=== PATIENT | male | born 1965 | race Caucasian/White ===

== ENCOUNTER 2024-02-01 12:48 | Inpatient (IN) | payer MEDICAID, SELFPAY ==
[2024-02-01] VITALS (16 sets, daily range): BP systolic 116–139; BP diastolic 67–83; PULSE 67–83; RESP 8–22; TEMP 36.8–37.1; O2SAT 90–97; BMI 37.1
--- NOTE | 2024-02-01 13:14 | W.ED.GENADLT ---
HPI - General Adult General: Chief complaint: Weakness Stated complaint: ETOH;ABD/BACK PAIN Time Seen by Provider: 02/01/24 13:08 History of Present Illness: 58-year-old male patient comes in today for complaints of inability to walk. Patient is a chronic alcoholic with history heart disease, seizure episodes, and prior bowel obstruction. Patient's female significant other called EMS after finding patient lying in bed covered in his excrement. Patient is alert states that EMS was called to help him because he could not get up out of bed. Patient endorses his last known drink was this morning. Review of Systems General: Reports: 10 or more systems reviewed and unremarkable except in HPI and below Physical Exam Const: COMMON NORMALS: alert HENMT: COMMON NORMALS: normocephalic HEAD & SCALP: normocephalic Neck/C-Spine: COMMON NORMALS: full ROM Chest: COMMONS NORMALS: normal inspection of the chest Resp: AUSCULTATION: diminished lung sounds (Bases) Cardio: COMMON NORMALS: regular rate and regular rhythm RATE: regular rate RHYTHM: regular rhythm GI: AUSCULTATION: Yes normoactive bowel sounds PALPATION: Yes Firmness to palpation present (GI) and No Tenderness to palpation present (GI) Back/Pelvis: COMMON NORMALS: thoracic and lumbar spine normal to inspection OTHER: 2 areas of ecchymosis to the right flank Extremity: COMMON NORMALS: no pedal edema Neuro: SENSORIUM/ORIENTATION: Yes alert Psych: COMMON NORMALS: cooperative Skin: COMMON NORMALS: turgor normal GENERAL SKIN EXAM: turgor normal Course Vital Signs: Vital signs: Vital Signs Temperature 98.3 F 02/01/24 12:55 Pulse Rate 71 02/01/24 12:55 Blood Pressure 128/78 02/01/24 12:55 Pulse Oximetry 95 02/01/24 12:55 Oxygen Delivery Me thod Nasal Cannula 02/01/24 12:55 Oxygen Flow Rate 4 02/01/24 12:55 [facility] - General Adult Medical Decision Making 58-year-old male patient brought in by EMS today for concerns of inability to walk. Patient appears to have been in his own excrement for the last 2 days. Girlfriend had called EMS after finding him in the situation today. Patient is known history of alcoholism with his last drink this morning. Patient reports he is unable to walk which is why he is here. Patient is able to sit up in bed with minimal effort. Pulses are noted in bilateral feet. No significant edema. Patient's abdomen is rotund with normal active bowel sounds. Patient has some decreased air movement in the bases of his lung asher. Patient desaturates to 81% on room air. Vital signs note a blood pressure 120/78, pulse 71, respirations 18, temperature afebrile 98.3, oxygen saturation 95 on 4 L of nasal cannula oxygen. Differential diagnosis includes substance use disorder, malnutrition, pneumonia, CHF, PE. 1423, D-dimer is 10.59, CBC was unremarkable, lactic was 2.8. Chest x-ray was normal. EKG was unremarkable. Initial troponin was 15, BNP was 78, CPK was 178. Due to the elevated D-dimer CTA of the chest was performed for further evaluation of hypoxia and abnormal lab. 1619, notified by Dr. Yvette Ruiz, radiologist, patient has a large burden of pulmonary emboli in his lung asher without heart strain. Talked with patient about his medication history patient states that he is supposed to be on Eliquis for blood clots but has not been taking the medication for the past 2 to 3 days. Patient also has a history of using baclofen and acetaminophen. Patient talks of no other routine medicines. Patient appears resting well at this time. Patient reports no pain. Reviewed this with Dr. Be who recommended consultation with hospitalist for admission. 1629, discussed patient with Dr. Boyer for who agreed to admission to CSU for monitoring of PE and hypoxia. Lab Data 02/01/24 13:25 02/01/24 13:25 Radiology Impressions Chest X-Ray 02/01/24 13:15 IMPRESSION: No acute findings. Laboratory Results WBC 7.56 10^3/uL (3.29-11.43) 02/01/24 13:25 RBC 4.86 10^6/uL (3.85-5.65) 02/01/24 13:25 Hgb 14.80 g/dL (11.27-16.99) 02/01/24 13:25 Hct 43.5 % (37-53) 02/01/24 13:25 MCV 89.5 fl (82-101) 02/01/24 13:25 MCH 30.5 pg (27-33) 02/01/24 13:25 MCHC 34.0 g/dL (30-55) 02/01/24 13:25 RDW 18.1 % (12.1-15.1) H 02/01/24 13:25 Plt Count 141 10^3/cmm (157-399) L 02/01/24 13:25 MPV 10.4 fL (7.4-10.4) 02/01/24 13:25 Neut % (Auto) 51.2 % 02/01/24 13:25 Lymph % (Auto) 30.8 % 02/01/24 13:25 Dawson % (Auto) 12.6 % 02/01/24 13:25 Eos % (Auto) 0.4 % 02/01/24 13:25 Baso % (Auto) 1.3 % 02/01/24 13:25 Neut # (Auto) 3.87 10^3/uL (1.8-7.7) 02/01/24 13:25 Lymph # (Auto) 2.3 10^3/uL (0.8-4.8) 02/01/24 13:25 Dawson # (Auto) 1.0 10^3/uL (0.2-0.9) H 02/01/24 13:25 Eos # (Auto) 0.0 10^3/uL (0.0-0.8) 02/01/24 13:25 Baso # (Auto) 0.1 10^3/uL (0.0-0.1) 02/01/24 13:25 Nucleated RBC % (auto) 0.5 % 02/01/24 13:25 Nucleated RBCs # 0.0 /100WBC 02/01/24 13:25 D-Dimer 10.59 ug/mLFEU (0-0.59) H 02/01/24 13:25 Sodium 142 mmol/L (136-145) 02/01/24 13:25 Potassium 3.7 mmol/L (3.5-5.1) 02/01/24 13:25 Chloride 99 mmol/L (98-107) 02/01/24 13:25 Carbon Dioxide 23 mmol/L (22-29) 02/01/24 13:25 Anion Gap 23.7 (5-19) H 02/01/24 13:25 BUN 7 mg/dL (6-20) 02/01/24 13:25 Creatinine 0.4 mg/dL (0.7-1.2) L 02/01/24 13:25 GFR Calculation 221.7 mL/min (90-130) H 02/01/24 13:25 Glucose 82 mg/dL (65-115) 02/01/24 13:25 Calculated Osmolality 291 mOsm/kg (285-295) 02/01/24 13:25 Lactic Acid 2.8 mmol/L (0.5-2.2) H 02/01/24 13:25 Calcium 8.1 mg/dL (8.5-10.5) L 02/01/24 13:25 Magnesium 1.9 mg/dL (1.7-2.3) 02/01/24 13:25 Total Bilirubin 1.2 mg/dL (0.15-1.2) 02/01/24 13:25 AST 338 U/L (0-40) H 02/01/24 13:25 ALT 145 U/L (0-41) H 02/01/24 13:25 Alkaline Phosphatase 217 U/L (40-130) H 02/01/24 13:25 Creatine Kinase 178 U/L (39-308) 02/01/24 13:25 Troponin T Baseline 15 ng/L (0-15) 02/01/24 13:25 Troponin T 120 Minute 13.78 ng/L (0-15) 02/01/24 15:25 Delta Troponin T -1.22 ABS# (0-10) L 02/01/24 15:25 C-Reactive Protein 9.2 mg/L (0.0-4.9) H 02/01/24 13:25 NT-Pro-B Natriuret Pep 78 pg/mL (0-125) 02/01/24 13:25 Total Protein 7.0 g/dL (6.6-8.7) 02/01/24 13:25 Albumin 3.9 g/dL (3.5-5.2) 02/01/24 13:25 Globulin 3.1 g/dL (1.3-4.6) 02/01/24 13:25 Vitamin B12 1479 pg/mL (232-1245) H 02/01/24 13:25 Ethyl Alcohol 372 mg/dL (0-10) H* 02/01/24 13:25 All radiology interpretation(s) finalized by discharge EKG Data EKG 1: EKG interpretation date: 02/01/24 EKG interpretation time: 13:47 Prior EKG tracings: not available for review Interpretation: EKG shows a sinus rhythm with a regular rate at [address] elevation or ectopy is noted. No prior exam was available for comparison. Computer generated interpretation: Chest X-Ray 02/01/24 13:15 IMPRESSION: No acute findings. Sinus rhythm, 60 bpm, right bundle branch block, abnormal EKG, unconfirmed report Discharge Plan Discharge Patient Disposition: Admitted As Inpatient Clinical Impression: Hypoxia Pulmonary embolism Qualifiers: Pulmonary embolism type: multiple subsegmental (without acute cor pulmonale) Qualified Code(s): I26.94 - Multiple subsegmental pulmonary emboli without acute cor pulmonale Condition: Stable Coding Level of Care Code ED [employer]
--- NOTE | 2024-02-01 13:15 | XRR_ITS ---
PROCEDURE INFORMATION: Exam: XR Chest Exam date and time: 02/01/2024 1:46 PM Age: 58 years old Clinical indication: Cough TECHNIQUE: Imaging protocol: Radiologic exam of the chest. Views: 1 view. COMPARISON: No relevant prior studies available. FINDINGS: Lungs: Unremarkable. No consolidation. Pleural spaces: Unremarkable. No pleural effusion. No pneumothorax. Heart/Mediastinum: Unremarkable. No cardiomegaly. Bones/joints: Deformity from multiple right rib fractures, presumably old based on history. XR/XR chest 1V portable 90017 IMPRESSION: No acute findings.
--- NOTE | 2024-02-01 13:16 | CT_ITS ---
WS: [id number] CT HEAD NONCONTRAST HISTORY: weakness, etoh TECHNIQUE: Contiguous axial imaging performed through the brain in 2.5 mm imaging. Bone and soft tiss ue windows. Sagittal and coronal reformats reviewed. All CT scans at [facility] use at least one of these dose optimization techniques: automated exposure control; mA and/or kV adjustment per pa tient size (includes targeted exams where dose is matched to clinical indication); or iterative recon struction. DLP: 1184.59 mGy.cm COMPARISON: None available. No acute intracranial hemorrhage, midline shift or mass effect. No atrophy or prior infarcts or herniation. Ventricles: Normal size with no hydrocephalus. No inferior displacement of the cerebellar tonsils. Paranasal sinuses: As visualized are clear. Mastoid air cells: Well pneumatized. Calvarium and scalp: Skull is intact with no soft tissue edema or swelling. IMPRESSION: Negative head CT.
--- NOTE | 2024-02-01 13:32 | ECG_ITS ---
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 Measurements Intervals [place] Rate: 60 P: 128 NV: 194 QRS: 55 QRSD: 125 T: 107 QT: 443 QTc: 445 Interpretive Statements SINUS RHYTHM RIGHT BUNDLE BRANCH BLOCK [120+ ms QRS DURATION, UPRIGHT V1, 40+ ms S IN I/aVL/V4/V5/V6] No previous ECG available for comparison Electronically Signed On 02-02-2024 17:03:25 CDT by Parth Allan M.D. [email or web address]/store/[id number]
[2024-02-01 13:49] LABS: Basophils # 0.1 10^3/uL (0.0-0.1); Basophils % 1.3 %; Eosinophils % 0.4 %; Hematocrit 43.5 % (37-53); Lymphocytes # 2.3 10^3/uL (0.8-4.8); Lymphocytes % 30.8 %; Mean Corpuscular Hemoglobin 30.5 pg (27-33); Mean Corpuscular Volume 89.5 fl (82-101); Mean Platelet Volume 10.4 fL (7.4-10.4); Monocytes % 12.6 %; Neutrophils # 3.87 10^3/uL (1.8-7.7); Neutrophils % 51.2 %; Nucleated Red Blood Cells % 0.5 %; Platelet Count 141 10^3/cmm (157-399); Red Blood Count 4.86 10^6/uL (3.85-5.65); Red Cell Distribution Width 18.1 % (12.1-15.1); White Blood Count 7.56 10^3/uL (3.29-11.43)
[2024-02-01] MEDS: sodium chloride 0.9% 1,000 ML 999 ML IV (14:08)
[2024-02-01 14:10] LABS: Lactic Sepsis W/Reflex 2.8 mmol/L (0.5-2.2); Troponin(5th) Baseline 15 ng/L (0-15)
[2024-02-01 14:12] LABS: D Dimer 10.59 ug/mLFEU (0-0.59)
[2024-02-01 14:20] LABS: Alanine Aminotransferase 145 U/L (0-41); Albumin Level 3.9 g/dL (3.5-5.2); Alkaline Phosphatase 217 U/L (40-130); Blood Urea Nitrogen 7 mg/dL (6-20); C Reactive Protein 9.2 mg/L (0.0-4.9); Calcium 8.1 mg/dL (8.5-10.5); Carbon Dioxide 23 mmol/L (22-29); Chloride 99 mmol/L (98-107); Creatine Phosphokinase 178 U/L (39-308); Creatinine Clr Calc Pharmacy 246.3832; Globulin 3.1 g/dL (1.3-4.6); Glomerular Filtration Rate 221.7 mL/min (90-130); Glucose 82 mg/dL (65-115); Magnesium 1.9 mg/dL (1.7-2.3); NT Pro B Type Natriuretic Pept 78 pg/mL (0-125); Osmolality Calculated 291 mOsm/kg (285-295); Sodium 142 mmol/L (136-145); Total Bilirubin 1.2 mg/dL (0.15-1.2)
--- NOTE | 2024-02-01 14:22 | CT_ITS ---
WS: [id number] CT CHEST ANGIOGRAPHY WITH REFORMATS HISTORY: elevated d dimer, hypoxia TECHNIQUE: Contiguous axial images are obtained through the chest during arterial injection of intrav enous contrast. Images are reconstructed to evaluate the pulmonary arteries. MIP imaging also reviewe d. All CT scans at [facility] use at least one of these dose optimization techniques: automat ed exposure control; mA and/or kV adjustment per patient size (includes targeted exams where dose is matched to clinical indication); or iterative reconstruction. CONTRAST: Omnipaque 350; 100 mL IV. DLP: 50.77 mGy.cm COMPARISON: None available. Good opacification of the pulmonary arteries. There is no central pulmonary emboli. Beginning in the distal RIGHT main pulmonary artery there is partial filling defect. Pulmonary emboli extend into the upper and lower lobe lobar and segmental pulmonary arteries. Most significant embolic burden is in th e RIGHT lower lobe. There is no RIGHT heart strain. No pericardial effusion. Wedge-shaped opacificati on LEFT upper lobe may be developing pulmonary infarct. No mass or pulmonary nodule. Mild atherosclerosis aorta. No adenopathy. Severe hepatic steatosis. There is marked low-attenuation throughout the liver. No duct dilatation. N o bone destruction. Multiple right-sided healed rib fractures. IMPRESSION: 1. Moderate pulmonary embolic burden. Pulmonary emboli involving all lobes. Greatest amount of embol ic burden is in the RIGHT lower lobe pulmonary artery. 2. No RIGHT heart strain. 3. Severe hepatic steatosis. Notified EMIR Qureshi at 02/01/2024 4:04 PM.
[2024-02-01 14:32] LABS: Anion Gap 23.7 (5-19); Aspartate Amino Transferase 338 U/L (0-40); Potassium 3.7 mmol/L (3.5-5.1)
[2024-02-01 14:42] LABS: Alcohol Level 372 mg/dL (0-10)
[2024-02-01 14:53] LABS: Vitamin B12 1479 pg/mL (232-1245)
[2024-02-01] MEDS: cyanocobalamin 1,000 mcg/mL SDV 1000 MCG IM (15:28)
[2024-02-01 15:31] LABS: Reflex Lactate Order REFLEX LACTIC ORDERD
[2024-02-01] MEDS: iohexol 350 mg/mL 500 mL Btl (per mL) IV (15:41)
--- NOTE | 2024-02-01 15:58 | ECG_ITS ---
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 Measurements Intervals [place] Rate: 64 P: 71 DE: 165 QRS: 147 QRSD: 124 T: 80 QT: 432 QTc: 447 Interpretive Statements SINUS RHYTHM POSSIBLE RIGHT VENTRICULAR HYPERTROPHY [SOME/ALL OF: PROMINENT R IN V1, LATE TRANSITION, RAD, [place], SSS] Compared to ECG 02/01/2024 13:44:14 Right bundle-branch block no longer present Electronically Signed On 02-02-2024 17:08:28 CDT by Parth Allan M.D. [email or web address]/store/[id number]
[2024-02-01 16:01] LABS: Troponin 5 2HR 13.78 ng/L (0-15)
[2024-02-01 16:02] LABS: Troponin 5 2HR Delta -1.22 ABS# (0-10)
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
--- NOTE | 2024-02-01 16:48 | USCV_ITS ---
Mor Ohara Age: 58 Gender: M : 1965 Exam Date: 02/01/2024 19:19 Ordering Phys: Nancy Seth MD Technologist: KATHERINE Exam Location: [facility] Indication: multiple pulmonary emboli. chronic ETOH abuser, history of seizures, history of neuropsych. BP: 120 / 78 HR: 70 Rhythm: Sinus Technical Quality: Adequate MEASUREMENTS (Male / Female) Normal Values 2D ECHO LV Diastolic Diameter PLAX 4.7 cm 4.2 - 5.9 / 3.9 - 5.3 cm LV Systolic Diameter PLAX 2.8 cm IVS Diastolic Thickness 1.2 cm 0.6 - 1.0 / 0.6 - 0.9 cm IVS Systolic Thickness 1.4 cm LVPW Diastolic Thickness 1.5 cm 0.6 - 1.0 / 0.6 - 0.9 cm LVPW Systolic Thickness 1.7 cm LVOT Diameter 2.0 cm LV Ejection Fraction 2D Teich 70.5 % LV Ejection Fraction MOD 2C 56.4 % LV Ejection Fraction 2C AL 55.6 % LA Diameter 4.6 cm LA Sys Volume AL 70.6 cm cubed Aorta at Sinotubular Diameter 3.3 cm IVC Diameter 1.3 cm M-MODE LA Ao Ratio MM 1.2 AV Cusp Separation MM 2.1 cm DOPPLER AV Peak Velocity 168.0 cm/s LVOT Peak Velocity 123.0 cm/s AV Area Cont Eq vti 2.3 cm squared AV Area Cont Eq pk 2.3 cm squared MV Peak Velocity 94.0 cm/s MV Area PHT 4.2 cm squared Mitral E to A Ratio 0.8 TV Peak Velocity 217.0 cm/s TR Peak Velocity 217.0 cm/s TR Peak Gradient 18.8 mmHg TV Peak E Velocity 45.0 cm/s Right Atrial Pressure 3.0 mmHg Pulmonary Artery Systolic Pressu 21.8 mmHg PV Peak Velocity 108.0 cm/s FINDINGS Left Ventricle Left ventricle is normal in size. LV systolic function is normal with EF of 55-60%. No regional wall motion abnormalities. Grade 1 diastolic dysfunction Right Ventricle Normal in size and function Right Atrium Normal in size Left Atrium Normal in size Mitral Valve Structurally normal mitral valve. Mild mitral regurgitation. Aortic Valve Structurally normal aortic valve. No significant stenosis or regurgitation. Tricuspid Valve Mild tricuspid regurgitation. Insufficient TR jet to calculate RVSP. Pulmonic Valve Not well visualized Pericardium Normal Aorta Normal in size IVC Appears to be normal CONCLUSIONS LV systolic function is normal with EF of 55-60% Grade 1 diastolic dysfunction Mild mitral regurgitation Mild tricuspid regurgitation No comparison studies are available. Parth Allan MD (Electronically Signed) Final Date: 02 February 2024 14:56 S
--- NOTE | 2024-02-01 16:53 | USR_ITS ---
PROCEDURE INFORMATION: Exam: US Duplex Lower Extremity Veins, Bilateral Exam date and time: 02/01/2024 5:12 PM Age: 58 years old Clinical indication: Other: Pe; Additional info: Multiple pulmonary embolism TECHNIQUE: Imaging protocol: Real-time duplex ultrasound of the bilateral extremities with 2-D perdomo scale, color Doppler flow and spectral waveform analysis including responses to compression and other maneuvers (when performed) with image documentation. Complete exam focused on the lower extremity veins. COMPARISON: No relevant prior studies available. FINDINGS: Right deep veins: Unremarkable. The common femoral, femoral, proximal profunda femoral and popliteal veins as well as the visualized deep veins of the lower leg are patent without thrombus. Normal Doppler waveforms. Normal compressibility and/or augmentation response. Left deep veins: Unremarkable. The common femoral, femoral, proximal profunda femoral and popliteal veins are patent as well as the visualized deep veins of the lower leg without thrombus. Normal Doppler waveforms. Normal compressibility and/or augmentation response. Superficial veins: Greater saphenous veins at the saphenofemoral junctions are patent bilaterally without thrombus. Soft tissues: Unremarkable. US/CV venous duplex [facility] [id number] IMPRESSION: No evidence of deep vein thrombosis.
[2024-02-01 17:10] LABS: Bilirubin Urine Neg (Negative); Blood Urine Neg (Negative); Glucose Urine UA Norm (Normal); Ketones Urine 1+ (Negative); Nitrate Urine Negative (Negative); Protein Urine 1+ (Negative); Urine Appearance Clear (CLEAR); Urine Color Yellow (Yellow); pH Urine 7 (5-7)
[2024-02-01 17:11] LABS: Add Urine Microscopic? YES; Leukocyte Esterase Urine Negative (Negative); Urobilinogen Urine 4 mg/dL (Negative)
[2024-02-01 17:18] LABS: Amphetamines Screen Urine Negative (Negative); Barbiturates Screen Urine Negative (Negative); Benzodiazepines Screen Urine Negative (Negative); Cocaine Screen Urine Negative (Negative); Opiate Screen Urine Negative (Negative); PCP Screen Urine Negative (Negative); THC Screen Urine Negative (Negative)
[2024-02-01 17:24] LABS: Add Urine Culture? No; RBC Urine RARE /hpf (0-2); Squamous Epithelial Cell Urine 0-4 /hpf (0-5); WBC Urine RARE /hpf (0-5)
[2024-02-01 17:35] LABS: INR 0.97 (0.8-1.2)
[2024-02-01 17:36] LABS: Partial Thromboplastin Time 28.2 SECONDS (23.9-36.7)
[2024-02-01 17:49] LABS: Lactic Acid level (Lactate) 2.7 mmol/L (0.5-2.2)
[2024-02-01] MEDS: enoxaparin 120 mg/0.8 mL Syringe 110 MG SUBCUT (18:35)
[2024-02-01] MEDS: dextrose 5%-sod chloride 0.45% 1,000 ML 80 ML IV (18:36)
[2024-02-01] MEDS: famotidine 20 mg/2 mL INJ IVP (18:36)
[2024-02-01 19:38] LABS: Troponin 5 6HR 16.33 ng/L (0-15); Troponin 5 6HR Delta 1.33 ng/L (0-12)
[2024-02-01] MEDS: baclofen 10 mg Tablet 20 MG PO (20:27)
[2024-02-01] MEDS: LORazepam 2 mg/mL INJ 1 mL IVP (20:27)
[2024-02-01] MEDS: gabapentin 100 mg Capsule PO (20:27)
[2024-02-01 20:50] LABS: Glucose Point of Care 135 mg/dL (70-110)
[2024-02-01] MEDS: mirtazapine 15 mg Tablet PO (22:32)
[2024-02-02] VITALS (10 sets, daily range): BP systolic 126–151; BP diastolic 80–96; PULSE 78–96; RESP 17–20; TEMP 36.5–37.9; O2SAT 91–98
[2024-02-02] MEDS: LORazepam 2 mg/mL INJ 1 mL IVP ×2 (02:17→03:57)
[2024-02-02 04:57] LABS: Basophils # 0.1 10^3/uL (0.0-0.1); Basophils % 1.1 %; Eosinophils # 0.1 10^3/uL (0.0-0.8); Eosinophils % 0.7 %; Hematocrit 37.5 % (37-53); Lymphocytes # 2.4 10^3/uL (0.8-4.8); Lymphocytes % 23.7 %; Mean Corpuscular HGB Conc 33.9 g/dL (30-55); Mean Corpuscular Hemoglobin 30.8 pg (27-33); Mean Platelet Volume 10.7 fL (7.4-10.4); Monocytes # 1.3 10^3/uL (0.2-0.9); Monocytes % 12.7 %; Neutrophils # 6.04 10^3/uL (1.8-7.7); Neutrophils % 59.1 %; Nucleated Red Blood Cells # 0.1 /100WBC; Nucleated Red Blood Cells % 1.1 %; Platelet Count 137 10^3/cmm (157-399); Red Blood Count 4.12 10^6/uL (3.85-5.65); Red Cell Distribution Width 18.4 % (12.1-15.1); White Blood Count 10.22 10^3/uL (3.29-11.43)
[2024-02-02 05:08] LABS: INR 0.99 (0.8-1.2)
[2024-02-02 05:15] LABS: Alanine Aminotransferase 105 U/L (0-41); Albumin Level 3.4 g/dL (3.5-5.2); Alkaline Phosphatase 178 U/L (40-130); Anion Gap 16.4 (5-19); Aspartate Amino Transferase 205 U/L (0-40); Blood Urea Nitrogen 8 mg/dL (6-20); Calcium 8.6 mg/dL (8.5-10.5); Carbon Dioxide 24 mmol/L (22-29); Chloride 99 mmol/L (98-107); Creatinine Clr Calc Pharmacy 199.6998; Globulin 2.5 g/dL (1.3-4.6); Glomerular Filtration Rate 171.4 mL/min (90-130); Glucose 138 mg/dL (65-115); Magnesium 1.4 mg/dL (1.7-2.3); Osmolality Calculated 283 mOsm/kg (285-295); Potassium 3.4 mmol/L (3.5-5.1); Sodium 136 mmol/L (136-145); Total Bilirubin 1.1 mg/dL (0.15-1.2); Total Protein 5.9 g/dL (6.6-8.7)
[2024-02-02 05:16] LABS: Lactic Sepsis W/Reflex 1.3 mmol/L (0.5-2.2)
[2024-02-02 05:21] LABS: NT Pro B Type Natriuretic Pept 93 pg/mL (0-125)
[2024-02-02] MEDS: famotidine 20 mg/2 mL INJ IVP ×2 (05:35→18:53)
[2024-02-02] MEDS: enoxaparin 120 mg/0.8 mL Syringe 110 MG SUBCUT ×2 (05:35→18:51)
[2024-02-02] MEDS: dextrose 5%-sod chloride 0.45% 1,000 ML 80 ML IV ×2 (06:40→20:38)
--- NOTE | 2024-02-02 09:05 | PC.CHAP ---
Pastoral Care Encounter/Spiritual Assessment Type of Contact [] Declined cloud physicist visit [] Patient/Family/Request visit [] Outpatient visit [] Follow-up visit [] Physician referral [] Code/Alert [] Routine visit [] Staff referral [] Actively dying [] Patient sleeping [] Family support [] [] Out of room [] Palliative care [] [x] Receiving care in room [] Pre-surgical visit [] Trauma [] Long length of stay [] ICU visit [] Other: Relational/Emotional Strength [] Patient feels connected with others/family/visitors/staff [] Distress [] Loneliness/isolation [] Abandonment Spirituality of Patient [] Person of Renetta [] Attends Voodoo of their Renetta [] Believes in Prayer [] Reads Bible or Christian materials [] There are Spiritual issues to be addressed [employer] Interventions [] Prayer [] Active listening [] Non-anxious presence [] Spiritual/emotional support [] Crisis/trauma care [] Spiritual counseling [] Bereavement support [] Provided bereavement packet [] Provided Bible/devotional materials [] Provided toy/stuffed animal, coloring book to patient or family member [] Provided Communion [] Anointing/[place] [] Salvation [] Completed spiritual assessment [] Other: Impact on Illness or Injury [] Angry [] Fearful [] Anxious [] Often cries [] Exhaustion [] Unable to work [] Unable to attend jainism [] Unable to walk/stand [] Unable to read [] Unable to drive [] Unable to eat/drink [] Unable to sleep [] Unable to be with family [] Patient intubated [] Other: Summary Time spent with patient
[2024-02-02] MEDS: ARIPiprazole 10 mg Tablet 5 MG PO (09:48)
[2024-02-02] MEDS: gabapentin 100 mg Capsule PO ×3 (09:48→20:39)
[2024-02-02] MEDS: ferrous sulfate EC 325 mg Tablet PO ×2 (09:48→18:52)
[2024-02-02] MEDS: magnesium oxide 400 mg tablet PO (09:48)
[2024-02-02] MEDS: baclofen 10 mg Tablet 20 MG PO ×3 (09:48→20:40)
[2024-02-02] MEDS: thiamine 100 mg Tablet PO (09:48)
[2024-02-02] MEDS: folic acid 1 mg Tablet PO (09:48)
[2024-02-02] MEDS: POLYMYXIN B EYE-BOTH ×2 (09:49→18:53)
[2024-02-02] MEDS: potassium chloride ER 20 mEq Tablet 40 MEQ PO ×2 (09:49→15:09)
[2024-02-02] MEDS: BACITRACIN EYE-BOTH ×2 (09:49→18:53)
[2024-02-02] MEDS: multivitamin therapeutic Tablet 1 TAB PO (09:49)
--- NOTE | 2024-02-02 11:57 | P.PN_ITS ---
Subjective 2 Subjective: No acute overnight events noted, he was seen bedside this morning, unable to open his left eye and found to have bilateral eye redness. He also complained of right-sided sciatica pain, which is his baseline Medications: Reviewed: Yes Vitals/I&O/Wt Last Vital Signs Temp 98.3 F 02/02/24 08:00 Pulse 80 02/02/24 09:23 Resp 20 H 02/02/24 08:00 BP 129/80 02/02/24 08:00 Pulse Ox 98 02/02/24 09:23 O2 Del Method Nasal Cannula 02/02/24 09:23 O2 Flow Rate 7 02/02/24 09:23 02/01/24 02/02/24 02/02/24 22:59 06:59 14:59 Intake Total 1440 / 1440 1685.333 / 3125.333 120 / 120 Output Total 300 / 300 Balance 1440 / 1440 1385.333 / 2825.333 120 / 120 Weight last 48 hrs Weight 113.942 kg Weight 110.767 kg Weight 111.13 kg Physical Exam 2 Narrative: He is alert awake oriented x 3, not in acute distress, poor hygiene, looks disheveled HEENT-bilateral eye redness present, yellow discharge in both eyes seen Chest air entry equal on both sides, occasional rhonchi present Cardiovascular normal heart sounds no murmurs, Abdomen soft nontender nondistended normal bowel sounds Extremities no edema present Data 02/02/24 04:47 02/02/24 04:47 Micro: Microbiology 02/01/24 13:25 Blood Culture - Preliminary Blood SPECIMEN COLLECTED 02/01/24 13:40 Blood Culture - Preliminary Blood SPECIMEN COLLECTED A&P Assessment and plan (1) Pulmonary embolism: Admitted for multiple pulmonary embolism on existing anticoagulant, Elquis therapy But in view of chronic alcohol abuse and questionable compliance with anticoagulant therapy , patient not a candidate for warfarin therapy and regular INR checkups . Hence will start on therapeutic subcutaneous Lovenox 110 mg twice a day Check PT/INR daily, target INR is 2 Discontinue Eliquis for now, once the INR is 2 will switch to Eliquis 10 mg p.o. twice daily for 5 days And then 5 mg p.o. twice daily. Recheck PT/INR in a.m. Duplex bilateral lower extremity negative for DVT Qualifiers: Pulmonary embolism type: multiple subsegmental (without acute cor pulmonale) Qualified Code(s): I26.94 - Multiple subsegmental pulmonary emboli without acute cor pulmonale (2) Hypoxia: Hypoxia likely secondary to multiple pulmonary embolism. Admit to CSU Will give supplemental oxygen to keep saturation more than 90%. Continuous cardiac monitoring Follow-up 2D echo (3) Alcohol abuse: Educated and counseled about alcohol cessation and smoking cessation (4) Elevated liver function tests: Secondary to chronic alcohol abuse, improving Will monitor for now Patient educated and counseled about alcohol cessation (5) Alcoholic ketoacidosis: Will give IV fluids normal saline at 80 mL/h p.o. multivitamin daily P.o. thiamine 100 mg daily P.o. folic acid 1 mg daily Monitor for alcohol withdrawal symptoms [facility] protocol in place. (6) D-dimer, elevated: Secondary to pulmonary embolism (7) Cigarette smoker: Counseled and educated about smoking cessation (8) Conjunctivitis due to adenovirus, both eyes: Polymyxin/neomycin ointment to be applied to both eyes 3 times a day Attestations 2 Medical Necessity Statement*: He needs continued hospitalization more than 2 midnights for anticoagulation for multiple PE with subcutaneous Lovenox until INR is 2. Time Spent in Patient Care: 15 minutes Coding Level of Care Code Acute Code for [facility] Fwd Diagnoses Pulmonary embolism I26.94 Pulmonary embolism type: multiple subsegmental (without acute cor pulmonale) Hypoxia R09.02 Alcohol abuse F10.10 Elevated liver function tests R79.89 Alcoholic ketoacidosis E87.29 D-dimer, elevated R79.89 Cigarette smoker F17.210 Conjunctivitis due to adenovirus, both eyes B30.1 Time Spent (min) 15
[2024-02-02] MEDS: mirtazapine 15 mg Tablet PO (20:40)
[2024-02-03] VITALS (9 sets, daily range): BP systolic 118–154; BP diastolic 69–93; PULSE 72–107; RESP 17–18; TEMP 36.4–37.1; O2SAT 92–96
[2024-02-03] MEDS: enoxaparin 120 mg/0.8 mL Syringe 110 MG SUBCUT ×2 (05:08→17:58)
[2024-02-03] MEDS: acetaminophen 500 mg Tablet 1000 MG PO ×4 (05:10→23:51)
[2024-02-03] MEDS: famotidine 20 mg/2 mL INJ IVP ×2 (05:10→17:57)
[2024-02-03 05:23] LABS: Basophils # 0.1 10^3/uL (0.0-0.1); Basophils % 1.2 %; Eosinophils # 0.1 10^3/uL (0.0-0.8); Eosinophils % 0.7 %; Hematocrit 38.9 % (37-53); Lymphocytes # 2.5 10^3/uL (0.8-4.8); Mean Corpuscular HGB Conc 31.4 g/dL (30-55); Mean Corpuscular Hemoglobin 30.5 pg (27-33); Mean Corpuscular Volume 97.3 fl (82-101); Mean Platelet Volume 11.1 fL (7.4-10.4); Monocytes # 1.4 10^3/uL (0.2-0.9); Monocytes % 14.6 %; Neutrophils # 5.07 10^3/uL (1.8-7.7); Neutrophils % 53.9 %; Nucleated Red Blood Cells # 0.2 /100WBC; Nucleated Red Blood Cells % 1.8 %; Platelet Count 136 10^3/cmm (157-399); Red Cell Distribution Width 18.6 % (12.1-15.1)
[2024-02-03 05:48] LABS: Alanine Aminotransferase 80 U/L (0-41); Albumin Level 3.3 g/dL (3.5-5.2); Alkaline Phosphatase 156 U/L (40-130); Anion Gap 12.8 (5-19); Aspartate Amino Transferase 118 U/L (0-40); Blood Urea Nitrogen 5 mg/dL (6-20); Calcium 8.8 mg/dL (8.5-10.5); Carbon Dioxide 26 mmol/L (22-29); Chloride 100 mmol/L (98-107); Creatinine Clr Calc Pharmacy 250.0433; Globulin 2.7 g/dL (1.3-4.6); Glomerular Filtration Rate 221.7 mL/min (90-130); Glucose 148 mg/dL (65-115); Magnesium 1.3 mg/dL (1.7-2.3); Osmolality Calculated 280 mOsm/kg (285-295); Potassium 3.8 mmol/L (3.5-5.1); Sodium 135 mmol/L (136-145); Total Bilirubin 0.9 mg/dL (0.15-1.2)
[2024-02-03 06:36] LABS: INR 1.02 (0.8-1.2)
[2024-02-03] MEDS: ferrous sulfate EC 325 mg Tablet PO ×2 (08:15→17:57)
[2024-02-03] MEDS: thiamine 100 mg Tablet PO (08:16)
[2024-02-03] MEDS: magnesium oxide 400 mg tablet PO ×2 (08:16→17:57)
[2024-02-03] MEDS: POLYMYXIN B EYE-BOTH ×2 (08:16→17:58)
[2024-02-03] MEDS: ARIPiprazole 10 mg Tablet 5 MG PO (08:16)
[2024-02-03] MEDS: multivitamin therapeutic Tablet 1 TAB PO (08:16)
[2024-02-03] MEDS: baclofen 10 mg Tablet 20 MG PO ×3 (08:16→21:01)
[2024-02-03] MEDS: BACITRACIN EYE-BOTH ×2 (08:16→17:58)
[2024-02-03] MEDS: folic acid 1 mg Tablet PO (08:16)
[2024-02-03] MEDS: gabapentin 100 mg Capsule PO ×3 (08:16→21:01)
[2024-02-03] MEDS: guaiFENesin-dextromethorphan UDC 10 mL PO (08:18)
--- NOTE | 2024-02-03 13:38 | P.PN_ITS ---
Subjective 2 Subjective: No acute overnight events noted. He is feeling better but weak and unable to stand and walk around. Denies any chest pain shortness of breath Medications: Reviewed: Yes Vitals/I&O/Wt Last Vital Signs Temp 98.4 F 02/03/24 11:28 Pulse 72 02/03/24 11:28 Resp 18 02/03/24 11:28 BP 136/86 02/03/24 11:28 Pulse Ox 94 02/03/24 11:28 O2 Del Method Nasal Cannula 02/03/24 11:28 O2 Flow Rate 2 02/03/24 09:13 02/02/24 02/03/24 02/03/24 22:59 06:59 14:59 Intake Total 1120 / 1240 790.667 / 2030.667 720 / 720 Output Total 300 / 300 675 / 975 1150 / 1150 Balance 820 / 940 115.667 / 1055.667 -430 / -430 Weight last 48 hrs Weight 114.305 kg Weight 113.942 kg Weight 110.767 kg Physical Exam 2 Narrative: He is alert awake oriented x 3, not in acute distress HEENT-bilateral eye redness present, yellow discharge in both eyes seen Chest air entry equal on both sides, occasional rhonchi present Cardiovascular normal heart sounds no murmurs, Abdomen soft nontender nondistended normal bowel sounds Extremities no edema present Data 02/03/24 05:09 02/03/24 05:09 Micro: Microbiology 02/01/24 13:40 Blood Culture - Preliminary Blood NEGATIVE TO DATE 02/01/24 13:25 Blood Culture - Preliminary Blood NEGATIVE TO DATE A&P Assessment and plan (1) Pulmonary embolism: Admitted for multiple pulmonary embolism on existing anticoagulant continue therapeutic subcutaneous Lovenox 110 mg twice a day Check PT/INR daily, target INR is 2 Discontinue Eliquis for now, once the INR is 2 will switch to Eliquis 10 mg p.o. twice daily for 5 days And then 5 mg p.o. twice daily. Recheck PT/INR in a.m. ECHO showed LV systolic function is normal with EF of 55-60% Grade 1 diastolic dysfunction Mild mitral regurgitation Mild tricuspid regurgitation Qualifiers: Pulmonary embolism type: multiple subsegmental (without acute cor pulmonale) Qualified Code(s): I26.94 - Multiple subsegmental pulmonary emboli without acute cor pulmonale (2) Hypoxia: Hypoxia likely secondary to multiple pulmonary embolism. Will give supplemental oxygen to keep saturation more than 90%. weaning trial prn Continuous cardiac monitoring (3) Alcohol abuse: Educated and counseled about alcohol cessation and smoking cessation (4) Elevated liver function tests: Secondary to chronic alcohol abuse, improving Will monitor for now Patient educated and counseled about alcohol cessation (5) Alcoholic ketoacidosis: Will give IV fluids normal saline at 80 mL/h p.o. multivitamin daily P.o. thiamine 100 mg daily P.o. folic acid 1 mg daily Monitor for alcohol withdrawal symptoms [facility] protocol in place. (6) D-dimer, elevated: Secondary to pulmonary embolism (7) Cigarette smoker: Counseled and educated about smoking cessation (8) Conjunctivitis due to adenovirus, both eyes: Polymyxin/neomycin ointment to be applied to both eyes 3 times a day Attestations 2 Medical Necessity Statement*: He needs continued hospitalization for subcutaneous therapeutic Lovenox till INR is 2 given history of multiple PE. Time Spent in Patient Care: 15 minutes Coding Level [facility] Diagn[facility] Pulmonary embolism I26.94 Pulmonary embolism type: multiple subsegmental (without acute cor pulmonale) Hypoxia R09.02 Alcohol abuse F10.10 Elevated liver function tests R79.89 Alcoholic ketoacidosis E87.29 D-dimer, elevated R79.89 Cigarette smoker F17.210 Conjunctivitis due to adenovirus, both eyes B30.1 Time Spent (min) 15
[2024-02-03] MEDS: dextrose 5%-sod chloride 0.45% 1,000 ML 80 ML IV (14:02)
[2024-02-03] MEDS: mirtazapine 15 mg Tablet PO (21:02)
--- NOTE | 2024-02-03 23:36 | PC.NURSE ---
pt had a bowel accident while standing for the urinal. pt stated he cleaned himself up and wouldn't allow nurse to make sure.
[2024-02-04] VITALS (12 sets, daily range): BP systolic 124–172; BP diastolic 80–97; PULSE 73–87; RESP 17–19; TEMP 36.6–37; O2SAT 90–98
[2024-02-04 04:57] LABS: INR 0.92 (0.8-1.2)
[2024-02-04 05:08] LABS: Magnesium 1.3 mg/dL (1.7-2.3)
[2024-02-04] MEDS: dextrose 5%-sod chloride 0.45% 1,000 ML 80 ML IV ×3 (05:08→22:41)
[2024-02-04 05:09] LABS: Alanine Aminotransferase 103 U/L (0-41); Albumin Level 3.4 g/dL (3.5-5.2); Alkaline Phosphatase 151 U/L (40-130); Anion Gap 12.5 (5-19); Aspartate Amino Transferase 231 U/L (0-40); Blood Urea Nitrogen 4 mg/dL (6-20); Calcium 9.1 mg/dL (8.5-10.5); Carbon Dioxide 29 mmol/L (22-29); Chloride 102 mmol/L (98-107); Creatinine Clr Calc Pharmacy 200.0346; Globulin 2.8 g/dL (1.3-4.6); Glomerular Filtration Rate 171.4 mL/min (90-130); Glucose 148 mg/dL (65-115); Osmolality Calculated 288 mOsm/kg (285-295); Potassium 4.5 mmol/L (3.5-5.1); Sodium 139 mmol/L (136-145); Total Bilirubin 0.9 mg/dL (0.15-1.2); Total Protein 6.2 g/dL (6.6-8.7)
[2024-02-04] MEDS: famotidine 20 mg/2 mL INJ IVP ×2 (05:45→18:24)
[2024-02-04] MEDS: enoxaparin 120 mg/0.8 mL Syringe 110 MG SUBCUT ×2 (05:45→18:23)
[2024-02-04] MEDS: baclofen 10 mg Tablet 20 MG PO ×3 (08:57→20:38)
[2024-02-04] MEDS: magnesium oxide 400 mg tablet PO ×2 (08:57→18:23)
[2024-02-04] MEDS: multivitamin therapeutic Tablet 1 TAB PO (08:58)
[2024-02-04] MEDS: ARIPiprazole 10 mg Tablet 5 MG PO (08:58)
[2024-02-04] MEDS: folic acid 1 mg Tablet PO (08:58)
[2024-02-04] MEDS: ferrous sulfate EC 325 mg Tablet PO ×2 (08:58→18:23)
[2024-02-04] MEDS: gabapentin 100 mg Capsule PO ×3 (08:59→20:38)
[2024-02-04] MEDS: acetaminophen 500 mg Tablet 1000 MG PO ×3 (08:59→20:38)
[2024-02-04] MEDS: thiamine 100 mg Tablet PO (08:59)
[2024-02-04] MEDS: POLYMYXIN B EYE-BOTH ×2 (08:59→18:24)
[2024-02-04] MEDS: BACITRACIN EYE-BOTH ×2 (08:59→18:24)
--- NOTE | 2024-02-04 10:36 | P.PN_ITS ---
Subjective 2 Subjective: No acute overnight events noted. He is feeling better as compared to on admission. Denies any chest pain shortness of breath. Saturating at 90 to 91% on room air. Was able to walk with a walker during rehab. Medications: Reviewed: Yes Vitals/I&O/Wt Last Vital Signs Temp 98.0 F 02/04/24 07:25 Pulse 76 02/04/24 07:25 Resp 19 H 02/04/24 07:25 BP 134/90 02/04/24 07:25 Pulse Ox 92 02/04/24 07:25 O2 Del Method Nasal Cannula 02/04/24 07:25 O2 Flow Rate 2 02/03/24 09:13 02/03/24 02/04/24 02/04/24 22:59 06:59 14:59 Intake Total 340 / 8199.665 4160 / 3059.333 240 / 240 Output Total 1500 / 2850 Balance 340 / 159.333 50 / 209.333 240 / 240 Weight last 48 hrs Weight 114.305 kg Physical Exam 2 Narrative: He is alert awake oriented x 3, not in acute distress HEENT-bilateral eye redness present, yellow discharge in both eyes seen Chest air entry equal on both sides, occasional rhonchi present Cardiovascular normal heart sounds no murmurs, Abdomen soft nontender nondistended normal bowel sounds Extremities no edema present Data 02/03/24 05:09 02/04/24 04:36 A&P Assessment and plan (1) Pulmonary embolism: Admitted for multiple pulmonary embolism on existing anticoagulant continue therapeutic subcutaneous Lovenox 110 mg twice a day will switch to Eliquis 10 mg p.o. twice daily for 5 days And then 5 mg p.o. twice daily. ECHO showed LV systolic function is normal with EF of 55-60% Grade 1 diastolic dysfunction Mild mitral regurgitation Mild tricuspid regurgitation Patient is a chronic alcoholic and active smoker. Discussed with him extensively about anticoagulant therapy with warfarin .he does not seem to be compliant with regular INR check and reports he sometimes forgets to take the blood thinner. He addresses he does not want to get regular blood test done and he better be on Eliquis than warfarin .Educated and counseled about need for anticoagulant therapy for further prevention of pulmonary embolism, understands and agrees with the plan of care. He wants to continue with oral anticoagulant therapy with Eliquis twice a day. Qualifiers: Pulmonary embolism type: multiple subsegmental (without acute cor pulmonale) Qualified Code(s): I26.94 - Multiple subsegmental pulmonary emboli without acute cor pulmonale (2) Hypoxia: Hypoxia likely secondary to multiple pulmonary embolism. Saturating 90 to 91% on room air will continue to monitor Continuous cardiac monitoring (3) Alcohol abuse: Educated and counseled about alcohol cessation and smoking cessation (4) Elevated liver function tests: Secondary to chronic alcohol abuse, improving Will monitor for now Patient educated and counseled about alcohol cessation (5) Alcoholic ketoacidosis: Will give IV fluids normal saline at 80 mL/h p.o. multivitamin daily P.o. thiamine 100 mg daily P.o. folic acid 1 mg daily Monitor for alcohol withdrawal symptoms [facility] protocol in place. (6) D-dimer, elevated: Secondary to pulmonary embolism (7) Cigarette smoker: Counseled and educated about smoking cessation (8) Conjunctivitis due to adenovirus, both eyes: Polymyxin/neomycin ointment to be applied to both eyes 3 times a day Attestations 2 Medical Necessity Statement*: He is hemodynamically stable, off oxygen but still has generalized weakness. Will continue with rehab today and follow-up for discharge in a.m. Time Spent in Patient Care: 15 minutes Coding Level of Care Code Acute Code for [facility] Fwd Diagnoses Pulmonary embolism I26.94 Pulmonary embolism type: multiple subsegmental (without acute cor pulmonale) Hypoxia R09.02 Alcohol abuse F10.10 Elevated liver function tests R79.89 Alcoholic ketoacidosis E87.29 D-dimer, elevated R79.89 Cigarette smoker F17.210 Conjunctivitis due to adenovirus, both eyes B30.1 Time Spent (min) 15
[2024-02-04] MEDS: mirtazapine 15 mg Tablet PO (20:38)
[2024-02-04] MEDS: guaiFENesin-dextromethorphan UDC 10 mL PO (20:45)
--- NOTE | 2024-02-04 23:16 | PC.NURSE ---
Made aware of patient mag level of 1.3 for past 2 days, has not received replacement. ordered mag sulfate IV once.
[2024-02-04] MEDS: magnesium sulfate premix 2 GM/50 ML PIGGYBACK IV (23:35)
[2024-02-05] VITALS (9 sets, daily range): BP systolic 111–150; BP diastolic 73–100; PULSE 68–98; RESP 14–29; TEMP 36.8–36.9; O2SAT 90–96
[2024-02-05] MEDS: LORazepam 1 mg Tablet PO (01:11)
[2024-02-05] MEDS: acetaminophen 500 mg Tablet 1000 MG PO ×3 (01:11→17:53)
[2024-02-05 03:49] LABS: Alanine Aminotransferase 171 U/L (0-41); Albumin Level 3.1 g/dL (3.5-5.2); Alkaline Phosphatase 141 U/L (40-130); Aspartate Amino Transferase 399 U/L (0-40); Blood Urea Nitrogen 7 mg/dL (6-20); Calcium 8.8 mg/dL (8.5-10.5); Carbon Dioxide 25 mmol/L (22-29); Chloride 103 mmol/L (98-107); Creatinine Clr Calc Pharmacy 250.0433; Globulin 2.9 g/dL (1.3-4.6); Glomerular Filtration Rate 221.7 mL/min (90-130); Glucose 131 mg/dL (65-115); Osmolality Calculated 282 mOsm/kg (285-295); Sodium 136 mmol/L (136-145); Total Bilirubin 0.8 mg/dL (0.15-1.2)
[2024-02-05 03:58] LABS: Anion Gap 11.9 (5-19); Potassium 3.9 mmol/L (3.5-5.1)
[2024-02-05] MEDS: enoxaparin 120 mg/0.8 mL Syringe 110 MG SUBCUT ×2 (05:35→17:49)
[2024-02-05] MEDS: famotidine 20 mg/2 mL INJ IVP ×2 (05:35→17:50)
[2024-02-05 07:09] LABS: INR 0.93 (0.8-1.2)
--- NOTE | 2024-02-05 07:28 | US_ITS ---
WS: [id number] Complete ABDOMINAL ULTRASOUND HISTORY: elevated liver function test COMPARISON: None available. Liver: 20.6 cm in length. Moderately enlarged liver with coarse echotexture and hepatic steatosis. No mass identified. The entire liver is not well imaged due to attenuation. No bile duct dilatation. Portal Vein: Normal hepatopetal flow with monophasic waveform. Gallbladder: Mildly hydropic gallbladder. Layering sludge within the gallbladder. There is no wall th ickening and no stones are identified. No para cholecystic fluid. CBD: 0.3 cm Pancreas: Completely obscured. Right kidney: 13.5 cm x 6.0 x 5.9 cm. Cortex:2.1 cm. Normal size and echogenicity. No hydronephrosis or mass. Left kidney: 11.6 cm x 5.7 cm x 5.7 cm. Cortex: 1.8 cm. Normal size and echogenicity. No hydronephrosis or mass. Spleen: Prior splenectomy. Aorta and IVC: Unremarkable abdominal aorta and IVC. Impression: 1. Mildly hydropic gallbladder with layering sludge. No wall thickening or pericholecystic fluid. No stones identified. And there is no bile duct dilatation. Suspect these findings are related to long- term fasting state. 2. Moderate hepatomegaly and marked hepatic steatosis. 3. Prior splenectomy. 4. No renal obstruction.
[2024-02-05] MEDS: ferrous sulfate EC 325 mg Tablet PO ×2 (09:04→17:49)
[2024-02-05] MEDS: ARIPiprazole 10 mg Tablet 5 MG PO (09:04)
[2024-02-05] MEDS: baclofen 10 mg Tablet 20 MG PO ×2 (09:04→16:02)
[2024-02-05] MEDS: thiamine 100 mg Tablet PO (09:05)
[2024-02-05] MEDS: gabapentin 100 mg Capsule PO ×2 (09:05→16:02)
[2024-02-05] MEDS: magnesium oxide 400 mg tablet PO ×2 (09:05→17:49)
[2024-02-05] MEDS: folic acid 1 mg Tablet PO (09:05)
[2024-02-05] MEDS: POLYMYXIN B EYE-BOTH (09:05)
[2024-02-05] MEDS: multivitamin therapeutic Tablet 1 TAB PO (09:05)
[2024-02-05] MEDS: BACITRACIN EYE-BOTH (09:05)
--- NOTE | 2024-02-05 10:54 | PC.CHAP ---
Pastoral Care Encounter/Spiritual Assessment Type of Contact [] Declined supervisor firearms visit [] Patient/Family/Request visit [] Outpatient visit [] Follow-up visit [] Physician referral [] Code/Alert [x] Routine visit [] Staff referral [] Actively dying [] Patient sleeping [] Family support [] [] Out of room [] Palliative care [] [] Receiving care in room [] Pre-surgical visit [] Trauma [] Long length of stay [] ICU visit [] Other: Relational/Emotional Strength [] Patient feels connected with others/family/visitors/staff [] Distress [] Loneliness/isolation [] Abandonment Spirituality of Patient [x] Person of Renetta [] Attends Pentecostal of their [place] [x] Believes in Prayer [] Reads Bible or Synagogue materials [] There are Spiritual issues to be addressed [employer] Interventions [x] Prayer [x] Active listening [] Non-anxious presence [] Spiritual/emotional support [] Crisis/trauma care [] Spiritual counseling [] Bereavement support [] Provided bereavement packet [x] Provided Bible/devotional materials [] Provided toy/stuffed animal, coloring book to patient or family member [] Provided Communion [] Anointing/[place] [] Salvation [x] Completed spiritual assessment [] Other: Impact on Illness or Injury [] Angry [] Fearful [] Anxious [] Often cries [] Exhaustion [] Unable to work [] Unable to attend protestant [] Unable to walk/stand [] Unable to read [] Unable to drive [] Unable to eat/drink [] Unable to sleep [] Unable to be with family [] Patient intubated [] Other: Summary Time spent with patient 10 min
[2024-02-05] MEDS: dextrose 5%-sod chloride 0.45% 1,000 ML 80 ML IV (16:03)
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
--- NOTE | 2024-02-05 17:13 | PC.NURSE ---
[facility] called to arrange transport for patient......Trip ID# [id number]
--- NOTE | 2024-02-05 18:57 | PC.NURSE ---
patient verbalized understanding of discharge instructions, home medications, and follow up appointments. patient pulled out his own IV.
--- NOTE | 2024-02-05 22:15 | PC.NURSE ---
Pt discharged via wheelchair at 2209 with cartender. All personal items were with pt at discharge. All questions answered from pt at time of discharge.
== END 2024-02-05 22:09 | disposition home or self-care (01) | DRG 176 ==
LOC: ER 16:22 → CSU 17:06
PROVIDERS: Admitting Provider Internal Medicine; Emergency Provider Nurse Practitioner Family; Visit Provider Internal Medicine
DX: I26.99 Other pulmonary embolism without acute cor pulmonale (principal); E87.29 Other acidosis; F10.10 Alcohol abuse, uncomplicated; R79.89 Other specified abnormal findings of blood chemistry; F17.210 Nicotine dependence, cigarettes, uncomplicated; Z79.01 Long term (current) use of anticoagulants; K76.0 Fatty (change of) liver, not elsewhere classified; Z86.711 Personal history of pulmonary embolism
CPT/HCPCS: 36415; 36416; 70450; 71045; 71275; 76700; 80053; 80306; 80307; 81001; 81015; 82550; 82607; 82962; 83605; 83735; 83880; 84484; 85025; 85378; 85610; 85730; 86140; 87040; 93005; 93306; 93970; 94664; 94760; 96361; 96372; 96374; 96376; 97110; 97116; 97161; 99285; J1650; J2060; J3411; J3420; J3475; J3490; J7030; J7799; Q9967

== ENCOUNTER 2024-04-10 14:10 | Emergency (ER) | payer MEDICAID, SELFPAY ==
[2024-04-10] VITALS (10 sets, daily range): BP systolic 114–120; BP diastolic 63–67; PULSE 58–76; RESP 16–18; TEMP 36.8; O2SAT 88–98
--- NOTE | 2024-04-10 14:17 | CTR_ITS ---
PROCEDURE INFORMATION: Exam: CTA Chest With Contrast Exam date and time: 04/10/2024 2:51 PM Age: 59 years old Clinical indication: Abdominal pain; Generalized; Other: SOB; Additional info: SOB, abd pain TECHNIQUE: Imaging protocol: Computed tomographic angiography of the chest with contrast. Exam focused on the arteries. 3D rendering (Not supervised by radiologist): MIP and/or 3D reconstructed images were created by the technologist. Radiation optimization: All CT scans at this facility use at least one of these dose optimization techniques: automated exposure control; mA and/or kV adjustment per patient size (includes targeted exams where dose is matched to clinical indication); or iterative reconstruction. Contrast material: OMNI 350; Contrast volume: 95 ml; Contrast route: INTRAVENOUS (IV); COMPARISON: CT angio chest PE protcl [id number] 02/01/2024 3:37 PM RADIATION DOSE METRICS: Total DLP (mGy-cm): 491 FINDINGS: Pulmonary arteries: Normal. No pulmonary emboli. Aorta: Unremarkable. No aortic aneurysm. No aortic dissection. Lungs: Hypoventilatory changes in the right lower lobe. Pleural spaces: Unremarkable. No pneumothorax. No pleural effusion. Heart: Unremarkable. No cardiomegaly. No pericardial effusion. Lymph nodes: Visible central lymph nodes are not pathologically enlarged. Bones/joints: Unremarkable. No acute fracture. Soft tissues: Unremarkable. PROCEDURE INFORMATION: Exam: CT Abdomen And Pelvis With Contrast Exam date and time: 04/10/2024 2:51 PM Age: 59 years old Clinical indication: Abdominal pain; Generalized; Other: SOB; Additional info: SOB, abd pain TECHNIQUE: Imaging protocol: Computed tomography of the abdomen and pelvis with contrast. Radiation optimization: All CT scans at this facility use at least one of these dose optimization techniques: automated exposure control; mA and/or kV adjustment per patient size (includes targeted exams where dose is matched to clinical indication); or iterative reconstruction. Contrast material: OMNI 350; Contrast volume: 95 ml; Contrast route: INTRAVENOUS (IV); COMPARISON: US abdomen complete* [id number] 02/05/2024 3:30 PM RADIATION DOSE METRICS: Total DLP (mGy-cm): 988 FINDINGS: Liver: Hepatic steatosis. Gallbladder and bile ducts: Normal. No calcified stones. No ductal dilation. Pancreas: Normal. No ductal dilation. Spleen: Presumed splenectomy. Tiny splenules are present in the left upper quadrant. Adrenal glands: 2.3 cm lipid rich nonfunctioning right adrenal adenoma. Kidneys and ureters: Small right renal cyst. Nonobstructing right renal calculus. Stomach and bowel: Unremarkable. No obstruction. No mucosal thickening. Appendix: No evidence of appendicitis. Intraperitoneal space: Unremarkable. No free air. No significant fluid collection. Vasculature: Unremarkable. No abdominal aortic aneurysm. Lymph nodes: Unremarkable. No enlarged lymph nodes. Urinary bladder: Unremarkable as visualized. Reproductive: Unremarkable as visualized. Bones/joints: Unremarkable. No acute fracture. Soft tissues: Unremarkable. CT/CT angio chest w abd pel w con IMPRESSION: No acute findings. IMPRESSION: No acute findings. COMMENTS: Consistent with the [employer]'s Incidental Findings Committee white paper (J Am Nancy Radiol 2018): Any incidental renal lesion less than 1 cm or classified as too small to characterize, or any incidental cystic renal lesion characterized as simple-appearing, is likely benign. No follow-up imaging is recommended for these lesions per consensus recommendations based on imaging criteria.
--- NOTE | 2024-04-10 14:17 | XR_ITS ---
WS: [id number] Exam: XR chest 1V portable [id number] Date/Time of Exam: 04/10/2024 2:35 PM Reason For Exam: sob Comparison 02/01/2024. The lungs are clear and fully expanded. Unremarkable cardiomediastinal silhouette and regional bony e lements. No pleural effusions. Numerous soft tissue ossifications seen along the superior margin of t he RIGHT humeral head that may indicate calcific bursitis and/or tendinitis. XR/XR chest 1V portable [id number] IMPRESSION: 1. No acute cardiopulmonary finding.
--- NOTE | 2024-04-10 14:17 | ECG_ITS ---
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 Measurements Intervals [place] Rate: 70 P: 64 AR: 199 QRS: 136 QRSD: 114 T: 75 QT: 434 QTc: 469 Interpretive Statements SINUS RHYTHM PATTERN CONSISTENT WITH PULMONARY DISEASE INCOMPLETE RIGHT BUNDLE BRANCH BLOCK [90+ ms QRS DURATION, TERMINAL R IN V1/V2, 40+ ms S IN I/aVL/V4/V5/V6] POSSIBLE RIGHT VENTRICULAR HYPERTROPHY [SOME/ALL OF: PROMINENT R IN V1, LATE TRANSITION, RAD, [place], SSS] Compared to ECG 02/01/2024 15:58:36 Incomplete right bundle-branch block now present Electronically Signed On 04-12-2024 13:33:52 CDT by Sam Veronica M.D. [id number]
--- NOTE | 2024-04-10 14:38 | ED_ITS ---
HPI - Abdominal Pain 2 General: Chief Complaint: Abdominal Pain Stated Complaint: abd pain Time Seen by Provider: 04/10/24 14:13 Source: patient and EMS Mode of arrival: EMS Limitations: no limitations History of Present Illness: 59-year-old male with a history of alcoh olism he is also had a history of a PE in the past. He states that over the last 4 days he has been having diffuse abdominal pain. He states he has been having some chest pain and shortness of breath. He states that he has not been able to take care of himself has been urinating on himself he has been in severe pain unable to do anything due to his pain. Denies any vomiting or diarrhea Associated Symptoms: Denies chills, diarrhea, dysuria, fever(s), nausea and vomiting Review of Systems 2 Const: Denies: fever(s), chills, body aches or change in appetite ENMT: Denies: throat pain or dental pain Card: Reports: chest pain Resp: Reports: dyspnea GI: Reports: abdominal pain; Denies: nausea, vomiting or diarrhea : Denies: dysuria Musc: Denies: neck pain or back pain Skin/Breast: Denies: rash Neuro: Denies: headache(s) PFSH ED 2 PFSH: Medical History Cigarette smoker D-dimer, elevated Physical Exam 2 Const: COMMON NORMALS: no acute distress and patient oriented x3 GENERAL APPEARANCE: disheveled HENMT: COMMON NORMALS: normocephalic and atraumatic HEAD & SCALP: n ormocephalic and atraumatic Eye: COMMON NORMALS: Equal, round and reactive pupils present and EOMs intact bilaterally PUPIL: Yes Equal, round and reactive pupils present Neck/C-Spine: COMMON NORMALS: full ROM and supple Chest: COMMONS NORMALS: normal inspection of the chest and normal palpation of entire chest wall Resp: COMMON NORMALS: normal respiratory effort, No retractions, No use of accessory muscles and clear to auscultation bilaterally AUSCULTATION: clear to auscultation bilaterally Cardio: COMMON NORMALS: regular rate, regular rhythm and No murmurs present (Cardio) RATE: regular rate RHYTHM: regular rhythm GI: COMMON NORMALS: Normal to inspection, nondistended, normoactive bowel sounds present, Soft to palpation and no masses PALPATION: Yes Soft to palpation OTHER: diffuse tenderness Extremity: COMMON NORMALS: normal to inspection and full ROM Neuro: COMMON NORMALS: patient oriented x3, moves all extremities and no focal motor deficits Psych: COMMON NORMALS: mental status grossly normal, Normal thought process present and cooperative THOUGHT PROCESS: Normal thought process present Skin: COMMON NORMALS: no rashes or lesions noted and no wounds GENERAL SKIN EXAM: no rashes or lesions noted Course 2 Vital Signs: Vital signs: Vital Signs Temperature 98.2 F 04/10/24 14:19 Pulse Rate 58 L 04/10/24 19:51 Respiratory Rate 18 04/10/24 19:51 Blood Pressure 114/63 04/10/24 19:51 Pulse Oximetry 98 04/10/24 19:51 Oxygen Delivery Me thod Nasal Cannula 04/10/24 14:19 Oxygen Flow Rate 2 04/10/24 14:19 MDM - Abdominal Pain Medical Decision Making Patient presents here with chest abdominal pain his troponins lab work imaging here showed no acute abnormalities alkaloid was 296 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 Lab Data I reviewed the patient's lab results. 04/10/24 15:09 04/10/24 15:09 Labs/Radiology: Radiology Impressions Chest X-Ray 04/10/24 14:17 IMPRESSION: 1. No acute cardiopulmonary finding. Chest/Abdomen/Pelvis CT 04/10/24 14:17 IMPRESSION: No acute findings. IMPRESSION: No acute findings. COMMENTS: Consistent with the [employer]'s Incidental Findings Committee white paper (J Am Nancy Radiol 2018): Any incidental renal lesion less than 1 cm or classified as too small to characterize, or any incidental cystic renal lesion characterized as simple-appearing, is likely benign. No follow-up imaging is recommended for these lesions per consensus recommendations based on imaging criteria. Laboratory Results WBC 13.01 10^3/uL (3.29-11.43) H 04/10/24 15:09 RBC 4.69 10^6/uL (3.85-5.65) 04/10/24 15:09 Hgb 14.30 g/dL (11.27-16.99) 04/10/24 15:09 Hct 43.0 % (37-53) 04/10/24 15:09 MCV 91.7 fl (82-101) 04/10/24 15:09 MCH 30.5 pg (27-33) 04/10/24 15:09 MCHC 33.3 g/dL (30-55) 04/10/24 15:09 RDW 15.7 % (12.1-15.1) H 04/10/24 15:09 Plt Count 416 10^3/cmm (157-399) H 04/10/24 15:09 MPV 8.7 fL (7.4-10.4) 04/10/24 15:09 Neut % (Auto) 59.1 % 04/10/24 15:09 Lymph % (Auto) 31.9 % 04/10/24 15:09 [place] % (Auto) 6.8 % 04/10/24 15:09 Eos % (Auto) 0.7 % 04/10/24 15:09 Baso % (Auto) 1.1 % 04/10/24 15:09 Neut # (Auto) 7.69 10^3/uL (1.8-7.7) 04/10/24 15:09 Lymph # (Auto) 4.2 10^3/uL (0.8-4.8) 04/10/24 15:09 [place] # (Auto) 0.9 10^3/uL (0.2-0.9) 04/10/24 15:09 Eos # (Auto) 0.1 10^3/uL (0.0-0.8) 04/10/24 15:09 Baso # (Auto) 0.1 10^3/uL (0.0-0.1) 04/10/24 15:09 Nucleated RBC % (auto) 0 % 04/10/24 15:09 Nucleated RBCs # 0.0 /100WBC 04/10/24 15:09 PT 13.10 SECONDS (12.1-14.9) 04/10/24 15:09 INR 0.96 (0.8-1.2) 04/10/24 15:09 Sodium 142 mmol/L (136-145) 04/10/24 15:09 Potassium 4.0 mmol/L (3.5-5.1) 04/10/24 15:09 Chloride 101 mmol/L (98-107) 04/10/24 15:09 Carbon Dioxide 22 mmol/L (22-29) 04/10/24 15:09 Anion Gap 23.0 (5-19) H 04/10/24 15:09 BUN 7 mg/dL (6-20) 04/10/24 15:09 Creatinine 0.5 mg/dL (0.7-1.2) L 04/10/24 15:09 GFR Calculation 170.8 mL/min (90-130) H 04/10/24 15:09 Glucose 71 mg/dL (65-115) 04/10/24 15:09 Calculated Osmolality 290 mOsm/kg (285-295) 04/10/24 15:09 Calcium 7.9 mg/dL (8.5-10.5) L 04/10/24 15:09 Total Bilirubin 0.4 mg/dL (0.15-1.2) 04/10/24 15:09 AST 33 U/L (0-40) 04/10/24 15:09 ALT 19 U/L (0-41) 04/10/24 15:09 Alkaline Phosphatase 93 U/L (40-130) 04/10/24 15:09 Troponin T Baseline 9 ng/L (0-15) 04/10/24 15:09 Troponin T 120 Minute 10.46 ng/L (0-15) 04/10/24 17:17 Delta Troponin T 1.46 ABS# (0-10) 04/10/24 17:17 NT-Pro-B Natriuret Pep 48 pg/mL (0-125) 04/10/24 15:09 Total Protein 6.3 g/dL (6.6-8.7) L 04/10/24 15:09 Albumin 3.9 g/dL (3.5-5.2) 04/10/24 15:09 Globulin 2.4 g/dL (1.3-4.6) 04/10/24 15:09 Lipase 11 U/L (13-60) L 04/10/24 15:09 Ethyl Alcohol 296 mg/dL (0-10) H 04/10/24 15:09 All radiology interpretation(s) finalized by discharge EKG Data EKG 1: I personally reviewed and interpreted this EKG as follows: EKG interpretation date: 04/10/24 EKG interpretation time: 14:32 Interpretation: nsr hr [address] elevation qrs 114 qtc 455 Discharge Plan Discharge Patient Disposition: Home Clinical Impression: Alcohol abuse, Abdominal pain Condition: Stable Prescriptions: New Protonix 40 mg tablet,delayed release (DR/EC) 40 mg PO DAILY Qty: 60 0RF ondansetron 4 mg tablet,disintegrating 4 mg PO Q6H PRN (Reason: nausea and vomiting) Qty: 14 0RF No Action acetaminophen 500 mg tablet 1,000 mg PO Q6H PRN (Reason: Pain) ferrous sulfate [FeroSul] 325 mg (65 mg iron) tablet 325 mg PO BID mirtazapine 15 mg tablet 15 mg PO BEDTIME gabapentin 100 mg capsule 100 mg PO TID aripiprazole 5 mg tablet 5 mg PO DAILY Vitamin Plus Low Iron 27 mg iron- 1 mg tablet 1 tab PO DAILY Eliquis 5 mg tablet 5 mg PO BID baclofen 20 mg tablet 20 mg PO BID 7 Days Qty: 0 0RF Discharge Orders: Discharge ED (Routine); Ordered 04/10/24 Ordered By: Alessio Be Referrals: Yonas Devi DO [Physician] - 4-7 days Discharge Diet: Advance as tolerated Discharge Activity: Resume usual activity Patient Instructions: Abdominal Pain (ED) Coding Level of Care Code ED [employer] for [employer]
[2024-04-10] MEDS: ondansetron 2 mg/ML SDV 2 mL 4 MG IVP (14:40)
[2024-04-10] MEDS: morphine 4 mg/mL SDV 1 mL IVP (14:40)
[2024-04-10] MEDS: iohexol 350 mg/mL 500 mL Btl (per mL) IV (14:55)
[2024-04-10 15:18] LABS: Basophils # 0.1 10^3/uL (0.0-0.1); Basophils % 1.1 %; Eosinophils # 0.1 10^3/uL (0.0-0.8); Eosinophils % 0.7 %; Lymphocytes # 4.2 10^3/uL (0.8-4.8); Lymphocytes % 31.9 %; Mean Corpuscular HGB Conc 33.3 g/dL (30-55); Mean Corpuscular Hemoglobin 30.5 pg (27-33); Mean Corpuscular Volume 91.7 fl (82-101); Mean Platelet Volume 8.7 fL (7.4-10.4); Monocytes # 0.9 10^3/uL (0.2-0.9); Monocytes % 6.8 %; Neutrophils # 7.69 10^3/uL (1.8-7.7); Neutrophils % 59.1 %; Nucleated Red Blood Cells % 0 %; Platelet Count 416 10^3/cmm (157-399); Red Blood Count 4.69 10^6/uL (3.85-5.65); Red Cell Distribution Width 15.7 % (12.1-15.1); White Blood Count 13.01 10^3/uL (3.29-11.43)
[2024-04-10 15:26] LABS: INR 0.96 (0.8-1.2)
[2024-04-10 15:33] LABS: Troponin(5th) Baseline 9 ng/L (0-15)
[2024-04-10 15:42] LABS: Alanine Aminotransferase 19 U/L (0-41); Albumin Level 3.9 g/dL (3.5-5.2); Alcohol Level 296 mg/dL (0-10); Alkaline Phosphatase 93 U/L (40-130); Aspartate Amino Transferase 33 U/L (0-40); Blood Urea Nitrogen 7 mg/dL (6-20); Calcium 7.9 mg/dL (8.5-10.5); Carbon Dioxide 22 mmol/L (22-29); Chloride 101 mmol/L (98-107); Creatinine Clr Calc Pharmacy 196.7982; Globulin 2.4 g/dL (1.3-4.6); Glomerular Filtration Rate 170.8 mL/min (90-130); Glucose 71 mg/dL (65-115); Lipase 11 U/L (13-60); NT Pro B Type Natriuretic Pept 48 pg/mL (0-125); Osmolality Calculated 290 mOsm/kg (285-295); Sodium 142 mmol/L (136-145); Total Bilirubin 0.4 mg/dL (0.15-1.2); Total Protein 6.3 g/dL (6.6-8.7)
--- NOTE | 2024-04-10 15:52 | ECG_ITS ---
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 Measurements Intervals [place] Rate: 66 P: 55 [place]: 203 QRS: 138 QRSD: 117 T: 67 QT: 441 QTc: 463 Interpretive Statements SINUS RHYTHM RIGHT AXIS DEVIATION [QRS AXIS > 100] LOW QRS VOLTAGE IN PRECORDIAL LEADS [QRS DEFLECTION < 1.0 mV IN CHEST LEADS] PATTERN CONSISTENT WITH PULMONARY DISEASE RIGHT BUNDLE BRANCH BLOCK [120+ ms QRS DURATION, UPRIGHT V1, 40+ ms S IN I/aVL/V4/V5/V6] Compared to ECG 04/10/2024 14:32:47 Right-axis deviation now present Low QRS voltage now present Right bundle-branch block now present Incomplete right bundle-branch block no longer present Electronically Signed On 04-12-2024 13:56:50 CDT by Sam Veronica M.D. [id number]
[2024-04-10 17:53] LABS: Troponin 5 2HR 10.46 ng/L (0-15); Troponin 5 2HR Delta 1.46 ABS# (0-10)
--- NOTE | 2024-04-11 08:07 | DCPLANNER ---
messaged gen surg for er f/u
== END 2024-04-10 19:59 | disposition home or self-care (01) ==
PROVIDERS: Emergency Provider Emergency Medicine
DX: R10.9 Unspecified abdominal pain (principal); F10.10 Alcohol abuse, uncomplicated; Z79.01 Long term (current) use of anticoagulants; Y90.8 Blood alcohol level of 240 mg/100 ml or more
CPT/HCPCS: 36415; 71045; 71275; 74177; 80053; 80307; 83690; 83880; 84484; 85025; 85610; 93005; 96374; 96375; 99285; J2270; J2405; Q9967

== ENCOUNTER 2024-04-23 05:39 | Inpatient (IN) | payer MEDICAID, SELFPAY ==
[2024-04-23 05:39] VITALS: BP 143/85; PULSE 91; RESP 16; TEMP 36.7; O2SAT 94; BMI 38.0
--- NOTE | 2024-04-23 05:58 | ED.C_ITS ---
HPI - Psych 2 General: Chief Complaint: Psychiatric Symptoms Stated Complaint: MHE Time Seen by Provider: 04/23/24 05:43 Source: patient Mode of arrival: EMS History of Present Illness: 59-year-old male who presents emergency room via EMS. Patient states having auditory hallucinations of voices telling him to jump into traffic. He states he is schizophrenic. he has still been taking his meds per his report, he does admit to drinking last evening in an attempt to stop auditory hallucinations. Associated symptoms: Reports auditory hallucinations Review of Systems 2 Const: Denies: fever(s) or chills Card: Denies: chest pain Resp: Denies: dyspnea GI: Denies: abdominal pain : Denies: dysuria, urinary frequency or urinary urgency Musc: Denies: neck pain or back pain Skin/Breast: Denies: rash Psych: Reports: auditory hallucinations PFSH ED 2 PFSH: Medical History Cigarette smoker D-dimer, elevated Social History (Updated 04/23/24 @ 06:11 by Dnoy Mcintosh DO) Alcohol intake: current Physical Exam 2 Const: COMMON NORMALS: no acute distress GENERAL APPEARANCE: cooperative and comfortable ORIENTATION/CONSCIOUSNESS: Yes awake, Yes oriented to person, Yes oriented to place and Yes oriented to time HENMT: COMMON NORMALS: normocephalic, atraumatic and hearing grossly normal bilaterally HEAD & SCALP: normocephalic and atraumatic Resp: COMMON NORMALS: normal respiratory effort, No retractions, No use of accessory muscles and clear to auscultation bilaterally AUSCULTATION: clear to auscultation bilaterally Cardio: COMMON NORMALS: regular rate, regular rhythm and No murmurs present (Cardio) RATE: regular rate RHYTHM: regular rhythm GI: COMMON NORMALS: Soft to palpation and No hepatosplenomegaly present A USCULTATION: Yes normoactive bowel sounds PALPATION: Yes Soft to palpation, No Tenderness to palpation present (GI), No Guarding due to palpation present (GI) and Yes No hepatosplenomegaly present Extremity: COMMON NORMALS: normal to inspection, capillary refill normal, no clubbing, cyanosis or edema, no calf tenderness and no pedal edema Neuro: SENSORIUM/ORIENTATION: Yes oriented to person, Yes oriented to place and Yes oriented to time Skin: COMMON NORMALS: no rashes or lesions noted GENERAL SKIN EXAM: no rashes or lesions noted Course 2 Vital Signs: Vital signs: Vital Signs Temperature 98.1 F 04/23/24 05:39 Pulse Rate 91 04/23/24 05:39 Respiratory Rate 16 04/23/24 05:39 Blood Pressure 143/85 04/23/24 05:39 Pulse Oximetry 94 04/23/24 05:39 Oxygen Delivery Me thod Room Air 04/23/24 05:39 MDM - Psych Medical Decision Making Acute psychosis with auditory hallucinations and suicidal ideation. Patient is also currently heavily intoxicated. He does not appear to be has been taking his Eliquis. He was given 10 mg of aripiprazole this morning. Symptoms are likely aggravated by his alcohol use. Discussed Dr. Mak will admit for acute psychosis and suicidal ideation. Differential Diagnosis Likely acute psychosis, suicidal ideation and drug-induced psychotic disorder Medical Records I reviewed the patient's medical records. Lab Data I reviewed the patient's lab results. 04/23/24 05:54 04/23/24 05:54 Laboratory Results WBC 10.19 10^3/uL (3.29-11.43) 04/23/24 05:54 RBC 5.15 10^6/uL (3.85-5.65) 04/23/24 05:54 Hgb 15.70 g/dL (11.27-16.99) 04/23/24 05:54 Hct 47.4 % (37-53) 04/23/24 05:54 MCV 92.0 fl (82-101) 04/23/24 05:54 MCH 30.5 pg (27-33) 04/23/24 05:54 MCHC 33.1 g/dL (30-55) 04/23/24 05:54 RDW 17.1 % (12.1-15.1) H 04/23/24 05:54 Plt Count 164 10^3/cmm (157-399) 04/23/24 05:54 MPV 9.7 fL (7.4-10.4) 04/23/24 05:54 Neut % (Auto) 60.6 % 04/23/24 05:54 Lymph % (Auto) 26.9 % 04/23/24 05:54 [place] % (Auto) 10.7 % 04/23/24 05:54 Eos % (Auto) 0.7 % 04/23/24 05:54 Baso % (Auto) 0.5 % 04/23/24 05:54 Neut # (Auto) 6.18 10^3/uL (1.8-7.7) 04/23/24 05:54 Lymph # (Auto) 2.7 10^3/uL (0.8-4.8) 04/23/24 05:54 [place] # (Auto) 1.1 10^3/uL (0.2-0.9) H 04/23/24 05:54 Eos # (Auto) 0.1 10^3/uL (0.0-0.8) 04/23/24 05:54 Baso # (Auto) 0.1 10^3/uL (0.0-0.1) 04/23/24 05:54 Nucleated RBC % (auto) 0.3 % 04/23/24 05:54 Nucleated RBCs # 0.0 /100WBC 04/23/24 05:54 PT 12.50 SECONDS (12.1-14.9) 04/23/24 05:54 INR 0.91 (0.8-1.2) 04/23/24 05:54 Sodium 142 mmol/L (136-145) 04/23/24 05:54 Potassium 3.7 mmol/L (3.5-5.1) 04/23/24 05:54 Chloride 102 mmol/L (98-107) 04/23/24 05:54 Carbon Dioxide 20 mmol/L (22-29) L 04/23/24 05:54 Anion Gap 23.7 (5-19) H 04/23/24 05:54 BUN 5 mg/dL (6-20) L 04/23/24 05:54 Creatinine 0.5 mg/dL (0.7-1.2) L 04/23/24 05:54 GFR Calculation 170.8 mL/min (90-130) H 04/23/24 05:54 Glucose 104 mg/dL (65-115) 04/23/24 05:54 Calculated Osmolality 292 mOsm/kg (285-295) 04/23/24 05:54 Calcium 8.7 mg/dL (8.5-10.5) 04/23/24 05:54 Total Bilirubin 0.5 mg/dL (0.15-1.2) 04/23/24 05:54 AST 65 U/L (0-40) H 04/23/24 05:54 ALT 41 U/L (0-41) 04/23/24 05:54 Alkaline Phosphatase 141 U/L (40-130) H 04/23/24 05:54 Total Protein 7.0 g/dL (6.6-8.7) 04/23/24 05:54 Albumin 3.9 g/dL (3.5-5.2) 04/23/24 05:54 Globulin 3.1 g/dL (1.3-4.6) 04/23/24 05:54 Salicylates < 0.3 mg/dL (3-10) L 04/23/24 05:54 Urine Opiates Screen Negative ng/mL (Negative) 04/23/24 05:55 Acetaminophen < 5.0 ug/mL (10-30) L 04/23/24 05:54 Ur Barbiturates Screen Negative ng/mL (Negative) 04/23/24 05:55 Ur Phencyclidine Scrn Negative ng/mL (Negative) 04/23/24 05:55 Ur Amphetamines Screen Negative ng/mL (Negative) 04/23/24 05:55 U Benzodiazepines Scrn Negative ng/mL (Negative) 04/23/24 05:55 Urine Cocaine Screen Negative ng/mL (Negative) 04/23/24 05:55 U Marijuana (THC) Screen Positive ng/mL (Negative) H 04/23/24 05:55 Ethyl Alcohol 177 mg/dL (0-10) H 04/23/24 05:54 All radiology interpretation(s) finalized by discharge Discharge Plan Discharge Patient Disposition: Admitted As Inpatient Clinical Impression: Acute psychosis, Alcohol abuse, Suicidal ideation, Hx of pulmonary embolus Condition: Stable Coding Level of Care Code ED 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
[2024-04-23 06:03] LABS: Basophils # 0.1 10^3/uL (0.0-0.1); Basophils % 0.5 %; Eosinophils # 0.1 10^3/uL (0.0-0.8); Eosinophils % 0.7 %; Hematocrit 47.4 % (37-53); Lymphocytes # 2.7 10^3/uL (0.8-4.8); Lymphocytes % 26.9 %; Mean Corpuscular HGB Conc 33.1 g/dL (30-55); Mean Corpuscular Hemoglobin 30.5 pg (27-33); Mean Platelet Volume 9.7 fL (7.4-10.4); Monocytes # 1.1 10^3/uL (0.2-0.9); Monocytes % 10.7 %; Neutrophils # 6.18 10^3/uL (1.8-7.7); Neutrophils % 60.6 %; Nucleated Red Blood Cells % 0.3 %; Platelet Count 164 10^3/cmm (157-399); Red Blood Count 5.15 10^6/uL (3.85-5.65); Red Cell Distribution Width 17.1 % (12.1-15.1); White Blood Count 10.19 10^3/uL (3.29-11.43)
[2024-04-23 06:12] LABS: Amphetamines Screen Urine Negative (Negative); Barbiturates Screen Urine Negative (Negative); Benzodiazepines Screen Urine Negative (Negative); Cocaine Screen Urine Negative (Negative); Opiate Screen Urine Negative (Negative); PCP Screen Urine Negative (Negative); THC Screen Urine Positive (Negative)
[2024-04-23 06:18] LABS: INR 0.91 (0.8-1.2)
[2024-04-23 06:22] LABS: Alanine Aminotransferase 41 U/L (0-41); Albumin Level 3.9 g/dL (3.5-5.2); Alcohol Level 177 mg/dL (0-10); Alkaline Phosphatase 141 U/L (40-130); Anion Gap 23.7 (5-19); Aspartate Amino Transferase 65 U/L (0-40); Blood Urea Nitrogen 5 mg/dL (6-20); Calcium 8.7 mg/dL (8.5-10.5); Carbon Dioxide 20 mmol/L (22-29); Chloride 102 mmol/L (98-107); Creatinine Clr Calc Pharmacy 196.7982; Globulin 3.1 g/dL (1.3-4.6); Glomerular Filtration Rate 170.8 mL/min (90-130); Glucose 104 mg/dL (65-115); Osmolality Calculated 292 mOsm/kg (285-295); Potassium 3.7 mmol/L (3.5-5.1); Sodium 142 mmol/L (136-145); Total Bilirubin 0.5 mg/dL (0.15-1.2)
[2024-04-23] MEDS: ARIPiprazole 10 mg Tablet PO ×2 (06:27→16:46)
[2024-04-23 06:30] LABS: Acetaminophen < 5.0 ug/mL (10-30); Salicylate < 0.3 mg/dL (3-10)
[2024-04-23 08:03] VITALS: PULSE 95; O2SAT 96
[2024-04-23 08:09] VITALS: BP 139/77; PULSE 108; RESP 18; TEMP 36.4; O2SAT 94
[2024-04-23] MEDS: ondansetron 4 MG Tablet PO (08:22)
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
--- NOTE | 2024-04-23 08:35 | ECG_ITS ---
[facility] Test Date: 2024-04-23 Pat Name: Mor Ohara Department: Room: 127 Gender: Male Operations Assistant: : 1965 Requested By: Cesar Heath Order Number: [id number] Tera MD: Radha Bowens M.D. Measurements Intervals [place] Rate: 100 P: 64 MT: 167 QRS: 156 QRSD: 112 T: 69 QT: 341 QTc: 440 Interpretive Statements SINUS TACHYCARDIA RIGHT AXIS DEVIATION [QRS AXIS > 100] PATTERN CONSISTENT WITH PULMONARY DISEASE RIGHT BUNDLE BRANCH BLOCK [120+ ms QRS DURATION, UPRIGHT V1, 40+ ms S IN I/aVL/V4/V5/V6] Compared to ECG 04/10/2024 15:52:32 Sinus rhythm no longer present Electronically Signed On 04-23-2024 21:56:19 CDT by Radha Bowens M.D. [id number]
[2024-04-23] MEDS: LORazepam 2 mg Tablet PO ×3 (08:48→20:20)
[2024-04-23] MEDS: acetaminophen 325 mg Tablet 650 MG PO (08:48)
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
[2024-04-23] MEDS: multivitamin therapeutic Tablet 1 TAB PO (11:40)
[2024-04-23] MEDS: thiamine 100 mg Tablet PO (11:41)
[2024-04-23] MEDS: folic acid 1 mg Tablet PO (11:41)
[2024-04-23] MEDS: apixaban 5 mg Tablet PO ×2 (12:05→20:20)
[2024-04-23 14:00] VITALS: BP 125/72; PULSE 99; RESP 16; TEMP 36.6; O2SAT 92
[2024-04-23 21:29] VITALS: BP 135/74; PULSE 100; RESP 15; TEMP 36.8; O2SAT 92
[2024-04-24] VITALS (8 sets, daily range): BP systolic 132–142; BP diastolic 65–93; PULSE 80–93; RESP 14–17; TEMP 36.4–36.9; O2SAT 92–96
[2024-04-24] MEDS: LORazepam 2 mg Tablet PO ×2 (05:07→18:30)
[2024-04-24] MEDS: multivitamin therapeutic Tablet 1 TAB PO (09:11)
[2024-04-24] MEDS: thiamine 100 mg Tablet PO (09:11)
[2024-04-24] MEDS: ARIPiprazole 10 mg Tablet PO (09:11)
[2024-04-24] MEDS: folic acid 1 mg Tablet PO (09:11)
[2024-04-24] MEDS: apixaban 5 mg Tablet PO ×2 (09:11→20:19)
--- NOTE | 2024-04-24 10:01 | PC.NURSE ---
pt left eye red with drainage appears to be conjunctivitis. notified Dr. Heath. of pt condition . He states will put in medical consult.
[2024-04-24 13:20] LABS: Basophils % 0.3 %; Eosinophils # 0.1 10^3/uL (0.0-0.8); Eosinophils % 0.9 %; Lymphocytes % 26.1 %; Mean Corpuscular HGB Conc 33.3 g/dL (30-55); Mean Corpuscular Hemoglobin 31.4 pg (27-33); Mean Corpuscular Volume 94.2 fl (82-101); Mean Platelet Volume 10.3 fL (7.4-10.4); Monocytes # 1.4 10^3/uL (0.2-0.9); Monocytes % 12.3 %; Neutrophils # 6.95 10^3/uL (1.8-7.7); Neutrophils % 60.1 %; Nucleated Red Blood Cells % 0.3 %; Platelet Count 142 10^3/cmm (157-399); Red Blood Count 4.46 10^6/uL (3.85-5.65); Red Cell Distribution Width 16.8 % (12.1-15.1)
--- NOTE | 2024-04-24 15:30 | P.NPUPN_ITS ---
Subjective NPU 2 Subjective: 59-year-old male with a history of schiz ophrenia and depression admitted with suicidal ideation and command auditory hallucinations. Patient had isolated himself on the milieu. He had reported feeling tired. He had complained of discharge from his eye and required some prompting for completion of activities of daily living. He had continued to report feeling tired. He had reported that the voices were a little better. He had reported that he had been off of his psychotropic medications for approximately 1 month. Mental Status Exam 2 MSE Comments: He is a casually dressed man who was lying in bed required multiple prompts for awakening. He had poor eye contact, with significant crusty, discharge in eye. His gait was not tested. His hygiene was extremely poor. There was no clear evidence of any abnormal involuntary motor movements tics or tremors appreciated. He appeared at times short of breath. His speech was slow and slurred with increased latency noted. His mood was described as depressed. His affect was mood congruent and blunted. His thought process was linear. His thought content showed evidence of suicidal ideation with continued reports of command auditory hallucinations. He denied any homicidal ideation. He denied any visual hallucinations. He did appear to be responding to internal stimuli. There was no clear evidence of delusional thinking. He was alert and oriented to person and place but not date at this time. Vitals/I&O/Wt Last Vital Signs Temp 98.5 F 04/24/24 06:00 Pulse 90 04/24/24 12:00 Resp 17 04/24/24 12:00 BP 137/88 04/24/24 12:00 Pulse Ox 93 04/24/24 12:00 O2 Del Method Room Air 04/24/24 12:00 Weight last 48 hrs Weight 113.398 kg Data NPU 04/24/24 13:13 04/23/24 05:54 A&P Assessment and plan (1) Schizophrenia: (2) Suicidal ideation: (3) Alcohol abuse: (4) History of command hallucinations: Plan 59-year-old male history of reported schizophrenia admitted while using alcohol with complaints of command auditory hallucinations having recently stopped all his medications for unspecified reasons. #1.? Engage patient in individual milieu and group therapy.? #2? Encourage sober living treatment after discharge at the highest level of care to which he is willing to commit. #3??? CIWA for alcohol withdrawal #4?? TO-15 minute checks? #5?? Will attempt to gather collateral information #6 Increase abilify to 15mg daily, continue celexa 20mg daily. #7 Medical consult for conjunctivitis. Involuntary Hold Information 2 96 Hour Hold: 96 Hour Involuntary Admission: No Attestations NPU 2 Medical Necessity Statement*: Inpatient hospitalization is medically necessary and deemed to ?be ?the clinically appropriate intervention ?at this time.? We will monitor/initiate medications and make changes as indicated.? .? The patient?s likely length of stay 7-10 days. Coding Level of Care Code Acute Code for [facility] Fwd Diagnoses Schizophrenia F20.9 Suicidal ideation R45.851 Alcohol abuse F10.10 History of command hallucinations Z86.59
[2024-04-24] MEDS: citalopram 20 mg Tablet PO (20:19)
[2024-04-24] MEDS: ciprofloxacin 0.3% Op Soln 2.5 mL Btl 1 DROP EYE-LEFT ×2 (20:19→20:34)
[2024-04-24] MEDS: nicotine 2 mg Gum BUCCAL (21:25)
[2024-04-24] MEDS: trazodone 50 mg Tablet PO ×2 (22:47→23:32)
[2024-04-24] MEDS: hyDROXYzine 25 mg Capsule 50 MG PO (23:32)
[2024-04-24] MEDS: loperamide 2 mg Capsule PO (23:32)
[2024-04-24] MEDS: nicotine 4 mg lozenge MUCOUS MEM (23:32)
[2024-04-25] VITALS (7 sets, daily range): BP systolic 120–161; BP diastolic 72–97; PULSE 62–105; RESP 14–18; TEMP 36.3–37.3; O2SAT 91–96
[2024-04-25] MEDS: ARIPiprazole 10 mg Tablet 15 MG PO (08:48)
[2024-04-25] MEDS: nicotine 4 mg lozenge MUCOUS MEM ×4 (08:48→22:47)
[2024-04-25] MEDS: folic acid 1 mg Tablet PO (08:48)
[2024-04-25] MEDS: multivitamin therapeutic Tablet 1 TAB PO (08:48)
[2024-04-25] MEDS: predniSONE 20 mg Tablet 40 MG PO (08:48)
[2024-04-25] MEDS: thiamine 100 mg Tablet PO (08:49)
[2024-04-25] MEDS: ciprofloxacin 0.3% Op Soln 2.5 mL Btl 1 DROP EYE-LEFT ×4 (08:49→20:05)
[2024-04-25] MEDS: apixaban 5 mg Tablet PO ×2 (08:50→20:04)
--- NOTE | 2024-04-25 09:24 | P.CONIM_ITS ---
Providers/Reason For Consult 2 Consulting Physician/Specialty*: Hospitalist Reason for Consult*: Multiple comorbid conditions Attending Physician: Cesar Heath MD History of Present Illness History of Present Illness Mor Ohara is a 59 year old male who smokes on daily basis 1 pack/day, does not use inhalers, likely has undiagnosed COPD has been admitted to neuropsychiatric unit, hospital service was consulted to evaluate him for discharge from left eye with crusting. At the time of evaluation patient is not endorsing nausea, vomiting, chest pain, rash at any other place, patient has secretions around his left eye with some crusting I do not see any signs of herpes shingles. Patient was laying in his right lateral position, he has unkept nails with dirt embedded in them and he keeps scratching his eyes with his nails during the interview. Review of Systems 2 Eyes: Denies: change in vision ENMT: Denies: throat pain Card: Denies: chest pain Resp: Denies: dyspnea Medications/Allergies Home Medications Medication Instructions Recorded Confirmed Last Taken Type acetaminophen 500 mg tablet 1,000 mg PO Q6H PRN Pain 02/01/24 02/01/24 Unknown History apixaban 5 mg tablet (Eliquis) 5 mg PO BID 02/01/24 02/01/24 Unknown History aripiprazole 5 mg tablet 5 mg PO DAILY 02/01/24 02/01/24 Unknown History ferrous sulfate 325 mg (65 mg 325 mg PO BID 02/01/24 02/01/24 Unknown History iron) tablet (FeroSul) gabapentin 100 mg capsule 100 mg PO TID 02/01/24 02/01/24 Unknown History mirtazapine 15 mg tablet 15 mg PO BEDTIME 02/01/24 02/01/24 Unknown History vitamin with calcium 1 tab PO DAILY 02/01/24 02/01/24 Unknown History no.72-iron 27 mg-folic acid 1 mg tablet ( Vitamins Plus Low Iron) baclofen 20 mg tablet 20 mg PO BID 7 days #0 tabs 02/05/24 02/01/24 Unknown Rx ondansetron 4 mg disintegrating 4 mg PO Q6H PRN nausea and 04/10/24 Unknown Rx tablet vomiting #14 tabs pantoprazole 40 mg tablet,delayed 40 mg PO DAILY #60 tabs 04/10/24 Unknown Rx release (Protonix) Allergies Allergy/AdvReac Type Severity Reaction Status Date / Time No Known Allergies Allergy Verified 04/10/24 14:18 Current Medications Generic Name Dose Route Start Last Admin Trade Name Bernarda PRN Reason Stop Dose Admin Acetaminophen 650 mg 04/23/24 08:09 04/23/24 08:48 Acetaminophen 325 Mg Tablet PO 650 mg Q4H PRN Administration MILD PAIN Apixaban 5 mg 04/23/24 11:56 04/24/24 09:11 Apixaban 5 Mg Tablet PO 5 mg BID@0900,2100 NOEMI Administration Aripiprazole 10 mg 04/23/24 16:05 04/24/24 09:11 Aripiprazole 10 Mg Tablet PO 10 mg DAILY NOEMI Administration Folic Acid 1 mg 04/23/24 09:00 04/24/24 09:11 Folic Acid 1 Mg Tablet PO 1 mg DAILY NOEMI Administration Lorazepam 2 mg 04/23/24 08:11 04/24/24 05:07 Lorazepam 2 Mg Tablet PO 2 mg PROTOCOL PRN Administration WITHDRAWAL Protocol Multivitamins Therapeutic 1 tab 04/23/24 09:00 04/24/24 09:11 Multivitamin Therapeutic Tablet PO 1 tab DAILY NOEMI Administration Ondansetron HCl 4 mg 04/23/24 08:09 04/23/24 08:22 Ondansetron 4 Mg Tablet PO 4 mg Q6H PRN Administration NAUSEA AND VOMITING Thiamine Mononitrate 100 mg 04/23/24 09:00 04/24/24 09:11 Thiamine 100 Mg Tablet PO 100 mg DAILY NOEMI Administration PFSH Acute 2 PFSH: Medical History Cigarette smoker D-dimer, elevated Social History Alcohol intake: current Vitals/I&O/Wt Last Vital Signs Temp 98.5 F 04/24/24 06:00 Pulse 90 04/24/24 12:00 Resp 17 04/24/24 12:00 BP 137/88 04/24/24 12:00 Pulse Ox 93 04/24/24 12:00 O2 Del Method Room Air 04/24/24 12:00 Weight last 48 hrs Weight 113.398 kg Physical Exam 2 Narrative: Morbidly obese Mild wheezing positive on lung auscultation Left eye bacterial conjunctivitis I do not see any sign of shingles or zoster Awake and alert Pleasant cooperative Currently on room air 1, S2 Data 04/24/24 13:13 04/23/24 05:54 A&P Assessment and plan (1) Suicidal ideation: (2) Alcohol abuse: (3) Pulmonary embolism: Qualifiers: Pulmonary embolism type: multiple subsegmental (without acute cor pulmonale) Qualified Code(s): I26.94 - Multiple subsegmental pulmonary emboli without acute cor pulmonale (4) Bacterial conjunctivitis: (5) Hypertension: (6) COPD (chronic obstructive pulmonary disease): Plan Conjunctivitis Start ciprofloxacin eyedrops Likely bacterial I do not see any active rash to consider shingles or ophthalmic zoster Patient, smokes 1 pack/day likely has untreated COPD Start prednisone and DuoNeb treatment Likely will need inhaler at the time of discharge I will recommend Spiriva and Advair Hypertension: Add low-dose lisinopril Patient will need PCP outpatient follow-up for close monitoring Full code Consult Attestations 2 Medical Necessity Statement: Medicine team will follow along Diagnoses Suicidal ideation R45.851 Alcohol abuse F10.10 Pulmonary embolism I26.94 Pulmonary embolism type: multiple subsegmental (without acute cor pulmonale) Bacterial conjunctivitis H10.9 Hypertension I10 COPD (chronic obstructive pulmonary disease) J44.9
[2024-04-25] MEDS: lisinopril 10 mg Tablet PO (10:14)
[2024-04-25] MEDS: acetaminophen 325 mg Tablet 650 MG PO ×2 (10:54→22:47)
--- NOTE | 2024-04-25 11:40 | P.NPUPN_ITS ---
Subjective NPU 2 Subjective: 59-year-old male with a history of schiz ophrenia and depression admitted with suicidal ideation and command auditory hallucinations. The patient had reported feeling better. He had reported no side effects from his medication. He had reported that the depression was getting better. He had reported feeling less tired. He reported that the voices remained but were quieter and less distracting. He had been less isolative on the milieu. The patient had reported that he was hearing conversations through a air duct in his room. Mental Status Exam 2 MSE Comments: He Is a pleasant, cooperative male who appeared in less distress today. He was lying in bed with his eye clothes with fleeting eye contact. His gait was not tested. His hygiene was improving but still poor. There was no clear evidence of any abnormal involuntary motor movements tics or tremors appreciated. He appeared at times short of breath. His speech was slow but improving productivity and no slurring. His mood was described as better. His affect was mood incongruent and blunted. His thought process was linear. His thought content showed no evidence of suicidal ideation with reduction in intensity of auditory hallucinations. He denied any homicidal ideation. He denied any visual hallucinations. He did appear to be responding to internal stimuli. There was evidence of paranoia with reports of He was alert and oriented to person and place but not date at this time. Vitals/I&O/Wt Last Vital Signs Temp 98.8 F 04/25/24 08:00 Pulse 72 04/25/24 11:38 Resp 18 04/25/24 11:38 BP 145/74 04/25/24 08:00 Pulse Ox 93 04/25/24 11:38 O2 Del Method Room Air 04/25/24 11:38 Data NPU 04/24/24 13:13 04/23/24 05:54 Micro: Microbiology 04/24/24 12:40 Gram Stain - Final Sputum - Expectorated Sputum Microbiology 04/24/24 12:40 Sputum - Expectorated Sputum Gram Stain - Final A&P Assessment and plan (1) Schizophrenia: (2) Suicidal ideation: (3) Alcohol abuse: (4) History of command hallucinations: Plan 59-year-old male history of reported schizophrenia admitted while using alcohol with complaints of command auditory hallucinations having recently stopped all his medications for unspecified reasons. #1.? Engage patient in individual milieu and group therapy.? #2? Encourage sober living treatment after discharge at the highest level of care to which he is willing to commit. #3?? TO-15 minute checks? #4?? Will attempt to gather collateral information #5 Continue abilify at 15mg daily, continue celexa 20mg daily. Showing improvement. #6 Appreciate medicine consult, started on inhaler, and antihypertensive. #7 Possible d/c tommorow. Involuntary Hold Information 2 96 Hour Hold: 96 Hour Involuntary Admission: No Attestations NPU 2 Medical Necessity Statement*: Inpatient hospitalization is medically necessary and deemed to ?be ?the clinically appropriate intervention ?at this time.? We will monitor/initiate medications and make changes as indicated.? .? The patient?s likely length of stay 2-3 days. Coding Level of Care Code Acute Code for Chg Fwd Diagnoses Schizophrenia F20.9 Suicidal ideation R45.851 Alcohol abuse F10.10 History of command hallucinations Z86.59
[2024-04-25] MEDS: hyDROXYzine 25 mg Capsule 50 MG PO (20:04)
[2024-04-25] MEDS: trazodone 50 mg Tablet PO ×2 (20:04→23:09)
[2024-04-25] MEDS: citalopram 20 mg Tablet PO (20:04)
[2024-04-26 04:00] VITALS: BP 123/88; PULSE 107; RESP 18; TEMP 36.5; O2SAT 95
[2024-04-26] MEDS: acetaminophen 325 mg Tablet 650 MG PO ×2 (05:44→14:01)
[2024-04-26 07:39] VITALS: BP 123/88; PULSE 107; RESP 18; TEMP 36.5; O2SAT 95
[2024-04-26] MEDS: ciprofloxacin 0.3% Op Soln 2.5 mL Btl 1 DROP EYE-LEFT ×2 (08:18→12:38)
[2024-04-26] MEDS: folic acid 1 mg Tablet PO (08:18)
[2024-04-26] MEDS: lisinopril 10 mg Tablet PO (08:19)
[2024-04-26] MEDS: thiamine 100 mg Tablet PO (08:19)
[2024-04-26] MEDS: apixaban 5 mg Tablet PO (08:19)
[2024-04-26] MEDS: ARIPiprazole 10 mg Tablet 15 MG PO (08:19)
[2024-04-26] MEDS: predniSONE 20 mg Tablet 40 MG PO (08:19)
[2024-04-26] MEDS: multivitamin therapeutic Tablet 1 TAB PO (08:19)
[2024-04-26] MEDS: nicotine 4 mg lozenge MUCOUS MEM (12:42)
[2024-04-26 13:47] VITALS: BP 123/88; PULSE 107; RESP 18; TEMP 36.5; O2SAT 95
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
== END 2024-04-26 14:46 | disposition home or self-care (01) | DRG 885 ==
LOC: ER 07:00 → NP 07:35
PROVIDERS: Emergency Medicine; Admitting Provider Psychiatry & Neurology Psychiatry; Emergency Provider Family Medicine; Visit Provider Psychiatry & Neurology Psychiatry
DX: F25.1 Schizoaffective disorder, depressive type (principal); R45.851 Suicidal ideations; F10.10 Alcohol abuse, uncomplicated; Y90.6 Blood alcohol level of 120-199 mg/100 ml; F17.210 Nicotine dependence, cigarettes, uncomplicated; J44.9 Chronic obstructive pulmonary disease, unspecified; H10.9 Unspecified conjunctivitis; I10 Essential (primary) hypertension; E66.01 Morbid (severe) obesity due to excess calories; Z68.38 Body mass index [BMI] 38.0-38.9, adult; Z79.01 Long term (current) use of anticoagulants; Z91.199 Patient's noncompliance with other medical treatment and regimen due to unspecified reason; Z86.711 Personal history of pulmonary embolism
CPT/HCPCS: 36415; 80053; 80306; 80307; 85025; 85610; 87070; 87205; 93005; 97165; 99285; J7512; Q0162

== ENCOUNTER 2024-05-14 12:46 | Inpatient (IN) | payer MEDICAID, SELFPAY ==
[2024-05-14] VITALS (77 sets, daily range): BP systolic 105–149; BP diastolic 77–111; PULSE 57–226; RESP 0–26; TEMP 36.7–36.9; O2SAT 90–100; BMI 38.6
--- NOTE | 2024-05-14 12:52 | XRR_ITS ---
PROCEDURE INFORMATION: Exam: XR Chest Exam date and time: 05/14/2024 1:01 PM Age: 59 years old Clinical indication: Pain; Angina pectoris; Additional info: Chest pain TECHNIQUE: Imaging protocol: Radiologic exam of the chest. Views: 1 view. COMPARISON: CT angio chest w abd pel w con 04/10/2024 2:51 PM FINDINGS: Lungs: Mild interstitial prominence. Pleural spaces: Unremarkable. No pleural effusion. No pneumothorax. Heart/Mediastinum: Borderline cardiomegaly. Bones/joints: Unremarkable. XR/XR chest 1V portable [id number] IMPRESSION: No acute findings.
--- NOTE | 2024-05-14 12:53 | ECG_ITS ---
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 Measurements Intervals [place] Rate: 136 P: 0 IA: 0 QRS: 166 QRSD: 101 T: 40 QT: 298 QTc: 450 Interpretive Statements ATRIAL FLUTTER WITH RAPID VENTRICULAR RESPONSE PATTERN CONSISTENT WITH PULMONARY DISEASE RIGHT VENTRICULAR HYPERTROPHY [SOME/ALL OF: PROMINENT R IN V1, LATE TRANSITION, RAD, [place], SSS] MODERATE ST DEPRESSION [0.05+ mV ST DEPRESSION] Compared to ECG 04/23/2024 08:35:49 Right ventricular hypertrophy now present Atrial abnormality now present ST (T wave) deviation now present Sinus tachycardia no longer present Right-axis deviation no longer present Right bundle-branch block no longer present Electronically Signed On 05-14-2024 15:28:30 CDT by Parth Allan M.D. [email or web address]
--- NOTE | 2024-05-14 12:54 | W.ED.CHESTPA ---
HPI - Chest Pain General: Chief Complaint: Chest Pain Stated Complaint: CP Time Seen by Provider: 05/14/24 12:48 History of Present Illness: 59-year-old man with a history of pulmonary embolus on Eliquis, alcohol abuse, COPD, tobacco abuse who presents to the emergency room with chest pain for the last 4 days. Apparently he drinks fairly heavily and has not had much to drink in the last couple of days. He also ran out of his Eliquis a day or 2 ago he says. EMS reports he was tachycardic and what appears to be ventricular tachycardia. Rate greater than 200. They have a strip. I said he converted back to A-fib when they started an IV. He reports no new fever or cough. No new lower extremity swelling. Review of Systems Narrative: Constitutional symptoms: Negative except as documented in HPI. Skin symptoms: Negative except as documented in HPI. Eye symptoms: Negative except as documented in HPI. ENMT symptoms: Negative except as documented in HPI. Respiratory symptoms: Negative except as documented in HPI. Cardiovascular symptoms: Negative except as documented in HPI. Gastrointestinal symptoms: Negative except as documented in HPI. Genitourinary symptoms: Negative except as documented in HPI. Musculoskeletal symptoms: Negative except as documented in HPI. Neurologic symptoms: Negative except as documented in HPI. Psychiatric symptoms: Negative except as documented in HPI. Endocrine symptoms: Negative except as documented in HPI. COUNTS INCLUDE 234 BEDS AT THE [facility] ED PFSH: Medical History Cigarette smoker D-dimer, elevated Social History Alcohol intake: current Physical Exam Narrative: EXAM NARRATIVE: General: Alert, no acute distress. Skin: Warm, dry. Head: Normocephalic, atraumatic. Neck: Supple, trachea midline. Eye: Extraocular movements are intact. Ears, nose, mouth and throat: Very poor dentition Cardiovascular: Irregular, tachycardic, Normal peripheral perfusion. Respiratory: Lungs are clear to auscultation, respirations are non-labored, breath sounds are equal, Symmetrical chest wall expansion. Gastrointestinal: Soft, Nontender, Non distended Musculoskeletal: Normal ROM, no deformity. Neurological: Alert and oriented, No focal neurological deficit observed. Patient is tremulous Psychiatric: Cooperative, appropriate mood & affect. Course Vital Signs: Vital signs: Vital Signs Temperature 98.4 F 05/14/24 12:54 Pulse Rate 123 H 05/14/24 16:00 Respiratory Rate 22 H 05/14/24 16:00 Blood Pressure 142/111 05/14/24 16:00 Pulse Oximetry 98 05/14/24 16:00 Oxygen Delivery Me thod Room Air 05/14/24 16:00 MDM - Chest Pain Medical Decision Making Differential diagnosis for patient with chest pain includes but is not limited to and based on the above HPI, review of systems and physical exam: Pneumonia. unstable angina. angina. Acute coronary syndrome / DC. Pulmonary embolism. Costochondritis / musculoskeletal. Pleurisy. Pericarditis. Esophageal spasm. Pancreatis. Cholecystitis. Orders placed to evaluate differential diagnosis based on the above differential, HPI and physical exam EKG from EMS/rhythm strip: This does not have time reported but was prior to arrival in the emergency room. Rate reported at around 250. This appears to either be ventricular tachycardia or very fast A-fib with RVR. EKG: Time 12:49 PM. Rate 136. Atrial fibrillation/flutter with rapid ventricular response, No ST-T changes, no ectopy, This was reviewed and interpreted by myself the ER physician at 1251 Repeat EKG: atrial fibrillation with rapid ventricular response, No ST-T changes, no ectopy, This was reviewed and interpreted by myself the ER physician at 1509. Slight decrease in heart rate from 1 36-1 25. Lab Review: Laboratory results were reviewed and interpreted by myself the emergency room physician. Patient has a white count 10. Hemoglobin is 16. BUN and creatinine are low at 4 and 0.6. Sugars are a bit high at 184. Ammonia is elevated at 67. His initial troponin was 17 repeat was 16. No significant delta. Liver enzymes are normal. Bilirubin is normal. I reviewed the patient's medical record. Reexamination: I talked further with the patient. He says he does have a history of delirium tremens and has had seizures when he is withdrawn before. He says he has no known history of atrial fibrillation. He does have a known pulmonary embolism and has been out of his meds for couple of days. He is now complaining of a headache. Heart rate is still tachycardic and irregular. He has no increased work of breathing. No altered mental status at this time. 1 mg of Ativan seem to improve his tremors. Consultation: I spoke with Dr. Smith who is on-call for the hospitalist who has come to see the patient and is admitting him. Assessment and plan: Atrial fibrillation with rapid ventricular response Alcohol abuse and dependence Alcohol withdrawal Pulmonary embolism Medical noncompliance ?I gave him 10 mg Eliquis dose as he has been out for at least a couple of days. ? Initially tried an amiodarone bolus which did not help with his rate. His blood pressure has come up and so I am giving a diltiazem bolus and starting a drip. ? IV Ativan 1 mg. With some improvement in his symptoms. ? Patient is reporting a headache so have given him 15 mg of IV Toradol -I discussed the patient with the hospitalist on-call who is admitting the patient. - Discussed findings and plan with patient. Answered any questions. - All laboratory values were reviewed and interpreted personally by myself, the ER physician - All imaging was reviewed and interpreted personally by myself, the ER physician. - Evaluation and treatment of this problem were appropriate in the emergency setting -I spent a total of >35 minutes of critical care time managing the patient, independent of any other practitioner. -The time involved in the performance of separately reportable procedures was not counted towards critical care time. Lab Data 05/14/24 13:20 05/14/24 13:29 Radiology Impressions Chest X-Ray 05/14/24 12:52 IMPRESSION: No acute findings. Chest CTA 05/14/24 14:53 IMPRESSION: 1. No central pulmonary embolism. 2. Single, nonocclusive, RIGHT lower lobe subsegmental embolus. 3. No pneumonia. 4. Stable RIGHT adrenal adenoma. 5. No RIGHT heart strain. Laboratory Results WBC 10.67 10^3/uL (3.29-11.43) 05/14/24 13:20 RBC 5.14 10^6/uL (3.85-5.65) 05/14/24 13:20 Hgb 16.20 g/dL (11.27-16.99) 05/14/24 13:20 Hct 49.1 % (37-53) 05/14/24 13:20 MCV 95.5 fl (82-101) 05/14/24 13:20 MCH 31.5 pg (27-33) 05/14/24 13:20 MCHC 33.0 g/dL (30-55) 05/14/24 13:20 RDW 17.8 % (12.1-15.1) H 05/14/24 13:20 Plt Count 196 10^3/cmm (157-399) 05/14/24 13:20 MPV 9.9 fL (7.4-10.4) 05/14/24 13:20 Neut % (Auto) 78.4 % 05/14/24 13:20 Lymph % (Auto) 8.5 % 05/14/24 13:20 Levy % (Auto) 11.6 % 05/14/24 13:20 Eos % (Auto) 0.0 % 05/14/24 13:20 Baso % (Auto) 0.7 % 05/14/24 13:20 Neut # (Auto) 8.35 10^3/uL (1.8-7.7) H 05/14/24 13:20 Lymph # (Auto) 0.9 10^3/uL (0.8-4.8) 05/14/24 13:20 Levy # (Auto) 1.2 10^3/uL (0.2-0.9) H 05/14/24 13:20 Eos # (Auto) 0.0 10^3/uL (0.0-0.8) 05/14/24 13:20 Baso # (Auto) 0.1 10^3/uL (0.0-0.1) 05/14/24 13:20 Nucleated RBC % (auto) 0 % 05/14/24 13:20 Nucleated RBCs # 0.0 /100WBC 05/14/24 13:20 Sodium 139 mmol/L (136-145) 05/14/24 13:29 Potassium 4.2 mmol/L (3.5-5.1) 05/14/24 13:29 Chloride 100 mmol/L (98-107) 05/14/24 13:29 Carbon Dioxide 19 mmol/L (22-29) L 05/14/24 13:29 Anion Gap 24.2 (5-19) H 05/14/24 13:29 BUN 4 mg/dL (6-20) L 05/14/24 13:29 Creatinine 0.6 mg/dL (0.7-1.2) L 05/14/24 13:29 GFR Calculation 138.4 mL/min (90-130) H 05/14/24 13:29 Glucose 184 mg/dL (65-115) H 05/14/24 13:29 Calculated Osmolality 290 mOsm/kg (285-295) 05/14/24 13:29 Lactic Acid 3.5 mmol/L (0.5-2.2) H 05/14/24 13:20 Calcium 9.2 mg/dL (8.5-10.5) 05/14/24 13:29 Magnesium 1.4 mg/dL (1.7-2.3) L 05/14/24 13:29 Total Bilirubin 0.4 mg/dL (0.15-1.2) 05/14/24 13:29 AST 36 U/L (0-40) 05/14/24 13:29 ALT 24 U/L (0-41) 05/14/24 13:29 Alkaline Phosphatase 119 U/L (40-130) 05/14/24 13:29 Ammonia 67 umol/L (16-60) H 05/14/24 13:20 Troponin T Baseline 17 ng/L (0-15) H 05/14/24 13:29 Troponin T 120 Minute 16.19 ng/L (0-15) H 05/14/24 15:07 Delta Troponin T -0.81 ABS# (0-10) L 05/14/24 15:07 C-Reactive Protein 8.9 mg/L (0.0-4.9) H 05/14/24 13:29 Total Protein 7.2 g/dL (6.6-8.7) 05/14/24 13:29 Albumin 4.2 g/dL (3.5-5.2) 05/14/24 13:29 Globulin 3.0 g/dL (1.3-4.6) 05/14/24 13:29 Lipase 12 U/L (13-60) L 05/14/24 13:29 TSH 2.87 uIU/mL (0.27-4.20) 05/14/24 13:29 Urine Color Dark yellow (Yellow) 05/14/24 14:00 Urine Appearance Slightly cloudy (CLEAR) 05/14/24 14:00 Urine pH 7 (5-7) 05/14/24 14:00 Ur Specific [place] 1.010 (1.005-1.030) 05/14/24 14:00 Urine Protein 3+ (Negative) H 05/14/24 14:00 Urine Glucose (UA) 1+ (Normal) H 05/14/24 14:00 Urine Ketones 1+ (Negative) H 05/14/24 14:00 Urine Blood Trace (Negative) H 05/14/24 14:00 Urine Nitrate Negative (Negative) 05/14/24 14:00 Urine Bilirubin Neg (Negative) 05/14/24 14:00 Urine Urobilinogen Norm mg/dL (Negative) 05/14/24 14:00 Ur Leukocyte Esterase Negative (Negative) 05/14/24 14:00 Urine RBC 0-4 /hpf (0-2) H 05/14/24 14:00 Urine WBC 0-4 /hpf (0-5) H 05/14/24 14:00 Ur Squamous Epith Cells 0-4 /hpf (0-5) H 05/14/24 14:00 Amorphous Sediment Trace /hpf 05/14/24 14:00 Urine Bacteria 1+ /hpf (NONE) H 05/14/24 14:00 Hyaline Casts Rare /lpf 05/14/24 14:00 Fine Granular Casts 0-4 /lpf H 05/14/24 14:00 Urine Mucus 2+ /hpf 05/14/24 14:00 Ethyl Alcohol < 10 mg/dL (0-10) 05/14/24 13:29 All radiology interpretation(s) finalized by discharge Discharge Plan Discharge Patient Disposition: Admitted As Inpatient Clinical Impression: Atrial fibrillation with rapid ventricular response, COPD (chronic obstructive pulmonary disease), Alcohol abuse, Pulmonary embolism, Medical non-compliance, Alcohol withdrawal Condition: Stable Coding Level 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
[2024-05-14] MEDS: LORazepam 2 mg/mL INJ 1 mL 1 MG IVP (13:11)
[2024-05-14] MEDS: amiodarone 50 mg/mL SDV 3 mL 150 MG IVP (13:37)
[2024-05-14 13:40] LABS: Basophils # 0.1 10^3/uL (0.0-0.1); Basophils % 0.7 %; Hematocrit 49.1 % (37-53); Lymphocytes # 0.9 10^3/uL (0.8-4.8); Lymphocytes % 8.5 %; Mean Corpuscular Hemoglobin 31.5 pg (27-33); Mean Corpuscular Volume 95.5 fl (82-101); Mean Platelet Volume 9.9 fL (7.4-10.4); Monocytes # 1.2 10^3/uL (0.2-0.9); Monocytes % 11.6 %; Neutrophils # 8.35 10^3/uL (1.8-7.7); Neutrophils % 78.4 %; Nucleated Red Blood Cells % 0 %; Platelet Count 196 10^3/cmm (157-399); Red Blood Count 5.14 10^6/uL (3.85-5.65); Red Cell Distribution Width 17.8 % (12.1-15.1); White Blood Count 10.67 10^3/uL (3.29-11.43)
[2024-05-14 13:55] LABS: Lactic Sepsis W/Reflex 3.5 mmol/L (0.5-2.2)
[2024-05-14 13:57] LABS: Troponin(5th) Baseline 17 ng/L (0-15)
[2024-05-14 14:35] LABS: Ammonia 67 umol/L (16-60)
[2024-05-14 14:46] LABS: Alanine Aminotransferase 24 U/L (0-41); Albumin Level 4.2 g/dL (3.5-5.2); Alkaline Phosphatase 119 U/L (40-130); Blood Urea Nitrogen 4 mg/dL (6-20); C Reactive Protein 8.9 mg/L (0.0-4.9); Calcium 9.2 mg/dL (8.5-10.5); Carbon Dioxide 19 mmol/L (22-29); Chloride 100 mmol/L (98-107); Creatinine Clr Calc Pharmacy 165.3758; Glomerular Filtration Rate 138.4 mL/min (90-130); Glucose 184 mg/dL (65-115); Lipase 12 U/L (13-60); Magnesium 1.4 mg/dL (1.7-2.3); Osmolality Calculated 290 mOsm/kg (285-295); Sodium 139 mmol/L (136-145); Thyroid Stimulating Hormone 2.87 uIU/mL (0.27-4.20); Total Bilirubin 0.4 mg/dL (0.15-1.2); Total Protein 7.2 g/dL (6.6-8.7)
[2024-05-14 14:49] LABS: Alcohol Level < 10 mg/dL (0-10); Anion Gap 24.2 (5-19); Aspartate Amino Transferase 36 U/L (0-40); Potassium 4.2 mmol/L (3.5-5.1)
--- NOTE | 2024-05-14 14:53 | ECG_ITS ---
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 Measurements Intervals [place] Rate: 125 P: 0 OH: 0 QRS: 181 QRSD: 105 T: 60 QT: 312 QTc: 450 Interpretive Statements ATRIAL FLUTTER/TACHYCARDIA WITH RAPID VENTRICULAR RESPONSE PATTERN CONSISTENT WITH PULMONARY DISEASE INCOMPLETE RIGHT BUNDLE BRANCH BLOCK [90+ ms QRS DURATION, TERMINAL R IN V1/V2, 40+ ms S IN I/aVL/V4/V5/V6] RIGHT VENTRICULAR HYPERTROPHY [SOME/ALL OF: PROMINENT R IN V1, LATE TRANSITION, RAD, [place], SSS] MODERATE ST DEPRESSION [0.05+ mV ST DEPRESSION] Compared to ECG 05/14/2024 12:49:17 Incomplete right bundle-branch block now present ST (T wave) deviation still present Electronically Signed On 05-14-2024 15:29:35 CDT by Parth Allan M.D. [id number]
--- NOTE | 2024-05-14 14:53 | CT_ITS ---
WS: [id number] CT CHEST ANGIOGRAPHY WITH REFORMATS HISTORY: hypoxemia, tachycardia TECHNIQUE: Contiguous axial images are obtained through the chest during arterial injection of intrav enous contrast. Images are reconstructed to evaluate the pulmonary arteries. MIP imaging also reviewe d. All CT scans at [facility] use at least one of these dose optimization techniques: automat ed exposure control; mA and/or kV adjustment per patient size (includes targeted exams where dose is matched to clinical indication); or iterative reconstruction. CONTRAST: Omnipaque 350; 100 mL IV. DLP: 482.08 mGy.cm COMPARISON: 04/10/2024 Adequate opacification of the pulmonary arteries. Centrally there is no pulmonary embolism. Pulmonary artery is not dilated. Beyond the segmental branches the opacification is limited. There is a single , nonocclusive filling defect in a subsegmental branch of the RIGHT lower lobe. No RIGHT heart strain . Mild dilatation of the LEFT heart. Normal sized thoracic aorta. No pericardial or pleural effusions. Lungs are clear. No adenopathy. Hepatic steatosis. No adrenal mass. Mild perinephric stranding around each kidney. Small splenules in the LEFT upper abdomen. RIGHT adrenal adenoma 1.[address]/CT angio chest PE protcl [id number] IMPRESSION: 1. No central pulmonary embolism. 2. Single, nonocclusive, RIGHT lower lobe subsegmental embolus. 3. No pneumonia. 4. Stable RIGHT adrenal adenoma. 5. No RIGHT heart strain.
[2024-05-14] MEDS: ondansetron 2 mg/ML SDV 2 mL 4 MG IVP (15:11)
[2024-05-14] MEDS: sodium chloride 0.9% 1,000 ML 999 ML IV (15:12)
[2024-05-14 15:21] LABS: Reflex Lactate Order REFLEX LACTIC ORDERD
[2024-05-14 15:28] LABS: Troponin 5 2HR 16.19 ng/L (0-15); Troponin 5 2HR Delta -0.81 ABS# (0-10)
[2024-05-14] MEDS: iohexol 350 mg/mL 500 mL Btl (per mL) IV (15:34)
--- NOTE | 2024-05-14 15:39 | PC.NURSE ---
assumed care from dianne SÁNCHEZ @[phone]
[2024-05-14 15:48] LABS: Bacteria Urine 1+ /hpf; Bilirubin Urine Neg (Negative); Blood Urine Trace (Negative); Glucose Urine UA 1+ (Normal); Ketones Urine 1+ (Negative); Leukocyte Esterase Urine Negative (Negative); Mucus Urine 2+ /hpf; Nitrate Urine Negative (Negative); Protein Urine 3+ (Negative); RBC Urine 0-4 /hpf (0-2); Squamous Epithelial Cell Urine 0-4 /hpf (0-5); Urine Appearance Slightly Cloudy (CLEAR); Urine Color Dark Yellow (Yellow); Urobilinogen Urine Norm (Negative); WBC Urine 0-4 /hpf (0-5); pH Urine 7 (5-7)
[2024-05-14 15:49] LABS: Amorphous Sediment Urine TRACE /hpf; Fine Granular Casts Urine 0-4 /lpf; Hyaline Casts Urine RARE /lpf
[2024-05-14 15:51] LABS: Add Urine Culture? No
[2024-05-14] MEDS: dilTIAZem 5 mg/mL SDV 5 mL 10 MG IVP (16:17)
[2024-05-14] MEDS: dilTIAZem 100 MG in sodium chloride 0.9% (add-van) 100 ML IV (16:20)
--- NOTE | 2024-05-14 16:22 | P.HP_ITS ---
Providers/Chief Complaint 2 Admitting Physician: Levi Smith MD, hospitalist Chief Complaint: CP History of Present Illness Mor Ohara is a 59 year old male with history of alcoholism, PE, schizophrenia, alcohol abuse, COPD who presents to the hospital with chest discomfort, left substernal, feeling sharp but not necessarily pleuritic for the last 4 days. He reports he has been drinking less and going through some withdrawal. He has been vomiting occasionally, been nauseous, and having diarrhea. He has not been taking his anticoagulant for at least 4 to 5 days. He has had some chills, and sweats but no documented fever. He reports no blood in his stool or black or tarry stools. He does not necessarily feel short of breath at this time. He does not believe he has had a diagnosis of atrial fibrillation or flutter in the past. He has had a recent psychiatric admission for hallucinations. He reports he has a history of significant withdrawal from alcohol. He believes he has had seizures in the past secondary to withdrawal. Review of Systems 2 General: Reports: 10 or more systems reviewed and unremarkable except in HPI and below Card: Reports: chest pain; Denies: swelling of feet/ankles Resp: Reports: wheezing; Denies: dyspnea or productive cough GI: Reports: nausea, vomiting and diarrhea; Denies: abdominal pain, hematochezia or melena Medications/Allergies Home Medications Medication Instructions Recorded Confirmed Last Taken Type vitamin with calcium 1 tab PO DAILY 02/01/24 05/14/24 05/14/24 History no.72-iron 27 mg-folic acid 1 mg tablet ( Vitamins Plus Low Iron) lisinopril 10 mg tablet (Zestril) 10 mg PO DAILY 04/25/24 05/14/24 05/14/24 History albuterol sulfate 90 mcg/actuation 1 inh inhalation Q6H PRN shortness 04/26/24 05/14/24 Unknown Rx aerosol inhaler of breath or wheezing #6.7 grams apixaban 5 mg tablet (Eliquis) 5 mg PO BID@0900,2100 30 days #60 04/26/24 05/14/24 05/14/24 Rx tabs aripiprazole 15 mg tablet 15 mg PO DAILY 30 days #30 tabs 04/26/24 05/14/24 05/14/24 Rx citalopram 20 mg tablet 20 mg PO BEDTIME 30 days #30 tabs 04/26/24 05/14/24 05/13/24 Rx fluticasone propionate 115 2 puff inhalation BID #12 grams 04/26/24 05/14/24 05/14/24 Rx mcg-salmeterol 21 mcg/actuation HFA inhaler (Advair HFA) folic acid 1 mg tablet 1 mg PO DAILY 30 days #30 tabs 04/26/24 05/14/24 05/14/24 Rx thiamine mononitrate (vit B1) 100 100 mg PO DAILY 30 days #30 tabs 04/26/24 05/14/24 05/14/24 Rx mg tablet (Vitamin B-1 (mononitrate)) tiotropium bromide 1.25 2 inh inhalation DAILY #4 grams 04/26/24 05/14/24 05/14/24 Rx mcg/actuation mist for inhalation (Spiriva Respimat) baclofen 20 mg tablet 20 mg PO TID PRN Pain 05/14/24 05/14/24 Unknown History ciprofloxacin HCl 0.3 % eye drops 1 drp ophthalmic (eye) QID 05/14/24 05/14/24 05/13/24 History ferrous sulfate 325 mg (65 mg 325 mg PO BID 05/14/24 05/14/24 05/14/24 History iron) tablet (FeroSul) furosemide 40 mg tablet 40 mg PO BID 05/14/24 05/14/24 05/14/24 History gabapentin 100 mg capsule 100 mg PO TID PRN NERVE PAIN 05/14/24 05/14/24 Unknown History mirtazapine 15 mg tablet 15 mg PO BEDTIME 05/14/24 05/14/24 05/13/24 History ondansetron 4 mg disintegrating 4 mg PO Q6H PRN Nausea 05/14/24 05/14/24 Unknown History tablet pantoprazole 40 mg tablet,delayed 40 mg PO DAILY 05/14/24 05/14/24 05/13/24 History release potassium chloride 20 mEq 20 meq PO DAILY 05/14/24 05/14/24 05/14/24 History tablet,extended release(part/cryst) umeclidinium 62.5 mcg-vilanterol 1 inh inhalation DAILY 05/14/24 05/14/24 Unknown History 25 mcg/actuation powdr for inhalation (Anoro Ellipta) Allergies Allergy/AdvReac Type Severity Reaction Status Date / Time No Known Allergies Allergy Verified 05/14/24 12:59 PFSH Acute 2 PFSH: Medical History (Updated 05/14/24 @ 16:32 by Levi Smith MD) COPD (chronic obstructive pulmonary disease) Schizophrenia Alcohol abuse Hx of pulmonary embolus Pulmonary embolism Cigarette smoker D-dimer, elevated Surgical History (Updated 05/14/24 @ 16:27 by Levi Smith MD) History of splenectomy Social History (Updated 05/14/24 @ 16:26 by Levi Smith MD) Smoking and tobacco/nicotine status: current every day tobacco/nicotine user Alcohol intake: current Substance/Drug Use: never Vitals/I&O/Wt Last Vital Signs Temp 98.4 F 05/14/24 12:54 Pulse 123 H 05/14/24 16:00 Resp 22 H 05/14/24 16:00 BP 142/111 05/14/24 16:00 Pulse Ox 98 05/14/24 16:00 O2 Del Method Room Air 05/14/24 16:00 Weight last 48 hrs Weight 115.212 kg Physical Exam 2 Narrative: General exam is a tremulous white male, reporting some chest discomfort HEENT: Atraumatic normocephalic. Oropharynx is clear Neck is supple no lymphadenopathy thyromegaly Cardiovascular irregularly irregular without murmur Lungs a few expiratory wheezes Abdomen is soft. Midline scar noted. exams deferred Extremities no cyanosis clubbing edema, cap refill brisk Skin no rash Neuro no obvious focal deficits. Data 05/14/24 13:20 05/14/24 13:29 Other Labs: Lactic acid 3.5 Magnesium 1.4 Calcium 9.2, albumin 4.2 Lipase 12 TSH normal CRP 8.9 Troponin 17 and repeat 16 Ammonia 67 Urinalysis 3+ protein, 0-4 reds and 0-4 whites. CTA chest which I reviewed, no heart strain, no pneumonia, stable right adrenal adenoma and a right lower lobe subsegmental PE. This occlusive disease is certainly improved from January of this year on CTA Chest x-ray which I reviewed no infiltrate, or acute findings Previous echocardiogram in January demonstrated an EF of 55 to 60%, grade 1 diastolic dysfunction EKG initially demonstrated atrial fibrillation with rapid ventricular rate, right axis deviation, rate initially around 140, and appeared more like atrial flutter. Micro: Microbiology 05/14/24 13:29 Blood Culture - Preliminary Blood SPECIMEN COLLECTED 05/14/24 13:20 Blood Culture - Preliminary Blood SPECIMEN COLLECTED A&P Assessment and plan (1) Atrial fibrillation with rapid ventricular response: Patient with atrial fibrillation/flutter with rapid ventricular rate Cardizem bolus being given in the emergency department Initiate Cardizem drip Anticoagulation with Lovenox No need for repeat echo. He has a recent echocardiogram from January. TSH was checked and normal Supplement magnesium Potassium was checked and normal (2) Alcohol withdrawal: Patient with significant alcohol withdrawal Hydration Seizure and fall precautions Admission to ICU Ativan as needed with CIWA orders Encourage abstinence from alcohol Close follow-up of electrolytes tomorrow Protonix 40 mg IV every 12 hours Hold Lasix initially (3) Pulmonary embolism: Patient with evidence of pulmonary embolism. Overall burden is less than that in January He has been out of his Eliquis for the last 4 to 5 days or more Initiate Lovenox initially prior to changing back to Eliquis, initially at treatment dose (4) Hypomagnesemia: Supplement 2 g IV Recheck tomorrow (5) COPD (chronic obstructive pulmonary disease): No active exacerbation currently DuoNeb as needed Budesonide twice daily Encouraged not to smoke Plan Tobacco dependency. Encouraged abstinence History of schizophrenia. Continue home medication Other medical problems as outlined in past medical history Full code Lovenox and SCDs for DVT prophylaxis High risk for decompensation with his comorbidities including alcoholism with active withdrawal. Potential worsening for needing continuous IV sedative medication and/or intubation for severe withdrawal as patient has had withdrawal seizures in the past. Attestations 2 Medical Necessity Statement*: Will require greater than 2 midnight stay for evaluation and treatment of multisystem illness in this patient with alcoholism, withdrawal, PE, hypomagnesemia, atrial flutter with rapid ventricular rate Critical Care Time: The high probability of a clinically significant, sudden or life threatening deterioration of the patient's [cardiac, electrolyte, metabolic] system(s) required my full and direct attention, intervention and personal management. The critical care time is as shown. This time is in addition to time spent performing any reported procedures but includes the following: [x] Data and vital sign review and interpretation [x] Patient assessment, examination and intervention [x] Documentation [x] Medication orders and management Critical Care Time (min): 54 Coding Level of Care Code Critical Care >/= 30 minutes Critical care time (in minutes): 54 The high probability of a clinically significant, sudden or life threatening deterioration, as referenced in this documentation, required my full and direct attention, intervention and personal management. The critical care time shown is in addition to time spent performing any reported separately billable procedures and includes the following: [x] Data and vital sign review and interpretation [x ] Patient assessment, examination and intervention [x] Medication orders and management [x] Patient/Family updates as able [x] Care Coordination and Documentation. Diagnoses Atrial fibrillation with rapid ventricular response I48.91 Alcohol withdrawal F10.939 Pulmonary embolism I26.99 Hypomagnesemia E83.42 COPD (chronic obstructive pulmonary disease) J44.9
--- NOTE | 2024-05-14 16:24 | USCV_ITS ---
Mor Ohara Age: 59 Gender: M : 1965 Exam Date: 05/14/2024 18:13 Ordering Phys: Levi Smith MD Technologist: KATHERINE [place] [facility] [place]: Pulmonary Embolus. long-term smoker, chest pain x 4 days, History of COPD. HISTORY: Pulmonary Embolus. long-term smoker, chest pain x 4 days, History of COPD. PROCEDURES: Venous duplex imaging was performed in bilateral lower extremities. The following venous structures were evaluated: common femoral vein, profunda vein, proximal portion of the greater saphenous vein, superficial femoral vein, and the popliteal vein. In addition, the posterior tibial veins were evaluated. FINDINGS: Normal 2-D Doppler and augmentation and compressibility throughout the lower extremity venous structures. Additional imaging through the proximal calf veins also reveals no thrombus. Limited evaluation of the greater saphenous vein is patent with no thrombus. CONCLUSIONS No DVT bilateral lower extremities. Dr. Yvette uRiz DO (Electronically Signed) Final Date: 15 May 2024 07:37 S
[2024-05-14] MEDS: magnesium sulfate premix 2 GM/50 ML PIGGYBACK IV (16:38)
[2024-05-14] MEDS: pantoprazole 40 mg SDV IVP (16:39)
[2024-05-14] MEDS: enoxaparin 120 mg/0.8 mL Syringe SUBCUT (16:39)
[2024-05-14] MEDS: LORazepam 2 mg/mL INJ 1 mL IVP (17:00)
[2024-05-14 17:20] LABS: Lactic Acid level (Lactate) 1.9 mmol/L (0.5-2.2)
[2024-05-14] MEDS: sodium chloride 0.9% 1,000 ML 125 ML IV (17:54)
[2024-05-14] MEDS: acetaminophen 325 mg Tablet 650 MG PO (18:01)
--- NOTE | 2024-05-14 18:53 | ECG_ITS ---
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 Measurements Intervals [place] Rate: 125 P: 0 MI: 0 QRS: 186 QRSD: 110 T: 52 QT: 324 QTc: 468 Interpretive Statements ATRIAL FLUTTER WITH RAPID VENTRICULAR RESPONSE RIGHT VENTRICULAR HYPERTROPHY [SOME/ALL OF: PROMINENT R IN V1, LATE TRANSITION, RAD, [place], SSS] MODERATE ST DEPRESSION [0.05+ mV ST DEPRESSION] Compared to ECG 05/14/2024 15:07:31 Incomplete right bundle-branch block no longer present ST (T wave) deviation still present Electronically Signed On 05-15-2024 10:34:53 CDT by Parth Allan M.D. [email or web address]/store/[id number]
[2024-05-14] MEDS: budesonide 0.5 mg/2 mL Neb INHALATION (19:56)
[2024-05-14 20:03] LABS: Troponin 5 6HR 15.14 ng/L (0-15)
[2024-05-14 20:07] LABS: Troponin 5 6HR Delta -1.86 ng/L (0-12)
[2024-05-14] MEDS: mirtazapine 15 mg Tablet PO (20:22)
[2024-05-14] MEDS: citalopram 20 mg Tablet PO (20:22)
[2024-05-14] MEDS: metoprolol tartrate 25 mg Tablet PO (20:22)
[2024-05-14] MEDS: dilTIAZem 100 MG in sodium chloride 0.9% (add-van) 100 ML 15 MG IV (20:39)
--- NOTE | 2024-05-14 21:33 | PC.NURSE ---
Diltiazem drip D/C: Patient's HR was 136 then had a 4.5 second pause, after pause patient converted to normal sinus rhythm. Dr. Mattson was notified of patient change and gave telephone orders to discontinue diltiazem drip.
[2024-05-15] VITALS (56 sets, daily range): BP systolic 97–157; BP diastolic 63–105; PULSE 50–78; RESP 13–23; TEMP 36.1–37.1; O2SAT 89–98; BMI 39.5
[2024-05-15] MEDS: sodium chloride 0.9% 1,000 ML 125 ML IV ×2 (02:15→10:00)
[2024-05-15] MEDS: enoxaparin 120 mg/0.8 mL Syringe SUBCUT (03:39)
[2024-05-15] MEDS: acetaminophen 325 mg Tablet 650 MG PO (03:39)
[2024-05-15] MEDS: pantoprazole 40 mg SDV IVP ×2 (03:39→20:59)
[2024-05-15 05:39] LABS: Basophils # 0.1 10^3/uL (0.0-0.1); Basophils % 0.8 %; Eosinophils # 0.1 10^3/uL (0.0-0.8); Eosinophils % 0.8 %; Hematocrit 41.8 % (37-53); Lymphocytes # 2.7 10^3/uL (0.8-4.8); Lymphocytes % 27.7 %; Mean Corpuscular Hemoglobin 31.7 pg (27-33); Mean Corpuscular Volume 96.1 fl (82-101); Mean Platelet Volume 10.2 fL (7.4-10.4); Monocytes # 1.2 10^3/uL (0.2-0.9); Monocytes % 11.8 %; Neutrophils # 5.71 10^3/uL (1.8-7.7); Neutrophils % 58.4 %; Nucleated Red Blood Cells % 0.2 %; Platelet Count 222 10^3/cmm (157-399); Red Blood Count 4.35 10^6/uL (3.85-5.65); Red Cell Distribution Width 18.1 % (12.1-15.1); White Blood Count 9.78 10^3/uL (3.29-11.43)
[2024-05-15] MEDS: LORazepam 2 mg/mL INJ 1 mL IVP (05:45)
[2024-05-15 05:58] LABS: Alanine Aminotransferase 21 U/L (0-41); Albumin Level 3.4 g/dL (3.5-5.2); Alkaline Phosphatase 86 U/L (40-130); Anion Gap 14.6 (5-19); Aspartate Amino Transferase 31 U/L (0-40); Blood Urea Nitrogen 6 mg/dL (6-20); Calcium 8.1 mg/dL (8.5-10.5); Carbon Dioxide 24 mmol/L (22-29); Chloride 106 mmol/L (98-107); Creatinine Clr Calc Pharmacy 200.9911; Globulin 2.5 g/dL (1.3-4.6); Glomerular Filtration Rate 170.8 mL/min (90-130); Glucose 95 mg/dL (65-115); Magnesium 1.8 mg/dL (1.7-2.3); Osmolality Calculated 289 mOsm/kg (285-295); Potassium 3.6 mmol/L (3.5-5.1); Sodium 141 mmol/L (136-145); Total Bilirubin 0.4 mg/dL (0.15-1.2); Total Protein 5.9 g/dL (6.6-8.7)
--- NOTE | 2024-05-15 07:16 | ECG_ITS ---
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 Measurements Intervals [place] Rate: 52 P: 65 SC: 205 QRS: 131 QRSD: 114 T: 75 QT: 473 QTc: 442 Interpretive Statements SINUS BRADYCARDIA INCOMPLETE RIGHT BUNDLE BRANCH BLOCK [90+ ms QRS DURATION, TERMINAL R IN V1/V2, 40+ ms S IN I/aVL/V4/V5/V6] POSSIBLE RIGHT VENTRICULAR HYPERTROPHY [SOME/ALL OF: PROMINENT R IN V1, LATE TRANSITION, RAD, [place], SSS] Compared to ECG 05/14/2024 17:52:36 Incomplete right bundle-branch block now present Atrial flutter no longer present ST (T wave) deviation no longer present Electronically Signed On 05-15-2024 10:33:24 CDT by Parth Allan M.D. [id number]
[2024-05-15] MEDS: budesonide 0.5 mg/2 mL Neb INHALATION ×2 (08:02→19:32)
--- NOTE | 2024-05-15 08:19 | P.PN_ITS ---
Subjective 2 Subjective: Medical sleeping when I first went in. Nurses have no concerns. Has received some Ativan intermittently, with last dose at 545 this morning. Did convert from his atrial flutter with rapid ventricular rate to sinus rhythm. Diltiazem has been stopped. Medications: Reviewed: Yes Vitals/I&O/Wt Last Vital Signs Temp 96.9 F L 05/15/24 07:46 Pulse 70 05/15/24 08:08 Resp 16 05/15/24 08:00 BP 134/74 05/15/24 06:00 Pulse Ox 93 05/15/24 08:00 O2 Del Method Room Air 05/15/24 08:00 05/14/24 05/15/24 05/15/24 22:59 06:59 14:59 Intake Total 1636.917 / 1636.917 645.833 / 2282.750 Output Total 200 / 200 300 / 500 Balance 1436.917 / 1436.917 345.833 / 1782.750 Weight last 48 hrs Weight 118 kg Weight 118 kg Weight 113.852 kg Weight 115.212 kg Physical Exam 2 Narrative: General exam Sleepy, no complaints Neck is supple no lymphadenopathy thyromegaly Cardiovascular irregularly irregular without murmur Lungs a few expiratory wheezes Abdomen is soft. Midline scar noted. Extremities no cyanosis clubbing edema, cap refill brisk Data 05/15/24 04:40 05/15/24 04:40 Micro: Microbiology 05/14/24 13:29 Blood Culture - Preliminary Blood SPECIMEN COLLECTED 05/14/24 13:20 Blood Culture - Preliminary Blood SPECIMEN COLLECTED A&P Assessment and plan (1) Atrial fibrillation with rapid ventricular response: Patient with atrial fibrillation/flutter with rapid ventricular rate He is converted to sinus rhythm Change anticoagulation to Eliquis Continue metoprolol No need for repeat echo. He has a recent echocardiogram from January. TSH was checked and normal Magnesium has been supplemented and is normal this morning. Potassium is normal. (2) Alcohol withdrawal: Patient with significant alcohol withdrawal Continue hydration Seizure and fall precautions Admission to ICU initially. Reevaluate later today, possible transfer out of ICU if stabilizes Ativan as needed with CIWA orders Encourage abstinence from alcohol Close follow-up of electrolytes tomorrow Continue Protonix 40 mg IV every 12 hours (3) Pulmonary embolism: Patient with evidence of pulmonary embolism. Overall burden is less than that in January He has been out of his Eliquis for the last 4 to 5 days or more He appears to be more stable. Changed to Eliquis (4) Hypomagnesemia: Supplemented yesterday, normal today (5) COPD (chronic obstructive pulmonary disease): No active exacerbation currently Continue DuoNeb as needed Continue budesonide twice daily Encouraged not to smoke Plan Tobacco dependency. Encouraged abstinence History of schizophrenia. Continue home medication with the exception of Celexa. Changed to Zoloft. Concern with interactions with other medications, cardiac arrhythmias Other medical problems as outlined in past medical history Full code Eliquis and SCDs for DVT prophylaxis High risk for decompensation with his comorbidities including alcoholism with active withdrawal. Potential worsening for needing continuous IV sedative medication and/or intubation for severe withdrawal as patient has had withdrawal seizures in the past. Attestations 2 Medical Necessity Statement*: Needs continued hospitalization secondary to alcohol withdrawal, need for Ativan IV and withdrawal protocols. Diagnoses Atrial fibrillation with rapid ventricular response I48.91 Alcohol withdrawal F10.939 Pulmonary embolism I26.99 Hypomagnesemia E83.42 COPD (chronic obstructive pulmonary disease) J44.9 Time Spent (min) 28
[2024-05-15] MEDS: ARIPiprazole 30 mg Tablet 15 MG PO (08:55)
[2024-05-15] MEDS: multivitamin therapeutic Tablet 1 TAB PO (08:56)
[2024-05-15] MEDS: metoprolol tartrate 25 mg Tablet PO ×2 (08:56→21:00)
[2024-05-15] MEDS: folic acid 1 mg Tablet PO (08:56)
[2024-05-15] MEDS: lisinopril 10 mg Tablet PO (08:56)
[2024-05-15] MEDS: thiamine 100 mg Tablet PO (08:56)
[2024-05-15] MEDS: sertraline 50 mg Tablet 25 MG PO (08:56)
[2024-05-15] MEDS: apixaban 5 mg Tablet 10 MG PO ×2 (10:01→21:00)
--- NOTE | 2024-05-15 13:39 | PC.NURSE ---
This nurse received report from PRINCESS Inman in ICU at 1340.
[2024-05-15] MEDS: LORazepam 2 mg Tablet PO (19:12)
[2024-05-15] MEDS: ipratropium-albuterol 3 mL Neb INHALATION (19:32)
[2024-05-15] MEDS: sodium chloride 0.9% 1,000 ML 100 ML IV (21:00)
[2024-05-15] MEDS: mirtazapine 15 mg Tablet PO (21:00)
[2024-05-16] MEDS: LORazepam 2 mg/mL INJ 1 mL IVP (00:16)
[2024-05-16 04:00] VITALS: BP 158/96; PULSE 63; RESP 17; TEMP 36.9; O2SAT 90
[2024-05-16 05:31] VITALS: PULSE 52
[2024-05-16] MEDS: sodium chloride 0.9% 1,000 ML 100 ML IV (06:32)
[2024-05-16 07:11] VITALS: BP 143/83; PULSE 58; RESP 16; TEMP 36.9; O2SAT 92
[2024-05-16 08:00] VITALS: PULSE 76; RESP 16; O2SAT 96
[2024-05-16] MEDS: apixaban 5 mg Tablet 10 MG PO (08:03)
[2024-05-16] MEDS: pantoprazole 40 mg SDV IVP (08:03)
[2024-05-16] MEDS: ARIPiprazole 30 mg Tablet 15 MG PO (08:03)
[2024-05-16] MEDS: multivitamin therapeutic Tablet 1 TAB PO (08:03)
[2024-05-16] MEDS: sertraline 50 mg Tablet 25 MG PO (08:03)
[2024-05-16] MEDS: thiamine 100 mg Tablet PO (08:03)
[2024-05-16] MEDS: lisinopril 10 mg Tablet PO (08:03)
[2024-05-16] MEDS: folic acid 1 mg Tablet PO (08:03)
[2024-05-16 08:04] LABS: Alanine Aminotransferase 24 U/L (0-41); Albumin Level 3.3 g/dL (3.5-5.2); Alkaline Phosphatase 78 U/L (40-130); Anion Gap 13.7 (5-19); Aspartate Amino Transferase 35 U/L (0-40); Blood Urea Nitrogen 10 mg/dL (6-20); Calcium 8.2 mg/dL (8.5-10.5); Carbon Dioxide 22 mmol/L (22-29); Chloride 108 mmol/L (98-107); Creatinine Clr Calc Pharmacy 203.3691; Globulin 2.5 g/dL (1.3-4.6); Glomerular Filtration Rate 170.8 mL/min (90-130); Glucose 108 mg/dL (65-115); Osmolality Calculated 290 mOsm/kg (285-295); Potassium 3.7 mmol/L (3.5-5.1); Sodium 140 mmol/L (136-145); Total Bilirubin 0.4 mg/dL (0.15-1.2); Total Protein 5.8 g/dL (6.6-8.7)
[2024-05-16] MEDS: LORazepam 2 mg Tablet PO (08:10)
[2024-05-16 08:55] LABS: Magnesium 1.6 mg/dL (1.7-2.3)
[2024-05-16] MEDS: budesonide 0.5 mg/2 mL Neb INHALATION (09:07)
[2024-05-16 09:10] VITALS: PULSE 77
[2024-05-16] MEDS: magnesium sulfate premix 2 GM/50 ML PIGGYBACK IV (09:54)
--- NOTE | 2024-05-16 10:23 | P.DS_ITS ---
Discharge Providers Date of Admission: 05/14/24 16:20 Date of Discharge: May 16, 2024 Attending Provider at Admission: Levi Smith MD Attending Provider at Discharge: Levi Smith MD Diagnoses at Discharge Discharge Diagnosis (1) Atrial fibrillation with rapid ventricular response: Status: Acute (2) Alcohol withdrawal: Status: Acute (3) Pulmonary embolism: Status: Acute (4) Hypomagnesemia: Status: Acute (5) COPD (chronic obstructive pulmonary disease): Status: Acute Reason for Visit Reason for Visit: CP Hospital Course Hospital Course Mor is a 59-year-old white male alcoholic who presented to the hospital with fast heart rate, and chest discomfort. He was in a wide-complex rhythm, thought to be atrial flutter with aberrancy on review. He had significant electrolyte abnormalities. He was initially given amiodarone in the emergency department but then converted to Cardizem bolus and drip. Troponin did not show significant trend. With the diltiazem heart rate went down, and he eventually spontaneously converted in the ICU. Beta-melvina was added to his regimen. Magnesium and electrolytes were corrected. He did demonstrate some alcohol withdrawal and was put on a CIWA protocol. CTA on admission demonstrated a subsegmental pulmonary embolism. It was not known if this was acute, or residual from previous PEs that he had with hospital stay in January. Either way he had stopped his anticoagulation 5 days or so prior to presentation so this was restarted. No RV strain was noted on CT. Recent echocardiogram demonstrated normal EF. He had significant improvement, and by 05/16 with no significant withdrawal, no further arrhythmias, and it was thought he could discharge home with close follow-up. He was able to ask questions, and agreed with the plan. A venous duplex was also done while he was in the hospital, which showed no DVT. He was given a prescription for Librium to use sparingly for any withdrawal symptoms should they occur. He was encouraged not to drink or smoke. He will be on the higher dose of Eliquis for 1 week prior to tapering down to 5 mg twice daily as the acuteness of his PE is not known and he did stop Eliquis prior to presentation for at least 4 to 5 days. Physical Exam Narrative: General exam no distress Neck is supple Cardiovascular regular rate and rhythm Lungs clear Abdomen soft Extremities no cyanosis clubbing edema Discharge Data Studies Completed and Pending Completed Studies During Hospitalization Category Date Time Status CT angio chest PE protcl [id number] Stat Cat Scan 05/14/24 14:53 Completed XR chest 1V portable [id number] Stat Exams 05/14/24 12:52 [place] [id number] Routine Ultrasound 05/14/24 16:24 Completed Pending at discharge Category Date Time Status Blood Culture Stat Lab 05/14/24 13:29 Results Radiology Impressions Chest X-Ray 05/14/24 12:52 IMPRESSION: No acute findings. Chest CTA 05/14/24 14:53 IMPRESSION: 1. No central pulmonary embolism. 2. Single, nonocclusive, RIGHT lower lobe subsegmental embolus. 3. No pneumonia. 4. Stable RIGHT adrenal adenoma. 5. No RIGHT heart strain. Laboratory Results WBC 9.78 10^3/uL (3.29-11.43) 05/15/24 04:40 RBC 4.35 10^6/uL (3.85-5.65) 05/15/24 04:40 Hgb 13.80 g/dL (11.27-16.99) 05/15/24 04:40 Hct 41.8 % (37-53) 05/15/24 04:40 MCV 96.1 fl (82-101) 05/15/24 04:40 MCH 31.7 pg (27-33) 05/15/24 04:40 MCHC 33.0 g/dL (30-55) 05/15/24 04:40 RDW 18.1 % (12.1-15.1) H 05/15/24 04:40 Plt Count 222 10^3/cmm (157-399) 05/15/24 04:40 MPV 10.2 fL (7.4-10.4) 05/15/24 04:40 Neut % (Auto) 58.4 % 05/15/24 04:40 Lymph % (Auto) 27.7 % 05/15/24 04:40 [place] % (Auto) 11.8 % 05/15/24 04:40 Eos % (Auto) 0.8 % 05/15/24 04:40 Baso % (Auto) 0.8 % 05/15/24 04:40 Neut # (Auto) 5.71 10^3/uL (1.8-7.7) 05/15/24 04:40 Lymph # (Auto) 2.7 10^3/uL (0.8-4.8) 05/15/24 04:40 [place] # (Auto) 1.2 10^3/uL (0.2-0.9) H 05/15/24 04:40 Eos # (Auto) 0.1 10^3/uL (0.0-0.8) 05/15/24 04:40 Baso # (Auto) 0.1 10^3/uL (0.0-0.1) 05/15/24 04:40 Nucleated RBC % (auto) 0.2 % 05/15/24 04:40 Nucleated RBCs # 0.0 /100WBC 05/15/24 04:40 Sodium 140 mmol/L (136-145) 05/16/24 07:26 Potassium 3.7 mmol/L (3.5-5.1) 05/16/24 07:26 Chloride 108 mmol/L (98-107) H 05/16/24 07:26 Carbon Dioxide 22 mmol/L (22-29) 05/16/24 07:26 Anion Gap 13.7 (5-19) 05/16/24 07:26 BUN 10 mg/dL (6-20) 05/16/24 07:26 Creatinine 0.5 mg/dL (0.7-1.2) L 05/16/24 07:26 GFR Calculation 170.8 mL/min (90-130) H 05/16/24 07:26 Glucose 108 mg/dL (65-115) 05/16/24 07:26 Calculated Osmolality 290 mOsm/kg (285-295) 05/16/24 07:26 Lactic Acid 3.5 mmol/L (0.5-2.2) H 05/14/24 13:20 Lactic Acid (Sepsis) 1.9 mmol/L (0.5-2.2) 05/14/24 16:37 Calcium 8.2 mg/dL (8.5-10.5) L 05/16/24 07:26 Magnesium 1.6 mg/dL (1.7-2.3) L 05/16/24 07:26 Total Bilirubin 0.4 mg/dL (0.15-1.2) 05/16/24 07:26 AST 35 U/L (0-40) 05/16/24 07:26 ALT 24 U/L (0-41) 05/16/24 07:26 Alkaline Phosphatase 78 U/L (40-130) 05/16/24 07:26 Ammonia 67 umol/L (16-60) H 05/14/24 13:20 Troponin T Baseline 17 ng/L (0-15) H 05/14/24 13:29 Troponin T 120 Minute 16.19 ng/L (0-15) H 05/14/24 15:07 Delta Troponin T -0.81 ABS# (0-10) L 05/14/24 15:07 Troponin T Hi Sens 6Hr 15.14 ng/L (0-15) H 05/14/24 19:35 Troponin T Hi Sens 6Hr Delta -1.86 ng/L (0-12) L 05/14/24 19:35 C-Reactive Protein 8.9 mg/L (0.0-4.9) H 05/14/24 13:29 Total Protein 5.8 g/dL (6.6-8.7) L 05/16/24 07:26 Albumin 3.3 g/dL (3.5-5.2) L 05/16/24 07:26 Globulin 2.5 g/dL (1.3-4.6) 05/16/24 07:26 Lipase 12 U/L (13-60) L 05/14/24 13:29 TSH 2.87 uIU/mL (0.27-4.20) 05/14/24 13:29 Urine Color Dark yellow (Yellow) 05/14/24 14:00 Urine Appearance Slightly cloudy (CLEAR) 05/14/24 14:00 Urine pH 7 (5-7) 05/14/24 14:00 Ur Specific [place] 1.010 (1.005-1.030) 05/14/24 14:00 Urine Protein 3+ (Negative) H 05/14/24 14:00 Urine Glucose (UA) 1+ (Normal) H 05/14/24 14:00 Urine Ketones 1+ (Negative) H 05/14/24 14:00 Urine Blood Trace (Negative) H 05/14/24 14:00 Urine Nitrate Negative (Negative) 05/14/24 14:00 Urine Bilirubin Neg (Negative) 05/14/24 14:00 Urine Urobilinogen Norm mg/dL (Negative) 05/14/24 14:00 Ur Leukocyte Esterase Negative (Negative) 05/14/24 14:00 Urine RBC 0-4 /hpf (0-2) H 05/14/24 14:00 Urine WBC 0-4 /hpf (0-5) H 05/14/24 14:00 Ur Squamous Epith Cells 0-4 /hpf (0-5) H 05/14/24 14:00 Amorphous Sediment Trace /hpf 05/14/24 14:00 Urine Bacteria 1+ /hpf (NONE) H 05/14/24 14:00 Hyaline Casts Rare /lpf 05/14/24 14:00 Fine Granular Casts 0-4 /lpf H 05/14/24 14:00 Urine Mucus 2+ /hpf 05/14/24 14:00 Ethyl Alcohol < 10 mg/dL (0-10) 05/14/24 13:29 Vitals Last Vital Signs Temp 98.5 F 05/16/24 07:11 Pulse 77 05/16/24 09:10 Resp 16 05/16/24 08:00 BP 143/83 05/16/24 07:11 Pulse Ox 96 05/16/24 08:00 O2 Del Method Room Air 05/16/24 08:00 Discharge Plan Discharge Patient Disposition: Home Condition: Stable Prescriptions: New chlordiazepoxide HCl 10 mg capsule 10 mg PO Q8H PRN (Reason: anxiety) Qty: 10 0RF sertraline 50 mg Tablet 25 mg PO DAILY Qty: 15 0RF magnesium oxide [MagOx] 400 mg (241.3 mg magnesium) tablet 400 mg PO DAILY Qty: 30 0RF metoprolol tartrate 25 mg Tablet 25 mg PO BID@0900,2100 Qty: 60 0RF Eliquis DVT-PE Treat 30D Start 5 mg (74 tabs) tablets,dose pack See Rx Instructions .ROUTE .COMPLEX Qty: 74 0RF Rx Instructions: orally per package directions 10 mg twice daily for the first 5 days, then 5 mg twice daily Continued Vitamin Plus Low Iron 27 mg iron- 1 mg tablet 1 tab PO DAILY furosemide 40 mg tablet 40 mg PO BID baclofen 20 mg tablet 20 mg PO TID PRN (Reason: Pain) potassium chloride 20 mEq tablet,ER particles/crystals 20 meq PO DAILY ciprofloxacin HCl 0.3 % drops 1 drp ophthalmic (eye) QID pantoprazole 40 mg tablet,delayed release (DR/EC) 40 mg PO DAILY ondansetron 4 mg tablet,disintegrating 4 mg PO Q6H PRN (Reason: Nausea) Anoro Ellipta 62.5-25 mcg/actuation blister with device 1 inh INHALATION DAILY folic acid 1 mg Tablet 1 mg PO DAILY 30 Days Qty: 30 1RF thiamine mononitrate (vit B1) [Vitamin B-1 (mononitrate)] 100 mg Tablet 100 mg PO DAILY 30 Days Qty: 30 1RF aripiprazole 15 mg tablet 15 mg PO DAILY 30 Days Qty: 30 1RF fluticasone propion-salmeterol [Advair HFA] 115-21 mcg/actuation HFA aerosol inhaler 2 puff inhalation BID Qty: 12 1RF Rx Instructions: administer with spacer Spiriva Respimat 1.25 mcg/actuation mist 2 inh inhalation DAILY Qty: 4 1RF albuterol sulfate 90 mcg/actuation HFA aerosol inhaler 1 inh inhalation Q6H PRN (Reason: shortness of breath or wheezing) Qty: 6.7 2RF Discontinued FeroSul 325 mg (65 mg iron) tablet 325 mg PO BID mirtazapine 15 mg tablet 15 mg PO BEDTIME gabapentin 100 mg capsule 100 mg PO TID PRN (Reason: NERVE PAIN) lisinopril [Zestril] 10 mg Tablet 10 mg PO DAILY citalopram 20 mg Tablet 20 mg PO BEDTIME 30 Days Qty: 30 1RF Eliquis 5 mg Tablet 5 mg PO BID@0900,2100 30 Days Qty: 60 1RF Discharge Orders: Discharge Order (Routine); Ordered 05/16/24 Ordered By: Levi Smith Referrals: Anisa Nugent FNP [Nurse Practitioner] - 2 weeks (afib new diagnosis We have notified your physician's clinic of the need for a follow-up appointment to be scheduled. If you have not heard from them within the next 2 business days, please call them directly. ) Josse Harvey MD [Referring] - 4-7 days (We have notified your physician's clinic of the need for a follow-up appointment to be scheduled. If you have not heard from them within the next 2 business days, please call them directly. ) Discharge Diet: Cardiac Discharge Activity: Increase activity as tolerated Patient Instructions: Opioid Safety Activity Restrictions/Additional Instructions: Do not drink any alcohol Follow-up with primary care provider 3 to 5 days Cardiology 2 weeks Return for any concerns Use Librium sparingly 10 mg, 3 times daily, as needed anxiety from withdrawal Discharge Attestations Time Spent in Discharge Care*: greater than 30 min Quality Metrics Clinical Quality Measures [ Venous Thromboembolism { Contraindication to Overlap Therapy: Overlap treatment not indicated; VTE Discharge Education: Education about anticoagulant therapy/Care Notes given; Contraindication to Pharm VTE Prophylaxis: None; Pharmacological prophylaxis given;}] Coding Level of Care Code 72566 Total time (in minutes) for Discharge: 37 Diagnoses Atrial fibrillation with rapid ventricular response I48.91 Alcohol withdrawal F10.939 Pulmonary embolism I26.99 Hypomagnesemia E83.42 COPD (chronic obstructive pulmonary disease) J44.9
[2024-05-16 11:18] VITALS: BP 149/91; PULSE 61; RESP 15; TEMP 36.9; O2SAT 96
--- NOTE | 2024-05-16 12:10 | PC.NURSE ---
D/C pending the remaining 3/5 meds to beds and medicaid ride home.
== END 2024-05-16 13:10 | disposition home or self-care (01) | DRG 308 ==
LOC: ER 16:16 → ICU 16:42 → MEDSURG 05-15 14:05
PROVIDERS: Admitting Provider Internal Medicine; Emergency Provider Emergency Medicine; Visit Provider Internal Medicine
DX: I48.91 Unspecified atrial fibrillation (principal); I26.93 Single subsegmental thrombotic pulmonary embolism without acute cor pulmonale; F10.239 Alcohol dependence with withdrawal, unspecified; Z86.711 Personal history of pulmonary embolism; F20.9 Schizophrenia, unspecified; J44.9 Chronic obstructive pulmonary disease, unspecified; T45.516A Underdosing of anticoagulants, initial encounter; Z91.128 Patient's intentional underdosing of medication regimen for other reason; F17.210 Nicotine dependence, cigarettes, uncomplicated; D35.01 Benign neoplasm of right adrenal gland; E83.42 Hypomagnesemia
CPT/HCPCS: 36415; 71045; 71275; 80053; 80307; 81001; 82140; 83605; 83690; 83735; 84443; 84484; 85025; 86140; 87040; 93005; 93970; 94640; 96365; 96366; 96367; 96372; 96374; 96375; 96376; 99285; C9113; J0282; J1650; J2060; J2405; J3411; J3475; J3490; J7030; J7626; Q9967

== ENCOUNTER 2024-07-08 18:35 | Inpatient (IN) | payer MEDICAID, SELFPAY ==
[2024-07-08] VITALS (12 sets, daily range): BP systolic 113–130; BP diastolic 64–81; PULSE 92; RESP 16–18; TEMP 36.6; O2SAT 86–95; BMI 39.5
--- NOTE | 2024-07-08 18:47 | ECG_ITS ---
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 Measurements Intervals [place] Rate: 88 P: 55 [place]: 178 QRS: 155 QRSD: 116 T: 58 QT: 376 QTc: 457 Interpretive Statements SINUS RHYTHM PATTERN CONSISTENT WITH PULMONARY DISEASE POSSIBLE RIGHT VENTRICULAR HYPERTROPHY [SOME/ALL OF: PROMINENT R IN V1, LATE TRANSITION, RAD, [place], SSS] Compared to ECG 05/15/2024 08:06:34 Sinus bradycardia no longer present Incomplete right bundle-branch block no longer present Electronically Signed On 07-09-2024 7:57:27 CDT by Parth Allan M.D. [email or web address]
--- NOTE | 2024-07-08 18:51 | XRR_ITS ---
PROCEDURE INFORMATION: Exam: XR Chest Exam date and time: 07/08/2024 6:56 PM Age: 59 years old Clinical indication: Pain; Chest pressure; Additional info: Chest pain TECHNIQUE: Imaging protocol: Radiologic exam of the chest. Views: 1 view. COMPARISON: CT angio chest PE protcl [id number] 05/14/2024 3:29 PM FINDINGS: Lungs: Unremarkable. No consolidation or mass. Pleural spaces: Unremarkable. No pleural effusion. No pneumothorax. Heart/Mediastinum: Unremarkable. No cardiomegaly. Bones/joints: Unremarkable. XR/XR chest 1V portable [id number] IMPRESSION: No acute findings.
--- NOTE | 2024-07-08 19:06 | ED_ITS ---
Documented by User: Servando DO Joanne 07/09/24 04:45 HPI - Chest Pain 2 General: Chief Complaint: Psychiatric Symptoms Stated Complaint: ETOH, cp Time Seen by Provider: 07/08/24 18:51 History of Present Illness: Who presents to the ER today complaining of chest pain. Patient says over the last couple days he has been drinking a lot of gin being approximately 40 little shooter bottles. Chest pain started earlier today is midsternal radiating straight to his back did not go into his arms or his neck. Patient has had this before. Patient does state he is on Eliquis for history of a blood clot. Patient [place] any nausea vomiting shortness of breath diaphoresis. Patient has been diagnosed with schizophrenia, alcohol abuse, medical noncompliance, and should be on Eliquis, Abilify 15 mg daily, Zoloft 25 mg daily, his last day in [facility] was approximately April 2023. He was for acute psychoses. He was hearing voices telling him to jump in front of traffic to kill himself. He is not saying the same thing this time. Related Data Home Medications Medication Instructions Recorded Confirmed vitamin with calcium 1 tab PO DAILY 02/01/24 05/14/24 no.72-iron 27 mg-folic acid 1 mg tablet ( Vitamins Plus Low Iron) baclofen 20 mg tablet 20 mg PO TID PRN Pain 05/14/24 05/14/24 ciprofloxacin HCl 0.3 % eye drops 1 drp ophthalmic (eye) QID 05/14/24 05/14/24 furosemide 40 mg tablet 40 mg PO BID 05/14/24 05/14/24 ondansetron 4 mg disintegrating 4 mg PO Q6H PRN Nausea 05/14/24 05/14/24 tablet pantoprazole 40 mg tablet,delayed 40 mg PO DAILY 05/14/24 05/14/24 release potassium chloride 20 mEq 20 meq PO DAILY 05/14/24 05/14/24 tablet,extended release(part/cryst) umeclidinium 62.5 mcg-vilanterol 1 inh inhalation DAILY 05/14/24 05/14/24 25 mcg/actuation powdr for inhalation (Anoro Ellipta) Previous Rx's Medication Instructions Recorded albuterol sulfate 90 mcg/actuation 1 inh inhalation Q6H PRN shortness 04/26/24 aerosol inhaler of breath or wheezing #6.7 grams aripiprazole 15 mg tablet 15 mg PO DAILY 30 days #30 tabs 04/26/24 fluticasone propionate 115 2 puff inhalation BID #12 grams 04/26/24 mcg-salmeterol 21 mcg/actuation HFA inhaler (Advair HFA) folic acid 1 mg tablet 1 mg PO DAILY 30 days #30 tabs 04/26/24 thiamine mononitrate (vit B1) 100 100 mg PO DAILY 30 days #30 tabs 04/26/24 mg tablet (Vitamin B-1 (mononitrate)) tiotropium bromide 1.25 2 inh inhalation DAILY #4 grams 04/26/24 mcg/actuation mist for inhalation (Spiriva Respimat) apixaban 5 mg (74 tabs) tablets in See Rx Instructions PO .COMPLEX 05/15/24 a dose pack (noodls DVT-PE Treat #74 ea 30D Start) chlordiazepoxide HCl 10 mg capsule 10 mg PO Q8H PRN anxiety #10 caps 05/16/24 magnesium oxide 400 mg (241.3 mg 400 mg PO DAILY #30 tabs 05/16/24 magnesium) tablet (MagOx) metoprolol tartrate 25 mg tablet 25 mg PO BID@0900,2100 #60 tabs 05/16/24 sertraline 50 mg tablet 25 mg (1/2 x 50 mg) PO DAILY #15 05/16/24 tabs Allergies Allergy/AdvReac Type Severity Reaction Status Date / Time No Known Allergies Allergy Verified 07/08/24 18:56 Review of Systems 2 General: Reports: 10 or more systems reviewed and unremarkable except in HPI and below PFSH ED 2 PFSH: Medical History Atrial fibrillation with rapid ventricular response COPD (chronic obstructive pulmonary disease) Schizophrenia Alcohol abuse Hx of pulmonary embolus Pulmonary embolism Cigarette smoker D-dimer, elevated Surgical History History of splenectomy Social History Smoking and tobacco/nicotine status: current every day tobacco/nicotine user Alcohol intake: current Substance/Drug Use: never Physical Exam 2 Const: COMMON NORMALS: no acute distress, average body habitus, patient oriented x3, no limitations, healthy appearing, alert and well nourished HENMT: COMMON NORMALS: normocephalic, atraumatic, hearing grossly normal bilaterally, external ears normal, Normal external nose present and moist oral mucous membranes HEAD & SCALP: normocephalic and atraumatic NOSE: Normal external nose present EXTERNAL EAR: Yes external ears normal Neck/C-Spine: COMMON NORMALS: full ROM, no lymphadenopathy, supple, no meningeal signs, no JVD and Thyroid normal THYROID: Thyroid normal Chest: COMMONS NORMALS: normal inspection of the chest and normal palpation of entire chest wall Resp: COMMON NORMALS: normal respiratory effort, No retractions, No use of accessory muscles and clear to auscultation bilaterally AUSCULTATION: clear to auscultation bilaterally Cardio: COMMON NORMALS: no JVD, regular rate, regular rhythm, S1 normal heart sound present, S2 normal heart sound present, No gallops present (Cardio), No clicks present (Cardio), No murmurs present (Cardio) and No rub (Cardio) R ATE: regular rate RHYTHM: regular rhythm HEART SOUNDS: S1 normal heart sound present and S2 normal heart sound present GI: COMMON NORMALS: Normal to inspection, nondistended, normoactive bowel sounds present, Soft to palpation, non-tender, No hepatosplenomegaly present and no masses PALPATION: Yes Soft to palpation and Yes No hepatosplenomegaly present Neuro: COMMON NORMALS: patient oriented x3 SENSORIUM/ORIENTATION: Yes alert MENINGEAL SIGNS: Yes no meningeal signs Course 2 Vital Signs: Vital signs: Vital Signs Temperature 97.9 F 07/08/24 18:50 Pulse Rate 91 07/09/24 04:10 Respiratory Rate 18 07/09/24 04:10 Blood Pressure 131/64 07/09/24 04:10 Pulse Oximetry 92 07/09/24 04:10 Oxygen Delivery Me thod Room Air 07/09/24 04:10 Oxygen Flow Rate 3 07/08/24 23:25 MDM - Chest Pain Medical Decision Making Patient presented with chest pain and alcohol intoxication. Patient's alcohol level was elevated 364. These results was discussed with the patient who will reevaluate only sleeping soundly. Patient be discharged if he has a sober ride. Before patient sober ride could come to pick patient up patient decided he cannot tell us about his hearing voices and seeing hallucinations and having suicidal ideation. So patient will be worked up for the psychiatric suicidal standpoint. Differential Diagnosis Unlikely acute massive pulmonary embolism, acute respiratory failure, acute myocardial infarction, cardiac arrest or sudden cardiac Medical Records I reviewed the patient's medical records. Lab Data I reviewed the patient's lab results. 07/08/24 19:19 07/08/24 19:19 Radiology Impressions Chest X-Ray 07/08/24 18:51 IMPRESSION: No acute findings. Laboratory Results WBC 12.92 10^3/uL (3.29-11.43) H 07/08/24 19:19 RBC 4.98 10^6/uL (3.85-5.65) 07/08/24 19:19 Hgb 15.60 g/dL (11.27-16.99) 07/08/24 19:19 Hct 45.1 % (37-53) 07/08/24 19:19 MCV 90.6 fl (82-101) 07/08/24 19:19 MCH 31.3 pg (27-33) 07/08/24 19:19 MCHC 34.6 g/dL (30-55) 07/08/24 19:19 RDW 16.1 % (12.1-15.1) H 07/08/24 19:19 Plt Count 396 10^3/cmm (157-399) 07/08/24 19:19 MPV 8.5 fL (7.4-10.4) 07/08/24 19:19 Neut % (Auto) 52.3 % 07/08/24 19:19 Lymph % (Auto) 36.5 % 07/08/24 19:19 [place] % (Auto) 8.5 % 07/08/24 19:19 Eos % (Auto) 1.4 % 07/08/24 19:19 Baso % (Auto) 0.9 % 07/08/24 19:19 Neut # (Auto) 6.75 10^3/uL (1.8-7.7) 07/08/24 19:19 Lymph # (Auto) 4.7 10^3/uL (0.8-4.8) 07/08/24 19:19 [place] # (Auto) 1.1 10^3/uL (0.2-0.9) H 07/08/24 19:19 Eos # (Auto) 0.2 10^3/uL (0.0-0.8) 07/08/24 19:19 Baso # (Auto) 0.1 10^3/uL (0.0-0.1) 07/08/24 19:19 Nucleated RBC % (auto) 0 % 07/08/24 19:19 Nucleated RBCs # 0.0 /100WBC 07/08/24 19:19 Sodium 141 mmol/L (136-145) 07/08/24 19:19 Potassium 4.4 mmol/L (3.5-5.1) 07/08/24 19:19 Chloride 103 mmol/L (98-107) 07/08/24 19:19 Carbon Dioxide 22 mmol/L (22-29) 07/08/24 19:19 Anion Gap 20.4 (5-19) H 07/08/24 19:19 BUN 7 mg/dL (6-20) 07/08/24 19:19 Creatinine 0.6 mg/dL (0.7-1.2) L 07/08/24 19:19 GFR Calculation 138.4 mL/min (90-130) H 07/08/24 19:19 Glucose 105 mg/dL (65-115) 07/08/24 19:19 Calculated Osmolality 290 mOsm/kg (285-295) 07/08/24 19:19 Calcium 8.2 mg/dL (8.5-10.5) L 07/08/24 19:19 Total Bilirubin 0.4 mg/dL (0.15-1.2) 07/08/24 19:19 AST 39 U/L (0-40) 07/08/24 19:19 ALT 24 U/L (0-41) 07/08/24 19:19 Alkaline Phosphatase 93 U/L (40-130) 07/08/24 19:19 Troponin T Baseline 8 ng/L (0-15) 07/08/24 19:19 Troponin T 120 Minute 9.08 ng/L (0-15) 07/08/24 21:17 Delta Troponin T 1.08 ABS# (0-10) 07/08/24 21:17 Total Protein 7.1 g/dL (6.6-8.7) 07/08/24 19:19 Albumin 4.3 g/dL (3.5-5.2) 07/08/24 19:19 Globulin 2.8 g/dL (1.3-4.6) 07/08/24 19:19 Urine Color Yellow (Yellow) 07/09/24 04:07 Urine Appearance Clear (CLEAR) 07/09/24 04:07 Urine pH 6 (5-7) 07/09/24 04:07 Ur Specific [place] 1.015 (1.005-1.030) 07/09/24 04:07 Urine Protein 1+ (Negative) H 07/09/24 04:07 Urine Glucose (UA) Norm (Normal) 07/09/24 04:07 Urine Ketones Negative (Negative) 07/09/24 04:07 Urine Blood Neg (Negative) 07/09/24 04:07 Urine Nitrate Negative (Negative) 07/09/24 04:07 Urine Bilirubin Neg (Negative) 07/09/24 04:07 Urine Urobilinogen 1 mg/dL (Negative) H 07/09/24 04:07 Ur Leukocyte Esterase Negative (Negative) 07/09/24 04:07 Urine RBC 0-4 /hpf (0-2) H 07/09/24 04:07 Urine WBC None /hpf (0-5) 07/09/24 04:07 Ur Squamous Epith Cells 0-4 /hpf (0-5) H 07/09/24 04:07 Amorphous Sediment Not Reportable 07/09/24 04:07 Urine Bacteria None /hpf (NONE) 07/09/24 04:07 Urine Mucus 2+ /hpf 07/09/24 04:07 Salicylates < 0.3 mg/dL (3-10) L 07/09/24 03:53 Urine Opiates Screen Negative ng/mL (Negative) 07/09/24 04:07 Acetaminophen < 5.0 ug/mL (10-30) L 07/09/24 03:53 Ur Barbiturates Screen Negative ng/mL (Negative) 07/09/24 04:07 Ur Phencyclidine Scrn Negative ng/mL (Negative) 07/09/24 04:07 Ur Amphetamines Screen Negative ng/mL (Negative) 07/09/24 04:07 U Benzodiazepines Scrn Negative ng/mL (Negative) 07/09/24 04:07 Urine Cocaine Screen Negative ng/mL (Negative) 07/09/24 04:07 U Marijuana (THC) Screen Negative ng/mL (Negative) 07/09/24 04:07 Ethyl Alcohol 145 mg/dL (0-10) H 07/09/24 03:53 All radiology interpretation(s) finalized by discharge Discharge Plan Discharge Patient Disposition: Admitted As Inpatient Clinical Impression: Suicidal ideations Chest pain Qualifiers: Chest pain type: unspecified Qualified Code(s): R07.9 - Chest pain, unspecified Alcohol intoxication Qualifiers: Complication of substance-induced condition: uncomplicated Qualified Code(s): F 10.920 - Alcohol use, unspecified with intoxication, uncomplicated Condition: Stable Coding Level of Care Code ED Degreasing Solution Reclaimer for Chg Fwd Documented by User: Gricel Verdugo MD 07/09/24 06:30 HPI - Chest Pain 2 General: Chief Complaint: Psychiatric Symptoms Stated Complaint: ETOH, cp Time Seen by Provider: 07/08/24 18:51 Related Data Home Medications Medication Instructions Recorded Confirmed vitamin with calcium 1 tab PO DAILY 02/01/24 05/14/24 no.72-iron 27 mg-folic acid 1 mg tablet ( Vitamins Plus Low Iron) baclofen 20 mg tablet 20 mg PO TID PRN Pain 05/14/24 05/14/24 ciprofloxacin HCl 0.3 % eye drops 1 drp ophthalmic (eye) QID 05/14/24 05/14/24 furosemide 40 mg tablet 40 mg PO BID 05/14/24 05/14/24 ondansetron 4 mg disintegrating 4 mg PO Q6H PRN Nausea 05/14/24 05/14/24 tablet pantoprazole 40 mg tablet,delayed 40 mg PO DAILY 05/14/24 05/14/24 release potassium chloride 20 mEq 20 meq PO DAILY 05/14/24 05/14/24 tablet,extended release(part/cryst) umeclidinium 62.5 mcg-vilanterol 1 inh inhalation DAILY 05/14/24 05/14/24 25 mcg/actuation powdr for inhalation (Anoro Ellipta) Previous Rx's Medication Instructions Recorded albuterol sulfate 90 mcg/actuation 1 inh inhalation Q6H PRN shortness 04/26/24 aerosol inhaler of breath or wheezing #6.7 grams aripiprazole 15 mg tablet 15 mg PO DAILY 30 days #30 tabs 04/26/24 fluticasone propionate 115 2 puff inhalation BID #12 grams 04/26/24 mcg-salmeterol 21 mcg/actuation HFA inhaler (Advair HFA) folic acid 1 mg tablet 1 mg PO DAILY 30 days #30 tabs 04/26/24 thiamine mononitrate (vit B1) 100 100 mg PO DAILY 30 days #30 tabs 04/26/24 mg tablet (Vitamin B-1 (mononitrate)) tiotropium bromide 1.25 2 inh inhalation DAILY #4 grams 04/26/24 mcg/actuation mist for inhalation (Spiriva Respimat) apixaban 5 mg (74 tabs) tablets in See Rx Instructions PO .COMPLEX 05/15/24 a dose pack (noodls DVT-PE Treat #74 ea 30D Start) chlordiazepoxide HCl 10 mg capsule 10 mg PO Q8H PRN anxiety #10 caps 05/16/24 magnesium oxide 400 mg (241.3 mg 400 mg PO DAILY #30 tabs 05/16/24 magnesium) tablet (MagOx) metoprolol tartrate 25 mg tablet 25 mg PO BID@0900,2100 #60 tabs 05/16/24 sertraline 50 mg tablet 25 mg (1/2 x 50 mg) PO DAILY #15 05/16/24 tabs Allergies Allergy/AdvReac Type Severity Reaction Status Date / Time No Known Allergies Allergy Verified 07/08/24 18:56 [facility] ED 2 PFSH: Medical History Atrial fibrillation with rapid ventricular response COPD (chronic obstructive pulmonary disease) Schizophrenia Alcohol abuse Hx of pulmonary embolus Pulmonary embolism Cigarette smoker D-dimer, elevated Surgical History History of splenectomy Social History Smoking and tobacco/nicotine status: current every day tobacco/nicotine user Alcohol intake: current Substance/Drug Use: never Course 2 Vital Signs: Vital signs: Vital Signs Temperature 97.9 F 07/08/24 18:50 Pulse Rate 91 07/09/24 04:10 Respiratory Rate 18 07/09/24 04:10 Blood Pressure 131/64 07/09/24 04:10 Pulse Oximetry 92 07/09/24 04:10 Oxygen Delivery Me thod Room Air 07/09/24 04:10 Oxygen Flow Rate 3 07/08/24 23:25 MDM - Chest Pain Medical Decision Making Patient presented with chest pain and alcohol intoxication. Patient's alcohol level was elevated 364. These results was discussed with the patient who will reevaluate only sleeping soundly. Patient be discharged if he has a sober ride. Before patient sober ride could come to pick patient up patient decided he cannot tell us about his hearing voices and seeing hallucinations and having suicidal ideation. So patient will be worked up for the psychiatric suicidal standpoint. Patient care transitioned me at shift change. Awaiting consultation with psychiatry. I have spoken with Dr. Alicea. He accepts patient to the floor. Assessment and plan: Alcohol intoxication Suicidal ideation ?Patient being admitted to the Neuropsych Unit for further evaluation and treatment. Lab Data 07/08/24 19:19 07/08/24 19:19 Radiology Impressions Chest X-Ray 07/08/24 18:51 IMPRESSION: No acute findings. Laboratory Results WBC 12.92 10^3/uL (3.29-11.43) H 07/08/24 19:19 RBC 4.98 10^6/uL (3.85-5.65) 07/08/24 19:19 Hgb 15.60 g/dL (11.27-16.99) 07/08/24 19:19 Hct 45.1 % (37-53) 07/08/24 19:19 MCV 90.6 fl (82-101) 07/08/24 19:19 MCH 31.3 pg (27-33) 07/08/24 19:19 MCHC 34.6 g/dL (30-55) 07/08/24 19:19 RDW 16.1 % (12.1-15.1) H 07/08/24 19:19 Plt Count 396 10^3/cmm (157-399) 07/08/24 19:19 MPV 8.5 fL (7.4-10.4) 07/08/24 19:19 Neut % (Auto) 52.3 % 07/08/24 19:19 Lymph % (Auto) 36.5 % 07/08/24 19:19 [place] % (Auto) 8.5 % 07/08/24 19:19 Eos % (Auto) 1.4 % 07/08/24 19:19 Baso % (Auto) 0.9 % 07/08/24 19:19 Neut # (Auto) 6.75 10^3/uL (1.8-7.7) 07/08/24 19:19 Lymph # (Auto) 4.7 10^3/uL (0.8-4.8) 07/08/24 19:19 [place] # (Auto) 1.1 10^3/uL (0.2-0.9) H 07/08/24 19:19 Eos # (Auto) 0.2 10^3/uL (0.0-0.8) 07/08/24 19:19 Baso # (Auto) 0.1 10^3/uL (0.0-0.1) 07/08/24 19:19 Nucleated RBC % (auto) 0 % 07/08/24 19:19 Nucleated RBCs # 0.0 /100WBC 07/08/24 19:19 Sodium 141 mmol/L (136-145) 07/08/24 19:19 Potassium 4.4 mmol/L (3.5-5.1) 07/08/24 19:19 Chloride 103 mmol/L (98-107) 07/08/24 19:19 Carbon Dioxide 22 mmol/L (22-29) 07/08/24 19:19 Anion Gap 20.4 (5-19) H 07/08/24 19:19 BUN 7 mg/dL (6-20) 07/08/24 19:19 Creatinine 0.6 mg/dL (0.7-1.2) L 07/08/24 19:19 GFR Calculation 138.4 mL/min (90-130) H 07/08/24 19:19 Glucose 105 mg/dL (65-115) 07/08/24 19:19 Calculated Osmolality 290 mOsm/kg (285-295) 07/08/24 19:19 Calcium 8.2 mg/dL (8.5-10.5) L 07/08/24 19:19 Total Bilirubin 0.4 mg/dL (0.15-1.2) 07/08/24 19:19 AST 39 U/L (0-40) 07/08/24 19:19 ALT 24 U/L (0-41) 07/08/24 19:19 Alkaline Phosphatase 93 U/L (40-130) 07/08/24 19:19 Troponin T Baseline 8 ng/L (0-15) 07/08/24 19:19 Troponin T 120 Minute 9.08 ng/L (0-15) 07/08/24 21:17 Delta Troponin T 1.08 ABS# (0-10) 07/08/24 21:17 Total Protein 7.1 g/dL (6.6-8.7) 07/08/24 19:19 Albumin 4.3 g/dL (3.5-5.2) 07/08/24 19:19 Globulin 2.8 g/dL (1.3-4.6) 07/08/24 19:19 Urine Color Yellow (Yellow) 07/09/24 04:07 Urine Appearance Clear (CLEAR) 07/09/24 04:07 Urine pH 6 (5-7) 07/09/24 04:07 Ur Specific [place] 1.015 (1.005-1.030) 07/09/24 04:07 Urine Protein 1+ (Negative) H 07/09/24 04:07 Urine Glucose (UA) Norm (Normal) 07/09/24 04:07 Urine Ketones Negative (Negative) 07/09/24 04:07 Urine Blood Neg (Negative) 07/09/24 04:07 Urine Nitrate Negative (Negative) 07/09/24 04:07 Urine Bilirubin Neg (Negative) 07/09/24 04:07 Urine Urobilinogen 1 mg/dL (Negative) H 07/09/24 04:07 Ur Leukocyte Esterase Negative (Negative) 07/09/24 04:07 Urine RBC 0-4 /hpf (0-2) H 07/09/24 04:07 Urine WBC None /hpf (0-5) 07/09/24 04:07 Ur Squamous Epith Cells 0-4 /hpf (0-5) H 07/09/24 04:07 Amorphous Sediment Not Reportable 07/09/24 04:07 Urine Bacteria None /hpf (NONE) 07/09/24 04:07 Urine Mucus 2+ /hpf 07/09/24 04:07 Salicylates < 0.3 mg/dL (3-10) L 07/09/24 03:53 Urine Opiates Screen Negative ng/mL (Negative) 07/09/24 04:07 Acetaminophen < 5.0 ug/mL (10-30) L 07/09/24 03:53 Ur Barbiturates Screen Negative ng/mL (Negative) 07/09/24 04:07 Ur Phencyclidine Scrn Negative ng/mL (Negative) 07/09/24 04:07 Ur Amphetamines Screen Negative ng/mL (Negative) 07/09/24 04:07 U Benzodiazepines Scrn Negative ng/mL (Negative) 07/09/24 04:07 Urine Cocaine Screen Negative ng/mL (Negative) 07/09/24 04:07 U Marijuana (THC) Screen Negative ng/mL (Negative) 07/09/24 04:07 Ethyl Alcohol 145 mg/dL (0-10) H 07/09/24 03:53 Discharge Plan Discharge Patient Disposition: Admitted As Inpatient Clinical Impression: Suicidal ideations Chest pain Qualifiers: Chest pain type: unspecified Qualified Code(s): R07.9 - Chest pain, unspecified Alcohol intoxication Qualifiers: Complication of substance-induced condition: uncomplicated Qualified Code(s): F 10.920 - Alcohol use, unspecified with intoxication, uncomplicated Condition: Stable Coding Level of Care Code ED Degreasing Solution Reclaimer for [place]
[2024-07-08 19:24] LABS: Basophils # 0.1 10^3/uL (0.0-0.1); Basophils % 0.9 %; Eosinophils # 0.2 10^3/uL (0.0-0.8); Eosinophils % 1.4 %; Hematocrit 45.1 % (37-53); Lymphocytes # 4.7 10^3/uL (0.8-4.8); Lymphocytes % 36.5 %; Mean Corpuscular HGB Conc 34.6 g/dL (30-55); Mean Corpuscular Hemoglobin 31.3 pg (27-33); Mean Corpuscular Volume 90.6 fl (82-101); Mean Platelet Volume 8.5 fL (7.4-10.4); Monocytes # 1.1 10^3/uL (0.2-0.9); Monocytes % 8.5 %; Neutrophils # 6.75 10^3/uL (1.8-7.7); Neutrophils % 52.3 %; Nucleated Red Blood Cells % 0 %; Platelet Count 396 10^3/cmm (157-399); Red Blood Count 4.98 10^6/uL (3.85-5.65); Red Cell Distribution Width 16.1 % (12.1-15.1); White Blood Count 12.92 10^3/uL (3.29-11.43)
[2024-07-08 19:51] LABS: Troponin(5th) Baseline 8 ng/L (0-15)
[2024-07-08 19:52] LABS: Albumin Level 4.3 g/dL (3.5-5.2); Alkaline Phosphatase 93 U/L (40-130); Blood Urea Nitrogen 7 mg/dL (6-20); Calcium 8.2 mg/dL (8.5-10.5); Carbon Dioxide 22 mmol/L (22-29); Chloride 103 mmol/L (98-107); Creatinine Clr Calc Pharmacy 167.4425; Globulin 2.8 g/dL (1.3-4.6); Glomerular Filtration Rate 138.4 mL/min (90-130); Glucose 105 mg/dL (65-115); Osmolality Calculated 290 mOsm/kg (285-295); Sodium 141 mmol/L (136-145); Total Bilirubin 0.4 mg/dL (0.15-1.2); Total Protein 7.1 g/dL (6.6-8.7)
[2024-07-08 19:54] LABS: Alanine Aminotransferase 24 U/L (0-41); Anion Gap 20.4 (5-19); Aspartate Amino Transferase 39 U/L (0-40); Potassium 4.4 mmol/L (3.5-5.1)
[2024-07-08 21:45] LABS: Troponin 5 2HR 9.08 ng/L (0-15); Troponin 5 2HR Delta 1.08 ABS# (0-10)
[2024-07-08 23:46] LABS: Alcohol Level 364 mg/dL (0-10)
[2024-07-09] VITALS (37 sets, daily range): BP systolic 90–162; BP diastolic 59–91; PULSE 85–107; RESP 16–20; TEMP 36.4–37.5; O2SAT 86–96
--- NOTE | 2024-07-09 04:00 | PC.NURSE ---
When checking on pt he was sitting on the edge of the bed and stated I'm hearing voices they are telling me to jump out in front of cars . Pt continued to state that he needed help
[2024-07-09 04:21] LABS: Alcohol Level 145 mg/dL (0-10)
[2024-07-09 04:26] LABS: Amphetamines Screen Urine Negative (Negative); Barbiturates Screen Urine Negative (Negative); Benzodiazepines Screen Urine Negative (Negative); Cocaine Screen Urine Negative (Negative); Opiate Screen Urine Negative (Negative); PCP Screen Urine Negative (Negative); THC Screen Urine Negative (Negative)
[2024-07-09 04:30] LABS: Add Urine Culture? No; Add Urine Microscopic? YES; Bilirubin Urine Neg (Negative); Blood Urine Neg (Negative); Glucose Urine UA Norm (Normal); Ketones Urine Negative (Negative); Leukocyte Esterase Urine Negative (Negative); Mucus Urine 2+ /hpf; Nitrate Urine Negative (Negative); Protein Urine 1+ (Negative); RBC Urine 0-4 /hpf (0-2); Specific Gravity, Urine 1.015 (1.005-1.030); Squamous Epithelial Cell Urine 0-4 /hpf (0-5); Urine Appearance Clear (CLEAR); Urine Color Yellow (Yellow); Urobilinogen Urine 1 mg/dL (Negative); pH Urine 6 (5-7)
[2024-07-09 04:33] LABS: Acetaminophen < 5.0 ug/mL (10-30); Salicylate < 0.3 mg/dL (3-10)
--- NOTE | 2024-07-09 06:49 | PC.NURSE ---
96 Hour Hold Pt served with copy of 96 hour hold by this RN and security. Pt alert and orients and calm. Pt stated that he understood his rights and has been placed on a 96 HH in the past. Pt also stated that he is familiar with the [facility]. Pt agreeable to being admitted at this time.
[2024-07-09] MEDS: folic acid 1 mg Tablet PO (08:15)
[2024-07-09] MEDS: acetaminophen 325 mg Tablet 650 MG PO ×2 (08:16→16:17)
[2024-07-09] MEDS: LORazepam 2 mg Tablet PO ×3 (08:16→20:57)
[2024-07-09] MEDS: multivitamin therapeutic Tablet 1 TAB PO (08:16)
--- NOTE | 2024-07-09 10:12 | PC.OT ---
PER NURSING; PATIENT IS VOMITING AND NOT FEELING WELL. IS CURRENTLY RESTING. UNABLE TO COMPLETE OT EVALUATION AT THIS TIME.
[2024-07-09] MEDS: ondansetron 4 MG Tablet PO (16:16)
[2024-07-09] MEDS: metoprolol tartrate 25 mg Tablet PO (20:58)
[2024-07-09] MEDS: trazodone 50 mg Tablet PO (20:58)
[2024-07-09] MEDS: apixaban 5 mg Tablet PO (20:59)
[2024-07-09] MEDS: bumetanide 1 mg Tablet PO (20:59)
[2024-07-10] VITALS (8 sets, daily range): BP systolic 109–130; BP diastolic 67–78; PULSE 73–95; RESP 17–18; TEMP 36.3–37.1; O2SAT 90–96
[2024-07-10] MEDS: LORazepam 2 mg Tablet PO ×4 (00:11→21:33)
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
[2024-07-10] MEDS: apixaban 5 mg Tablet PO ×2 (09:52→20:14)
[2024-07-10] MEDS: multivitamin therapeutic Tablet 1 TAB PO (09:52)
[2024-07-10] MEDS: metoprolol tartrate 25 mg Tablet PO ×2 (09:52→20:14)
[2024-07-10] MEDS: folic acid 1 mg Tablet PO (09:52)
[2024-07-10] MEDS: potassium chloride ER 20 mEq Tablet PO (09:52)
[2024-07-10] MEDS: magnesium oxide 400 mg tablet PO (09:52)
[2024-07-10] MEDS: thiamine 100 mg Tablet PO (09:52)
[2024-07-10] MEDS: bumetanide 1 mg Tablet PO ×2 (09:55→20:14)
[2024-07-10] MEDS: acetaminophen 325 mg Tablet 650 MG PO ×2 (11:14→15:49)
--- NOTE | 2024-07-10 12:57 | PC.NURSE ---
PRN MEDS PT GIVEN 2MG ATIVAN FOR SCORE OF 19 ON CIWA PROTOCOL, ALSO 650MG OF TYLENOL FOR A HEADACHE, WILL CONTINUE TO MONITOR.
[2024-07-10] MEDS: albuterol 2.5 mg/3 mL Neb INHALATION (13:58)
[2024-07-10] MEDS: nicotine 4 mg lozenge MUCOUS MEM (14:59)
--- NOTE | 2024-07-10 15:53 | PC.NURSE ---
PRN MEDS PT GIVEN 2MG ATIVAN PER SCORE OF 10 ON CIWA PROTOCOL, AND 650 MG OF TYLENOL, FOR HEADACHE ON 7 ON PAIN SCALE, WILL CONTINUE TO MONITOR.
[2024-07-10] MEDS: trazodone 50 mg Tablet PO (20:14)
[2024-07-11] VITALS: BP 108/66; PULSE 70; RESP 16; O2SAT 94
[2024-07-11 04:00] VITALS: BP 104/64; PULSE 67; RESP 15; O2SAT 92
[2024-07-11 08:00] VITALS: BP 123/68; PULSE 76; RESP 18; TEMP 36.9; O2SAT 92
--- NOTE | 2024-07-11 08:20 | W.PM.NPUPNS ---
Subjective NPU Subjective: Patient presented today reporting that he is feeling much better. He endorsed needing to get home and needing to take care of his partner. He denied any additional nausea or GI difficulties. He denied any interest in continued inpatient treatment. He expressed no interest in any real sober living services. We had a long discussion about the impact of long-term alcohol use as he continued to report not having drank now for 9 months and we discussed his last hospitalization was 2 months ago. We discussed the risk for Warnicke's and memory difficulties from his continued use. He denied any side effects to the medication. Mental Status Exam MSE Comments: This is an obese versus morbidly obese white male in hospital [facility] with poor grooming and limited eye contact. No abnormal movements except for psychomotor retardation. He was mostly cooperative with exam in no acute distress. Speech was more productive and more normal rate and volume. Mood described as better, affect subdued. Thought process linear. Thought content: Patient did not report suicidal or homicidal ideation, there were no delusions reported or noted, he did not report auditory or visual hallucinations. Attention and concentration were intact and memory was mostly reliable but none were formally tested. He was alert and oriented to person and place. Insight and judgment limited and impulse control is impaired. Vitals/I&O/Wt Last Vital Signs Temp 98.4 F 07/11/24 08:00 Pulse 76 07/11/24 08:00 Resp 18 07/11/24 08:00 BP 123/68 07/11/24 08:00 Pulse Ox 92 07/11/24 08:00 O2 Del Method Room Air 07/10/24 13:57 O2 Flow Rate 3 07/08/24 23:25 Data NPU 07/08/24 19:19 07/08/24 19:19 A&P Assessment and plan (1) Schizophrenia: (2) Suicidal ideation: (3) Alcohol abuse: (4) History of command hallucinations: Plan This is a 59-year-old white male with significant addiction history with past hospitalizations here with diagnoses noted of schizophrenia and alcohol use disorder who presents again intoxicated, and withdrawal and off of his medication. He denies things being that bad with his addiction and wanting to return to his place of residence as soon as possible. 1. Continue current medication. 2. Encourage individual, group and milieu therapies. 3. Encourage sober living treatment after discharge at the highest level care to which he is willing to commit. 4. Continue CIWA protocol. 5. Continue every 15 minute observation for safety. 6. Likely discharge tomorrow. Involuntary Hold Information 96 Hour Hold: 96 Hour Involuntary Admission: Yes 96 Hour Hold Ending Date: 07/15/24 96 Hour Hold Ending Time: 07:41 Attestations NPU Medical Necessity Statement*: Inpatient hospitalization is medically necessary and?the clinically appropriate intervention at this time.? We will monitor/initiate medications and make changes as indicated.?? Likely length of stay 1-3 days. Coding Level of Care Code Acute Code for g Fwd Diagnoses Schizophrenia F20.9 Suicidal ideation R45.851 Alcohol abuse F10.10 History of command hallucinations Z86.59
[2024-07-11] MEDS: multivitamin therapeutic Tablet 1 TAB PO (09:05)
[2024-07-11] MEDS: bumetanide 1 mg Tablet PO ×2 (09:05→20:29)
[2024-07-11] MEDS: thiamine 100 mg Tablet PO (09:05)
[2024-07-11] MEDS: magnesium oxide 400 mg tablet PO (09:05)
[2024-07-11] MEDS: LORazepam 2 mg Tablet PO (09:05)
[2024-07-11] MEDS: apixaban 5 mg Tablet PO ×2 (09:06→20:29)
[2024-07-11] MEDS: acetaminophen 325 mg Tablet 650 MG PO ×2 (09:06→16:48)
[2024-07-11] MEDS: potassium chloride ER 20 mEq Tablet PO (09:06)
[2024-07-11] MEDS: metoprolol tartrate 25 mg Tablet PO ×2 (09:06→20:29)
[2024-07-11] MEDS: folic acid 1 mg Tablet PO (09:06)
--- NOTE | 2024-07-11 09:22 | PC.NURSE ---
SITTING ON BED, NOTED TO HAVE FLAT AFFECT AND DEPRESSED/ANXIOUS MOOD. RATES PAIN 8/10 IN HEAD AND BACK. TYLENOL 650 MG GIVEN ORDERED FOR PAIN. REPORTS IT WAS HARD FOR HIM TO SLEEP LAST NIGHT AND GOT VERY LITTLE SLEEP. DENIES SI/HI AND VH AT THIS TIME. PT CONTINUES TO ENDORSE HEARING VOICES, STATES ITS JUST WHISPERING, I CAN'T MAKE OUT WHAT THEY ARE SAYING. PT SCORED 13 ON CIWA PROTOCOL AND 2 MG OF ATIVAN WAS GIVEN ORDERED PER PROTOCOL. RATES ANXIETY 5/10 AND DEPRESSION 2/10. PT IS REQUESTING TO DISCHARGE DUE TO HAVING TO CARE FOR MY AND THATS HOW I GET PAID AND IF I'M HERE I CAN'T GET PAID. RN LISTENED WITH EMPATHY AND EDUCATED PT ON THE 96 HOUR HOLD AND WHEN IT WAS UP ON THE . PT CONTINUED STATE REASONS WHY I NEEDED TO DISCHARGE HIM. PT WAS AGIAN EDUCATED THAT THIS RN DOES NOT DISCHARGE ONLY THE DR. HINTON. PT THEN STATED WELL HE SAID I COULDN'T GO. RN INFORMED PT THAT DR. SINGH WILL TALK TO HIM AND SEE HIM TODAY. PT GOAL FOR THE DAY IS TO TAKE A SHOWER. ALL QUESTIONS ANSWERED AND SUPPORT WAS VOICED.
[2024-07-11 11:43] VITALS: BP 126/85; PULSE 96; RESP 20; TEMP 36.5; O2SAT 95
[2024-07-11 16:00] VITALS: BP 120/81; PULSE 97; RESP 18; TEMP 37.2; O2SAT 94
[2024-07-11] MEDS: hyDROXYzine 25 mg Capsule 50 MG PO (16:48)
--- NOTE | 2024-07-11 16:51 | PC.NURSE ---
PT REQUEST ANXIETY MEDS, VISTARIL 50 MG WAS GIVEN ORDERED FOR ANXIETY RATED 7/10. PT ALSO REQUESTS A BREATHING TREATMENT. PT RECEIVED TYLENOL FOR HEADACHE.
[2024-07-11 19:37] VITALS: BP 118/87; PULSE 93; RESP 18; TEMP 36.9; O2SAT 93
[2024-07-11] MEDS: trazodone 50 mg Tablet PO (20:29)
[2024-07-11] MEDS: polyethylene glycol 3350 Pkt 17 gm PO (20:29)
[2024-07-12] VITALS: BP 120/80
[2024-07-12] MEDS: acetaminophen 325 mg Tablet 650 MG PO ×3 (01:10→15:51)
[2024-07-12 04:00] VITALS: BP 122/78; PULSE 74; RESP 18; TEMP 36.8; O2SAT 93
[2024-07-12 08:00] VITALS: BP 133/74; PULSE 81; RESP 17; TEMP 36.4; O2SAT 93
[2024-07-12] MEDS: potassium chloride ER 20 mEq Tablet PO (08:49)
[2024-07-12] MEDS: apixaban 5 mg Tablet PO (08:49)
[2024-07-12] MEDS: folic acid 1 mg Tablet PO (08:49)
[2024-07-12] MEDS: magnesium oxide 400 mg tablet PO (08:49)
[2024-07-12] MEDS: metoprolol tartrate 25 mg Tablet PO (08:49)
[2024-07-12] MEDS: bumetanide 1 mg Tablet PO (08:49)
[2024-07-12] MEDS: thiamine 100 mg Tablet PO (08:49)
[2024-07-12] MEDS: multivitamin therapeutic Tablet 1 TAB PO (08:49)
[2024-07-12] MEDS: hyDROXYzine 25 mg Capsule 50 MG PO (08:50)
--- NOTE | 2024-07-12 12:12 | PC.NURSE ---
PT STATES HE IS DISCHARGING TODAY. ORDERS RECEIVED TO DISCONTINUE CIWA PROTOCOL.
[2024-07-12 16:00] VITALS: BP 134/83; PULSE 103; RESP 18; TEMP 36.4; O2SAT 93
--- NOTE | 2024-07-12 16:20 | P.NPUDS_ITS ---
Diagnoses at Discharge Discharge Diagnosis (1) Schizophrenia: Status: Acute (2) Suicidal ideation: Status: Resolved (3) Alcohol abuse: Status: Inactive (4) History of command hallucinations: Status: Resolved Reason for Visit Reason for Visit: ETOH, cp Involuntary Hold Information 96 Hour Hold: 96 Hour Involuntary Admission: Yes 96 Hour Hold Ending Date: 07/15/24 96 Hour Hold Ending Time: 07:41 Mental Status Exam MSE Comments: This is an obese versus morbidly obese white male in hospital gar with poor grooming and limited eye contact. No abnormal movements except for psychomotor retardation. He was mostly cooperative with exam in no acute distress. Speech was more productive and more normal rate and volume. Mood described as better, affect subdued. Thought process linear. Thought content: Patient did not report suicidal or homicidal ideation, there were no delusions reported or noted, he did not report auditory or visual hallucinations. Attention and concentration were intact and memory was mostly reliable but none were formally tested. He was alert and oriented to person and place. Insight and judgment limited and impulse control is impaired. Discharge Data Studies Completed and Pending: Completed Studies During Hospitalization Category Date Time Status XR chest 1V maico ble [id number] Stat Exams 07/08/24 18:51 Completed Radiology Impressions Chest X-Ray 07/08/24 18:51 IMPRESSION: No acute findings. Laboratory Results WBC 12.92 10^3/uL (3. 29-11.43) H 07/08/24 19:19 RBC 4.98 10^6/uL (3.8 5-5.65) 07/08/24 19:19 Hgb 15.60 g/dL (11.27 -16.99) 07/08/24 19:19 Hct 45.1 % (37-53) 07/08/24 19:19 MCV 90.6 fl (82-101) 07/08/24 19:19 MCH 31.3 pg (27-33) 07/08/24 19:19 MCHC 34.6 g/dL (30-55) 07/08/24 19:19 RDW 16.1 % (12.1-15.1 ) H 07/08/24 19:19 Plt Count 396 10^3/cmm (157 -399) 07/08/24 19:19 MPV 8.5 fL (7.4-10.4) 07/08/24 19:19 Neut % (Auto) 52.3 % 07/08/24 19:19 Lymph % (Auto) 36.5 % 07/08/24 19:19 [place] % (Auto) 8.5 % 07/08/24 19:19 Eos % (Auto) 1.4 % 07/08/24 19:19 Baso % (Auto) 0.9 % 07/08/24 19:19 Neut # (Auto) 6.75 10^3/uL (1.8 -7.7) 07/08/24 19:19 Lymph # (Auto) 4.7 10^3/uL (0.8- 4.8) 07/08/24 19:19 [place] # (Auto) 1.1 10^3/uL (0.2- 0.9) H 07/08/24 19:19 Eos # (Auto) 0.2 10^3/uL (0.0- 0.8) 07/08/24 19:19 Baso # (Auto) 0.1 10^3/uL (0.0- 0.1) 07/08/24 19:19 Nucleated RBC % (a uto) 0 % 07/08/24 19:19 Nucleated RBCs # 0.0 /100WBC 07/08/24 19:19 Sodium 141 mmol/L (136-1 45) 07/08/24 19:19 Potassium 4.4 mmol/L (3.5-5 .1) 07/08/24 19:19 Chloride 103 mmol/L (98-10 7) 07/08/24 19:19 Carbon Dioxide 22 mmol/L (22-29) 07/08/24 19:19 Anion Gap 20.4 (5-19) H 07/08/24 19:19 BUN 7 mg/dL (6-20) 07/08/24 19:19 Creatinine 0.6 mg/dL (0.7-1. 2) L 07/08/24 19:19 GFR Calculation 138.4 mL/min (90- 130) H 07/08/24 19:19 Glucose 105 mg/dL (65-115 ) 07/08/24 19:19 Calculated Osmolal ity 290 mOsm/kg (285- 295) 07/08/24 19:19 Calcium 8.2 mg/dL (8.5-10 .5) L 07/08/24 19:19 Total Bilirubin 0.4 mg/dL (0.15-1 .2) 07/08/24 19:19 AST 39 U/L (0-40) 07/08/24 19:19 ALT 24 U/L (0-41) 07/08/24 19:19 Alkaline Phosphata se 93 U/L (40-130) 07/08/24 19:19 Troponin T Baselin e 8 ng/L (0-15) 07/08/24 19:19 Troponin T 120 Min sycuan 9.08 ng/L (0-15) 07/08/24 21:17 Delta Troponin T 1.08 ABS# (0-10) 07/08/24 21:17 Total Protein 7.1 g/dL (6.6-8.7 ) 07/08/24 19:19 Albumin 4.3 g/dL (3.5-5.2 ) 07/08/24 19:19 Globulin 2.8 g/dL (1.3-4.6 ) 07/08/24 19:19 Urine Color Yellow (Yellow) 07/09/24 04:07 Urine Appearance Clear (CLEAR) 07/09/24 04:07 Urine pH 6 (5-7) 07/09/24 04:07 Ur Specific Gravit y 1.015 (1.005-1.0 30) 07/09/24 04:07 Urine Protein 1+ (Negative) H 07/09/24 04:07 Urine Glucose (UA) Norm (Normal) 07/09/24 04:07 Urine Ketones Negative (Negati ve) 07/09/24 04:07 Urine Blood Neg (Negative) 07/09/24 04:07 Urine Nitrate Negative (Negati ve) 07/09/24 04:07 Urine Bilirubin Neg (Negative) 07/09/24 04:07 Urine Urobilinogen 1 mg/dL (Negative ) H 07/09/24 04:07 Ur Leukocyte Terrie ase Negative (Negati ve) 07/09/24 04:07 Urine RBC 0-4 /hpf (0-2) H 07/09/24 04:07 Urine WBC None /hpf (0-5) 07/09/24 04:07 Ur Squamous Epith Cells 0-4 /hpf (0-5) H 07/09/24 04:07 Amorphous Sediment Not Reportable 07/09/24 04:07 Urine Bacteria None /hpf (NONE) 07/09/24 04:07 Urine Mucus 2+ /hpf 07/09/24 04:07 Salicylates < 0.3 mg/dL (3-10 ) L 07/09/24 03:53 Urine Opiates Scre en Negative ng/mL (N egative) 07/09/24 04:07 Acetaminophen < 5.0 ug/mL (10-3 0) L 07/09/24 03:53 Ur Barbiturates Sc reen Negative ng/mL (N egative) 07/09/24 04:07 Ur Phencyclidine S crn Negative ng/mL (N egative) 07/09/24 04:07 Ur Amphetamines Sc reen Negative ng/mL (N egative) 07/09/24 04:07 U Benzodiazepines Scrn Negative ng/mL (N egative) 07/09/24 04:07 Urine Cocaine Scre en Negative ng/mL (N egative) 07/09/24 04:07 U Marijuana (THC) Screen Negative ng/mL (N egative) 07/09/24 04:07 Ethyl Alcohol 145 mg/dL (0-10) H 07/09/24 03:53 Vitals: Last Vital Signs Temp 97.5 F L 07/12/24 16:00 Pulse 103 H 07/12/24 16:00 Resp 18 07/12/24 16:00 BP 134/83 07/12/24 16:00 Pulse Ox 93 07/12/24 16:00 O2 Del Method Room Air 07/12/24 04:00 O2 Flow Rate 3 07/08/24 23:25 Discharge Plan Discharge Patient Disposition: Home Condition: Stable Prescriptions: Continued Anoro Ellipta 62.5-25 mcg/actuation blister with device 1 inh INHALATION DAILY folic acid 1 mg Tablet 1 mg PO DAILY 30 Days Qty: 30 1RF albuterol sulfate 90 mcg/actuation HFA aerosol inhaler 1 inh inhalation Q6H PRN (Reason: shortness of breath or wheezing) Qty: 6.7 2RF acetaminophen 500 mg tablet 1,000 mg PO Q6H PRN (Reason: Pain, Moderate) FeroSul 325 mg (65 mg iron) tablet 325 mg PO DAILY potassium chloride 20 mEq tablet,ER particles/crystals 20 meq PO DAILY 30 Days Qty: 30 1RF magnesium oxide [MagOx] 400 mg (241.3 mg magnesium) tablet 400 mg PO DAILY 30 Days Qty: 30 1RF pantoprazole 40 mg tablet,delayed release (DR/EC) 40 mg PO DAILY 30 Days Qty: 30 1RF bumetanide 1 mg tablet 1 mg PO 0900,2100 30 Days Qty: 60 1RF mirtazapine 15 mg tablet 15 mg PO BEDTIME 30 Days Qty: 30 1RF polyethylene glycol 3350 [ClearLax] 17 gram/dose powder 17 g PO DAILY 30 Days Qty: 17.9 1RF metoprolol tartrate 25 mg Tablet 25 mg PO BID@0900,2100 30 Days Qty: 60 1RF thiamine mononitrate (vit B1) [Vitamin B-1 (mononitrate)] 100 mg Tablet 100 mg PO DAILY 30 Days Qty: 30 1RF Eliquis 5 mg tablet 5 mg PO BID 30 Days Qty: 60 1RF Discontinued Vitamin Plus Low Iron 27 mg iron- 1 mg tablet 1 tab PO DAILY chlordiazepoxide HCl 10 mg capsule 10 mg PO Q8H PRN (Reason: anxiety) Qty: 10 0RF aripiprazole 15 mg tablet 15 mg PO DAILY 30 Days Qty: 30 1RF citalopram 10 mg tablet 20 mg PO BEDTIME mirtazapine 15 mg tablet 15 mg PO BEDTIME Vitamin Plus Low Iron 27 mg iron- 1 mg tablet 1 tab PO DAILY Discharge Orders: Discharge Order (Routine); Ordered 07/12/24 Ordered By: Joni Alicea Referrals: [facility], [facility] [Other] - 07/18/24 10:30 am (Initial appointment) Josse Harvey MD [Other] - 07/24/24 1:30 pm (Follow up with Manasa Garcia NP. ) [facility] [Other] - 4-7 days (You have been referred.) Discharge Diet: Usual diet Discharge Activity: Resume usual activity Patient Instructions: Opioid Safety Discharge Attestations NPU Time Spent in Discharge Care*: less than 30 min Specific Discharge Activities: Specific discharge activities: educating patient, discussing with clinical case manager/social workers/dc planners, documenting/other paperwork and evaluating patient/reviewing data Coding Level of Care Code Acute Code for [facility] Fwd Diagnoses Schizophrenia F20.9 Suicidal ideation R45.851 Alcohol abuse F10.10 History of command hallucinations Z86.59
[2024-07-12 16:24] VITALS: BP 134/83; PULSE 103; RESP 18; TEMP 36.4; O2SAT 93
== END 2024-07-12 16:29 | disposition home or self-care (01) | DRG 885 ==
LOC: ER 07-09 06:27 → NP 07-09 07:32
PROVIDERS: Emergency Medicine; Admitting Provider Psychiatry & Neurology Psychiatry; Emergency Provider Emergency Medicine; Visit Provider Psychiatry & Neurology Psychiatry
DX: F20.9 Schizophrenia, unspecified (principal); F10.129 Alcohol abuse with intoxication, unspecified; Y90.8 Blood alcohol level of 240 mg/100 ml or more; I48.91 Unspecified atrial fibrillation; J44.9 Chronic obstructive pulmonary disease, unspecified; F17.210 Nicotine dependence, cigarettes, uncomplicated; E66.01 Morbid (severe) obesity due to excess calories; Z91.148 Patient's other noncompliance with medication regimen for other reason; Z79.51 Long term (current) use of inhaled steroids; Z79.01 Long term (current) use of anticoagulants; Z86.711 Personal history of pulmonary embolism; Z68.39 Body mass index [BMI] 39.0-39.9, adult
CPT/HCPCS: 36415; 71045; 80053; 80306; 80307; 81001; 84484; 85025; 93005; 94640; 97150; 97165; 99285; J7613; Q0162

== ENCOUNTER 2024-10-15 14:47 | Emergency (ER) | payer MEDICARE, MEDICAID, SELFPAY ==
[2024-10-15] VITALS (33 sets, daily range): BP systolic 104–154; BP diastolic 58–88; PULSE 65–182; RESP 13–24; TEMP 36.6; O2SAT 89–97; BMI 39.9
--- NOTE | 2024-10-15 14:58 | XRR_ITS ---
PROCEDURE INFORMATION: Exam: XR Chest Exam date and time: 10/15/2024 3:25 PM Age: 59 years old Clinical indication: Other: Chf TECHNIQUE: Imaging protocol: Radiologic exam of the chest. Views: 1 view. COMPARISON: CT angio chest PE protcl [id number] 05/14/2024 3:29 PM FINDINGS: Lungs: Unremarkable. No consolidation. Pleural spaces: Unremarkable. No pleural effusion. No pneumothorax. Heart/Mediastinum: Unremarkable. No cardiomegaly. Bones/joints: Unremarkable. XR/XR chest 1V portable [id number] IMPRESSION: No acute findings.
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
--- NOTE | 2024-10-15 14:59 | ECG_ITS ---
[facility] Test Date: 2024-10-15 Pat Name: Mor Ohara Department: Room: Gender: Male [employer] T[employer] Cutter: : 1965 Requested By: Alessio Be Order Number: [id number] Tera MD: Radha Bowens M.D. Measurements Intervals [place] Rate: 78 P: 63 CO: 190 QRS: 170 QRSD: 121 T: 74 QT: 427 QTc: 487 Interpretive Statements SINUS RHYTHM RIGHT AXIS DEVIATION [QRS AXIS > 100] RIGHT BUNDLE BRANCH BLOCK [120+ ms QRS DURATION, UPRIGHT V1, 40+ ms S IN I/aVL/V4/V5/V6] Compared to ECG 07/08/2024 18:47:12 Right-axis deviation now present Right bundle-branch block now present Atrial abnormality no longer present Electronically Signed On 10-15-2024 21:39:58 TRADE CLERK by Radha Bowens M.D. [email or web address]
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
[2024-10-15 15:23] LABS: Basophils # 0.1 10^3/uL (0.0-0.1); Basophils % 1.8 %; Eosinophils # 0.2 10^3/uL (0.0-0.8); Eosinophils % 2.5 %; Hematocrit 41.6 % (37-53); Lymphocytes % 50.1 %; Mean Corpuscular HGB Conc 32.2 g/dL (30-55); Mean Corpuscular Hemoglobin 32.8 pg (27-33); Mean Platelet Volume 9.9 fL (7.4-10.4); Neutrophils # 1.77 10^3/uL (1.8-7.7); Neutrophils % 29.1 %; Nucleated Red Blood Cells % 0 %; Platelet Count 125 10^3/cmm (157-399); Red Blood Count 4.08 10^6/uL (3.85-5.65); Red Cell Distribution Width 20.6 % (12.1-15.1); White Blood Count 6.07 10^3/uL (3.29-11.43)
--- NOTE | 2024-10-15 15:24 | PC.PHAR ---
Pt stated he forgot what medications he takes. When I gave the names and dosages, he agreed to most of them. documented the medications he said he took today and left the others unknown. Most of his meds are over due to be filled (last fill dates are mostly July 2024 for 30 day supplies.
[2024-10-15 15:35] LABS: INR 0.94 (0.8-1.2)
[2024-10-15 15:50] LABS: Alanine Aminotransferase 19 U/L (0-41); Alkaline Phosphatase 88 U/L (40-130); Anion Gap 22.3 (5-19); Aspartate Amino Transferase 59 U/L (0-40); Blood Urea Nitrogen 9 mg/dL (6-20); Calcium 7.9 mg/dL (8.5-10.5); Carbon Dioxide 21 mmol/L (22-29); Chloride 103 mmol/L (98-107); Creatinine Clr Calc Pharmacy 208.2071; Globulin 2.6 g/dL (1.3-4.6); Glomerular Filtration Rate 170.8 mL/min (90-130); Glucose 98 mg/dL (65-115); NT Pro B Type Natriuretic Pept 95 pg/mL (0-125); Osmolality Calculated 295 mOsm/kg (285-295); Potassium 3.3 mmol/L (3.5-5.1); Sodium 143 mmol/L (136-145); Total Bilirubin 0.3 mg/dL (0.15-1.2); Total Protein 6.6 g/dL (6.6-8.7)
[2024-10-15 15:52] LABS: Alcohol Level 424 mg/dL (0-10)
[2024-10-15] MEDS: FUROsemide 10 mg/mL SDV 10mL 60 MG IVP (15:59)
== END 2024-10-15 18:15 | disposition home or self-care (01) ==
PROVIDERS: Emergency Provider Emergency Medicine
DX: F10.229 Alcohol dependence with intoxication, unspecified (principal); Y90.8 Blood alcohol level of 240 mg/100 ml or more; M54.9 Dorsalgia, unspecified; Z79.01 Long term (current) use of anticoagulants; Z72.0 Tobacco use; J44.9 Chronic obstructive pulmonary disease, unspecified
CPT/HCPCS: 36415; 71045; 74176; 80053; 80307; 83880; 85025; 85610; 93005; 96374; 99285; J1940

== ENCOUNTER 2024-11-15 16:46 | Inpatient (IN) | payer MEDICARE, MEDICAID, SELFPAY ==
[2024-11-15 16:51] VITALS: BP 150/77; PULSE 109; RESP 17; TEMP 37.2; O2SAT 91; BMI 40.3
--- NOTE | 2024-11-15 17:18 | XRR_ITS ---
PROCEDURE INFORMATION: Exam: XR Chest Exam date and time: 11/15/2024 5:24 PM Age: 59 years old Clinical indication: Patient HX: Seizure; AMS; Hypoxia TECHNIQUE: Imaging protocol: Radiologic exam of the chest. Views: 1 view. COMPARISON: CR (CHEST, ) 10/15/2024 3:25 PM FINDINGS: Lungs: Bibasilar atelectasis versus minimal infiltrate. Pleural spaces: Unremarkable. No pleural effusion. No pneumothorax. Heart/Mediastinum: Cardiomegaly. Bones/joints: Unremarkable. XR/XR chest 1V portable [id number] IMPRESSION: 1. Bibasilar atelectasis versus minimal infiltrate. 2. Cardiomegaly.
--- NOTE | 2024-11-15 17:18 | CTR_ITS ---
PROCEDURE INFORMATION: Exam: CT Head Without Contrast Exam date and time: 11/15/2024 5:37 PM Age: 59 years old Clinical indication: Pain; Headache; Additional info: Seizure, headache TECHNIQUE: Imaging protocol: Computed tomography of the head without contrast. Radiation optimization: All CT scans at this facility use at least one of these dose optimization techniques: automated exposure control; mA and/or kV adjustment per patient size (includes targeted exams where dose is matched to clinical indication); or iterative reconstruction. COMPARISON: CT head wo con* [id number] 02/01/2024 1:57 PM RADIATION DOSE METRICS: Total DLP (mGy-cm): 949.96 FINDINGS: Brain: Moderate diffuse white matter disease likely reflecting chronic microvascular ischemic changes. Cerebral ventricles: No ventriculomegaly. Paranasal sinuses: Paranasal sinus opacification. Mastoid air cells: Visualized mastoid air cells are well aerated. Bones: Unremarkable. No acute fracture. Soft tissues: Unremarkable. CT/CT head wo con* [id number] IMPRESSION: Negative for intracranial hemorrhage or mass effect.
--- NOTE | 2024-11-15 17:40 | ED_ITS ---
HPI - Seizure 2 General: Chief Complaint: Seizure Stated Complaint: seizures Time Seen by Provider: 11/15/24 17:09 History of Present Illness: HPI Narrative: 59-year-old male brought in via EMS. Parveen lau has had multiple seizures today. He does report he has a seizure history of but had not had a referral a while and no longer takes seizure medication. He does report that he had 1 about a month ago. Patient reports he feels like he is retaining fluid. He complains of a little bit of a headache. Related Data Home Medications Medication Instructions Recorded Confirmed umeclidinium 62.5 mcg-vilanterol 1 inh inhalation DAILY 05/14/24 10/15/24 25 mcg/actuation powdr for inhalation (Anoro Ellipta) acetaminophen 500 mg tablet 1,000 mg PO Q6H PRN Pain, Moderate 07/09/24 10/15/24 ferrous sulfate 325 mg (65 mg 325 mg PO DAILY 07/09/24 10/15/24 iron) tablet (FeroSul) aripiprazole 10 mg tablet 10 mg PO DAILY 10/15/24 10/15/24 baclofen 5 mg tablet 5 mg PO BID 10/15/24 10/15/24 citalopram 20 mg tablet 20 mg PO DAILY 10/15/24 10/15/24 furosemide 80 mg tablet 80 mg PO DAILY 10/15/24 10/15/24 mirtazapine 30 mg tablet 30 mg PO BEDTIME 10/15/24 10/15/24 omeprazole 40 mg capsule,delayed 40 mg PO DAILY 10/15/24 10/15/24 release polyethylene glycol 3350 17 17 g PO DAILY PRN Constipation 10/15/24 10/15/24 gram/dose oral powder (ClearLax) vitamin with calcium 1 tab PO DAILY 10/15/24 10/15/24 no.72-iron 27 mg-folic acid 1 mg tablet (WesTab Plus) sumatriptan succinate 25 mg tablet See Rx Instructions .Route 10/15/24 10/15/24 .COMPLEX PRN Migraine Headache Previous Rx's Medication Instructions Recorded albuterol sulfate 90 mcg/actuation 1 inh inhalation Q6H PRN shortness 04/26/24 aerosol inhaler of breath or wheezing #6.7 grams apixaban 5 mg tablet (Eliquis) 5 mg PO BID 30 days #60 tabs 07/12/24 bumetanide 1 mg tablet 1 mg PO 899,2099 30 days #60 tabs 07/12/24 metoprolol tartrate 25 mg tablet 25 mg PO BID@899,2099 30 days #60 07/12/24 tabs potassium chloride 20 mEq 20 meq PO DAILY 30 days #30 tabs 07/12/24 tablet,extended release(part/cryst) Allergies Allergy/AdvReac Type Severity Reaction Status Date / Time No Known Allergies Allergy Verified 10/15/24 14:52 PFS ED 2 PFSH: Medical History Psychiatric care Atrial fibrillation with rapid ventricular response COPD (chronic obstructive pulmonary disease) Schizophrenia Alcohol abuse Hx of pulmonary embolus Pulmonary embolism Cigarette smoker D-dimer, elevated Surgical History History of splenectomy Social History Smoking and tobacco/nicotine status: current every day tobacco/nicotine user Alcohol intake: current Substance/Drug Use: never Course 2 Vital Signs: Vital signs: Vital Signs Temperature 99.0 F 11/15/24 16:51 Pulse Rate 84 11/15/24 21:16 Respiratory Rate 24 H 11/15/24 21:16 Blood Pressure 132/62 11/15/24 21:16 Pulse Oximetry 91 11/15/24 19:43 Oxygen Delivery Me thod Room Air 11/15/24 19:10 Oxygen Flow Rate 2 11/15/24 16:51 MDM - Seizure MDM Narrative Medical decision making narrative: Patient's diagnostic studies were ordered reviewed. Patient had no seizure-like activity while in the ER. Patient is however very shaky and continues to have a lot of tremors or shakes and inability to stand and ambulate on his own. Patient's labs showed initial lactate of 5 however that improved to 1.8 consistent with a likely a seizure-like activity. Patient's white count was slightly elevated at 12.1 and is likely reactive. Patient's AST and ALT are slightly elevated likely due to alcoholic liver. Patient will be admitted to Dr. diallo as at this time I do not feel he would be safe to go home as he is having some tremor and difficulty ambulating despite Librium. I suspect he is likely having some withdrawals especially based on chart review that he is has significant alcohol history. Patient was stable upon admission Lab Data 11/15/24 17:57 11/15/24 17:57 Labs: Radiology Impressions Chest X-Ray 11/15/24 17:18 IMPRESSION: 1. Bibasilar atelectasis versus minimal infiltrate. 2. Cardiomegaly. Head CT 11/15/24 17:18 IMPRESSION: Negative for intracranial hemorrhage or mass effect. Laboratory Results WBC 12.11 10^3/uL (3.29-11.43) H 11/15/24 17:57 RBC 4.20 10^6/uL (3.85-5.65) 11/15/24 17:57 Hgb 13.90 g/dL (11.27-16.99) 11/15/24 17:57 Hct 43.0 % (37-53) 11/15/24 17:57 MCV 102.4 fl (82-101) H 11/15/24 17:57 MCH 33.1 pg (27-33) H 11/15/24 17:57 MCHC 32.3 g/dL (30-55) 11/15/24 17:57 RDW 18.6 % (12.1-15.1) H 11/15/24 17:57 Plt Count 111 10^3/cmm (157-399) L 11/15/24 17:57 MPV 12.0 fL (7.4-10.4) H 11/15/24 17:57 Neut % (Auto) 81.0 % 11/15/24 17:57 Lymph % (Auto) 5.1 % 11/15/24 17:57 [place] % (Auto) 11.6 % 11/15/24 17:57 Eos % (Auto) 0.1 % 11/15/24 17:57 Baso % (Auto) 1.2 % 11/15/24 17:57 Neut # (Auto) 9.82 10^3/uL (1.8-7.7) H 11/15/24 17:57 Lymph # (Auto) 0.6 10^3/uL (0.8-4.8) L 11/15/24 17:57 [place] # (Auto) 1.4 10^3/uL (0.2-0.9) H 11/15/24 17:57 Eos # (Auto) 0.0 10^3/uL (0.0-0.8) 11/15/24 17:57 Baso # (Auto) 0.1 10^3/uL (0.0-0.1) 11/15/24 17:57 Nucleated RBC % (auto) 0.2 % 11/15/24 17:57 Nucleated RBCs # 0.0 /100WBC 11/15/24 17:57 Sodium 140 mmol/L (136-145) 11/15/24 17:57 Potassium 3.8 mmol/L (3.5-5.1) 11/15/24 17:57 Chloride 100 mmol/L (98-107) 11/15/24 17:57 Carbon Dioxide 23 mmol/L (22-29) 11/15/24 17:57 Anion Gap 20.8 (5-19) H 11/15/24 17:57 BUN 3 mg/dL (6-20) L 11/15/24 17:57 Creatinine 0.6 mg/dL (0.7-1.2) L 11/15/24 17:57 GFR Calculation 138.4 mL/min (90-130) H 11/15/24 17:57 Glucose 145 mg/dL (65-115) H 11/15/24 17:57 Calculated Osmolality 289 mOsm/kg (285-295) 11/15/24 17:57 Lactic Acid 5.0 mmol/L (0.5-2.2) H* 11/15/24 17:57 Lactic Acid (Sepsis) 1.8 mmol/L (0.5-2.2) 11/15/24 20:20 Calcium 8.6 mg/dL (8.5-10.5) 11/15/24 17:57 Magnesium 1.2 mg/dL (1.7-2.3) L 11/15/24 17:57 Total Bilirubin 0.5 mg/dL (0.15-1.2) 11/15/24 17:57 AST 96 U/L (0-40) H 11/15/24 17:57 ALT 50 U/L (0-41) H 11/15/24 17:57 Alkaline Phosphatase 117 U/L (40-130) 11/15/24 17:57 Total Protein 6.8 g/dL (6.6-8.7) 11/15/24 17:57 Albumin 3.5 g/dL (3.5-5.2) 11/15/24 17:57 Globulin 3.3 g/dL (1.3-4.6) 11/15/24 17:57 Urine Color [place] (Yellow) A 11/15/24 19:45 Urine Appearance Clear (CLEAR) 11/15/24 19:45 Urine pH 8.0 (5-7) A 11/15/24 19:45 Ur Specific [place] 1.022 (1.005-1.030) 11/15/24 19:45 Urine Protein 2+ (Negative) A 11/15/24 19:45 Urine Glucose (UA) Negative (Normal) 11/15/24 19:45 Urine Ketones Trace (Negative) 11/15/24 19:45 Urine Blood Non-haemolysed trace (Negative) 11/15/24 19:45 Urine Nitrate Negative (Negative) 11/15/24 19:45 Urine Bilirubin Negative (Negative) 11/15/24 19:45 Urine Urobilinogen 1.0 mg/dL (Negative) 11/15/24 19:45 Ur Leukocyte Esterase Negative (Negative) 11/15/24 19:45 Urine RBC 3-5 /hpf (0-2) 11/15/24 19:45 Urine WBC 11-20 /hpf (0-5) H 11/15/24 19:45 Ur Squamous Epith Cells 0-5 /hpf (0-5) 11/15/24 19:45 Amorphous Sediment Not Reportable 11/15/24 19:45 Urine Bacteria None seen /hpf (NONE) 11/15/24 19:45 Hyaline Casts 5.36 /lpf 11/15/24 19:45 Urine Opiates Screen Negative ng/mL (Negative) 11/15/24 19:45 Ur Barbiturates Screen Negative ng/mL (Negative) 11/15/24 19:45 Ur Phencyclidine Scrn Negative ng/mL (Negative) 11/15/24 19:45 Ur Amphetamines Screen Negative ng/mL (Negative) 11/15/24 19:45 U Benzodiazepines Scrn Negative ng/mL (Negative) 11/15/24 19:45 Urine Cocaine Screen Negative ng/mL (Negative) 11/15/24 19:45 U Marijuana (THC) Screen Negative ng/mL (Negative) 11/15/24 19:45 Coronavirus (PCR) Negative (Negative) 11/15/24 18:42 Influenza A (PCR) Negative (Negative) 11/15/24 18:42 Influenza Type B (PCR) Negative (Negative) 11/15/24 18:42 RSV (PCR) Negative (Negative) 11/15/24 18:42 All radiology interpretation(s) finalized by discharge Discharge Plan Discharge Patient Disposition: Admitted As Inpatient Clinical Impression: Alcohol withdrawal, Witnessed seizure-like activity Condition: Stable 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
[2024-11-15 18:05] LABS: Basophils # 0.1 10^3/uL (0.0-0.1); Basophils % 1.2 %; Eosinophils % 0.1 %; Lymphocytes # 0.6 10^3/uL (0.8-4.8); Lymphocytes % 5.1 %; Mean Corpuscular HGB Conc 32.3 g/dL (30-55); Mean Corpuscular Hemoglobin 33.1 pg (27-33); Mean Corpuscular Volume 102.4 fl (82-101); Monocytes # 1.4 10^3/uL (0.2-0.9); Monocytes % 11.6 %; Neutrophils # 9.82 10^3/uL (1.8-7.7); Nucleated Red Blood Cells % 0.2 %; Platelet Count 111 10^3/cmm (157-399); Red Cell Distribution Width 18.6 % (12.1-15.1); White Blood Count 12.11 10^3/uL (3.29-11.43)
[2024-11-15] MEDS: levETIRAcetam 1,000 MG/100 ML PREMIX 400 MG IV (18:21)
[2024-11-15] MEDS: ondansetron 2 mg/ML SDV 2 mL 4 MG IVP (18:21)
[2024-11-15 18:25] LABS: Alanine Aminotransferase 50 U/L (0-41); Albumin Level 3.5 g/dL (3.5-5.2); Alkaline Phosphatase 117 U/L (40-130); Anion Gap 20.8 (5-19); Aspartate Amino Transferase 96 U/L (0-40); Blood Urea Nitrogen 3 mg/dL (6-20); Calcium 8.6 mg/dL (8.5-10.5); Carbon Dioxide 23 mmol/L (22-29); Chloride 100 mmol/L (98-107); Creatinine Clr Calc Pharmacy 169.1645; Globulin 3.3 g/dL (1.3-4.6); Glomerular Filtration Rate 138.4 mL/min (90-130); Glucose 145 mg/dL (65-115); Magnesium 1.2 mg/dL (1.7-2.3); Osmolality Calculated 289 mOsm/kg (285-295); Potassium 3.8 mmol/L (3.5-5.1); Sodium 140 mmol/L (136-145); Total Bilirubin 0.5 mg/dL (0.15-1.2); Total Protein 6.8 g/dL (6.6-8.7)
[2024-11-15 19:10] VITALS: BP 124/74; PULSE 75; RESP 18; O2SAT 100
[2024-11-15 19:14] LABS: Reflex Lactate Order REFLEX LACTIC ORDERD
[2024-11-15 19:43] VITALS: BP 148/70; PULSE 92; RESP 33; O2SAT 91
[2024-11-15 19:50] LABS: Covid PCR NEGATIVE (Negative); Influenza A NEGATIVE (Negative); Influenza B NEGATIVE (Negative); Respiratory Syncytial Virus Ce NEGATIVE (Negative)
[2024-11-15] MEDS: ketorolac 30 mg/mL INJ 15 MG IVP (19:57)
[2024-11-15 20:02] LABS: Bilirubin Urine Negative (Negative); Blood Urine Non-haemolysed trace (Negative); Glucose Urine UA Negative (Normal); Ketones Urine Trace (Negative); Leukocyte Esterase Urine Negative (Negative); Nitrate Urine Negative (Negative); Protein Urine 2+ (Negative); Specific Gravity, Urine 1.022 (1.005-1.030); Urine Appearance Clear (CLEAR)
[2024-11-15 20:07] LABS: Add Urine Microscopic? YES; Bacteria Urine None Seen /hpf; Hyaline Casts Urine 5.36 /lpf; Squamous Epithelial Cell Urine 0-5 /hpf (0-5)
[2024-11-15 20:12] LABS: Amphetamines Screen Urine Negative (Negative); Barbiturates Screen Urine Negative (Negative); Benzodiazepines Screen Urine Negative (Negative); Cocaine Screen Urine Negative (Negative); Opiate Screen Urine Negative (Negative); PCP Screen Urine Negative (Negative); THC Screen Urine Negative (Negative)
[2024-11-15 20:13] LABS: Urine Color Orange (Yellow)
[2024-11-15 20:53] LABS: Lactic Acid level (Lactate) 1.8 mmol/L (0.5-2.2)
[2024-11-15] MEDS: chlordiazePOXIDE 25 mg Capsule 50 MG PO (21:06)
[2024-11-15 21:16] VITALS: BP 132/62; PULSE 84; RESP 24
[2024-11-15] MEDS: acetaminophen 500 mg Tablet 1000 MG PO (21:38)
--- NOTE | 2024-11-15 22:36 | P.HP_ITS ---
Providers/Chief Complaint 2 Admitting Physician: Anita Abdul MD Chief Complaint: seizures History of Present Illness The patient is not a very good historian. Mor Ohara is a 59 yo man w/ Schizophrenia, Alcohol use d/o, Paroxysmal Afib, PE, COPD who was brought to the ED on 11/15/2024 after his called EMS for SOB and because his legs gave out on him. He states that he woke up this morning, did some morning chores including letting out his pet. He then sat down, and had a hard time moving, in that he felt as if he was frozen in a stiff state and could not move, so he took some Tylenol and Remeron. He states that his states that he had a seizure because he was shaking. He does not remember having a seizure. He states that when he regained consciousness, he he had urinated on himself. He states that he vomited a lot. He states that he has been dyspneic and retaining H2O because his face, hands and leg swell. He complains of sore throat & constant headaches due to coughing a lot today. He denies palpitations, but endorses chest pain. He has black stools, but attributes it to the type of food that he eats, such as hamburgers. He tells me that his last drink was 3 days ago. In the ED, his vital signs were significant for tachypnea and tachycardia. His labs showed a leukocytosis of 12, macrocytic anemia, Cr 0.6, lactic acid of 5 that improved to 1.8, and magnesium of 1.2. A CT read was done that was negative for any intracranial hemorrhage or mass effect. His CXR was positive for bibasilar atelectasis versus minimal infiltrate. He was given 1 g of Keppra, chlordiazepoxide x 1, Toradol 50 mg IVP x 1 Zofran IVP x 1 and admitted for further management. His COVID-19, Influenza A/B and RSV are negative. Review of Systems 2 Const: Reports: change in appetite (poor appetite); Denies: fever(s) or chills Eyes: Denies: change in vision ENMT: Reports: nasal discharge and epistaxis; Denies: odynophagia or ear or mastoid pain Card: Reports: chest pain and syncope; Denies: palpitations Resp: Reports: dyspnea; Denies: non-productive cough GI: Reports: abdominal pain, nausea, vomiting and hematochezia : Denies: difficulty urinating, dysuria, urinary frequency or hematuria Musc: Reports: joint pain (back pain) Neuro: Reports: headache(s) and other Psych: Reports: anxiety; Denies: suicidal ideation or homicidal ideation Endo: Reports: cold intolerance and heat intolerance Walker/Lymph: Reports: easy bruising; Denies: easy bleeding Medications/Allergies Home Medications Medication Instructions Recorded Confirmed Last Taken Type albuterol sulfate 90 mcg/actuation 1 inh inhalation Q6H PRN shortness 04/26/24 10/15/24 Unknown Rx aerosol inhaler of breath or wheezing #6.7 grams umeclidinium 62.5 mcg-vilanterol 1 inh inhalation DAILY 05/14/24 10/15/24 Unknown History 25 mcg/actuation powdr for inhalation (Anoro Ellipta) acetaminophen 500 mg tablet 1,000 mg PO Q6H PRN Pain, Moderate 07/09/24 10/15/24 10/15/24 History ferrous sulfate 325 mg (65 mg 325 mg PO DAILY 07/09/24 10/15/24 Unknown History iron) tablet (FeroSul) apixaban 5 mg tablet (Eliquis) 5 mg PO BID 30 days #60 tabs 07/12/24 10/15/24 10/15/24 Rx bumetanide 1 mg tablet 1 mg PO 0900,2099 30 days #60 tabs 07/12/24 10/15/24 Unknown Rx metoprolol tartrate 25 mg tablet 25 mg PO BID@0900,2099 30 days #60 07/12/24 10/15/24 Unknown Rx tabs potassium chloride 20 mEq 20 meq PO DAILY 30 days #30 tabs 07/12/24 10/15/24 10/15/24 Rx tablet,extended release(part/cryst) aripiprazole 10 mg tablet 10 mg PO DAILY 10/15/24 10/15/24 10/15/24 History baclofen 5 mg tablet 5 mg PO BID 10/15/24 10/15/24 10/15/24 History citalopram 20 mg tablet 20 mg PO DAILY 10/15/24 10/15/24 10/15/24 History furosemide 80 mg tablet 80 mg PO DAILY 10/15/24 10/15/24 10/15/24 History mirtazapine 30 mg tablet 30 mg PO BEDTIME 10/15/24 10/15/24 Unknown History omeprazole 40 mg capsule,delayed 40 mg PO DAILY 10/15/24 10/15/24 10/15/24 History release polyethylene glycol 3350 17 17 g PO DAILY PRN Constipation 10/15/24 10/15/24 Unknown History gram/dose oral powder (ClearLax) vitamin with calcium 1 tab PO DAILY 10/15/24 10/15/24 10/15/24 History no.72-iron 27 mg-folic acid 1 mg tablet (WesTab Plus) sumatriptan succinate 25 mg tablet See Rx Instructions .Route 10/15/24 10/15/24 Unknown History .COMPLEX PRN Migraine Headache Allergies Allergy/AdvReac Type Severity Reaction Status Date / Time No Known Allergies Allergy Verified 11/16/24 00:07 PFSH Acute 2 PFSH: Medical History Psychiatric care Atrial fibrillation with rapid ventricular response COPD (chronic obstructive pulmonary disease) Schizophrenia Alcohol abuse Hx of pulmonary embolus Pulmonary embolism Cigarette smoker D-dimer, elevated Surgical History History of splenectomy Social History Smoking and tobacco/nicotine status: current every day tobacco/nicotine user Alcohol intake: current Substance/Drug Use: never Vitals/I&O/Wt Last Vital Signs Temp 99.0 F 11/15/24 16:51 Pulse 84 11/15/24 21:16 Resp 24 H 11/15/24 21:16 BP 132/62 11/15/24 21:16 Pulse Ox 91 11/15/24 19:43 O2 Del Method Room Air 11/15/24 19:10 O2 Flow Rate 2 11/15/24 16:51 11/15/24 11/15/24 11/15/24 06:59 14:59 22:59 Intake Total 100 / 100 Balance 100 / 100 Weight last 48 hrs Weight 120.202 kg Physical Exam 2 Const: GENERAL APPEARANCE: cooperative and comfortable O RIENTATION/CONSCIOUSNESS: Yes awake, Yes oriented to person, Yes oriented to place and Yes oriented to time HENMT: HEAD & SCALP: normal to inspection, normocephalic and atraumatic N OSE: Normal external nose present EXTERNAL EAR: Yes external ears normal O THER: Dry oropharynx Eye: OTHER: PERRL, EOMI, b/l conjunctiva normal Neck/C-Spine: GENERAL: Yes normal visual inspection and Yes trachea midline THYROID: Thyroid normal CERVICAL SPINE: Yes cervical ROM normal OTHER: Difficult to appreciate carotid bruit due to the noisy airways. Lymph: OTHER: No cervical or supraclavicular lymphadenopathy. Resp: OTHER: Bilateral expiratory wheezes in the mid to lower lung asher Cardio: OTHER: RRR, no murmurs, rubs, gallops or clicks. 2+ DP and radial pulses. GI: OTHER: BS positive, NT, ND, no guarding, no rigidity, no rebound tenderness. Extremity: GENERAL: No clubbing, No cyanosis and No edema Neuro: CRANIAL NERVES: Yes CN normal except as noted SPEECH: speech normal SENSORY EXAM: No sensory level loss detected OTHER: Motor exam in both bilateral lower extremities were 4 out of 5 each. Data 11/15/24 17:57 11/15/24 17:57 A&P Assessment and plan (1) Alcohol use disorder, severe, dependence: (2) Acute hypoxic respiratory failure: (3) COPD with acute exacerbation: (4) Leg weakness, bilateral: Plan On admission, he was given 1L NS bolus and Zosyn was ordered given his CXR findings. He became hypoxic to 88% and was placed on 2L NC. Given concern for a hx of a PE documented on Dr. Smith's 05/16/2025 d/c summary, a CTA chest was done but it was negative for a PE & a pneumonia. He was wheezing on exam. He was given 4g of MgSO4 x1 for Mg of 1.2. #Concern for Seizure - EEG, MRI ordered, Telemetry, EKG. #b/l LE weakness: F/u MRI L-spine #SIRS - Unclear etiology. #Acute Hypoxic respiratory failure: On 2L NC. ABG on 2L is appropriate. #Acute COPD exacerbation: On Zosyn, Azithromycin, duonebs, steroids PPI #Alchohol use d/o: Monitor for alcohol w/drawal. On CIWA protocol + folate and thiamine. #Paroxysmal Afib: Full dose lovenox. Resume home Metoprolol. #Hx of PE: No PE noted on CTA chest #Schizophrenia: Resume home meds #GERD: PPI #Migraine headache?: On Sumatriptan succinate. Will hold given the chest pain complaint #He is not volume overloaded, but he indicates and his meds indicate that he may have CHF. DVT ppx: Full dose lovenox. Attestations 2 Medical Necessity Statement*: The patient is to be hospitalized for greater than 2 midnights for his acute hypoxic respiratory failure, concern for seizure, acute COPD exacerbation. Time Spent in Patient Care: >70mins was spent on chart review, patient interview/physical exam, lab/image review, formulation of plan and coordination of care. Other Coding Information Procedural care (documented in this note), Procedural care (documented in another note) and Prolonged care (total time indicated above or notated here) Diagnoses Alcohol use disorder, severe, dependence F10.20 Acute hypoxic respiratory failure J96.01 COPD with acute exacerbation J44.1 Leg weakness, bilateral R29.898
[2024-11-15 23:29] VITALS: BP 145/80; PULSE 88; RESP 12; O2SAT 92
[2024-11-15 23:49] VITALS: BP 111/54; PULSE 82; O2SAT 94
[2024-11-16] VITALS (17 sets, daily range): BP systolic 107–164; BP diastolic 65–94; PULSE 51–81; RESP 15–21; TEMP 36.6–36.9; O2SAT 90–96
[2024-11-16] MEDS: sodium chloride 0.9% 1,000 ML 500 ML IV (00:24)
--- NOTE | 2024-11-16 02:33 | CTR_ITS ---
PROCEDURE INFORMATION: Exam: CTA Chest With Contrast Exam date and time: 11/16/2024 3:22 AM Age: 59 years old Clinical indication: Cough and dyspnea; Patient HX: Cough with dyspnea. History of pe. ; Additional info: Dyspnea, HX of pe TECHNIQUE: Imaging protocol: Computed tomographic angiography of the chest with contrast. Exam focused on the arteries. 3D rendering (Not supervised by radiologist): MIP and/or 3D reconstructed images were created by the technologist. Radiation optimization: All CT scans at this facility use at least one of these dose optimization techniques: automated exposure control; mA and/or kV adjustment per patient size (includes targeted exams where dose is matched to clinical indication); or iterative reconstruction. Contrast material: OMNI 350; Contrast volume: 83 ml; Contrast route: INTRAVENOUS (IV); COMPARISON: CT angio chest PE protcl [id number] 05/14/2024 3:29 PM RADIATION DOSE METRICS: Total DLP (mGy-cm): 554.4 FINDINGS: Limitations: Motion artifact limits evaluation. Pulmonary arteries: Normal. No pulmonary emboli. Aorta: Unremarkable. No aortic aneurysm. No aortic dissection. Lungs: Bibasilar atelectasis noted. No infiltrate. Mild peribronchial thickening Pleural spaces: Unremarkable. No pneumothorax. No pleural effusion. Heart: There is mild cardiomegaly. Lymph nodes: Unremarkable. No enlarged lymph nodes. Liver: Severe hepatic steatosis noted. Spleen: There are small splenules. Bones/joints: Unremarkable. No acute fracture. Soft tissues: There is gynecomastia. CT/CT angio chest PE protcl [id number] IMPRESSION: 1. No acute findings. 2. Severe hepatic steatosis.
[2024-11-16] MEDS: iohexol 350 mg/mL 500 mL Btl (per mL) IV (03:30)
[2024-11-16] MEDS: magnesium sulfate premix 4 GM/100 ML PREMIX IV (04:04)
[2024-11-16] MEDS: thiamine 100 mg/mL 2mL SDV 500 MG IVP (04:04)
[2024-11-16] MEDS: folic acid 1 mg Tablet PO ×2 (04:04→08:09)
[2024-11-16 04:14] LABS: ABG PCO2 40.7 mmHg (35-45); ABG PH Result 7.45 (7.35-7.45); Alveolar-Arterial Oxygen Gradi 3.4 mmHg (5-10); Arterial Blood Gas Hematocrit 42.5 % (42-52); Base Excess ABG 3.5 mmol/L (-2.0-2.0); Blood Gas Allen Test Pos; Blood Gas Sample Site Radial, left; Blood Gas Sample Type Arterial; Carboxyhemoglobin 1.8 %THgb (0.4-20.1); HCO3 ABG 27.9 mmol/L (22-26); HGB O2 Sat 93.9 % (95-100); Ionized Calcium Level - ABG 1.1 mmol/L (1.1-1.4); Methemoglobin 0.1 % (0.4-1.5); Oxygen Device NC; Oxygen Saturation ABG 95.7; PO2 ABG 74.1 mmHg (80.0-100.0); Potassium Level - ABG 3.5 mmol/L (3.5-5.0); Total Hemoglobin 13.9 g/dL (14-18)
[2024-11-16] MEDS: enoxaparin 150 mg/mL Syringe 130 MG SUBCUT (04:39)
[2024-11-16] MEDS: piperacillin-tazobactam 3.375 GM in sodium chloride 0.9% (plus) 50 ML IV ×3 (04:40→20:04)
[2024-11-16] MEDS: acetaminophen 325 mg Tablet 650 MG PO ×2 (04:40→15:03)
--- NOTE | 2024-11-16 05:52 | MRR_ITS ---
PROCEDURE INFORMATION: Exam: MR Head Without Contrast Exam date and time: 11/16/2024 1:01 PM Age: 59 years old Clinical indication: Malaise or fatigue; Additional info: Seizure TECHNIQUE: Imaging protocol: Magnetic resonance imaging of the head without contrast. COMPARISON: CT head 11/15/2024 5:37 PM FINDINGS: Brain: No acute intracranial hemorrhage or abnormal intracranial mass effect is identified. Mild chronic microvascular ischemic changes are seen in cerebral white matter. No restricted diffusion, acute hemorrhage, or pathologic intracranial enhancement is identified. No significant hemosiderin deposition. There are no subdural collections. Major dural venous sinuses are patent. Cerebral ventricles: Normal size and position for age. Bones: Unremarkable. Paranasal sinuses: Paranasal sinus disease similar to that seen on CT exam of the previous day. Mastoid air cells: No mastoid effusion. Orbital cavities: No suspicious mass identified. Exam not tailored for optic nerve assessment. Soft tissues: No obvious acute abnormality. MR/MR head wo/w con [id number] IMPRESSION: No acute intracranial abnormality identified.
--- NOTE | 2024-11-16 05:52 | MRR_ITS ---
PROCEDURE INFORMATION: Exam: MR Lumbar Spine Without Contrast Exam date and time: 11/16/2024 12:25 PM Age: 59 years old Clinical indication: Weakness; Additional info: Bilateral lower extremity weakness TECHNIQUE: Imaging protocol: Magnetic resonance imaging of the lumbar spine without contrast. COMPARISON: CT kidney stone [id number] 10/15/2024 3:35 PM FINDINGS: Bones/joints: No acute osseous abnormality identified. Incidental note of several vertebral body hemangiomas. Spinal cord: Grossly normal size and contour of the conus medullaris. The tip of the conus is at the T12-L1 level. L1-L2: No significant disc bulge or herniation. Mild dorsal compression of thecal sac by abundant epidural fat. No severe spinal canal stenosis. No significant neural foraminal narrowing. L2-L3: Central canal stenosis with moderate compression of the thecal sac secondary to abundant dorsal epidural fat and broad disc bulge. There is a chronic posterior right paracentral disc protrusion with slight caudal extrusion of disc material towards the right L3 lateral recess (series 501, image 9; series 901, image 19). L2 foramina are patent. L3-L4: Prominent disc bulge or broad mild subligamentous protrusion combined with abundant dorsal epidural fat to produce central canal stenosis with moderately severe compression of the thecal sac. The broad protrusion extends laterally on the left into the foramen. Chronic facet DJD is also present. L3 foraminal narrowing is more severe on left than right. L4-L5: Partial tear of the posterior annulus (series 501, image 7) without significant central canal stenosis. Mild narrowing of the L4 foramina without obvious foraminal nerve root compression. L5-S1: There is marked compression of the thecal sac by circumferential epidural fat. There is a partial tear of the posterior annulus (series 501, image 8) associated with mild broad subligamentous disc protrusion without gross neural compression. Mild narrowing of the L5 foramina without obvious foraminal nerve root compression. Soft tissues: No acute abnormality detected, unless otherwise stated above. MR/MR lumbar spine wo con* [id number] IMPRESSION: 1. Chronic multilevel lumbar degenerative disc disease and facet DJD. There is also abundant lumbar epidural fat contributing to central canal stenosis. Details for each lumbar level are provided above. 2. There is compression of the RIGHT L3 nerve root at and just below the L2-L3 disc level secondary to posterior right paracentral disc protrusion with caudal extrusion of disc into the right L3 lateral recess. 3. There may be LEFT L3 foraminal nerve root compression associated with left foraminal disc protrusion and facet DJD at the L3-L4 level.
[2024-11-16 06:02] LABS: Basophils # 0.1 10^3/uL (0.0-0.1); Basophils % 0.9 %; Eosinophils # 0.1 10^3/uL (0.0-0.8); Eosinophils % 0.7 %; Hematocrit 41.8 % (37-53); Lymphocytes % 8.4 %; Mean Corpuscular HGB Conc 32.1 g/dL (30-55); Mean Corpuscular Hemoglobin 32.7 pg (27-33); Mean Platelet Volume 12.1 fL (7.4-10.4); Monocytes # 1.7 10^3/uL (0.2-0.9); Monocytes % 13.5 %; Neutrophils # 9.25 10^3/uL (1.8-7.7); Neutrophils % 75.8 %; Nucleated Red Blood Cells # 0.1 /100WBC; Nucleated Red Blood Cells % 0.5 %; Platelet Count 107 10^3/cmm (157-399); Red Cell Distribution Width 18.4 % (12.1-15.1); White Blood Count 12.21 10^3/uL (3.29-11.43)
--- NOTE | 2024-11-16 06:04 | ECG_ITS ---
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 Measurements Intervals [place] Rate: 71 P: 60 SD: 196 QRS: 156 QRSD: 112 T: 72 QT: 437 QTc: 476 Interpretive Statements SINUS RHYTHM POSSIBLE RIGHT VENTRICULAR HYPERTROPHY [SOME/ALL OF: PROMINENT R IN V1, LATE TRANSITION, RAD, [place], SSS] MODERATE ST DEPRESSION [0.05+ mV ST DEPRESSION] Compared to ECG 10/15/2024 14:52:13 ST (T wave) deviation now present Right-axis deviation no longer present Right bundle-branch block no longer present Electronically Signed On 11-16-2024 23:04:56 LATH HAND by Parth Allan M.D. [email or web address]
[2024-11-16 06:22] LABS: Troponin T (5th) Once 23 ng/L (0-15)
[2024-11-16 06:27] LABS: Alanine Aminotransferase 40 U/L (0-41); Albumin Level 3.2 g/dL (3.5-5.2); Alkaline Phosphatase 112 U/L (40-130); Anion Gap 16.3 (5-19); Aspartate Amino Transferase 74 U/L (0-40); Blood Urea Nitrogen 5 mg/dL (6-20); Calcium 8.1 mg/dL (8.5-10.5); Carbon Dioxide 25 mmol/L (22-29); Chloride 99 mmol/L (98-107); Globulin 2.8 g/dL (1.3-4.6); Glomerular Filtration Rate 170.8 mL/min (90-130); Glucose 142 mg/dL (65-115); Magnesium 2.2 mg/dL (1.7-2.3); NT Pro B Type Natriuretic Pept 856 pg/mL (0-125); Osmolality Calculated 284 mOsm/kg (285-295); Phosphorus 2.6 mg/dL (2.5-4.5); Potassium 3.3 mmol/L (3.5-5.1); Sodium 137 mmol/L (136-145); Total Bilirubin 0.7 mg/dL (0.15-1.2)
[2024-11-16 06:28] LABS: Creatinine Clr Calc Pharmacy 212.0894
[2024-11-16] MEDS: methylPREDNISolone sod succ 125 mg/2 mL INJ IVP (06:45)
[2024-11-16 07:04] LABS: Rapid Strep A Test Negative (Negative)
--- NOTE | 2024-11-16 07:09 | PC.NURSE ---
Unable to accurately measure urinary output due to patient spilling urinal.
[2024-11-16] MEDS: polyethylene glycol 3350 Pkt 17 gm PO (08:06)
[2024-11-16] MEDS: citalopram 20 mg Tablet 10 MG PO (08:06)
[2024-11-16] MEDS: multivitamin therapeutic Tablet 1 TAB PO (08:06)
[2024-11-16] MEDS: baclofen 10 mg Tablet 5 MG PO ×4 (08:06→20:04)
[2024-11-16] MEDS: pantoprazole DR 40 mg Tablet PO (08:07)
[2024-11-16] MEDS: metoprolol tartrate 25 mg Tablet PO ×2 (08:07→20:04)
[2024-11-16] MEDS: ARIPiprazole 10 mg Tablet PO (08:09)
[2024-11-16] MEDS: ipratropium-albuterol 3 mL Neb INHALATION ×3 (08:53→20:56)
--- NOTE | 2024-11-16 09:13 | PC.PHAR ---
Addendum entered by Elissa Mosley 11/16/24 09:19: [facility] [phone] confirms last fill dates for this pts' medications was in July. Original Note: Pt was good to know and verify his medications and states he still takes them but last fill dates show July of 2024 for 30 day supplies. Will check with [facility], to double check last fill dates.
[2024-11-16] MEDS: AZITHROMYCIN ADD-Vantage 500 MG in 0.9% NaCl ADD-Vantage 250 ML 250 MG IV (09:26)
[2024-11-16] MEDS: thiamine 100 mg Tablet PO (09:49)
[2024-11-16] MEDS: chlordiazePOXIDE 25 mg Capsule 50 MG PO ×2 (09:56→20:00)
--- NOTE | 2024-11-16 10:17 | PC.CHAP ---
Pastoral Care Encounter/Spiritual Assessment Type of Contact [] Declined miner helper visit [] Patient/Family/Request visit [] Outpatient visit [] Follow-up visit [] Physician referral [] Code/Alert [] Routine visit [] Staff referral [] Actively dying [x] Patient sleeping [] Family support [] [] Out of room [] Palliative care [] [] Receiving care in room [] Pre-surgical visit [] Trauma [] Long length of stay [] ICU visit [] Other: Relational/Emotional Strength [] Patient feels connected with others/family/visitors/staff [] Distress [] Loneliness/isolation [] Abandonment Spirituality of Patient [] Person of Renetta [] Attends Druze of their Renetta [] Believes in Prayer [] Reads Bible or Presybeterian materials [] There are Spiritual issues to be addressed Tack Driller Interventions [] Prayer [] Active listening [] Non-anxious presence [] Spiritual/emotional support [] Crisis/trauma care [] Spiritual counseling [] Bereavement support [] Provided bereavement packet [] Provided Bible/devotional materials [] Provided toy/stuffed animal, coloring book to patient or family member [] Provided Communion [] Anointing/Alda [] Salvation [] Completed spiritual assessment [] Other: Impact on Illness or Injury [] Angry [] Fearful [] Anxious [] Often cries [] Exhaustion [] Unable to work [] Unable to attend lutheran [] Unable to walk/stand [] Unable to read [] Unable to drive [] Unable to eat/drink [] Unable to sleep [] Unable to be with family [] Patient intubated [] Other: Summary Time spent with patient
[2024-11-16 11:57] LABS: Glucose Point of Care 172 mg/dL (70-110)
[2024-11-16] MEDS: gadobenate dimeglumine 20 mL vial IV (13:18)
--- NOTE | 2024-11-16 16:53 | P.PN_ITS ---
Subjective 2 Subjective: No further seizure episodes encountered. Patient reports some dyspnea currently. He has crackles on examination bilaterally. Vitals/I&O/Wt Last Vital Signs Temp 98.0 F 11/16/24 12:10 Pulse 76 11/16/24 16:00 Resp 18 11/16/24 13:58 BP 164/94 11/16/24 12:10 Pulse Ox 95 11/16/24 13:58 O2 Del Method Nasal Cannula 11/16/24 13:58 O2 Flow Rate 2 11/16/24 13:58 11/16/24 11/16/24 11/16/24 06:59 14:59 22:59 Intake Total 1100 / 1200 290 / 290 Output Total 500 / 500 1400 / 1400 Balance 600 / 700 -1110 / -1110 Weight last 48 hrs Weight 130.181 kg Weight 130.09 kg Weight 120.202 kg Physical Exam 2 Narrative: General: No acute distress, AO x3 HEENT: PERRLA, pupils bilaterally equal and reactive, pallors not present Chest: Crackles bilaterally CVS: S1-S2 regular, no murmurs, no tachycardia, no gallops, no rubs Abdomen: Soft, nontender, no organomegaly, bowel sounds present Neuro: No focal deficits, no facial deformity, AO x3, power 5/5 in all limbs Data 11/16/24 05:37 11/16/24 05:37 Micro: Microbiology 11/16/24 09:40 Occult Blood (FIT) - Final Stool Routine Collection 11/16/24 05:35 Blood Culture - Preliminary Blood SPECIMEN COLLECTED 11/16/24 05:35 Blood Culture - Preliminary Blood SPECIMEN COLLECTED A&P Assessment and plan (1) Alcohol use disorder, severe, dependence: (2) Acute hypoxic respiratory failure: (3) COPD with acute exacerbation: (4) Leg weakness, bilateral: Plan On admission, he was given 1L NS bolus and Zosyn was ordered given his CXR findings. He became hypoxic to 88% and was placed on 2L NC. Given concern for a hx of a PE documented on Dr. Smith's 05/16/2025 d/c summary, a CTA chest was done but it was negative for a PE & a pneumonia. He was wheezing on exam. He was given 4g of MgSO4 x1 for Mg of 1.2. #Concern for Seizure - EEG, MRI ordered, Telemetry, EKG. #b/l LE weakness: F/u MRI L-spine #SIRS - Unclear etiology. #Acute Hypoxic respiratory failure: On 2L NC. ABG on 2L is appropriate. #Acute COPD exacerbation: On Zosyn, Azithromycin, duonebs, steroids PPI #Alchohol use d/o: Monitor for alcohol w/drawal. On CIWA protocol + folate and thiamine. #Paroxysmal Afib: Full dose lovenox. Resume home Metoprolol. #Hx of PE: No PE noted on CTA chest #Schizophrenia: Resume home meds #GERD: PPI #Migraine headache?: On Sumatriptan succinate. Will hold given the chest pain complaint #He is not volume overloaded, but he indicates and his meds indicate that he may have CHF. November 16, 2024 Patient presenting seizures, has a history of known alcohol abuse. Suspect this may have been alcohol withdrawal seizures. Holding off on Keppra for now. Continue Librium was already started. Alcohol level is not available from yesterday. Bilateral crackles on examination today. Resume Bumex at dose of 2 mg IV every 12 hours. MRI of the lumbar spine completed which showed chronic multilevel degenerative changes and DJD. Abundant lumbar epidural fat contributing to central canal stenosis. Compression of the right L3 nerve root cysts related to disc protrusion, degenerative disease at the L3-L4 level. Currently no signs of cauda equina syndrome. Resume home dose of Eliquis 5 mg twice daily. Attestations 2 Medical Necessity Statement*: Resume Bumex, MRI without signs of cauda equina syndrome currently. Monitor for signs of alcohol withdrawal. Encourage ambulation. Coding Level of Care Code Acute Code for [facility] Fwd Diagnoses Alcohol use disorder, severe, dependence F10.20 Acute hypoxic respiratory failure J96.01 COPD with acute exacerbation J44.1 Leg weakness, bilateral R29.898
[2024-11-16] MEDS: bumetanide 0.25 mg/mL SDV 10 mL 2 MG IVP (17:22)
[2024-11-16] MEDS: potassium chloride ER 20 mEq Tablet 40 MEQ PO (17:22)
[2024-11-16] MEDS: apixaban 5 mg Tablet PO (17:23)
[2024-11-16] MEDS: mirtazapine 30 mg Tablet PO (20:04)
[2024-11-16 20:43] LABS: C.Diff PCR (Lab) NEGATIVE (Negative)
[2024-11-17] VITALS (11 sets, daily range): BP systolic 132–164; BP diastolic 53–93; PULSE 50–86; RESP 16–22; TEMP 36.6–37.1; O2SAT 90–97
[2024-11-17] MEDS: LORazepam 2 mg/mL INJ 1 mL IVP (00:29)
[2024-11-17] MEDS: chlordiazePOXIDE 25 mg Capsule 50 MG PO (01:22)
[2024-11-17] MEDS: ipratropium-albuterol 3 mL Neb INHALATION ×4 (03:15→20:47)
[2024-11-17] MEDS: piperacillin-tazobactam 3.375 GM in sodium chloride 0.9% (plus) 50 ML IV ×3 (04:29→21:29)
[2024-11-17] MEDS: bumetanide 0.25 mg/mL SDV 10 mL 2 MG IVP ×2 (04:29→18:07)
--- NOTE | 2024-11-17 05:19 | PC.NURSE ---
Patient confused intermittently throughout the night. One-on-one sitter placed with patient. Unable to keep telemetry on patient or measure all of urine output. Patient is on CIWA protocol.
[2024-11-17 06:03] LABS: Basophils # 0.1 10^3/uL (0.0-0.1); Basophils % 0.5 %; Eosinophils % 0.1 %; Hematocrit 44.7 % (37-53); Lymphocytes # 1.5 10^3/uL (0.8-4.8); Mean Corpuscular HGB Conc 32.9 g/dL (30-55); Mean Corpuscular Hemoglobin 33.6 pg (27-33); Mean Corpuscular Volume 102.3 fl (82-101); Mean Platelet Volume 12.2 fL (7.4-10.4); Monocytes # 1.9 10^3/uL (0.2-0.9); Neutrophils # 8.13 10^3/uL (1.8-7.7); Neutrophils % 69.7 %; Nucleated Red Blood Cells # 0.1 /100WBC; Nucleated Red Blood Cells % 0.4 %; Platelet Count 114 10^3/cmm (157-399); Red Blood Count 4.37 10^6/uL (3.85-5.65); Red Cell Distribution Width 17.7 % (12.1-15.1); White Blood Count 11.65 10^3/uL (3.29-11.43)
[2024-11-17 06:22] LABS: Alanine Aminotransferase 50 U/L (0-41); Albumin Level 3.5 g/dL (3.5-5.2); Alkaline Phosphatase 112 U/L (40-130); Aspartate Amino Transferase 97 U/L (0-40); Blood Urea Nitrogen 8 mg/dL (6-20); Calcium 9.2 mg/dL (8.5-10.5); Carbon Dioxide 28 mmol/L (22-29); Chloride 94 mmol/L (98-107); Creatinine Clr Calc Pharmacy 152.3781; Globulin 3.5 g/dL (1.3-4.6); Glomerular Filtration Rate 115.8 mL/min (90-130); Glucose 140 mg/dL (65-115); Magnesium 1.5 mg/dL (1.7-2.3); Osmolality Calculated 283 mOsm/kg (285-295); Sodium 136 mmol/L (136-145); Total Bilirubin 0.6 mg/dL (0.15-1.2)
[2024-11-17 06:26] LABS: Anion Gap 17.4 (5-19); Potassium 3.4 mmol/L (3.5-5.1)
[2024-11-17] MEDS: polyethylene glycol 3350 Pkt 17 gm PO (09:43)
[2024-11-17] MEDS: ARIPiprazole 10 mg Tablet PO (09:44)
[2024-11-17] MEDS: methylPREDNISolone sod succ 125 mg/2 mL INJ 60 MG IVP (09:44)
[2024-11-17] MEDS: pantoprazole DR 40 mg Tablet PO (09:45)
[2024-11-17] MEDS: baclofen 10 mg Tablet 5 MG PO ×4 (09:45→21:30)
[2024-11-17] MEDS: apixaban 5 mg Tablet PO ×2 (09:45→18:07)
[2024-11-17] MEDS: multivitamin therapeutic Tablet 1 TAB PO (09:45)
[2024-11-17] MEDS: metoprolol tartrate 25 mg Tablet PO ×2 (09:45→21:30)
[2024-11-17] MEDS: citalopram 20 mg Tablet 10 MG PO (09:45)
[2024-11-17] MEDS: folic acid 1 mg Tablet PO (09:45)
[2024-11-17] MEDS: thiamine 100 mg Tablet PO (09:46)
[2024-11-17] MEDS: AZITHROMYCIN ADD-Vantage 500 MG in 0.9% NaCl ADD-Vantage 250 ML 250 MG IV (10:32)
[2024-11-17] MEDS: lidocaine 5% Patch 1 PATCH TOPICAL (15:15)
[2024-11-17] MEDS: sennosides 8.6 mg Tablet 17.2 MG PO (21:30)
[2024-11-17] MEDS: mirtazapine 30 mg Tablet PO (21:31)
--- NOTE | 2024-11-17 21:41 | PM.PN ---
Subjective Subjective: c/o back pain, states this has been making his movements very painful . Overnight patient exhbited confusion and hallucinations. CIWA score of 9. Given librium and ativan. Currently awake, alert and oriented x 3. Medications: Reviewed: Yes Vitals/I&O/Wt Last Vital Signs Temp 98.2 F 11/17/24 20:00 Pulse 68 11/17/24 20:00 Resp 22 H 11/17/24 20:00 BP 132/93 11/17/24 20:00 Pulse Ox 91 11/17/24 20:00 O2 Del Method Room Air 11/17/24 20:00 O2 Flow Rate 2 11/17/24 13:51 11/17/24 11/17/24 11/17/24 06:59 14:59 22:59 Intake Total 50 / 1360 1012 / 1012 425 / 1437 Output Total 150 / 2900 850 / 850 Balance -100 / -1540 162 / 162 425 / 587 Weight last 48 hrs Weight 131.542 kg Weight 130.181 kg Weight 130.09 kg Physical Exam Narrative: General: No acute distress, AO x3 HEENT: PERRLA, pupils bilaterally equal and reactive, pallors not present Chest: Crackles bilaterally CVS: S1-S2 regular, no murmurs, no tachycardia, no gallops, no rubs Abdomen: Soft, nontender, no organomegaly, bowel sounds present Neuro: No focal deficits, no facial deformity, AO x3, power 5/5 in all limbs EXT: B/L LE edema Data 11/17/24 05:54 11/17/24 05:54 Micro: Microbiology 11/16/24 06:40 Group A Streptococcus Rapid Screen - Preliminary Throat 11/16/24 05:35 Blood Culture - Preliminary Blood NEGATIVE TO DATE 11/16/24 05:35 Blood Culture - Preliminary Blood NEGATIVE TO DATE A&P Assessment and plan (1) Alcohol use disorder, severe, dependence: (2) Acute hypoxic respiratory failure: (3) COPD with acute exacerbation: (4) Leg weakness, bilateral: (5) Diastolic CHF: Plan On admission, he was given 1L NS bolus and Zosyn was ordered given his CXR findings. He became hypoxic to 88% and was placed on 2L NC. Given concern for a hx of a PE documented on Dr. Smith's 05/16/2025 d/c summary, a CTA chest was done but it was negative for a PE & a pneumonia. He was wheezing on exam. He was given 4g of MgSO4 x1 for Mg of 1.2. #Concern for Seizure - EEG, MRI ordered, Telemetry, EKG. #b/l LE weakness: F/u MRI L-spine #SIRS - Unclear etiology. #Acute Hypoxic respiratory failure: On 2L NC. ABG on 2L is appropriate. #Acute COPD exacerbation: On Zosyn, Azithromycin, duonebs, steroids PPI #Alchohol use d/o: Monitor for alcohol w/drawal. On CIWA protocol + folate and thiamine. #Paroxysmal Afib: Full dose lovenox. Resume home Metoprolol. #Hx of PE: No PE noted on CTA chest #Schizophrenia: Resume home meds #GERD: PPI #Migraine headache?: On Sumatriptan succinate. Will hold given the chest pain complaint #He is not volume overloaded, but he indicates and his meds indicate that he may have CHF. November 16, 2024 Patient presenting seizures, has a history of known alcohol abuse. Suspect this may have been alcohol withdrawal seizures. Holding off on Keppra for now. Continue Librium was already started. Alcohol level is not available from yesterday. Bilateral crackles on examination today. Resume Bumex at dose of 2 mg IV every 12 hours. MRI of the lumbar spine completed which showed chronic multilevel degenerative changes and DJD. Abundant lumbar epidural fat contributing to central canal stenosis. Compression of the right L3 nerve root cysts related to disc protrusion, degenerative disease at the L3-L4 level. Currently no signs of cauda equina syndrome. Resume home dose of Eliquis 5 mg twice daily. November 17, 2024 Overnight patient's CIWA score was 9, he was hallucinating, received librium and ativan, currently awake and alert, oriented x 4 . no further seizure episodes during hospital stay. Likely was related to alcohol withdrawal. currently on 2lpm supplemental 02 when seen. Diuresing well with iv bumex. suspect that his acute hypoxic respiratpry failure is a combination of acute on chronic diastolic CHF and COPD exacerbation. NO PNA seen on CT chest. D/c zosyn and azithromycin. Change to po levaquin 750mg daily. D/c methylprednisone 60mg IVP--> change to prednisone 40mg daily. continue scheduled nebulization. he is c/o back pain. MRI spine as noted above, He has previosuly seen pain mgmt who recommended steroid injections however patient was worried about the infection risk. he is not interested in any surgical intervention. Lidocaine patch applied today. Add oxycodone IR 5mg po q8h prn for back pain. PT/Ot assessment. LFTs deranged. CT chest notes hepatic steatosis. Check hepatitis panel Attestations Medical Necessity Statement*: continue iv bumex , monitor kidney function and urine output, add pain medication, transition iv to po steroids, vhange abx, PT/OT assessment for back pain Coding Level of Care Code Acute Code for [facility] Fwd Diagnoses Alcohol use disorder, severe, dependence F10.20 Acute hypoxic respiratory failure J96.01 COPD with acute exacerbation J44.1 Leg weakness, bilateral R29.898 Diastolic CHF I50.30
[2024-11-17] MEDS: potassium chloride ER 20 mEq Tablet 40 MEQ PO (22:17)
[2024-11-17] MEDS: magnesium sulfate premix 1 GM/100 ML PIGGYBACK IV (22:37)
[2024-11-18] VITALS (8 sets, daily range): BP systolic 121–150; BP diastolic 73–95; PULSE 70–87; RESP 16–19; TEMP 36.7–37.1; O2SAT 90–96
[2024-11-18] MEDS: bumetanide 0.25 mg/mL SDV 10 mL 2 MG IVP (04:53)
[2024-11-18 05:35] LABS: Basophils # 0.1 10^3/uL (0.0-0.1); Basophils % 0.5 %; Eosinophils % 0.3 %; Hematocrit 44.2 % (37-53); Lymphocytes # 2.2 10^3/uL (0.8-4.8); Lymphocytes % 19.9 %; Mean Corpuscular HGB Conc 31.2 g/dL (30-55); Mean Corpuscular Hemoglobin 32.7 pg (27-33); Mean Corpuscular Volume 104.7 fl (82-101); Monocytes # 2.1 10^3/uL (0.2-0.9); Monocytes % 18.4 %; Neutrophils # 6.77 10^3/uL (1.8-7.7); Nucleated Red Blood Cells % 0.3 %; Platelet Count 141 10^3/cmm (157-399); Red Blood Count 4.22 10^6/uL (3.85-5.65); Red Cell Distribution Width 17.7 % (12.1-15.1); White Blood Count 11.27 10^3/uL (3.29-11.43)
[2024-11-18 05:54] LABS: Alanine Aminotransferase 48 U/L (0-41); Albumin Level 3.5 g/dL (3.5-5.2); Alkaline Phosphatase 96 U/L (40-130); Anion Gap 16.3 (5-19); Aspartate Amino Transferase 66 U/L (0-40); Blood Urea Nitrogen 12 mg/dL (6-20); Carbon Dioxide 28 mmol/L (22-29); Chloride 95 mmol/L (98-107); Creatinine Clr Calc Pharmacy 177.7745; Globulin 2.7 g/dL (1.3-4.6); Glomerular Filtration Rate 138.4 mL/min (90-130); Glucose 150 mg/dL (65-115); Magnesium 1.7 mg/dL (1.7-2.3); Osmolality Calculated 285 mOsm/kg (285-295); Potassium 3.3 mmol/L (3.5-5.1); Sodium 136 mmol/L (136-145); Total Bilirubin 0.4 mg/dL (0.15-1.2); Total Protein 6.2 g/dL (6.6-8.7)
[2024-11-18 06:07] LABS: Hepatitis A Antibody IgM Non-Reactive (Nonreactive); Hepatitis B Core AB, Total Reactive (Nonreactive); Hepatitis B Surface AB < 3.5 (11.5-1000); Hepatitis B Surface Antigen Non-Reactive (Nonreactive); Hepatitis C Virus Antibody Non-Reactive (Nonreactive)
[2024-11-18] MEDS: ipratropium-albuterol 3 mL Neb INHALATION ×2 (09:32→13:34)
[2024-11-18] MEDS: polyethylene glycol 3350 Pkt 17 gm PO (10:20)
[2024-11-18] MEDS: baclofen 10 mg Tablet 5 MG PO ×4 (10:21→20:19)
[2024-11-18] MEDS: pantoprazole DR 40 mg Tablet PO (10:21)
[2024-11-18] MEDS: multivitamin therapeutic Tablet 1 TAB PO (10:21)
[2024-11-18] MEDS: thiamine 100 mg Tablet PO (10:22)
[2024-11-18] MEDS: metoprolol tartrate 25 mg Tablet PO ×2 (10:22→20:20)
[2024-11-18] MEDS: ARIPiprazole 10 mg Tablet PO (10:22)
[2024-11-18] MEDS: apixaban 5 mg Tablet PO ×2 (10:22→18:27)
[2024-11-18] MEDS: folic acid 1 mg Tablet PO (10:22)
[2024-11-18] MEDS: predniSONE 20 mg Tablet 40 MG PO (10:23)
[2024-11-18] MEDS: levoFLOXacin 750 mg Tablet PO (10:23)
[2024-11-18] MEDS: lidocaine 5% Patch 1 PATCH TOPICAL (10:23)
[2024-11-18] MEDS: citalopram 20 mg Tablet 10 MG PO (10:25)
--- NOTE | 2024-11-18 14:48 | P.PN_ITS ---
Subjective 2 Subjective: Seen today. Feels better. Nuclear events overnight. Had 1 bowel movement overnight. Potassium 3.3 today. FOBT negative Has been seizure-free. Vitals/I&O/Wt Last Vital Signs Temp 98.0 F 11/18/24 11:50 Pulse 81 11/18/24 13:36 Resp 18 11/18/24 13:36 BP 121/73 11/18/24 11:50 Pulse Ox 94 11/18/24 13:36 O2 Del Method Nasal Cannula 11/18/24 13:36 O2 Flow Rate 2 11/18/24 13:36 11/17/24 11/18/24 11/18/24 22:59 06:59 14:59 Intake Total 427.5 / 1439.5 420 / 1859.5 596 / 596 Balance 427.5 / 589.5 420 / 1009.5 596 / 596 Weight last 48 hrs Weight 131.542 kg Weight 131.542 kg Physical Exam 2 Narrative: General: No acute distress, AO x3 HEENT: PERRLA, pupils bilaterally equal and reactive, pallors not present Chest: Clear to auscultation bilaterally no wheezes no rhonchi. CVS: S1-S2 regular, no murmurs, no tachycardia, no gallops, no rubs Abdomen: Soft, nontender, no organomegaly, bowel sounds present Neuro: No focal deficits, no facial deformity, AO x3, EXT: Bilateral lower extremity edema has improved. Trace to 1+ at this time. Data 11/18/24 04:33 11/18/24 04:33 Micro: Microbiology 11/16/24 06:40 Group A Streptococcus Rapid Screen - Final Throat A&P Assessment and plan (1) Alcohol use disorder, severe, dependence: (2) Acute hypoxic respiratory failure: (3) COPD with acute exacerbation: (4) Leg weakness, bilateral: (5) Diastolic CHF: Plan On admission, he was given 1L NS bolus and Zosyn was ordered given his CXR findings. He became hypoxic to 88% and was placed on 2L NC. Given concern for a hx of a PE documented on Dr. Smith's 05/16/2025 d/c summary, a CTA chest was done but it was negative for a PE & a pneumonia. He was wheezing on exam. He was given 4g of MgSO4 x1 for Mg of 1.2. #Concern for Seizure - EEG, MRI ordered, Telemetry, EKG. #b/l LE weakness: F/u MRI L-spine #SIRS - Unclear etiology. #Acute Hypoxic respiratory failure: On 2L NC. ABG on 2L is appropriate. #Acute COPD exacerbation: On Zosyn, Azithromycin, duonebs, steroids PPI #Alchohol use d/o: Monitor for alcohol w/drawal. On CIWA protocol + folate and thiamine. #Paroxysmal Afib: Full dose lovenox. Resume home Metoprolol. #Hx of PE: No PE noted on CTA chest #Schizophrenia: Resume home meds #GERD: PPI #Migraine headache?: On Sumatriptan succinate. Will hold given the chest pain complaint #He is not volume overloaded, but he indicates and his meds indicate that he may have CHF. November 16, 2024 Patient presenting seizures, has a history of known alcohol abuse. Suspect this may have been alcohol withdrawal seizures. Holding off on Keppra for now. Continue Librium was already started. Alcohol level is not available from yesterday. Bilateral crackles on examination today. Resume Bumex at dose of 2 mg IV every 12 hours. MRI of the lumbar spine completed which showed chronic multilevel degenerative changes and DJD. Abundant lumbar epidural fat contributing to central canal stenosis. Compression of the right L3 nerve root cysts related to disc protrusion, degenerative disease at the L3-L4 level. Currently no signs of cauda equina syndrome. Resume home dose of Eliquis 5 mg twice daily. November 17, 2024 Overnight patient's CIWA score was 9, he was hallucinating, received librium and ativan, currently awake and alert, oriented x 4 . no further seizure episodes during hospital stay. Likely was related to alcohol withdrawal. currently on 2lpm supplemental 02 when seen. Diuresing well with iv bumex. suspect that his acute hypoxic respiratpry failure is a combination of acute on chronic diastolic CHF and COPD exacerbation. NO PNA seen on CT chest. D/c zosyn and azithromycin. Change to po levaquin 750mg daily. D/c methylprednisone 60mg IVP--> change to prednisone 40mg daily. continue scheduled nebulization. he is c/o back pain. MRI spine as noted above, He has previosuly seen pain mgmt who recommended steroid injections however patient was worried about the infection risk. he is not interested in any surgical intervention. Lidocaine patch applied today. Add oxycodone IR 5mg po q8h prn for back pain. PT/Ot assessment. LFTs deranged. CT chest notes hepatic steatosis. Check hepatitis panel 11/18/2024 CIWA scores improved. That she has done better overnight. Diuresing well with Bumex. Appears to be closer to being euvolemic this morning however will continue to benefit from IV Bumex at this time. PT OT. ? Patient does not require rehab at this time. Hepatitis panel complete. Hepatitis B core total antibody reactive. ? Does have chronic onychomycosis on bilateral feet. Recommend podiatry referral at discharge ? He has been seizure-free overnight. Improving and doing better. If continues to stay stable may consider discharge home in a.m. ? Follow-up with neurology as an outpatient. Attestations 2 Medical Necessity Statement*: Continue IV diuresis. If remains stable may consider discharge in a.m. Diagnoses Alcohol use disorder, severe, dependence F10.20 Acute hypoxic respiratory failure J96.01 COPD with acute exacerbation J44.1 Leg weakness, bilateral R29.898 Diastolic CHF I50.30
--- NOTE | 2024-11-18 15:21 | PC.SOCIAL ---
IMM Updated Updated pt on IMM. No questions voiced. Provided pt a copy. Initialed, dated, & timed a copy & placed in chart.
[2024-11-18] MEDS: potassium chloride ER 20 mEq Tablet 40 MEQ PO (16:04)
[2024-11-18] MEDS: acetaminophen 325 mg Tablet 500 MG PO (16:05)
[2024-11-18] MEDS: mirtazapine 30 mg Tablet PO (20:20)
[2024-11-18] MEDS: sennosides 8.6 mg Tablet 17.2 MG PO (20:20)
[2024-11-19] VITALS (12 sets, daily range): BP systolic 115–154; BP diastolic 77–89; PULSE 65–90; RESP 15–18; TEMP 36.4–37; O2SAT 87–97
[2024-11-19] MEDS: ipratropium-albuterol 3 mL Neb INHALATION ×3 (02:39→20:46)
[2024-11-19] MEDS: bumetanide 0.25 mg/mL SDV 10 mL 2 MG IVP ×2 (04:58→11:07)
[2024-11-19] MEDS: apixaban 5 mg Tablet PO ×2 (09:03→17:03)
[2024-11-19] MEDS: levoFLOXacin 750 mg Tablet PO (09:03)
[2024-11-19] MEDS: metoprolol tartrate 25 mg Tablet PO ×2 (09:03→21:40)
[2024-11-19] MEDS: ARIPiprazole 10 mg Tablet PO (09:03)
[2024-11-19] MEDS: polyethylene glycol 3350 Pkt 17 gm PO (09:03)
[2024-11-19] MEDS: predniSONE 20 mg Tablet 40 MG PO (09:03)
[2024-11-19] MEDS: citalopram 20 mg Tablet 10 MG PO (09:04)
[2024-11-19] MEDS: thiamine 100 mg Tablet PO (09:04)
[2024-11-19] MEDS: folic acid 1 mg Tablet PO (09:04)
[2024-11-19] MEDS: multivitamin therapeutic Tablet 1 TAB PO (09:04)
[2024-11-19] MEDS: pantoprazole DR 40 mg Tablet PO (09:04)
[2024-11-19] MEDS: baclofen 10 mg Tablet 5 MG PO ×4 (09:04→21:39)
[2024-11-19] MEDS: lidocaine 5% Patch 1 PATCH TOPICAL (09:07)
[2024-11-19 10:05] LABS: Basophils # 0.1 10^3/uL (0.0-0.1); Basophils % 0.9 %; Eosinophils # 0.1 10^3/uL (0.0-0.8); Eosinophils % 0.6 %; Hematocrit 46.9 % (37-53); Lymphocytes # 3.8 10^3/uL (0.8-4.8); Lymphocytes % 29.1 %; Mean Corpuscular HGB Conc 32.2 g/dL (30-55); Mean Corpuscular Hemoglobin 32.6 pg (27-33); Mean Corpuscular Volume 101.3 fl (82-101); Mean Platelet Volume 10.8 fL (7.4-10.4); Monocytes % 15.5 %; Neutrophils # 6.78 10^3/uL (1.8-7.7); Neutrophils % 52.7 %; Nucleated Red Blood Cells % 0.2 %; Platelet Count 213 10^3/cmm (157-399); Red Blood Count 4.63 10^6/uL (3.85-5.65); Red Cell Distribution Width 17.2 % (12.1-15.1); White Blood Count 12.87 10^3/uL (3.29-11.43)
[2024-11-19 10:25] LABS: Alanine Aminotransferase 51 U/L (0-41); Albumin Level 3.8 g/dL (3.5-5.2); Alkaline Phosphatase 96 U/L (40-130); Aspartate Amino Transferase 56 U/L (0-40); Blood Urea Nitrogen 13 mg/dL (6-20); Calcium 9.3 mg/dL (8.5-10.5); Carbon Dioxide 28 mmol/L (22-29); Chloride 96 mmol/L (98-107); Creatinine Clr Calc Pharmacy 151.9649; Globulin 3.4 g/dL (1.3-4.6); Glomerular Filtration Rate 115.8 mL/min (90-130); Glucose 186 mg/dL (65-115); Osmolality Calculated 289 mOsm/kg (285-295); Sodium 137 mmol/L (136-145); Total Bilirubin 0.6 mg/dL (0.15-1.2); Total Protein 7.2 g/dL (6.6-8.7)
[2024-11-19] MEDS: acetaminophen 325 mg Tablet 500 MG PO (11:08)
--- NOTE | 2024-11-19 11:30 | PM.CONSULT ---
Providers/Reason For Consult Consulting Physician/Specialty*: Anuj Greenwood D.P.M. Reason for Consult*: Foot fissuring Attending Physician: Ronda Magaña MD History of Present Illness History of Present Illness Mor Ohara is a 59 year old male admitted for acute respiratory failure with acute on chronic COPD exacerbation currently also on, CIWA protocol. I was consulted for evaluation of painful fissuring bilateral foot. Review of Systems General: Reports: 10 or more systems reviewed and unremarkable except in HPI and below Const: Denies: fever(s) or chills Card: Denies: chest pain or palpitations Resp: Denies: productive cough GI: Denies: abdominal pain, nausea or vomiting : Denies: flank pain Musc: Reports: extremity swelling, joint pain, joint stiffness, limited range of motion and deformity Skin/Breast: Reports: nail changes and change in hair; Denies: rash or sores Neuro: Reports: numbness in extremities, sensory changes and difficulty walking Psych: Denies: suicidal ideation Walker/Lymph: Denies: easy bruising Medications/Allergies Home Medications Medication Instructions Recorded Confirmed Last Taken Type albuterol sulfate 90 mcg/actuation 1 inh inhalation Q6H PRN shortness 04/26/24 11/16/24 Unknown Rx aerosol inhaler of breath or wheezing #6.7 grams umeclidinium 62.5 mcg-vilanterol 1 inh inhalation DAILY 05/14/24 11/16/24 Unknown History 25 mcg/actuation powdr for inhalation (Anoro Ellipta) acetaminophen 500 mg tablet 1,000 mg PO Q6H PRN Pain, Moderate 07/09/24 11/16/24 10/15/24 History apixaban 5 mg tablet (Eliquis) 5 mg PO BID 30 days #60 tabs 07/12/24 11/16/24 10/15/24 Rx bumetanide 1 mg tablet 1 mg PO 00,2099 30 days #60 tabs 07/12/24 11/16/24 Unknown Rx metoprolol tartrate 25 mg tablet 25 mg PO BID@0900,2099 30 days #60 07/12/24 11/16/24 Unknown Rx tabs potassium chloride 20 mEq 20 meq PO DAILY 30 days #30 tabs 07/12/24 11/16/24 10/15/24 Rx tablet,extended release(part/cryst) aripiprazole 10 mg tablet 10 mg PO DAILY 10/15/24 11/16/24 10/15/24 History baclofen 5 mg tablet 5 mg PO BID 10/15/24 11/16/24 10/15/24 History citalopram 20 mg tablet 20 mg PO DAILY 10/15/24 11/16/24 10/15/24 History furosemide 80 mg tablet 80 mg PO DAILY 10/15/24 11/16/24 10/15/24 History mirtazapine 30 mg tablet 30 mg PO BEDTIME 10/15/24 11/16/24 Unknown History omeprazole 40 mg capsule,delayed 40 mg PO DAILY 10/15/24 11/16/24 10/15/24 History release polyethylene glycol 3350 17 17 g PO DAILY PRN Constipation 10/15/24 11/16/24 Unknown History gram/dose oral powder (ClearLax) vitamin with calcium 1 tab PO DAILY 10/15/24 11/16/24 10/15/24 History no.72-iron 27 mg-folic acid 1 mg tablet (WesTab Plus) sumatriptan succinate 25 mg tablet See Rx Instructions .Route 10/15/24 11/16/24 Unknown History .COMPLEX PRN Migraine Headache magnesium oxide 400 mg (241.3 mg 400 mg PO DAILY 11/16/24 11/16/24 Unknown History magnesium) tablet Allergies Allergy/AdvReac Type Severity Reaction Status Date / Time No Known Allergies Allergy Verified 11/16/24 00:07 Current Medications Generic Name Dose Route Start Last Admin Trade Name Fernandoq PRN Reason Stop Dose Admin Acetaminophen 500 mg 11/17/24 21:48 11/19/24 11:08 Acetaminophen 325 Mg Tablet PO 500 mg Q6H PRN Administration Mild/Mod Pain Or Temp >/= 101 Albuterol/Ipratropium 3 ml 11/16/24 08:00 11/19/24 09:04 Ipratropium-Albuterol 3 Ml Neb INHALATION 3 ml Q6H.RESP NOEMI Administration Apixaban 5 mg 11/16/24 18:00 11/19/24 09:03 Apixaban 5 Mg Tablet PO 5 mg BID NOEMI Administration Aripiprazole 10 mg 11/16/24 09:00 11/19/24 09:03 Aripiprazole 10 Mg Tablet PO 10 mg DAILY NOEMI Administration Baclofen 5 mg 11/16/24 09:00 11/19/24 09:04 Baclofen 10 Mg Tablet PO 5 mg QID NOEMI Administration Bumetanide 2 mg 11/19/24 10:30 11/19/24 11:07 Bumetanide 0.25 Mg/Ml Sdv 10 Ml IVP 2 mg Q12H NOEMI Administration Citalopram Hydrobromide 10 mg 11/16/24 09:00 11/19/24 09:04 Citalopram 20 Mg Tablet PO 10 mg DAILY NOEMI Administration Folic Acid 1 mg 11/16/24 09:00 11/19/24 09:04 Folic Acid 1 Mg Tablet PO 1 mg DAILY NOEMI Administration Levofloxacin 750 mg 11/18/24 09:00 11/19/24 09:03 Levofloxacin 750 Mg Tablet PO 11/20/24 08:59 750 mg DAILY NOEMI Administration Protocol Lidocaine 1 patch 11/17/24 14:49 11/19/24 09:07 Lidocaine 5% Patch TOPICAL 1 patch [id number] NOEMI Administration Lorazepam 2 mg 11/16/24 05:50 11/17/24 00:29 Lorazepam 2 Mg/Ml Inj 1 Ml IVP 2 mg PRN PRN Administration WITHDRAWAL Protocol Metoprolol Tartrate 25 mg 11/16/24 09:00 11/19/24 09:03 Metoprolol Tartrate 25 Mg Tablet PO 25 mg BID@0900,2100 NOEMI Administration Mirtazapine 30 mg 11/16/24 21:00 11/18/24 20:20 Mirtazapine 30 Mg Tablet PO 30 mg BEDTIME NOEMI Administration Multi-Ingredient Ointment 1 applic 11/17/24 21:55 11/19/24 09:07 Eucerin Cream 113 Gm Jar TOPICAL Not Given DAILY [facility] Multivitamins Therapeutic 1 tab 11/16/24 09:00 11/19/24 09:04 Multivitamin Therapeutic Tablet PO 1 tab DAILY NOEMI Administration Pantoprazole Sodium 40 mg 11/17/24 09:00 11/19/24 09:[address] 40 Mg Tablet PO 40 mg DAILY NOEMI Administration Polyethylene Glycol 17 gm 11/16/24 09:00 11/19/24 09:03 Polyethylene Glycol 3350 Pkt 17 Gm PO 17 gm DAILY NOEMI Administration Prednisone 40 mg 11/18/24 09:00 11/19/24 09:03 Prednisone 20 Mg Tablet PO 40 mg DAILY NOEMI Administration Senna 17.2 mg 11/16/24 21:00 11/18/24 20:20 Sennosides 8.6 Mg Tablet PO 17.2 mg BEDTIME NOEMI Administration Thiamine Mononitrate 100 mg 11/16/24 09:23 11/19/24 09:04 Thiamine 100 Mg Tablet PO 100 mg DAILY NOEMI Administration PFSH Acute PFSH: Medical History Psychiatric care Atrial fibrillation with rapid ventricular response COPD (chronic obstructive pulmonary disease) Schizophrenia Alcohol abuse Hx of pulmonary embolus Pulmonary embolism Cigarette smoker D-dimer, elevated Surgical History History of splenectomy Social History Smoking and tobacco/nicotine status: current every day tobacco/nicotine user Alcohol intake: current Substance/Drug Use: never Vitals/I&O/Wt Last Vital Signs Temp 98.2 F 11/19/24 07:31 Pulse 71 11/19/24 08:00 Resp 16 11/19/24 08:00 BP 127/80 11/19/24 07:31 Pulse Ox 96 11/19/24 09:14 O2 Del Method Nasal Cannula 11/19/24 08:00 O2 Flow Rate 2 11/19/24 09:14 11/18/24 11/19/24 11/19/24 22:59 06:59 14:59 Intake Total 615 / 1211 360 / 1571 356 / 356 Output Total 500 / 500 Balance 615 / 1211 360 / 1571 -144 / -144 Weight last 48 hrs Weight 288 lb 9.6 oz Weight 288 lb 14.4 oz Weight 290 lb Physical Exam Narrative: GENERAL: Patient is alert and oriented ?3 and in no acute distress. The following is a focused bilateral lower extremity exam. VASCULAR: Dorsalis pedis and posterior tibial arteries palpable. Capillary refill time less than 3 seconds to the distal hallux bilaterally. Calf is supple and nontender proximally and distally. No pedal edema appreciated. Pedal hair growth present. NEUROLOGICAL: Epicritic and protopathic sensations grossly intact to the lower extremities. +2 Achilles tendon reflex noted bilaterally. Negative Tinel sign upon percussion of lower extremity nerves. DERMATOLOGICAL: Dry flaky skin with fissuring across the plantar forefoot bilaterally. Toenails 1, 2, 3, 4, 5 left and right foot are elongated, thickened and discolored with subungual debris. MUSCULOSKELETAL: Tenderness at skin fissuring on plantar forefoot bilaterally and dystrophic toenails. No palpable mass along the course of the plantar fascia appreciated. No pain to palpation along the course of the bilateral Achilles tendon. No pain to palpation along the course posterior tibial tendon or peroneal tendons. No pain with [id number] compression of calcaneus, bilaterally. Muscle strength is 5/5 in all 3 cardinal planes pain-free without guarding to the foot and ankle, bilaterally. Data 11/19/24 09:42 11/19/24 09:42 Micro: Microbiology 11/16/24 06:40 Group A Streptococcus Rapid Screen - Final Throat A&P Assessment and plan (1) Dyshidrotic dermatitis: (2) Fissure in skin of both feet: Plan -Toenails 1-5 bilaterally were debrided manually both in thickness and length manually with sterile nail nippers without incident. Prescription sent to pharmacy of choice electronically to be utilized outpatient mupirocin 2% ointment to be applied to skin fissures left and right foot 3 times daily for the next 14 days Recommended petroleum based zinc oxide ointment to be applied twice daily and then wear socks. He already has this product in his possession and states he will start utilizing it as recommended. Follow-up in podiatry clinic 6 weeks Coding Level of Care Code Acute Code for Chg Fwd Diagnoses Dyshidrotic dermatitis L30.1 Fissure in skin of both feet R23.4
--- NOTE | 2024-11-19 13:11 | P.PN_ITS ---
Subjective 2 Subjective: Seen this morning. Patient states he feels better and back to his baseline. WBC count 12,000 ? Seizure-free at this time. ? Awaiting consult from podiatry ? AST ALT are improving. Patient has diuresed quite well. Liter nasal cannula. I have discussed patient with getting home O2 eval prior to discharge. Vitals/I&O/Wt Last Vital Signs Temp 97.6 F 11/19/24 11:24 Pulse 65 11/19/24 11:24 Resp 16 11/19/24 11:24 BP 123/82 11/19/24 11:24 Pulse Ox 94 11/19/24 11:24 O2 Del Method Nasal Cannula 11/19/24 11:24 O2 Flow Rate 2 11/19/24 11:24 11/18/24 11/19/24 11/19/24 22:59 06:59 14:59 Intake Total 615 / 1211 360 / 1571 836 / 836 Output Total 500 / 500 Balance 615 / 1211 360 / 1571 336 / 336 Weight last 48 hrs Weight 130.907 kg Weight 131.043 kg Weight 131.542 kg Physical Exam 2 Narrative: General: No acute distress, AO x3 HEENT: PERRLA, pupils bilaterally equal and reactive, pallors not present Chest: Clear to auscultation bilaterally no wheezes no rhonchi. CVS: S1-S2 regular, no murmurs, no tachycardia, no gallops, no rubs Abdomen: Soft, nontender, no organomegaly, bowel sounds present Neuro: No focal deficits, no facial deformity, AO x3, EXT: Bilateral lower extremity edema has improved. Trace to 1+ at this time. Bilateral fissure in skin of both feet. Data 11/19/24 09:42 11/19/24 09:42 Micro: Microbiology 11/16/24 06:40 Group A Streptococcus Rapid Screen - Final Throat A&P Assessment and plan (1) Alcohol use disorder, severe, dependence: (2) Acute hypoxic respiratory failure: (3) COPD with acute exacerbation: (4) Leg weakness, bilateral: (5) Diastolic CHF: Plan On admission, he was given 1L NS bolus and Zosyn was ordered given his CXR findings. He became hypoxic to 88% and was placed on 2L NC. Given concern for a hx of a PE documented on Dr. Smith's 05/16/2025 d/c summary, a CTA chest was done but it was negative for a PE & a pneumonia. He was wheezing on exam. He was given 4g of MgSO4 x1 for Mg of 1.2. #Concern for Seizure - EEG, MRI ordered, Telemetry, EKG. #b/l LE weakness: F/u MRI L-spine #SIRS - Unclear etiology. #Acute Hypoxic respiratory failure: On 2L NC. ABG on 2L is appropriate. #Acute COPD exacerbation: On Zosyn, Azithromycin, duonebs, steroids PPI #Alchohol use d/o: Monitor for alcohol w/drawal. On CIWA protocol + folate and thiamine. #Paroxysmal Afib: Full dose lovenox. Resume home Metoprolol. #Hx of PE: No PE noted on CTA chest #Schizophrenia: Resume home meds #GERD: PPI #Migraine headache?: On Sumatriptan succinate. Will hold given the chest pain complaint #He is not volume overloaded, but he indicates and his meds indicate that he may have CHF. November 16, 2024 Patient presenting seizures, has a history of known alcohol abuse. Suspect this may have been alcohol withdrawal seizures. Holding off on Keppra for now. Continue Librium was already started. Alcohol level is not available from yesterday. Bilateral crackles on examination today. Resume Bumex at dose of 2 mg IV every 12 hours. MRI of the lumbar spine completed which showed chronic multilevel degenerative changes and DJD. Abundant lumbar epidural fat contributing to central canal stenosis. Compression of the right L3 nerve root cysts related to disc protrusion, degenerative disease at the L3-L4 level. Currently no signs of cauda equina syndrome. Resume home dose of Eliquis 5 mg twice daily. November 17, 2024 Overnight patient's CIWA score was 9, he was hallucinating, received librium and ativan, currently awake and alert, oriented x 4 . no further seizure episodes during hospital stay. Likely was related to alcohol withdrawal. currently on 2lpm supplemental 02 when seen. Diuresing well with iv bumex. suspect that his acute hypoxic respiratpry failure is a combination of acute on chronic diastolic CHF and COPD exacerbation. NO PNA seen on CT chest. D/c zosyn and azithromycin. Change to po levaquin 750mg daily. D/c methylprednisone 60mg IVP--> change to prednisone 40mg daily. continue scheduled nebulization. he is c/o back pain. MRI spine as noted above, He has previosuly seen pain mgmt who recommended steroid injections however patient was worried about the infection risk. he is not interested in any surgical intervention. Lidocaine patch applied today. Add oxycodone IR 5mg po q8h prn for back pain. PT/Ot assessment. LFTs deranged. CT chest notes hepatic steatosis. Check hepatitis panel 11/18/2024 CIWA scores improved. That she has done better overnight. Diuresing well with Bumex. Appears to be closer to being euvolemic this morning however will continue to benefit from IV Bumex at this time. PT OT. ? Patient does not require rehab at this time. Hepatitis panel complete. Hepatitis B core total antibody reactive. ? Does have chronic onychomycosis on bilateral feet. Recommend podiatry referral at discharge ? He has been seizure-free overnight. Improving and doing better. If continues to stay stable may consider discharge home in a.m. ? Follow-up with neurology as an outpatient. 11/19/2024 -Patient awaiting podiatry consult. ? Hepatitis panel complete. He has been seizure-free since admission. ? Will qualify for 2 L nasal cannula. ? Will consider discharge today. ? Await podiatry consult. ? Follow-up with neurology as an outpatient. Attestations 2 Medical Necessity Statement*: discharge planning, awaiting podiatry consult Diagnoses Alcohol use disorder, severe, dependence F10.20 Acute hypoxic respiratory failure J96.01 COPD with acute exacerbation J44.1 Leg weakness, bilateral R29.898 Diastolic CHF I50.30
--- NOTE | 2024-11-19 13:19 | P.DS_ITS ---
Discharge Providers Date of Admission: 11/15/24 22:40 Date of Discharge: November 19, 2024 Attending Provider at Admission: Myesha Abdul MD Attending Provider at Discharge: Ronda Magaña MD Diagnoses at Discharge Discharge Diagnosis (1) Alcohol use disorder, severe, dependence: Status: Acute (2) Acute hypoxic respiratory failure: Status: Acute (3) COPD with acute exacerbation: Status: Acute (4) Leg weakness, bilateral: Status: Acute (5) Diastolic CHF: Status: Acute Reason for Visit Reason for Visit: seizures Hospital Course Hospital Course Patient presented to the hospital for hypoxia CTA chest was done and it was negative for PE and pneumonia. He was wheezing on exam. There was concern for seizure EEG MRI was ordered. He has a history of known alcohol abuse. Suspicion of alcohol withdrawal seizure. Holding off on Keppra. Librium was started. Patient did have bilateral crackles on examination. He was diuresed with Bumex 2 mg IV every 12 hours. MRI of lumbar spine did show chronic multilevel degenerative changes and DJD. He was not interested in any surgery at this time however will follow-up outpatient with Dr. Julien. No signs of cauda equina syndrome. Home Eliquis resumed. Patient did score high on CIWA and was actively hallucinating. Once stable from that standpoint he was discha rged home. Home Bumex was restarted. He remained seizure-free during hospitalization. He did qualify for 2 L nasal cannula. He was also seen by podiatry for fissures on bilateral feet. Will discharge him home at this time on levofloxacin x 3 more days, steroids, thiamine, mupirocin and ammonium lactate as recommended by podiatry. Oxygen was also set up. He is asked to follow-up with his primary care doctor, Dr. Greenwood and Dr. Julien. Outpatient physical therapy was set up for the patient. Physical Exam Narrative: General: No acute distress, AO x3 HEENT: PERRLA, pupils bilaterally equal and reactive, pallors not present Chest: Clear to auscultation bilaterally no wheezes no rhonchi. CVS: S1-S2 regular, no murmurs, no tachycardia, no gallops, no rubs Abdomen: Soft, nontender, no organomegaly, bowel sounds present Neuro: No focal deficits, no facial deformity, AO x3, EXT: Bilateral lower extremity edema has improved. Trace to 1+ at this time. Bilateral fissure in skin of both feet. Discharge Data Studies Completed and Pending Completed Studies During Hospitalization Category Date Time Status CT head wo con* [id number] Stat Cat Scan 11/15/24 17:18 Completed CTA chest [CT angio chest PE protcl [id number]] Stat Cat Scan 11/16/24 02:33 Completed XR chest 1V portable [id number] Stat Exams 11/15/24 17:18 Completed MR head wo/w con [id number] Routine MRI 11/16/24 05:52 Completed MR lumbar spine wo con* [id number] Routine MRI 11/16/24 05:52 Completed Pending at discharge Category Date Time Status Blood Culture Stat Lab 11/15/24 23:59 Results Radiology Impressions Chest X-Ray 11/15/24 17:18 IMPRESSION: 1. Bibasilar atelectasis versus minimal infiltrate. 2. Cardiomegaly. Head CT 11/15/24 17:18 IMPRESSION: Negative for intracranial hemorrhage or mass effect. Chest CTA 11/16/24 02:33 IMPRESSION: 1. No acute findings. 2. Severe hepatic steatosis. Head MRI 11/16/24 05:52 IMPRESSION: No acute intracranial abnormality identified. Lumbar Spine MRI 11/16/24 05:52 IMPRESSION: 1. Chronic multilevel lumbar degenerative disc disease and facet DJD. There is also abundant lumbar epidural fat contributing to central canal stenosis. Details for each lumbar level are provided above. 2. There is compression of the RIGHT L3 nerve root at and just below the L2-L3 disc level secondary to posterior right paracentral disc protrusion with caudal extrusion of disc into the right L3 lateral recess. 3. There may be LEFT L3 foraminal nerve root compression associated with left foraminal disc protrusion and facet DJD at the L3-L4 level. Laboratory Results WBC 12.87 10^3/uL (3.29-11.43) H 11/19/24 09:42 RBC 4.63 10^6/uL (3.85-5.65) 11/19/24 09:42 Hgb 15.10 g/dL (11.27-16.99) 11/19/24 09:42 Hct 46.9 % (37-53) 11/19/24 09:42 MCV 101.3 fl (82-101) H 11/19/24 09:42 MCH 32.6 pg (27-33) 11/19/24 09:42 MCHC 32.2 g/dL (30-55) 11/19/24 09:42 RDW 17.2 % (12.1-15.1) H 11/19/24 09:42 Plt Count 213 10^3/cmm (157-399) D 11/19/24 09:42 MPV 10.8 fL (7.4-10.4) H 11/19/24 09:42 Neut % (Auto) 52.7 % 11/19/24 09:42 Lymph % (Auto) 29.1 % 11/19/24 09:42 [place] % (Auto) 15.5 % 11/19/24 09:42 Eos % (Auto) 0.6 % 11/19/24 09:42 Baso % (Auto) 0.9 % 11/19/24 09:42 Neut # (Auto) 6.78 10^3/uL (1.8-7.7) 11/19/24 09:42 Lymph # (Auto) 3.8 10^3/uL (0.8-4.8) 11/19/24 09:42 [place] # (Auto) 2.0 10^3/uL (0.2-0.9) H 11/19/24 09:42 Eos # (Auto) 0.1 10^3/uL (0.0-0.8) 11/19/24 09:42 Baso # (Auto) 0.1 10^3/uL (0.0-0.1) 11/19/24 09:42 Nucleated RBC % (auto) 0.2 % 11/19/24 09:42 Nucleated RBCs # 0.0 /100WBC 11/19/24 09:42 Specimen Type Arterial 11/16/24 04:00 Sample Site Radial, left 11/16/24 04:00 ABG pH 7.45 (7.35-7.45) 11/16/24 04:00 ABG pCO2 40.7 mmHg (35-45) 11/16/24 04:00 ABG pO2 74.1 mmHg (80.0-100.0) L 11/16/24 04:00 ABG HCO3 27.9 mmol/L (22-26) H 11/16/24 04:00 ABG O2 Saturation 95.7 11/16/24 04:00 ABG Base Excess 3.5 mmol/L (-2.0-2.0) H 11/16/24 04:00 [place] Test Pos 11/16/24 04:00 A-a O2 Gradient 3.4 mmHg (5-10) L 11/16/24 04:00 Hematocrit 42.5 % (42-52) 11/16/24 04:00 Hgb O2 Saturation 93.9 % (95-100) L 11/16/24 04:00 Carboxyhemoglobin 1.8 %THgb (0.4-20.1) 11/16/24 04:00 Methemoglobin 0.1 % (0.4-1.5) L 11/16/24 04:00 Total Hemoglobin 13.9 g/dL (14-18) L 11/16/24 04:00 Sodium 139.0 mmol/L (131-143) 11/16/24 04:00 Potassium 3.5 mmol/L (3.5-5.0) 11/16/24 04:00 Glucose 103.0 mg/dL (70-115) 11/16/24 04:00 Ionized Calcium 1.1 mmol/L (1.1-1.4) 11/16/24 04:00 O2 Delivery Device Nc 11/16/24 04:00 O2 Liters/Min 2.0 % 11/16/24 04:00 Blow Torch Operator ID [email or web address] 11/16/24 04:00 Sodium 137 mmol/L (136-145) 11/19/24 09:42 Potassium 4.0 mmol/L (3.5-5.1) 11/19/24 09:42 Chloride 96 mmol/L (98-107) L 11/19/24 09:42 Carbon Dioxide 28 mmol/L (22-29) 11/19/24 09:42 Anion Gap 17.0 (5-19) 11/19/24 09:42 BUN 13 mg/dL (6-20) 11/19/24 09:42 Creatinine 0.7 mg/dL (0.7-1.2) 11/19/24 09:42 GFR Calculation 115.8 mL/min (90-130) 11/19/24 09:42 Glucose 186 mg/dL (65-115) H 11/19/24 09:42 POC Glucose 172 mg/dL (70-110) H 11/16/24 11:54 Calculated Osmolality 289 mOsm/kg (285-295) 11/19/24 09:42 Lactic Acid 5.0 mmol/L (0.5-2.2) H* 11/15/24 17:57 Lactic Acid (Sepsis) 1.8 mmol/L (0.5-2.2) 11/15/24 20:20 Calcium 9.3 mg/dL (8.5-10.5) 11/19/24 09:42 Phosphorus 2.6 mg/dL (2.5-4.5) 11/16/24 05:37 Magnesium 1.7 mg/dL (1.7-2.3) 11/18/24 04:33 Total Bilirubin 0.6 mg/dL (0.15-1.2) 11/19/24 09:42 AST 56 U/L (0-40) H 11/19/24 09:42 ALT 51 U/L (0-41) H 11/19/24 09:42 Alkaline Phosphatase 96 U/L (40-130) 11/19/24 09:42 Troponin T 5th Gen ng/L 23 ng/L (0-15) H 11/16/24 05:37 NT-Pro-B Natriuret Pep 856 pg/mL (0-125) H 11/16/24 05:37 Total Protein 7.2 g/dL (6.6-8.7) 11/19/24 09:42 Albumin 3.8 g/dL (3.5-5.2) 11/19/24 09:42 Globulin 3.4 g/dL (1.3-4.6) 11/19/24 09:42 Urine Color [place] (Yellow) A 11/15/24 19:45 Urine Appearance Clear (CLEAR) 11/15/24 19:45 Urine pH 8.0 (5-7) A 11/15/24 19:45 Ur Specific [place] 1.022 (1.005-1.030) 11/15/24 19:45 Urine Protein 2+ (Negative) A 11/15/24 19:45 Urine Glucose (UA) Negative (Normal) 11/15/24 19:45 Urine Ketones Trace (Negative) 11/15/24 19:45 Urine Blood Non-haemolysed trace (Negative) 11/15/24 19:45 Urine Nitrate Negative (Negative) 11/15/24 19:45 Urine Bilirubin Negative (Negative) 11/15/24 19:45 Urine Urobilinogen 1.0 mg/dL (Negative) 11/15/24 19:45 Ur Leukocyte Esterase Negative (Negative) 11/15/24 19:45 Urine RBC 3-5 /hpf (0-2) 11/15/24 19:45 Urine WBC 11-20 /hpf (0-5) H 11/15/24 19:45 Ur Squamous Epith Cells 0-5 /hpf (0-5) 11/15/24 19:45 Amorphous Sediment Not Reportable 11/15/24 19:45 Urine Bacteria None seen /hpf (NONE) 11/15/24 19:45 Hyaline Casts 5.36 /lpf 11/15/24 19:45 Urine Opiates Screen Negative ng/mL (Negative) 11/15/24 19:45 Ur Barbiturates Screen Negative ng/mL (Negative) 11/15/24 19:45 Ur Phencyclidine Scrn Negative ng/mL (Negative) 11/15/24 19:45 Ur Amphetamines Screen Negative ng/mL (Negative) 11/15/24 19:45 U Benzodiazepines Scrn Negative ng/mL (Negative) 11/15/24 19:45 Urine Cocaine Screen Negative ng/mL (Negative) 11/15/24 19:45 U Marijuana (THC) Screen Negative ng/mL (Negative) 11/15/24 19:45 C. difficile (PCR) Negative (Negative) 11/16/24 18:35 Coronavirus (PCR) Negative (Negative) 11/15/24 18:42 Hepatitis A IgM Ab Non-reactive (Nonreactive) 11/18/24 04:33 Hep Bs Antigen Non-reactive (Nonreactive) 11/18/24 04:33 Hep Bs Antibody < 3.5 (11.5-1000) L 11/18/24 04:33 Hep B Core Total Ab Reactive (Nonreactive) H 11/18/24 04:33 Hepatitis C Antibody Non-reactive (Nonreactive) 11/18/24 04:33 Influenza A (PCR) Negative (Negative) 11/15/24 18:42 Influenza Type B (PCR) Negative (Negative) 11/15/24 18:42 RSV (PCR) Negative (Negative) 11/15/24 18:42 Group A Strep Rapid Negative (Negative) 11/16/24 06:40 Vitals Last Vital Signs Temp 97.6 F 11/19/24 11:24 Pulse 65 11/19/24 11:24 Resp 16 11/19/24 11:24 BP 123/82 11/19/24 11:24 Pulse Ox 94 11/19/24 11:24 O2 Del Method Nasal Cannula 11/19/24 11:24 O2 Flow Rate 2 11/19/24 11:24 Discharge Plan Discharge Patient Disposition: Home Condition: Stable Prescriptions: New mupirocin calcium 2 % cream 1 applic topical TID Qty: 30 0RF ammonium lactate 12 % Lotion 1 applic topical BID Qty: 100 0RF thiamine mononitrate (vit B1) [Vitamin B-1 (mononitrate)] 100 mg Tablet 100 mg PO DAILY Qty: 30 0RF prednisone 20 mg Tablet 40 mg PO DAILY Qty: 6 0RF levofloxacin 750 mg Tablet 750 mg PO DAILY Qty: 3 0RF Continued Anoro Ellipta 62.5-25 mcg/actuation blister with device 1 inh INHALATION DAILY magnesium oxide 400 mg (241.3 mg magnesium) tablet 400 mg PO DAILY albuterol sulfate 90 mcg/actuation HFA aerosol inhaler 1 inh inhalation Q6H PRN (Reason: shortness of breath or wheezing) Qty: 6.7 2RF acetaminophen 500 mg tablet 1,000 mg PO Q6H PRN (Reason: Pain, Moderate) potassium chloride 20 mEq tablet,ER particles/crystals 20 meq PO DAILY 30 Days Qty: 30 1RF bumetanide 1 mg tablet 1 mg PO 0900,2099 30 Days Qty: 60 1RF metoprolol tartrate 25 mg Tablet 25 mg PO BID@0900,2100 30 Days Qty: 60 1RF Eliquis 5 mg tablet 5 mg PO BID 30 Days Qty: 60 1RF mirtazapine 30 mg tablet 30 mg PO BEDTIME polyethylene glycol 3350 [ClearLax] 17 gram/dose powder 17 g PO DAILY PRN (Reason: Constipation) sumatriptan succinate 25 mg tablet See Rx Instructions .ROUTE .COMPLEX PRN (Reason: Migraine Headache) Rx Instructions: TAKE 1 TABLET (25 MG) BY MOUTH ONE TIME NEEDED (FOR HEADACHE MAY REPEAT IN 2 HOURS; MAX DOSE 200MG IN 24 HOURS. omeprazole 40 mg capsule,delayed release(DR/EC) 40 mg PO DAILY citalopram 20 mg tablet 20 mg PO DAILY aripiprazole 10 mg tablet 10 mg PO DAILY WesTab Plus 27 mg iron- 1 mg tablet 1 tab PO DAILY baclofen 5 mg tablet 5 mg PO BID Discontinued furosemide 80 mg tablet 80 mg PO DAILY Discharge Orders: Discharge Order (Routine); Ordered 11/19/24 Ordered By: Ronda Magaña Other Ambulatory Orders: DME: Oxygen (Order) Location: None Selected Ordered By: Ronda Magaña DME: Walker (Order) Location: None Selected Ordered By: Ronda Magaña Physical Therapy Eval and Treat Outpatient (Order) Timeframe: 3 Days Facility: [facility] - Location: Physical Therapy Ordered By: Ronda Magaña Referrals: [facility] [Outside] [facility] Outpatient Therapy [Outside] Jose Carlos Julien DO [Physician] - 2 weeks (We have notified your physician's clinic of the need for a follow-up appointment to be scheduled. If you have not heard from them within the next 2 business days, please call them directly. ) Anuj Greenwood DPM [Physician] - 2 weeks (We have notified your physician's clinic of the need for a follow-up appointment to be scheduled. If you have not heard from them within the next 2 business days, please call them directly. ) Josse Harvey MD [Referring] - 11/21/24 9:20 am (with CONCAVING MACHINE OPERATOR Lalita Armstrong ) Discharge Diet: Cardiac Discharge Activity: Resume usual activity and As per PT/OT instructions Patient Instructions: Prednisone (By mouth), Levofloxacin (By mouth) (Levaquin, Levaquin Leva-shaista), Using Oxygen at Home (GEN), CHF Stoplight, Opioid Safety Discharge Attestations Time Spent in Discharge Care*: greater than 30 min Quality Metrics Clinical Quality Measures [ No reported AMI, CVA or VTE this stay] Coding Level of Care Code Acute Code for Chg Fwd Diagnoses Alcohol use disorder, severe, dependence F10.20 Acute hypoxic respiratory failure J96.01 COPD with acute exacerbation J44.1 Leg weakness, bilateral R29.898 Diastolic CHF I50.30
[2024-11-19] MEDS: mupirocin oint 22 gm 1 APPLIC TOPICAL (17:03)
[2024-11-19] MEDS: ammonium lactate lotion 226 gm Btl 1 APPLIC TOPICAL (17:04)
--- NOTE | 2024-11-19 17:57 | PC.OT ---
Patient dressed and preparing for discharge and denies and need for OT TX at this time.
[2024-11-19] MEDS: TRAMadol 50 mg Tablet PO (18:25)
[2024-11-19] MEDS: sennosides 8.6 mg Tablet 17.2 MG PO (21:40)
[2024-11-19] MEDS: mirtazapine 30 mg Tablet PO (21:40)
[2024-11-20 04:00] VITALS: BP 138/66; PULSE 90; RESP 18; TEMP 37; O2SAT 93
[2024-11-20 07:48] VITALS: BP 122/83; PULSE 79; RESP 18; TEMP 36.7; O2SAT 93
--- NOTE | 2024-11-20 10:10 | PC.SOCIAL ---
IMM Updated Updated pt on IMM. No questions voiced. Provided pt a copy. Initialed, dated, & timed copy in chart.
[2024-11-20 11:04] VITALS: BP 114/70; PULSE 80; RESP 15; TEMP 36.4; O2SAT 90
[2024-11-20] MEDS: pantoprazole DR 40 mg Tablet PO (11:13)
[2024-11-20] MEDS: ARIPiprazole 10 mg Tablet PO (11:13)
[2024-11-20] MEDS: folic acid 1 mg Tablet PO (11:13)
[2024-11-20] MEDS: multivitamin therapeutic Tablet 1 TAB PO (11:13)
[2024-11-20] MEDS: baclofen 10 mg Tablet 5 MG PO (11:13)
[2024-11-20] MEDS: citalopram 20 mg Tablet 10 MG PO (11:14)
[2024-11-20] MEDS: predniSONE 20 mg Tablet 40 MG PO (11:14)
[2024-11-20] MEDS: thiamine 100 mg Tablet PO (11:14)
[2024-11-20] MEDS: apixaban 5 mg Tablet PO (11:14)
[2024-11-20] MEDS: polyethylene glycol 3350 Pkt 17 gm PO (11:15)
[2024-11-20] MEDS: lidocaine 5% Patch 1 PATCH TOPICAL (11:15)
[2024-11-20] MEDS: metoprolol tartrate 25 mg Tablet PO (11:15)
[2024-11-20] MEDS: TRAMadol 50 mg Tablet PO (11:18)
[2024-11-20 11:58] VITALS: BP 114/70; PULSE 85; O2SAT 90
== END 2024-11-20 12:02 | disposition home or self-care (01) | DRG 896 ==
LOC: ER 23:07 → MEDSURG 23:40
PROVIDERS: Student in an Organized Health Care Education/Training Program; Admitting Provider Internal Medicine; Emergency Provider Student in an Organized Health Care Education/Training Program; Visit Provider Internal Medicine
DX: F10.239 Alcohol dependence with withdrawal, unspecified (principal); I50.33 Acute on chronic diastolic (congestive) heart failure; J96.01 Acute respiratory failure with hypoxia; J44.1 Chronic obstructive pulmonary disease with (acute) exacerbation; R65.10 Systemic inflammatory response syndrome (SIRS) of non-infectious origin without acute organ dysfunction; M47.9 Spondylosis, unspecified; F20.9 Schizophrenia, unspecified; I48.0 Paroxysmal atrial fibrillation; Z79.01 Long term (current) use of anticoagulants; K21.9 Gastro-esophageal reflux disease without esophagitis; F17.200 Nicotine dependence, unspecified, uncomplicated; B35.1 Tinea unguium; L30.1 Dyshidrosis [pompholyx]; R23.4 Changes in skin texture; Z86.711 Personal history of pulmonary embolism
CPT/HCPCS: 36415; 36416; 36600; 70450; 70553; 71045; 71275; 72148; 80051; 80053; 80306; 81001; 82274; 82330; 82805; 82962; 83605; 83735; 83880; 84100; 84484; 85025; 86705; 86706; 86709; 86803; 87040; 87081; 87340; 87493; 87637; 87880; 93005; 94640; 94664; 94760; 96365; 96372; 96375; 97161; 97165; 99285; J0456; J1650; J1885; J1953; J2060; J2405; J2543; J2919; J3411; J3475; J3490; J7030; J7050; J7512

== ENCOUNTER → 2025-01-02 10:24 | Outpatient (BNVA) | payer MEDICARE, MEDICAID, SELFPAY | PROVIDERS: Referring Provider Psychiatry & Neurology Psychiatry; Visit Provider Psychiatry & Neurology Psychiatry | DX: Z79.899 Other long term (current) drug therapy (principal) | CPT/HCPCS: 80061; 83036 ==

== ENCOUNTER 2025-03-13 10:48 | Inpatient (IN) | payer OTHER, SELFPAY ==
[2025-01-09 11:05] VITALS: BP 117/74
[2025-01-09 11:09] VITALS: BMI 39.8
[2025-03-13] VITALS (10 sets, daily range): BP systolic 125–152; BP diastolic 72–86; PULSE 76–103; RESP 16–29; TEMP 36.7–37.7; O2SAT 77–95; BMI 41.0
--- NOTE | 2025-03-13 10:52 | ECG_ITS ---
[facility]13 Pat Name: Mor Ohara Department: Room: Gender: Male Community Education Coordinator: : 1965 Requested By: Gricel Beckman Order Number: [id number] Tera MD: Radha Bowens M.D. Measurements Intervals [place] Rate: 74 P: 56 [place]: 208 QRS: 138 QRSD: 131 T: 65 QT: 402 QTc: 449 Interpretive Statements SINUS RHYTHM RIGHT AXIS DEVIATION [QRS AXIS > 100] RIGHT BUNDLE BRANCH BLOCK [120+ ms QRS DURATION, UPRIGHT V1, 40+ ms S IN I/aVL/V4/V5/V6] Compared to ECG 11/16/2024 06:53:59 Right-axis deviation now present Right bundle-branch block now present ST (T wave) deviation no longer present Electronically Signed On 03-13-2025 18:02:52 CDT by Radha Bowens M.D. [email or web address]
--- NOTE | 2025-03-13 10:54 | PC.NURSE ---
PATIENT PLACED ON 3 L NC DUE TO O2 SATURATION. PATIENT STATES SHE DOES NOT NORMALLY WEAR O2.
[2025-03-13 11:53] LABS: Basophils # 0.1 10^3/uL (0.0-0.1); Basophils % 0.5 %; Eosinophils % 0.1 %; Hematocrit 41.4 % (37-53); Lymphocytes # 2.6 10^3/uL (0.8-4.8); Lymphocytes % 16.9 %; Mean Corpuscular HGB Conc 32.1 g/dL (30-55); Mean Corpuscular Hemoglobin 30.6 pg (27-33); Mean Corpuscular Volume 95.4 fl (82-101); Mean Platelet Volume 9.7 fL (7.4-10.4); Monocytes # 1.7 10^3/uL (0.2-0.9); Monocytes % 11.3 %; Neutrophils # 10.74 10^3/uL (1.8-7.7); Neutrophils % 70.7 %; Nucleated Red Blood Cells % 0.2 %; Platelet Count 128 10^3/cmm (157-399); Red Blood Count 4.34 10^6/uL (3.85-5.65); Red Cell Distribution Width 18.3 % (12.1-15.1); White Blood Count 15.19 10^3/uL (3.29-11.43)
--- NOTE | 2025-03-13 12:01 | W.ED.ALCOHOL ---
HPI - Alcohol General: Chief Complaint: Alcohol Stated Complaint: ETOH, Depression Time Seen by Provider: 03/13/25 10:49 History of Present Illness: 59-year-old man with a history of obesity, atrial fibrillation, COPD, schizophrenia and alcohol abuse who presents the emergency room with alcohol intoxication. He is extremely intoxicated on presentation. Apparently he has been on a 10-day hightower after he found out his has recurrence of cancer. He does not have any suicidal thoughts right now but says he wants help. He has hypoxemic on presentation. Related Data Home Medications ?Medication ?Instructions ?Recorded ?Confirmed umeclidinium 62.5 mcg-vilanterol 1 inh inhalation DAILY 05/14/24 01/02/25 25 mcg/actuation powdr for inhalation (Anoro Ellipta) acetaminophen 500 mg tablet 1,000 mg PO Q6H PRN Pain, Moderate 07/09/24 01/02/25 aripiprazole 10 mg tablet 10 mg PO DAILY 10/15/24 01/02/25 baclofen 5 mg tablet 5 mg PO BID 10/15/24 01/02/25 citalopram 20 mg tablet 20 mg PO DAILY 10/15/24 01/02/25 mirtazapine 30 mg tablet 30 mg PO BEDTIME 10/15/24 01/02/25 polyethylene glycol 3350 17 17 g PO DAILY PRN Constipation 10/15/24 01/02/25 gram/dose oral powder (ClearLax) vitamin with calcium 1 tab PO DAILY 10/15/24 01/02/25 no.72-iron 27 mg-folic acid 1 mg tablet (WesTab Plus) sumatriptan succinate 25 mg tablet See Rx Instructions .Route 10/15/24 01/02/25 .COMPLEX PRN Migraine Headache magnesium oxide 400 mg (241.3 mg 400 mg PO DAILY 11/16/24 01/02/25 magnesium) tablet cholecalciferol (vitamin D3) 250 250 mcg PO DAILY 01/02/25 01/02/25 mcg (10,000 unit) tablet vitamin B complex 1 tab PO DAILY 01/02/25 01/02/25 Previous Rx's ?Medication ?Instructions ?Recorded albuterol sulfate 90 mcg/actuation 1 inh inhalation Q6H PRN shortness 04/26/24 aerosol inhaler of breath or wheezing #6.7 grams apixaban 5 mg tablet (Eliquis) 5 mg PO BID 30 days #60 tabs 07/12/24 bumetanide 1 mg tablet 1 mg PO 899,2099 30 days #60 tabs 07/12/24 metoprolol tartrate 25 mg tablet 25 mg PO BID@899,2099 30 days #60 07/12/24 tabs potassium chloride 20 mEq 20 meq PO DAILY 30 days #30 tabs 07/12/24 tablet,extended release(part/cryst) thiamine mononitrate (vit B1) 100 100 mg PO DAILY #30 tabs 25 mg tablet (Vitamin B-1 (mononitrate)) Allergies Allergy/AdvReac Type Severity Reaction Status Date / Time No Known Allergies Allergy Verified 01/02/25 07:59 Review of Systems General: Reports: ROS unobtainable due to mental status PFSH ED PFSH: Medical History Psychiatric care Atrial fibrillation with rapid ventricular response COPD (chronic obstructive pulmonary disease) Schizophrenia Alcohol abuse Hx of pulmonary embolus Pulmonary embolism Cigarette smoker D-dimer, elevated Surgical History History of splenectomy Family History (Updated 01/02/25 @ 10:45 by Ofelia Lopez RN) Other Cancer Lung disease Social History (Updated 01/02/25 @ 10:51 by Ofelia Lopez RN) Smoking and tobacco/nicotine status: current every day tobacco/nicotine user cigarettes Packs smoked per day: 1 Years cigarettes smoked: 20 Quit status (tobacco/nicotine): considering quitting Second hand smoke exposure: Yes Alcohol intake: former Former alcohol use details: quit 2 years ago Substance/Drug Use: never Adopted: No Caregiver/support person: No Lives independently: Yes Household members: significant other Housing: Other Details: hotel Marital status: Life Partner Number of children: 0 Highest education level completed: High School Graduate service: Yes 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 Head: Normocephalic, atraumatic. Neck: Supple, trachea midline. Eye: Extraocular movements are intact. Ears, nose, mouth and throat: mucosa moist. Cardiovascular: Regular, Normal peripheral perfusion. Respiratory: Lungs are clear to auscultation, respirations are non-labored, breath sounds are equal, Symmetrical chest wall expansion. Gastrointestinal: Soft, Nontender, Non distended Musculoskeletal: Normal ROM, no deformity. Neurological: No focal neurological deficit observed. Psychiatric: Unable to assess Course Vital Signs: Vital signs: Vital Signs Temperature 98.1 F 03/13/25 10:49 Pulse Rate 76 03/13/25 10:58 Respiratory Rate 18 03/13/25 10:49 Blood Pressure 131/86 03/13/25 10:49 Pulse Oximetry 88 L 03/13/25 10:58 Oxygen Delivery Me thod Nasal Cannula 03/13/25 10:58 Oxygen Flow Rate 3 03/13/25 10:58 MDM - Alcohol Medical Decision Making Medical decision making: Differential diagnosis including but not limited to and based on the above HPI, review of systems and physical exam in this patient with alcoholic abuse, intoxication and hypoxemia: Concern for aspiration pneumonia. Hepatitis. Medical clearance workup is being done. Orders placed to evaluate differential diagnosis based on the above differential, HPI and physical exam Chest x-ray: Left lower lobe patchy opacity which could be atelectasis or pneumonia. This was reviewed and interpreted by myself the emergency room physician. I also reviewed the radiology report. Lab Review: Laboratory results were reviewed and interpreted by myself the emergency room physician. Mild leukocytosis with white count 15,000. Hemoglobin 13. Platelets at a low at 128. BUN and creatinine are 7 and 0.5. Liver enzymes are 74 and 47. Urinalysis is negative for infection. Drug screen is negative. Blood alcohol level is 386. Lactate was ordered at the time radiology read was complete. As well as blood cultures. CTA chest PE protocol: Large left-sided pneumonia. No PE. This was reviewed and interpreted by myself the emergency room physician. I also reviewed the radiology report. I reviewed the patient's medical record. Reexamination: Patient still requiring oxygen. Somewhat somnolent but arousable. He has not been combative. His work of breathing is good. Consultation: I spoke with Dr. Medina with hospitalist service who agrees to admission. Assessment and plan: Pneumonia Hypoxemia Alcohol intoxication ?IV Rocephin and azithromycin for pneumonia. As a little bit of a white count but his vitals have been stable. Not tachycardic and not hypotensive. Lactate and blood cultures were added in case of sepsis. He was also given 3 L of fluid for possible sepsis as well. -I discussed the patient with the hospitalist on-call who is admitting the patient. - Discussed findings and plan with patient. Answered any questions. - All laboratory values were reviewed and interpreted personally by myself, the ER physician - All imaging was reviewed and interpreted personally by myself, the ER physician. - Evaluation and treatment of this problem were appropriate in the emergency setting Lab Data 03/13/25 11:44 03/13/25 11:44 Radiology Impressions Chest X-Ray 03/13/25 12:02 Impression: 1. Minimal left lower lobe patchy opacity which could represent atelectasis and/or pneumonia. 2. Cardiomegaly. Chest CTA 03/13/25 13:21 IMPRESSION: 1. No evidence of pulmonary embolus. 2. Patchy airspace and groundglass infiltrates in the lingula and LEFT upper lobe compatible with pneumonia. 3. Fatty liver. Laboratory Results WBC 15.19 10^3/uL (3.29-11.43) H 03/13/25 11:44 RBC 4.34 10^6/uL (3.85-5.65) 03/13/25 11:44 Hgb 13.30 g/dL (11.27-16.99) 03/13/25 11:44 Hct 41.4 % (37-53) 03/13/25 11:44 MCV 95.4 fl (82-101) 03/13/25 11:44 MCH 30.6 pg (27-33) 03/13/25 11:44 MCHC 32.1 g/dL (30-55) 03/13/25 11:44 RDW 18.3 % (12.1-15.1) H 03/13/25 11:44 Plt Count 128 10^3/cmm (157-399) L 03/13/25 11:44 MPV 9.7 fL (7.4-10.4) 03/13/25 11:44 Neut % (Auto) 70.7 % 03/13/25 11:44 Lymph % (Auto) 16.9 % 03/13/25 11:44 [place] % (Auto) 11.3 % 03/13/25 11:44 Eos % (Auto) 0.1 % 03/13/25 11:44 Baso % (Auto) 0.5 % 03/13/25 11:44 Neut # (Auto) 10.74 10^3/uL (1.8-7.7) H 03/13/25 11:44 Lymph # (Auto) 2.6 10^3/uL (0.8-4.8) 03/13/25 11:44 [place] # (Auto) 1.7 10^3/uL (0.2-0.9) H 03/13/25 11:44 Eos # (Auto) 0.0 10^3/uL (0.0-0.8) 03/13/25 11:44 Baso # (Auto) 0.1 10^3/uL (0.0-0.1) 03/13/25 11:44 Nucleated RBC % (auto) 0.2 % 03/13/25 11:44 Nucleated RBCs # 0.0 /100WBC 03/13/25 11:44 Specimen Type Arterial 03/13/25 12:12 Sample Site Radial, left 03/13/25 12:12 ABG pH 7.35 (7.35-7.45) 03/13/25 12:12 ABG pCO2 43.0 mmHg (35-45) 03/13/25 12:12 ABG pO2 64.6 mmHg (80.0-100.0) L 03/13/25 12:12 ABG PO2/FiO2 Ratio 230 03/13/25 12:12 ABG HCO3 23.9 mmol/L (22-26) 03/13/25 12:12 ABG O2 Saturation 91.6 03/13/25 12:12 ABG Base Excess -1.7 mmol/L (-2.0-2.0) 03/13/25 12:12 [place] Test Pos 03/13/25 12:12 A-a O2 Gradient 10.7 mmHg (5-10) H 03/13/25 12:12 Hematocrit 42.6 % (42-52) 03/13/25 12:12 Hgb O2 Saturation 87.4 % (95-100) L 03/13/25 12:12 Carboxyhemoglobin 4.5 %THgb (0.4-20.1) 03/13/25 12:12 Methemoglobin 0.1 % (0.4-1.5) L 03/13/25 12:12 Total Hemoglobin 13.9 g/dL (14-18) L 03/13/25 12:12 Sodium 147.0 mmol/L (131-143) H 03/13/25 12:12 Potassium 4.1 mmol/L (3.5-5.0) 03/13/25 12:12 Glucose 79.0 mg/dL (70-115) 03/13/25 12:12 Ionized Calcium 1.0 mmol/L (1.1-1.4) L 03/13/25 12:12 O2 Delivery Device Nc 03/13/25 12:12 O2 Liters/Min 2.0 % 03/13/25 12:12 FiO2 28.0 % 03/13/25 12:12 Granulator Operator ID glc 03/13/25 12:12 Sodium 141 mmol/L (136-145) 03/13/25 11:44 Potassium 3.9 mmol/L (3.5-5.1) 03/13/25 11:44 Chloride 101 mmol/L (98-107) 03/13/25 11:44 Carbon Dioxide 23 mmol/L (22-29) 03/13/25 11:44 Anion Gap 20.9 (5-19) H 03/13/25 11:44 BUN 7 mg/dL (6-20) 03/13/25 11:44 Creatinine 0.5 mg/dL (0.7-1.2) L 03/13/25 11:44 GFR Calculation 170.8 mL/min (90-130) H 03/13/25 11:44 Glucose 82 mg/dL (65-115) 03/13/25 11:44 Calculated Osmolality 289 mOsm/kg (285-295) 03/13/25 11:44 Calcium 7.6 mg/dL (8.5-10.5) L 03/13/25 11:44 Total Bilirubin 0.4 mg/dL (0.15-1.2) 03/13/25 11:44 AST 74 U/L (0-40) H 03/13/25 11:44 ALT 47 U/L (0-41) H 03/13/25 11:44 Alkaline Phosphatase 97 U/L (40-130) 03/13/25 11:44 Total Protein 6.6 g/dL (6.6-8.7) 03/13/25 11:44 Albumin 3.8 g/dL (3.5-5.2) 03/13/25 11:44 Globulin 2.8 g/dL (1.3-4.6) 03/13/25 11:44 TSH 0.56 uIU/mL (0.27-4.20) 03/13/25 11:44 Urine Color [place] (Yellow) A 03/13/25 12:40 Urine Appearance Clear (CLEAR) 03/13/25 12:40 Urine pH 6.0 (5-7) 03/13/25 12:40 Ur Specific [place] 1.020 (1.005-1.030) 03/13/25 12:40 Urine Protein 1+ (Negative) A 03/13/25 12:40 Urine Glucose (UA) Negative (Normal) 03/13/25 12:40 Urine Ketones 2+ (Negative) H 03/13/25 12:40 Urine Blood Negative (Negative) 03/13/25 12:40 Urine Nitrate Negative (Negative) 03/13/25 12:40 Urine Bilirubin Negative (Negative) 03/13/25 12:40 Urine Urobilinogen 1.0 mg/dL (Negative) 03/13/25 12:40 Ur Leukocyte Esterase Trace (Negative) A 03/13/25 12:40 Urine RBC 0-2 /hpf (0-2) 03/13/25 12:40 Urine WBC 0-5 /hpf (0-5) 03/13/25 12:40 Ur Squamous Epith Cells 0-5 /hpf (0-5) 03/13/25 12:40 Amorphous Sediment Not Reportable 03/13/25 12:40 Urine Bacteria None seen /hpf (NONE) 03/13/25 12:40 Hyaline Casts 1.65 /lpf 03/13/25 12:40 Salicylates < 0.3 mg/dL (3-10) L 03/13/25 11:44 Urine Opiates Screen Negative ng/mL (Negative) 03/13/25 12:40 Acetaminophen < 5.0 ug/mL (10-30) L 03/13/25 11:44 Ur Barbiturates Screen Negative ng/mL (Negative) 03/13/25 12:40 Ur Phencyclidine Scrn Negative ng/mL (Negative) 03/13/25 12:40 Ur Amphetamines Screen Negative ng/mL (Negative) 03/13/25 12:40 U Benzodiazepines Scrn Negative ng/mL (Negative) 03/13/25 12:40 Urine Cocaine Screen Negative ng/mL (Negative) 03/13/25 12:40 U Marijuana (THC) Screen Negative ng/mL (Negative) 03/13/25 12:40 Ethyl Alcohol 386 mg/dL (0-10) H* 03/13/25 11:44 All radiology interpretation(s) finalized by discharge Discharge Plan Discharge Patient Disposition: Admitted As Inpatient Clinical Impression: Pneumonia, Hypoxemia, Alcohol intoxication, Alcohol abuse Condition: Stable Coding Level of Care Code ED Mosaic Layer for Aquiles Rust
--- NOTE | 2025-03-13 12:02 | XR_ITS ---
WS: [id number] Portable AP supine chest, 03/13/2025 Clinical Data: Shortness of breath Comparison: Portable chest, 11/15/2024 Findings: There is a minimal patchy opacity in the lateral aspect of the left lower lobe in the retrocardiac area. No nodules, masses or effusions are seen. The heart is slightly enlarged. The pulmonary vascularity is not increased. No pneumothorax is seen. Monitor leads are on the chest wall. XR/XR chest 1V portable [id number] Impression: 1. Minimal left lower lobe patchy opacity which could represent atelectasis and /or pneumonia. 2. Cardiomegaly.
[2025-03-13 12:23] LABS: ABG PH Result 7.35 (7.35-7.45); Alveolar-Arterial Oxygen Gradi 10.7 mmHg (5-10); Arterial Blood Gas Hematocrit 42.6 % (42-52); Base Excess ABG -1.7 mmol/L (-2.0-2.0); Blood Gas Allen Test Pos; Blood Gas Operator Identificat glc; Blood Gas Sample Site Radial, left; Blood Gas Sample Type Arterial; Carboxyhemoglobin 4.5 %THgb (0.4-20.1); HCO3 ABG 23.9 mmol/L (22-26); HGB O2 Sat 87.4 % (95-100); Methemoglobin 0.1 % (0.4-1.5); Oxygen Device NC; Oxygen Saturation ABG 91.6; PO2 ABG 64.6 mmHg (80.0-100.0); PO2 FiO2 Ratio Arterial Blood 230; Potassium Level - ABG 4.1 mmol/L (3.5-5.0); Total Hemoglobin 13.9 g/dL (14-18)
[2025-03-13 12:28] LABS: Alanine Aminotransferase 47 U/L (0-41); Albumin Level 3.8 g/dL (3.5-5.2); Alkaline Phosphatase 97 U/L (40-130); Anion Gap 20.9 (5-19); Aspartate Amino Transferase 74 U/L (0-40); Blood Urea Nitrogen 7 mg/dL (6-20); Calcium 7.6 mg/dL (8.5-10.5); Carbon Dioxide 23 mmol/L (22-29); Chloride 101 mmol/L (98-107); Creatinine Clr Calc Pharmacy 205.0638; Globulin 2.8 g/dL (1.3-4.6); Glomerular Filtration Rate 170.8 mL/min (90-130); Glucose 82 mg/dL (65-115); Osmolality Calculated 289 mOsm/kg (285-295); Potassium 3.9 mmol/L (3.5-5.1); Sodium 141 mmol/L (136-145); Thyroid Stimulating Hormone 0.56 uIU/mL (0.27-4.20); Total Bilirubin 0.4 mg/dL (0.15-1.2); Total Protein 6.6 g/dL (6.6-8.7)
[2025-03-13 12:36] LABS: Acetaminophen < 5.0 ug/mL (10-30); Salicylate < 0.3 mg/dL (3-10)
[2025-03-13 12:37] LABS: Alcohol Level 386 mg/dL (0-10)
[2025-03-13 13:02] LABS: Bilirubin Urine Negative (Negative); Blood Urine Negative (Negative); Glucose Urine UA Negative (Normal); Ketones Urine 2+ (Negative); Leukocyte Esterase Urine Trace (Negative); Nitrate Urine Negative (Negative); Protein Urine 1+ (Negative); Urine Appearance Clear (CLEAR)
[2025-03-13 13:04] LABS: Add Urine Microscopic? YES; Bacteria Urine None Seen /hpf; Hyaline Casts Urine 1.65 /lpf; RBC Urine 0-2 /hpf (0-2); Squamous Epithelial Cell Urine 0-5 /hpf (0-5); WBC Urine 0-5 /hpf (0-5)
[2025-03-13 13:05] LABS: Urine Color Orange (Yellow)
[2025-03-13 13:10] LABS: Amphetamines Screen Urine Negative (Negative); Barbiturates Screen Urine Negative (Negative); Benzodiazepines Screen Urine Negative (Negative); Cocaine Screen Urine Negative (Negative); Opiate Screen Urine Negative (Negative); PCP Screen Urine Negative (Negative); THC Screen Urine Negative (Negative)
--- NOTE | 2025-03-13 13:21 | CT_ITS ---
WS: [id number] CTA OF THE CHEST WITH PULMONARY EMBOLISM PROTOCOL TECHNIQUE: High-resolution contrast enhanced CTA of the chest with coronal and sagittal reformatted images with pulmonary embolism protocol. MIP images are also reviewed. CLINICAL INFORMATION: hypoxemia, tachycardia DLP: 517.[address] scans at [facility] use at least one of these dose optimization techniques: automated exposure control; mA and/or kV adjustment per patient size (includes targeted exams where dose is matched to clinical indication); or iterative reconstruction. FINDINGS: Proximal main pulmonary arteries are normal. Normal segmental and proximal subsegmental pulmonary arteries. No evidence of pulmonary embolus. Some of the most distal subsegmental pulmonary arteries not well evaluated. Patchy groundglass infiltrates in the LEFT upper lobe and lingula. Recommend correlat ion for pneumonia. Slight bibasilar atelectasis. Normal caliber thoracic aorta. No mediastinal or hilar lymphadenopathy. No axillary lymphadenopathy. Fatty liver. Small esophageal hiatal hernia. RIGHT adrenal adenoma is unchanged. Fatty atrophy of the pancreas. A few lymph nodes in the LEFT upper quadrant unchanged. CT/CT angio chest PE protcl [id number] IMPRESSION: 1. No evidence of pulmonary embolus. 2. Patchy airspace and groundglass infiltrates in the lingula and LEFT upper l obe compatible with pneumonia. 3. Fatty liver.
[2025-03-13] MEDS: iohexol 350 mg/mL 500 mL Btl (per mL) IV (14:07)
--- NOTE | 2025-03-13 15:18 | PC.NURSE ---
antibiotics delayed d/t needing x2 blood cultures prior to admin
[2025-03-13] MEDS: sodium chloride 0.9% 1,000 ML 999 ML IV ×3 (15:22→16:57)
[2025-03-13 16:18] LABS: Procalcitonin 0.13 ng/mL (0-0.5)
[2025-03-13] MEDS: cefTRIAXone 1,000 mg SDV 1000 MG IVP (16:57)
[2025-03-13] MEDS: ondansetron 2 mg/ML SDV 2 mL 4 MG IVP ×2 (17:25→20:02)
[2025-03-13] MEDS: LORazepam 1 MG/0.5 ML injection 2 MG IVP ×2 (17:25→20:27)
[2025-03-13] MEDS: AZITHROMYCIN ADD-Vantage 500 MG in 0.9% NaCl ADD-Vantage 250 ML 250 MG IV (17:25)
[2025-03-13 17:37] LABS: Lactic Sepsis W/Reflex 3.2 mmol/L (0.5-2.2)
[2025-03-13 18:50] LABS: Magnesium 1.8 mg/dL (1.7-2.3); Phosphorus 3.8 mg/dL (2.5-4.5)
[2025-03-13 18:57] LABS: Reflex Lactate Order REFLEX LACTIC ORDERD
--- NOTE | 2025-03-13 19:11 | PM.HP ---
Providers/Chief Complaint Admitting Physician: Cruz Medina MD Chief Complaint: ETOH, Depression History of Present Illness Mor Ohara is a 59 year old male with alcoholism, schizophrenia, obesity, atrial fibrillation on chronic anticoagulation who has been depressed the last 6 weeks. He has been back to drinking after quitting 8 months ago. He states he found out his has recurrent cancer. She is in a wheelchair and needs his help but he has been decompensated with alcohol. He states he is not suicidal but wants to have help to get off alcohol. He has been having chills and fevers thought it was related to withdrawal. He is found to have left lower lung pneumonia in the emergency department started on Rocephin and azithromycin for pneumonia and hypoxemia and referred for admission. Patient states he has been drinking 2 pints a day of vodka for the last 6 weeks. He smokes 1 pack/day but does not use any other illicits. 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 He hears voices which are new since his combat. Patient is chronically on Eliquis and denies bleeding disorder. He has had pulmonary emboli in the past Wants full CODE STATUS Review of Systems Narrative: General No weight gain weight loss he has had fevers chills Cardiovascular no chest pain or palpitations Respiratory positive for cough productive of white phlegm GI he has had some dry heaves but typically is not nauseated or vomiting he has had constipation chronically no dysuria hematuria hesitancy or dribbling Neuro positive for seizures on withdrawal in the past 3-4 times. Heme he has had no cancer but he does have history of PE 2 years ago Miscellaneous he reports that he has snoring and does awaken from sleep frequently but does not know if he stops breathing. Medications/Allergies Home Medications ?Medication ?Instructions ?Recorded ?Confirmed ?Last Taken ?Type albuterol sulfate 90 mcg/actuation 1 inh inhalation Q6H PRN shortness 04/26/24 01/02/25 Unknown Rx aerosol inhaler of breath or wheezing #6.7 grams umeclidinium 62.5 mcg-vilanterol 1 inh inhalation DAILY 05/14/24 01/02/25 Unknown History 25 mcg/actuation powdr for inhalation (Anoro Ellipta) acetaminophen 500 mg tablet 1,000 mg PO Q6H PRN Pain, Moderate 07/09/24 01/02/25 10/15/24 History apixaban 5 mg tablet (Eliquis) 5 mg PO BID 30 days #60 tabs 07/12/24 01/02/25 10/15/24 Rx bumetanide 1 mg tablet 1 mg PO 0900,2099 30 days #60 tabs 07/12/24 01/02/25 Unknown Rx metoprolol tartrate 25 mg tablet 25 mg PO BID@0900,2099 30 days #60 07/12/24 01/02/25 Unknown Rx tabs potassium chloride 20 mEq 20 meq PO DAILY 30 days #30 tabs 07/12/24 01/02/25 10/15/24 Rx tablet,extended release(part/cryst) aripiprazole 10 mg tablet 10 mg PO DAILY 10/15/24 01/02/25 10/15/24 History baclofen 5 mg tablet 5 mg PO BID 10/15/24 01/02/25 10/15/24 History citalopram 20 mg tablet 20 mg PO DAILY 10/15/24 01/02/25 10/15/24 History mirtazapine 30 mg tablet 30 mg PO BEDTIME 10/15/24 01/02/25 Unknown History polyethylene glycol 3350 17 17 g PO DAILY PRN Constipation 10/15/24 01/02/25 Unknown History gram/dose oral powder (ClearLax) vitamin with calcium 1 tab PO DAILY 10/15/24 01/02/25 10/15/24 History no.72-iron 27 mg-folic acid 1 mg tablet (WesTab Plus) sumatriptan succinate 25 mg tablet See Rx Instructions .Route 10/15/24 01/02/25 Unknown History .COMPLEX PRN Migraine Headache magnesium oxide 400 mg (241.3 mg 400 mg PO DAILY 11/16/24 01/02/25 Unknown History magnesium) tablet thiamine mononitrate (vit B1) 100 100 mg PO DAILY #30 tabs 11/19/24 01/02/25 Unknown Rx mg tablet (Vitamin B-1 (mononitrate)) cholecalciferol (vitamin D3) 250 250 mcg PO DAILY 01/02/25 01/02/25 Unknown History mcg (10,000 unit) tablet vitamin B complex 1 tab PO DAILY 01/02/25 01/02/25 Unknown History Allergies Allergy/AdvReac Type Severity Reaction Status Date / Time No Known Allergies Allergy Verified 01/02/25 07:59 PFSH Acute PFSH: Medical History Psychiatric care Atrial fibrillation with rapid ventricular response COPD (chronic obstructive pulmonary disease) Schizophrenia Alcohol abuse Hx of pulmonary embolus Pulmonary embolism Cigarette smoker D-dimer, elevated Surgical History History of splenectomy Family History (Updated 01/02/25 @ 10:45 by Ofelia Lopez RN) Other Cancer Lung disease Social History (Updated 03/13/25 @ 19:18 by Cruz Medina MD) Smoking and tobacco/nicotine status: current every day tobacco/nicotine user cigarettes Packs smoked per day: 1 Years cigarettes smoked: 20 Quit status (tobacco/nicotine): considering quitting Second hand smoke exposure: Yes Alcohol intake: current Alcohol type: hard liquor Alcohol use comment: Was drinking 2 pints of vodka daily for the last 6 weeks as of 03/13/2025 Substance/Drug Use: never Additional social history: Lives with his he wants full CODE STATUS as discussed 03/13/25 Adopted: No Caregiver/support person: No Lives independently: Yes Household members: significant other Housing: Other Details: hotel Marital status: Life Partner Number of children: 0 Highest education level completed: High School Graduate service: Yes 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 branch: [employer] branch details: [employer] Assignments: Outside [facility] ([facility]) Known or Potential Exposure: None Current occupational status: disabled Current occupation: functionally disabled Pets and animals: Yes Pets & animals: dog(s) Leisure activites: fishing Sexually active: Yes Do you think of yourself as: Straight/Heterosexual Current gender identity: Male Renetta/Yarsani: Religious Special renetta needs: No Agree to transfusion: Yes Vitals/I&O/Wt Last Vital Signs Temp 99.9 F H 03/13/25 18:41 Pulse 93 03/13/25 18:41 Resp 21 H 03/13/25 18:41 BP 125/76 03/13/25 18:41 Pulse Ox 95 03/13/25 17:39 O2 Del Method Nasal Cannula 03/13/25 17:30 O2 Flow Rate 3 03/13/25 17:30 03/13/25 03/13/25 03/13/25 06:59 14:59 22:59 Intake Total 1000 / 1000 Balance 1000 / 1000 Weight last 48 hrs Weight 122.47 kg Weight 122.47 kg Physical Exam Narrative: General well-developed morbidly obese male appears disheveled and smells heavily of alcohol CV regular rate and rhythm Lungs coarse inspiratory and expiratory breath sounds throughout Abdomen positive bowel sounds soft nontender Calves trace ankle edema Mood and affect appropriate Mentation is alert and oriented x 3 moves all extremities symmetric Data 03/13/25 11:44 03/13/25 11:44 Micro: Microbiology 03/13/25 16:33 Blood Culture - Preliminary Blood SPECIMEN COLLECTED 03/13/25 16:27 Blood Culture - Preliminary Blood SPECIMEN COLLECTED A&P Assessment and plan (1) Pneumonia: Patient denies vomiting or aspirating. Therefore it is a community-acquired pneumonia and alcoholic likely Klebsiella and will be treated with Rocephin and azithromycin (2) Alcohol intoxication: Start CIWA protocol with thiamine replacement. Seizure precautions and fall precautions (3) Hypoxemia: Support with oxygen. Consider CPAP (4) Acute hypoxic respiratory failure: Oxygen support consider CPAP start incentive spirometry (5) Schizophrenia: Resume home meds (6) COPD with acute exacerbation: Start steroids and DuoNebs (7) Alcohol abuse: Patient desires alcohol cessation. He is aware that he is not able to help his in his current condition and that is why he is here (8) Pulmonary embolism: Continue apixaban PDMP PDMP Reviewed: Not Reviewed Attestations Medical Necessity Statement*: Patient is admitted with pneumonia with hypoxemia and alcohol intoxication anticipated hospitalization greater than 3 midnights Coding Level of Care Code 52664 Diagnoses Pneumonia J18.9 Alcohol intoxication F10.929 Hypoxemia R09.02 Acute hypoxic respiratory failure J96.01 Schizophrenia F20.9 COPD with acute exacerbation J44.1 Alcohol abuse F10.10 Pulmonary embolism I26.99 Time Spent (min) 70
[2025-03-13] MEDS: ipratropium-albuterol 3 mL Neb INHALATION (19:43)
--- NOTE | 2025-03-13 19:43 | XRR_ITS ---
PROCEDURE INFORMATION: Exam: XR Chest Exam date and time: 03/13/2025 8:34 PM Age: 59 years old Clinical indication: Pain; Chest pressure; Additional info: Chest pain TECHNIQUE: Imaging protocol: Radiologic exam of the chest. Views: 1 view. COMPARISON: CT angio chest PE protcl [id number] 03/13/2025 2:13 PM FINDINGS: Lungs: Low lung volumes. Asymmetrically increased consolidative opacity within left lower lobe. Right lung is clear. Pleural spaces: Unremarkable. No pleural effusion. No pneumothorax. Heart/Mediastinum: Unremarkable. No cardiomegaly. Bones/joints: Unremarkable. XR/XR chest 1V portable [id number] IMPRESSION: Consolidative opacity within left lower lobe concerning for pneumonia.
[2025-03-13] MEDS: piperacillin-tazobactam 3.375 GM in sodium chloride 0.9% (plus) 50 ML IV (20:30)
[2025-03-13] MEDS: dextrose 5%-ns + KCl 20 20 MEQ/1,000 ML BAG 100 MEQ IV (20:31)
[2025-03-13] MEDS: thiamine 100 mg/mL 2mL SDV IM (20:31)
[2025-03-13] MEDS: pantoprazole 40 mg SDV IVP (20:31)
[2025-03-13] MEDS: dexamethasone 10 mg/mL INJ 6 MG IVP (20:31)
[2025-03-13 20:51] LABS: ABG PCO2 39.4 mmHg (35-45); ABG PH Result 7.35 (7.35-7.45); Alveolar-Arterial Oxygen Gradi 24.3 mmHg (5-10); Arterial Blood Gas Hematocrit 42.7 % (42-52); Base Excess ABG -3.5 mmol/L (-2.0-2.0); Blood Gas Allen Test Pos; Blood Gas Sample Site Radial, right; Blood Gas Sample Type Arterial; Carboxyhemoglobin 1.7 %THgb (0.4-20.1); HCO3 ABG 21.8 mmol/L (22-26); HGB O2 Sat 94.5 % (95-100); Methemoglobin 0.1 % (0.4-1.5); Oxygen Device BIPAP; Oxygen Saturation ABG 96.2; PO2 ABG 84.7 mmHg (80.0-100.0); PO2 FiO2 Ratio Arterial Blood 188; Potassium Level - ABG 3.8 mmol/L (3.5-5.0); Total Hemoglobin 13.9 g/dL (14-18)
[2025-03-13 20:57] LABS: Lactic Acid level (Lactate) 2.9 mmol/L (0.5-2.2)
--- NOTE | 2025-03-13 21:05 | PC.NURSE ---
Upon assessment on arival to shift patient was satting 85% on 6l nc, Rt was called and placed patient on 10L highflow canula and patient was satting 86-89%. notified of change in condition and new o2 requirement and also that patient did vomit in ED before coming up to the floor. came to bedside to assess patient and ordered chest xray, bipap and change in antibiotics see mar.
[2025-03-14] VITALS (19 sets, daily range): BP systolic 119–159; BP diastolic 68–87; PULSE 61–102; RESP 16–24; TEMP 36.6–36.9; O2SAT 7–100
[2025-03-14] MEDS: ipratropium-albuterol 3 mL Neb INHALATION ×4 (01:00→19:55)
[2025-03-14] MEDS: piperacillin-tazobactam 3.375 GM in sodium chloride 0.9% (plus) 50 ML IV ×2 (04:09→11:25)
[2025-03-14] MEDS: dextrose 5%-ns + KCl 20 20 MEQ/1,000 ML BAG 100 MEQ IV ×2 (06:01→17:19)
[2025-03-14 06:14] LABS: Basophils # 0.1 10^3/uL (0.0-0.1); Basophils % 0.3 %; Hematocrit 41.4 % (37-53); Lymphocytes # 0.8 10^3/uL (0.8-4.8); Lymphocytes % 3.8 %; Mean Corpuscular HGB Conc 31.4 g/dL (30-55); Mean Corpuscular Hemoglobin 31.6 pg (27-33); Mean Corpuscular Volume 100.5 fl (82-101); Mean Platelet Volume 11.6 fL (7.4-10.4); Monocytes # 1.1 10^3/uL (0.2-0.9); Monocytes % 5.2 %; Neutrophils # 19.48 10^3/uL (1.8-7.7); Neutrophils % 89.1 %; Nucleated Red Blood Cells % 0.1 %; Platelet Count 70 10^3/cmm (157-399); Red Blood Count 4.12 10^6/uL (3.85-5.65); Red Cell Distribution Width 18.3 % (12.1-15.1); White Blood Count 21.85 10^3/uL (3.29-11.43)
[2025-03-14 06:41] LABS: Blood Urea Nitrogen 6 mg/dL (6-20); Calcium 7.4 mg/dL (8.5-10.5); Carbon Dioxide 20 mmol/L (22-29); Chloride 101 mmol/L (98-107); Creatinine Clr Calc Pharmacy 205.0638; Glomerular Filtration Rate 170.8 mL/min (90-130); Glucose 213 mg/dL (65-115); Osmolality Calculated 286 mOsm/kg (285-295); Sodium 136 mmol/L (136-145)
[2025-03-14 06:50] LABS: Anion Gap 19.5 (5-19); Potassium 4.5 mmol/L (3.5-5.1)
[2025-03-14] MEDS: cloNIDine 0.1 mg Tablet 0.3 MG PO ×3 (08:07→20:32)
[2025-03-14] MEDS: magnesium oxide 400 mg tablet PO (08:07)
[2025-03-14] MEDS: ARIPiprazole 10 mg Tablet PO (08:07)
[2025-03-14] MEDS: apixaban 5 mg Tablet PO ×2 (08:08→20:32)
[2025-03-14] MEDS: metoprolol tartrate 25 mg Tablet PO ×2 (08:08→20:32)
[2025-03-14] MEDS: thiamine 100 mg Tablet PO (08:08)
[2025-03-14] MEDS: azithromycin 250 mg Tablet PO (08:08)
[2025-03-14] MEDS: baclofen 10 mg Tablet 5 MG PO ×2 (08:08→17:20)
[2025-03-14] MEDS: folic acid 1 mg Tablet PO (08:08)
[2025-03-14] MEDS: multivitamin therapeutic Tablet 1 TAB PO (08:08)
[2025-03-14] MEDS: citalopram 20 mg Tablet PO (08:08)
[2025-03-14] MEDS: cholecalciferol (vitamin D3) 5,000 unit Tablet 10000 UNIT PO (08:08)
[2025-03-14 12:58] LABS: D Dimer 11.25 ug/mLFEU (0-0.59)
--- NOTE | 2025-03-14 13:51 | P.PN_ITS ---
Subjective 2 Subjective: 59-year-old male admitted with pneumonia and alcohol intoxication required BiPAP and high flow nasal cannula oxygen. Overnight he states he is breathing better. He has had some cough. He is still not totally clear on whether he aspirated but he states he vomited up some bile yesterday in the emergency department he had denied that to me initially but reported vomiting and aspirating to Dr. Aldana. Vitals/I&O/Wt Last Vital Signs Temp 98.5 F 03/14/25 12:53 Pulse 74 03/14/25 13:37 Resp 18 03/14/25 13:36 BP 159/80 03/14/25 12:53 Pulse Ox 93 03/14/25 13:36 O2 Del Method High Flow Nasal Cannula 03/14/25 13:37 O2 Flow Rate 11 03/14/25 13:37 FiO2 50 03/14/25 03:40 03/13/25 03/14/25 03/14/25 22:59 06:59 14:59 Intake Total 1000 / 1000 3490 / 4490 770 / 770 Output Total 100 / 100 450 / 450 Balance 900 / 900 3490 / 4390 320 / 320 Weight last 48 hrs Weight 122.47 kg Weight 122.47 kg Weight 122.47 kg Physical Exam 2 Narrative: General well-developed well-nourished morbidly obese male appears disheveled unkept and mildly tachypneic. CV regular rate and rhythm LungsCoarse bilateral breath sounds diminished breath sounds at bases Abdomen soft obese nontender Calves trace ankle edema Patient is alert and oriented to person place and date. Patient is cooperative Data 03/14/25 05:57 03/14/25 05:57 Micro: Microbiology 03/13/25 16:33 Blood Culture - Preliminary Blood SPECIMEN COLLECTED 03/13/25 16:27 Blood Culture - Preliminary Blood SPECIMEN COLLECTED A&P Assessment and plan (1) Pneumonia: Patient later recalled aspirating so we switched his Rocephin over to Zosyn. Continue azithromycin (2) Alcohol intoxication: Start CIWA protocol with thiamine replacement. Seizure precautions and fall precautions (3) Hypoxemia: Support with oxygen. Continue with BiPAP as needed and nasal cannula O2 at high flow (4) Acute hypoxic respiratory failure: Oxygen support consider CPAP start incentive spirometry (5) Schizophrenia: Resume home meds (6) COPD with acute exacerbation: Start steroids and DuoNebs (7) Alcohol abuse: Patient desires alcohol cessation. He is aware that he is not able to help his in his current condition and that is why he is here (8) Pulmonary embolism: Continue apixaban PDMP PDMP Reviewed: Not Reviewed Attestations 2 Medical Necessity Statement*: Patient will be in the hospital for additional 2-3 midnights Coding Level of Care Code 21736 Diagnoses Pneumonia J18.9 Alcohol intoxication F10.929 Hypoxemia R09.02 Acute hypoxic respiratory failure J96.01 Schizophrenia F20.9 COPD with acute exacerbation J44.1 Alcohol abuse F10.10 Pulmonary embolism I26.99 Time Spent (min) 35
--- NOTE | 2025-03-14 14:02 | PC.SOCIAL ---
IMM Updated Updated pt on IMM. No questions voiced. Provided pt a copy. Initialed, dated, & timed a copy & placed in chart.
[2025-03-14] MEDS: acetaminophen 500 mg Tablet 1000 MG PO (15:31)
[2025-03-14] MEDS: ondansetron 2 mg/ML SDV 2 mL 4 MG IVP (15:33)
[2025-03-14 17:47] LABS: Adenovirus Not Detected (NOT DETECT); Chlamydia Pneumoniae Not Detected (NOT DETECT); Coronavirus 229E,HKU1,NL63,OC4 Not Detected (NOT DETECT); Human Metapneumovirus Not Detected (NOT DETECT); Human Rhinovirus/Enterovirus Not Detected (NOT DETECT); Influenza A Not Detected (NOT DETECT); Influenza A H1 Not Detected (NOT DETECT); Influenza A H1-2009 Not Detected (NOT DETECT); Influenza A H3 Not Detected (NOT DETECT); Influenza B Not Detected (NOT DETECT); Mycoplasma Pneumoniae Not Detected (NOT DETECT); Parainfluenza Virus Type 1 Not Detected (NOT DETECT); Parainfluenza Virus Type 2 Not Detected (NOT DETECT); Parainfluenza Virus Type 3 Not Detected (NOT DETECT); Parainfluenza Virus Type 4 Not Detected (NOT DETECT); Respiratory Syncytial Virus A Not Detected (NOT DETECT); Respiratory Syncytial Virus B Not Detected (NOT DETECT); SARS-COV-2 Not Detected (NOT DETECT)
[2025-03-14] MEDS: mirtazapine 30 mg Tablet PO (20:32)
[2025-03-14] MEDS: pantoprazole DR 40 mg Tablet PO (21:48)
[2025-03-14] MEDS: dexamethasone 4 mg Tablet 6 MG PO (21:48)
[2025-03-15] VITALS (17 sets, daily range): BP systolic 129–145; BP diastolic 74–88; PULSE 38–73; RESP 14–23; TEMP 36.4–36.9; O2SAT 91–97
[2025-03-15] MEDS: ipratropium-albuterol 3 mL Neb INHALATION ×4 (02:20→20:31)
[2025-03-15] MEDS: piperacillin-tazobactam 3.375 GM in sodium chloride 0.9% (plus) 50 ML IV ×3 (04:14→20:14)
[2025-03-15 05:26] LABS: Anion Gap 13.9 (5-19); Blood Urea Nitrogen 6 mg/dL (6-20); Calcium 8.9 mg/dL (8.5-10.5); Carbon Dioxide 24 mmol/L (22-29); Chloride 102 mmol/L (98-107); Creatinine Clr Calc Pharmacy 256.3297; Glomerular Filtration Rate 220.9 mL/min (90-130); Glucose 210 mg/dL (65-115); Osmolality Calculated 286 mOsm/kg (285-295); Potassium 3.9 mmol/L (3.5-5.1); Sodium 136 mmol/L (136-145)
[2025-03-15] MEDS: azithromycin 250 mg Tablet PO (08:08)
[2025-03-15] MEDS: cloNIDine 0.1 mg Tablet 0.3 MG PO (08:08)
[2025-03-15] MEDS: ARIPiprazole 10 mg Tablet PO (08:09)
[2025-03-15] MEDS: metoprolol tartrate 25 mg Tablet PO (08:09)
[2025-03-15] MEDS: folic acid 1 mg Tablet PO (08:09)
[2025-03-15] MEDS: cholecalciferol (vitamin D3) 5,000 unit Tablet 10000 UNIT PO (08:09)
[2025-03-15] MEDS: citalopram 20 mg Tablet PO (08:10)
[2025-03-15] MEDS: apixaban 5 mg Tablet PO ×2 (08:10→20:15)
[2025-03-15] MEDS: baclofen 10 mg Tablet 5 MG PO ×2 (08:10→17:13)
[2025-03-15] MEDS: multivitamin therapeutic Tablet 1 TAB PO (08:11)
[2025-03-15] MEDS: thiamine 100 mg Tablet PO (08:11)
[2025-03-15] MEDS: magnesium oxide 400 mg tablet PO (08:11)
[2025-03-15 11:27] LABS: Glucose Point of Care 236 mg/dL (70-110)
[2025-03-15] MEDS: insulin lispro 100 unit/1 mL SUBCUT ×3 (11:45→20:56)
--- NOTE | 2025-03-15 13:25 | P.PN_ITS ---
Subjective 2 Subjective: 59-year-old male interviewed t his afternoon states he is feeling better cough is diminished left shoulder and lung discomfort with breathing has decreased. RN noted bradycardia down into the 30s this morning and I decreased his clonidine dose and discontinued the metoprolol. Blood pressure is okay. Vitals/I&O/Wt Last Vital Signs Temp 97.7 F 03/15/25 11:22 Pulse 63 03/15/25 11:22 Resp 18 03/15/25 11:22 BP 132/87 03/15/25 11:22 Pulse Ox 91 03/15/25 11:22 O2 Del Method Nasal Cannula 03/15/25 11:22 O2 Flow Rate 8 03/15/25 11:22 FiO2 50 03/15/25 04:44 03/14/25 03/15/25 03/15/25 22:59 06:59 14:59 Intake Total 1535 / 2305 240 / 2545 530 / 530 Output Total 550 / 1000 500 / 1500 650 / 650 Balance 985 / 1305 -260 / 1045 -120 / -120 Weight last 48 hrs Weight 122.47 kg Weight 122.47 kg Weight 122.47 kg Physical Exam 2 Narrative: General well-developed well-nourished morbidly obese male appears disheveled unkept but no longer tachypneic. Some of the bloating in the face is decreased and he looks more alert and CV regular rate and rhythm LungsCoarse bilateral breath sounds diminished breath sounds at bases Abdomen soft obese nontender Calves no edema Patient is alert and oriented to person place and date. Patient is cooperative. He is not tremulous Data 03/14/25 05:57 03/15/25 04:45 Micro: Microbiology 03/13/25 16:33 Blood Culture - Preliminary Blood NEGATIVE TO DATE 03/13/25 16:27 Blood Culture - Preliminary Blood NEGATIVE TO DATE A&P Assessment and plan (1) Pneumonia: Treating for aspiration pneumonia with Zosyn and azithromycin for atypical coverage. Patient is down to 6 L/min oxygen. He states he does not tolerate the BiPAP that well but did wear it. He states he is doing fine on just the oxygen (2) Alcohol intoxication: Start CIWA protocol with thiamine replacement. Seizure precautions and fall precautions Alcohol withdrawal has not been too bad so far (3) Hypoxemia: Weaning oxygen to nasal cannula at 6 L. BiPAP as needed I discussed with the patient that he likely has sleep apnea and he agrees to be tested outpatient (4) Acute hypoxic respiratory failure: Oxygen support consider CPAP start incentive spirometry (5) Schizophrenia: Resume home meds (6) COPD with acute exacerbation: Start steroids and DuoNebs (7) Alcohol abuse: Patient desires alcohol cessation. He is aware that he is not able to help his in his current condition and that is why he is here (8) Pulmonary embolism: Continue apixaban PDMP PDMP Reviewed: Not Reviewed Attestations 2 Medical Necessity Statement*: It remains in the hospital on nasal cannula O2 plus as needed BiPAP, IV antibiotics and steroids plus nebulizers for pneumonia anticipate 2 more days Coding Level of Care Code 12081 Diagnoses Pneumonia J18.9 Alcohol intoxication F10.929 Hypoxemia R09.02 Acute hypoxic respiratory failure J96.01 Schizophrenia F20.9 COPD with acute exacerbation J44.1 Alcohol abuse F10.10 Pulmonary embolism I26.99 Time Spent (min) 33
[2025-03-15] MEDS: dextrose 5%-ns + KCl 20 20 MEQ/1,000 ML BAG 100 MEQ IV ×2 (14:19→23:30)
[2025-03-15 16:21] LABS: Glucose Point of Care 212 mg/dL (70-110)
[2025-03-15] MEDS: acetaminophen 500 mg Tablet 1000 MG PO (18:57)
[2025-03-15] MEDS: cloNIDine 0.1 mg Tablet 0.2 MG PO (20:14)
[2025-03-15] MEDS: mirtazapine 30 mg Tablet PO (20:14)
[2025-03-15 20:46] LABS: Glucose Point of Care 225 mg/dL (70-110)
[2025-03-16] VITALS (14 sets, daily range): BP systolic 130–159; BP diastolic 74–94; PULSE 53–84; RESP 14–22; TEMP 36.3–36.9; O2SAT 91–98
[2025-03-16] MEDS: ipratropium-albuterol 3 mL Neb INHALATION ×4 (01:39→20:27)
[2025-03-16] MEDS: piperacillin-tazobactam 3.375 GM in sodium chloride 0.9% (plus) 50 ML IV ×3 (03:57→19:31)
[2025-03-16 04:40] LABS: Basophils % 0.1 %; Eosinophils % 0.2 %; Hematocrit 38.8 % (37-53); Lymphocytes # 2.5 10^3/uL (0.8-4.8); Lymphocytes % 13.9 %; Mean Corpuscular HGB Conc 32.5 g/dL (30-55); Mean Corpuscular Hemoglobin 31.4 pg (27-33); Mean Corpuscular Volume 96.8 fl (82-101); Mean Platelet Volume 10.9 fL (7.4-10.4); Monocytes # 1.1 10^3/uL (0.2-0.9); Monocytes % 6.3 %; Neutrophils # 13.75 10^3/uL (1.8-7.7); Neutrophils % 78.1 %; Nucleated Red Blood Cells # 0.1 /100WBC; Nucleated Red Blood Cells % 0.7 %; Platelet Count 133 10^3/cmm (157-399); Red Blood Count 4.01 10^6/uL (3.85-5.65); Red Cell Distribution Width 17.4 % (12.1-15.1); White Blood Count 17.62 10^3/uL (3.29-11.43)
[2025-03-16 04:58] LABS: Anion Gap 14.5 (5-19); Blood Urea Nitrogen 6 mg/dL (6-20); Calcium 9.1 mg/dL (8.5-10.5); Carbon Dioxide 24 mmol/L (22-29); Chloride 98 mmol/L (98-107); Creatinine Clr Calc Pharmacy 209.6512; Glomerular Filtration Rate 170.8 mL/min (90-130); Glucose 185 mg/dL (65-115); Osmolality Calculated 278 mOsm/kg (285-295); Potassium 3.5 mmol/L (3.5-5.1); Sodium 133 mmol/L (136-145)
[2025-03-16] MEDS: acetaminophen 500 mg Tablet 1000 MG PO ×3 (05:22→23:47)
[2025-03-16 06:48] LABS: Glucose Point of Care 175 mg/dL (70-110)
[2025-03-16] MEDS: folic acid 1 mg Tablet PO (09:07)
[2025-03-16] MEDS: insulin lispro 100 unit/1 mL SUBCUT ×4 (09:07→21:09)
[2025-03-16] MEDS: baclofen 10 mg Tablet 5 MG PO ×2 (09:08→17:39)
[2025-03-16] MEDS: pantoprazole DR 40 mg Tablet PO (09:08)
[2025-03-16] MEDS: ARIPiprazole 10 mg Tablet PO (09:08)
[2025-03-16] MEDS: thiamine 100 mg Tablet PO (09:08)
[2025-03-16] MEDS: magnesium oxide 400 mg tablet PO (09:08)
[2025-03-16] MEDS: multivitamin therapeutic Tablet 1 TAB PO (09:08)
[2025-03-16] MEDS: azithromycin 250 mg Tablet PO (09:08)
[2025-03-16] MEDS: citalopram 20 mg Tablet PO (09:08)
[2025-03-16] MEDS: cholecalciferol (vitamin D3) 5,000 unit Tablet 10000 UNIT PO (09:08)
[2025-03-16] MEDS: apixaban 5 mg Tablet PO ×2 (09:08→19:30)
[2025-03-16] MEDS: cloNIDine 0.1 mg Tablet 0.2 MG PO ×3 (09:09→19:30)
[2025-03-16] MEDS: dexamethasone 4 mg/mL INJ PO (09:09)
[2025-03-16] MEDS: losartan 50 mg Tablet 25 MG PO (09:09)
[2025-03-16 11:06] LABS: Glucose Point of Care 155 mg/dL (70-110)
[2025-03-16] MEDS: dextrose 5%-ns + KCl 20 20 MEQ/1,000 ML BAG 100 MEQ IV ×2 (11:45→21:08)
--- NOTE | 2025-03-16 16:04 | P.PN_ITS ---
Subjective 2 Subjective: 59-year-old male interviewed t his afternoon states he is feeling better cough is diminished. His left shoulder and chest pain have resolved. He demonstrates that he can move his arm around fine now. He states this is his bad shoulder but it is much better. Patient admits to still some internal tremulousness. He would like to have some Librium. I discussed with him that he is on a CIWA protocol with lorazepam and also is getting clonidine and that seems to be working well Vitals/I&O/Wt Last Vital Signs Temp 97.5 F L 03/16/25 11:38 Pulse 76 03/16/25 13:49 Resp 14 03/16/25 13:46 BP 130/76 03/16/25 11:38 Pulse Ox 92 03/16/25 13:49 O2 Del Method Nasal Cannula 03/16/25 13:46 O2 Flow Rate 3 03/16/25 13:49 FiO2 50 03/15/25 04:44 03/16/25 03/16/25 03/16/25 06:59 14:59 22:59 Intake Total 1448.333 / 3263.333 1650 / 1650 50 / 1700 Output Total 1500 / 2150 Balance -51.667 / 7234.857 3534 / 1650 50 / 1700 Weight last 48 hrs Weight 127.505 kg Weight 122.47 kg Physical Exam 2 Narrative: General well-developed well-nourished morbidly obese male appears disheveled unkept but no longer tachypneic. CV regular rate and rhythm Lungs minimally coarse bilateral breath sounds and air movement is improved Abdomen soft obese nontender Calves no edema Patient is alert and oriented to person place and date. Patient is cooperative. He is not tremulous with hands held out in front of him Data 03/16/25 04:08 03/16/25 04:08 A&P Assessment and plan (1) Pneumonia: Treating for aspiration pneumonia with Zosyn and azithromycin for atypical coverage. Patient is down to 3 L/min oxygen. He states he does not tolerate the BiPAP that well but did wear it. He states he is doing fine on just the oxygen Plan for discharge home on Monday potentially with oxygen if still needed (2) Alcohol intoxication: Start CIWA protocol with thiamine replacement. Seizure precautions and fall precautions Alcohol withdrawal has not been too bad so far. He had bradycardia with clonidine so the dose was decreased from 0.3 mg 3 times daily to 0.2 mg 3 times daily and metoprolol was stopped (3) Hypoxemia: Weaning oxygen to nasal cannula at 3 L. BiPAP as needed I discussed with the patient that he likely has sleep apnea and he agrees to be tested outpatient (4) Acute hypoxic respiratory failure: Oxygen support consider CPAP start incentive spirometry (5) Schizophrenia: Resume home meds (6) COPD with acute exacerbation: Start steroids and DuoNebs (7) Alcohol abuse: Patient desires alcohol cessation. He is aware that he is not able to help his in his current condition and that is why he is here (8) Pulmonary embolism: Continue apixaban PDMP PDMP Reviewed: Not Reviewed Attestations 2 Medical Necessity Statement*: Patient remains hospitalized for pneumonia and alcohol withdrawal requiring oxygen 3 L/min. Anticipated 2 more midnight sent home on Monday Coding Level of Care Code 50222 Diagnoses Pneumonia J18.9 Alcohol intoxication F10.929 Hypoxemia R09.02 Acute hypoxic respiratory failure J96.01 Schizophrenia F20.9 COPD with acute exacerbation J44.1 Alcohol abuse F10.10 Pulmonary embolism I26.99 Time Spent (min) 35
[2025-03-16 16:37] LABS: Glucose Point of Care 225 mg/dL (70-110)
[2025-03-16] MEDS: mirtazapine 30 mg Tablet PO (19:30)
[2025-03-16 20:54] LABS: Glucose Point of Care 243 mg/dL (70-110)
[2025-03-17] VITALS (8 sets, daily range): BP systolic 135–143; BP diastolic 82–87; PULSE 54–74; RESP 16–19; TEMP 36.4–36.5; O2SAT 92–94
[2025-03-17] MEDS: ipratropium-albuterol 3 mL Neb INHALATION ×2 (02:04→08:28)
[2025-03-17] MEDS: piperacillin-tazobactam 3.375 GM in sodium chloride 0.9% (plus) 50 ML IV (04:05)
[2025-03-17 06:46] LABS: Glucose Point of Care 213 mg/dL (70-110)
--- NOTE | 2025-03-17 08:30 | PC.SOCIAL ---
IMM Update Pg. 2 of IMM updated. Copy provided at bedside.
[2025-03-17] MEDS: insulin lispro 100 unit/1 mL SUBCUT (09:09)
[2025-03-17] MEDS: cholecalciferol (vitamin D3) 5,000 unit Tablet 10000 UNIT PO (09:10)
[2025-03-17] MEDS: apixaban 5 mg Tablet PO (09:10)
[2025-03-17] MEDS: magnesium oxide 400 mg tablet PO (09:10)
[2025-03-17] MEDS: pantoprazole DR 40 mg Tablet PO (09:10)
[2025-03-17] MEDS: citalopram 20 mg Tablet PO (09:10)
[2025-03-17] MEDS: multivitamin therapeutic Tablet 1 TAB PO (09:10)
[2025-03-17] MEDS: azithromycin 250 mg Tablet PO (09:10)
[2025-03-17] MEDS: ARIPiprazole 10 mg Tablet PO (09:10)
[2025-03-17] MEDS: thiamine 100 mg Tablet PO (09:10)
[2025-03-17] MEDS: folic acid 1 mg Tablet PO (09:10)
--- NOTE | 2025-03-17 09:10 | P.DS_ITS ---
Discharge Providers Date of Admission: 03/13/25 16:47 Date of Discharge: March 17, 2025 Attending Provider at Admission: Cruz Medina MD Attending Provider at Discharge: Carli Olivas MD Diagnoses at Discharge Discharge Diagnosis (1) Pneumonia: Status: Acute (2) Alcohol intoxication: Status: Acute (3) Hypoxemia: Status: Acute (4) Acute hypoxic respiratory failure: Status: Acute (5) Schizophrenia: Status: Acute (6) COPD with acute exacerbation: Status: Acute (7) Alcohol abuse: Status: Acute (8) Pulmonary embolism: Status: Acute Reason for Visit Reason for Visit: ETOH, Depression Hospital Course Hospital Course 59-year-old male with 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 Patient was not suicidal.? He was found to have?consolidative opacity in the left lower lobe.? He was treated for community-acquired pneumonia vs aspiration pneumonia given noted emesis on admission. He was treated with Zosyn and azithromycin during hospital stay. He had hypoxic respiratory failure related to the pneumonia , initially needing 10lpm oxygen. He was able to be weaned down to room air. Home 02 eval was completed today and patient did well, did not need supplemental 02. Course was notable for alcohol withdrawal for which he was on?thiamine clonidine and lorazepam prn. He is being discharged on a Librium taper today. 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 He is otherwise clinically much improved and is being discharged in a stable condition. Prescriptions provided for Augmentin and doxcycline at discharge to complete treatment for pneumonia. Metoprolol reduced to 12.5mg po daily from 25 mg BID given that he had bradycardia to 38 bpm. Physical Exam Narrative: General: No acute distress, AO x3 HEENT: PERRLA, pupils bilaterally equal and reactive, pallors not present Chest: Normal vesicular breath sounds, no added sounds, equal good air entry bilaterally CVS: S1-S2 regular, no murmurs, no tachycardia, no gallops, no rubs Abdomen: Soft, nontender, no organomegaly, bowel sounds present Neuro: No focal deficits, no facial deformity, AO x3, power 5/5 in all limbs Discharge Data Studies Completed and Pending Completed Studies During Hospitalization Category Date Time Status CT angio chest PE protcl [id number] Stat Cat Scan 03/13/25 13:21 Completed XR chest 1V portable [id number] Stat Exams 03/13/25 12:02 Completed XR chest 1V portable [id number] Stat Exams 03/13/25 19:43 Completed Pending at discharge Category Date Time Status Blood Culture Stat Lab 03/13/25 16:33 Results MRSA PCR OZH (swab) Stat Lab 03/17/25 09:07 Uncollected Radiology Impressions Chest CTA 03/13/25 13:21 IMPRESSION: 1. No evidence of pulmonary embolus. 2. Patchy airspace and groundglass infiltrates in the lingula and LEFT upper lobe compatible with pneumonia. 3. Fatty liver. Chest X-Ray 03/13/25 19:43 IMPRESSION: Consolidative opacity within left lower lobe concerning for pneumonia. Laboratory Results WBC 17.62 10^3/uL (3.29-11.43) H 03/16/25 04:08 Corrected WBC Cancelled 03/14/25 04:20 RBC 4.01 10^6/uL (3.85-5.65) 03/16/25 04:08 Hgb 12.60 g/dL (11.27-16.99) 03/16/25 04:08 Hct 38.8 % (37-53) 03/16/25 04:08 MCV 96.8 fl (82-101) 03/16/25 04:08 MCH 31.4 pg (27-33) 03/16/25 04:08 MCHC 32.5 g/dL (30-55) 03/16/25 04:08 RDW 17.4 % (12.1-15.1) H 03/16/25 04:08 Plt Count 133 10^3/cmm (157-399) L 03/16/25 04:08 MPV 10.9 fL (7.4-10.4) H 03/16/25 04:08 Gran % Cancelled 03/14/25 04:20 Neut % (Auto) 78.1 % 03/16/25 04:08 Lymph % (Auto) 13.9 % 03/16/25 04:08 Tama % (Auto) 6.3 % 03/16/25 04:08 Eos % (Auto) 0.2 % 03/16/25 04:08 Baso % (Auto) 0.1 % 03/16/25 04:08 Neut # (Auto) 13.75 10^3/uL (1.8-7.7) H 03/16/25 04:08 Lymph # (Auto) 2.5 10^3/uL (0.8-4.8) 03/16/25 04:08 [place] # (Auto) 1.1 10^3/uL (0.2-0.9) H 03/16/25 04:08 Eos # (Auto) 0.0 10^3/uL (0.0-0.8) 03/16/25 04:08 Baso # (Auto) 0.0 10^3/uL (0.0-0.1) 03/16/25 04:08 Absolute Gran (auto) Cancelled 03/14/25 04:20 Nucleated RBC % (auto) 0.7 % 03/16/25 04:08 Nucleated RBCs # 0.1 /100WBC 03/16/25 04:08 D-Dimer 11.25 ug/mLFEU (0-0.59) H 03/14/25 12:09 Specimen Type Arterial 03/13/25 20:40 Sample Site Radial, right 03/13/25 20:40 ABG pH 7.35 (7.35-7.45) 03/13/25 20:40 ABG pCO2 39.4 mmHg (35-45) 03/13/25 20:40 ABG pO2 84.7 mmHg (80.0-100.0) 03/13/25 20:40 ABG PO2/FiO2 Ratio 188 03/13/25 20:40 ABG HCO3 21.8 mmol/L (22-26) L 03/13/25 20:40 ABG O2 Saturation 96.2 03/13/25 20:40 ABG Base Excess -3.5 mmol/L (-2.0-2.0) L 03/13/25 20:40 Celestino Test Pos 03/13/25 20:40 A-a O2 Gradient 24.3 mmHg (5-10) H 03/13/25 20:40 Hematocrit 42.7 % (42-52) 03/13/25 20:40 Hgb O2 Saturation 94.5 % (95-100) L 03/13/25 20:40 Carboxyhemoglobin 1.7 %THgb (0.4-20.1) 03/13/25 20:40 Methemoglobin 0.1 % (0.4-1.5) L 03/13/25 20:40 Total Hemoglobin 13.9 g/dL (14-18) L 03/13/25 20:40 Sodium 141.0 mmol/L (131-143) 03/13/25 20:40 Potassium 3.8 mmol/L (3.5-5.0) 03/13/25 20:40 Glucose 85.0 mg/dL (70-115) 03/13/25 20:40 Ionized Calcium 1.0 mmol/L (1.1-1.4) L 03/13/25 20:40 O2 Delivery Device Bipap 03/13/25 20:40 O2 Liters/Min 2.0 % 03/13/25 12:12 FiO2 45.0 % 03/13/25 20:40 Electronic Scale [employer] ID [email or web address] 03/13/25 20:40 Sodium 133 mmol/L (136-145) L 03/16/25 04:08 Potassium 3.5 mmol/L (3.5-5.1) 03/16/25 04:08 Chloride 98 mmol/L (98-107) 03/16/25 04:08 Carbon Dioxide 24 mmol/L (22-29) 03/16/25 04:08 Anion Gap 14.5 (5-19) 03/16/25 04:08 BUN 6 mg/dL (6-20) 03/16/25 04:08 Creatinine 0.5 mg/dL (0.7-1.2) L 03/16/25 04:08 GFR Calculation 170.8 mL/min (90-130) H 03/16/25 04:08 Glucose 185 mg/dL (65-115) H 03/16/25 04:08 POC Glucose 213 mg/dL (70-110) H 03/17/25 06:30 Calculated Osmolality 278 mOsm/kg (285-295) L 03/16/25 04:08 Lactic Acid 3.2 mmol/L (0.5-2.2) H 03/13/25 16:33 Lactic Acid (Sepsis) 2.9 mmol/L (0.5-2.2) H 03/13/25 20:25 Calcium 9.1 mg/dL (8.5-10.5) 03/16/25 04:08 Phosphorus 3.8 mg/dL (2.5-4.5) 03/13/25 11:44 Magnesium 1.8 mg/dL (1.7-2.3) 03/13/25 11:44 Total Bilirubin 0.4 mg/dL (0.15-1.2) 03/13/25 11:44 AST 74 U/L (0-40) H 03/13/25 11:44 ALT 47 U/L (0-41) H 03/13/25 11:44 Alkaline Phosphatase 97 U/L (40-130) 03/13/25 11:44 Total Protein 6.6 g/dL (6.6-8.7) 03/13/25 11:44 Albumin 3.8 g/dL (3.5-5.2) 03/13/25 11:44 Globulin 2.8 g/dL (1.3-4.6) 03/13/25 11:44 Procalcitonin 0.13 ng/mL (0-0.5) 03/13/25 11:44 TSH 0.56 uIU/mL (0.27-4.20) 03/13/25 11:44 Urine Color [place] (Yellow) A 03/13/25 12:40 Urine Appearance Clear (CLEAR) 03/13/25 12:40 Urine pH 6.0 (5-7) 03/13/25 12:40 Ur Specific [place] 1.020 (1.005-1.030) 03/13/25 12:40 Urine Protein 1+ (Negative) A 03/13/25 12:40 Urine Glucose (UA) Negative (Normal) 03/13/25 12:40 Urine Ketones 2+ (Negative) H 03/13/25 12:40 Urine Blood Negative (Negative) 03/13/25 12:40 Urine Nitrate Negative (Negative) 03/13/25 12:40 Urine Bilirubin Negative (Negative) 03/13/25 12:40 Urine Urobilinogen 1.0 mg/dL (Negative) 03/13/25 12:40 Ur Leukocyte Esterase Trace (Negative) A 03/13/25 12:40 Urine RBC 0-2 /hpf (0-2) 03/13/25 12:40 Urine WBC 0-5 /hpf (0-5) 03/13/25 12:40 Ur Squamous Epith Cells 0-5 /hpf (0-5) 03/13/25 12:40 Amorphous Sediment Not Reportable 03/13/25 12:40 Urine Bacteria None seen /hpf (NONE) 03/13/25 12:40 Hyaline Casts 1.65 /lpf 03/13/25 12:40 Salicylates < 0.3 mg/dL (3-10) L 03/13/25 11:44 Urine Opiates Screen Negative ng/mL (Negative) 03/13/25 12:40 Acetaminophen < 5.0 ug/mL (10-30) L 03/13/25 11:44 Ur Barbiturates Screen Negative ng/mL (Negative) 03/13/25 12:40 Ur Phencyclidine Scrn Negative ng/mL (Negative) 03/13/25 12:40 Ur Amphetamines Screen Negative ng/mL (Negative) 03/13/25 12:40 U Benzodiazepines Scrn Negative ng/mL (Negative) 03/13/25 12:40 Urine Cocaine Screen Negative ng/mL (Negative) 03/13/25 12:40 U Marijuana (THC) Screen Negative ng/mL (Negative) 03/13/25 12:40 Ethyl Alcohol 386 mg/dL (0-10) H* 03/13/25 11:44 Adenovirus (PCR) Not detected (NOT DETECT) 03/14/25 15:30 C. pneumoniae DNA (PCR) Not detected (NOT DETECT) 03/14/25 15:30 Coronavirus 229E (PCR) Not detected (NOT DETECT) 03/14/25 15:30 Human Metapneumovir PCR Not detected (NOT DETECT) 03/14/25 15:30 Influenza A (H1) PCR Not detected (NOT DETECT) 03/14/25 15:30 Influ A (H1/09) PCR Not detected (NOT DETECT) 03/14/25 15:30 Influenza A (H3) PCR Not detected (NOT DETECT) 03/14/25 15:30 Influenza Type A (PCR) Not detected (NOT DETECT) 03/14/25 15:30 Influenza Type B (PCR) Not detected (NOT DETECT) 03/14/25 15:30 M. pneumoniae (PCR) Not detected (NOT DETECT) 03/14/25 15:30 Parainfluenza 1 (PCR) Not detected (NOT DETECT) 03/14/25 15:30 Parainfluenza 2 (PCR) Not detected (NOT DETECT) 03/14/25 15:30 Parainfluenza 3 (PCR) Not detected (NOT DETECT) 03/14/25 15:30 Parainfluenza 4 (PCR) Not detected (NOT DETECT) 03/14/25 15:30 RSV Type A (PCR) Not detected (NOT DETECT) 03/14/25 15:30 RSV Type B (PCR) Not detected (NOT DETECT) 03/14/25 15:30 Entero/Rhino (PCR) Not detected (NOT DETECT) 03/14/25 15:30 SARS-CoV-2 (PCR) Not detected (NOT DETECT) 03/14/25 15:30 Vitals Last Vital Signs Temp 97.5 F L 03/17/25 07:26 Pulse 74 03/17/25 08:00 Resp 16 03/17/25 08:00 BP 143/82 03/17/25 07:26 Pulse Ox 93 03/17/25 08:46 O2 Del Method Room Air 03/17/25 08:00 O2 Flow Rate 3 03/16/25 20:25 FiO2 50 03/15/25 04:44 Discharge Plan Discharge Patient Disposition: Home Condition: Stable Prescriptions: New pantoprazole 40 mg Tablet,Delayed Release (Dr/Ec) 40 mg PO DAILY 30 Days Qty: 30 0RF losartan 50 mg Tablet 25 mg PO DAILY 30 Days Qty: 30 0RF amoxicillin-pot clavulanate 875-125 mg tablet 1 tab PO BID 5 Days Qty: 10 0RF chlordiazepoxide HCl 25 mg capsule 25 mg PO Q8H Qty: 14 0RF Rx Instructions: 1 tab TID x 2days, then BID x 2 days, then once daily for 2 days, then stop albuterol sulfate [Ventolin HFA] 90 mcg/actuation HFA aerosol inhaler 1 inh inhalation Q6H PRN (Reason: shortness of breath or wheezing) Qty: 6.7 0RF metoprolol succinate 25 mg tablet extended release 24 hr 12.5 mg PO DAILY 30 Days Qty: 30 0RF nicotine 14 mg/24 hr patch 24 hour 1 patch transdermal DAILY Qty: 14 0RF Continued vitamin B complex Tablet 1 tab PO DAILY magnesium oxide 400 mg (241.3 mg magnesium) tablet 400 mg PO DAILY thiamine mononitrate (vit B1) [Vitamin B-1 (mononitrate)] 100 mg Tablet 100 mg PO DAILY Qty: 30 0RF potassium chloride 20 mEq tablet,ER particles/crystals 20 meq PO DAILY 30 Days Qty: 30 1RF bumetanide 1 mg tablet 1 mg PO 0900,2100 30 Days Qty: 60 1RF Eliquis 5 mg tablet 5 mg PO BID 30 Days Qty: 60 1RF mirtazapine 30 mg tablet 30 mg PO BEDTIME sumatriptan succinate 25 mg tablet See Rx Instructions .ROUTE .COMPLEX PRN (Reason: Migraine Headache) Rx Instructions: TAKE 1 TABLET (25 MG) BY MOUTH ONE TIME NEEDED (FOR HEADACHE MAY REPEAT IN 2 HOURS; MAX DOSE 200MG IN 24 HOURS. citalopram 20 mg tablet 20 mg PO DAILY baclofen 5 mg tablet 5 mg PO BID Changed acetaminophen 500 mg tablet 650 mg PO Q6H PRN (Reason: Pain, Moderate) 30 Days Qty: 0 0RF Discontinued metoprolol tartrate 25 mg Tablet 25 mg PO BID@0900,2100 30 Days Qty: 60 1RF Discharge Orders: Discharge Order (Routine); Ordered 03/17/25 Ordered By: Carli Olivas Referrals: Josse Harvey MD [Referring] - 03/19/25 2:20 pm Discharge Diet: Usual diet Discharge Activity: Resume usual activity Patient Instructions: Opioid Safety Discharge Attestations Time Spent in Discharge Care*: greater than 30 min Quality Metrics Clinical Quality Measures [ No reported AMI, CVA or VTE this stay] Coding Level of Care Code Acute Code for [facility] Fwd Diagnoses Pneumonia J18.9 Alcohol intoxication F10.929 Hypoxemia R09.02 Acute hypoxic respiratory failure J96.01 Schizophrenia F20.9 COPD with acute exacerbation J44.1 Alcohol abuse F10.10 Pulmonary embolism I26.99
[2025-03-17] MEDS: baclofen 10 mg Tablet 5 MG PO (09:11)
[2025-03-17] MEDS: dexamethasone 4 mg/mL INJ PO (09:11)
[2025-03-17] MEDS: losartan 50 mg Tablet 25 MG PO (09:11)
[2025-03-17] MEDS: cloNIDine 0.1 mg Tablet 0.2 MG PO (09:11)
[2025-03-17] MEDS: acetaminophen 500 mg Tablet 1000 MG PO (10:33)
== END 2025-03-17 10:50 | disposition home or self-care (01) | DRG 193 ==
LOC: ER 16:14 → ER IP 16:48 → MEDSURG 17:07
PROVIDERS: Internal Medicine; Admitting Provider Internal Medicine; Emergency Provider Emergency Medicine; Visit Provider Student in an Organized Health Care Education/Training Program
DX: J18.9 Pneumonia, unspecified organism (principal); J96.01 Acute respiratory failure with hypoxia; F10.239 Alcohol dependence with withdrawal, unspecified; J44.1 Chronic obstructive pulmonary disease with (acute) exacerbation; J44.0 Chronic obstructive pulmonary disease with (acute) lower respiratory infection; Z68.41 Body mass index [BMI] 40.0-44.9, adult; F10.229 Alcohol dependence with intoxication, unspecified; T51.0X1A Toxic effect of ethanol, accidental (unintentional), initial encounter; Y90.8 Blood alcohol level of 240 mg/100 ml or more; F20.9 Schizophrenia, unspecified; I48.91 Unspecified atrial fibrillation; F17.210 Nicotine dependence, cigarettes, uncomplicated; E66.01 Morbid (severe) obesity due to excess calories; Z90.81 Acquired absence of spleen; Z86.711 Personal history of pulmonary embolism; Z79.01 Long term (current) use of anticoagulants
CPT/HCPCS: 36415; 36416; 36600; 71045; 71275; 80048; 80051; 80053; 80306; 80307; 81001; 82330; 82805; 82962; 83605; 83735; 84100; 84145; 84443; 85025; 85378; 87040; 87486; 87581; 87633; 93005; 94640; 94660; 94760; 96365; 96372; 96375; 99285; J0456; J0696; J1100; J1815; J2060; J2405; J2470; J2543; J3411; J7030; J7050; J8540; J9999; Q0144

== ENCOUNTER 2025-04-28 02:02 | Emergency (ER) | payer MEDICARE, SELFPAY ==
--- OUTSIDE RECORDS SUMMARY | 2009-11-10 04:00 | XMS_ITS | Continuity of Care Document ---
Author Organization [facility] Address [address] [place] [address] Phone Care Team Providers Care Instructional Leader Name Role Phone Unavailable Unavailable Unavailable Allergies, Adverse Reactions, Alerts Substance Reaction Status Criticality No Known allergies Medications Medication Instructions Dosage Effective Dates (start - stop) Status Comments ibuprofen 800 mg Tab take 1 tablet (800MG) by ORAL route 3 times every day with food 800 MG - Active albuterol sulfate HFA 90 mcg/Actuation Aerosol Inhaler inhale 2 puff by INHALATION route every 4 - 6 hours as needed - Active Vicodin 5 mg-500 mg Tab take 1 tablet by ORAL route every 4 - 6 hours as needed for pain - Active Seroquel 400 mg Tab take 1 tablet (400MG) by ORAL route 2 times every day 400 MG - Active Celexa 20 mg Tab take 1 tablet (20MG) by ORAL route every day 20 MG - Active trazodone 100 mg Tab take 1 tablet (100MG) by ORAL route every evening after meals 100 MG - Active ibuprofen 800 mg Tab take 1 tablet (800MG) by ORAL route 3 times every day with food 800 MG - No Longer Active Procedures Procedure Date OFFICE/OUTPATIENT VISIT, EST OFFICE/OUTPATIENT VISIT, EST Advance Directives Directive Yes / No Effective Date File Name Resuscitation Not Answered N/A N/A Life Support Not Answered N/A N/A Intubation Not Answered N/A N/A Antibiotics Not Answered N/A N/A IV Fluid Support Not Answered N/A N/A Tube Feed Not Answered N/A N/A Other Directive N/A N/A WARNING:The information contained in this section is historical and is provided for information only and does not constitute a legal document or any assurance that the information is still accurate. Please verify the information with the sam of the legal document before using it for clinical purposes. Encounters Encounter Description Practice Location Reason(s) For Visit Diagnoses Date Provider Providers Copied on Encounter OFFICE/OUTPAT IENT VISIT, [facility] [address], [place], [place], [id number] , [place] tel: [phone] [facility] [place] rib pain (chief complaint)sh oulder dislocation (chief complaint) Dislocation of shoulderClosed fracture of one rib 9201 0 No Information OFFICE/OUTPAT IENT VISIT, [facility], [address], [place], [place], [id number] , [place] tel: [phone] [facility] [place] shoulder pain (chief complaint) Dislocation of shoulder 200 9 No Information Family History Family Member Type Diagnosis Age At Onset No Information Payers Payer name Insurance type Covered constitution party ID Authoriza tion(s) No Information Social History Type Description Quantity Date Captured Comments Alcohol Use Details No Caffeine Use Details Unknown Tobacco Use Status Smoking Status No Information Sex Male Vital Signs Date / Time: Height Weight BMI Pulse Rate Blood Pressure Temperature Respiratory Rate Body Surface Area Head Circumference Head Circ. Percentile Wt./[place]. Percentile BMI percentile Pulse Ox Inhaled Ox 8:55 AM 240.20 lbs 64 /min 150/80 mm[Hg] Chief Complaint And Reason For Visit From encounter dated '11/10/2009 09:00'. rib pain (chief complaint) shoulder dislocation (chief complaint) Reason For Referral Reason For Referral No Information Plan Of Treatment Date Type Action Status Referral Ordered: Physical Therapist/Independent. ordered History Of Present Illness Encounter Date Complaint History Of Prese nt Illness No Information Functional Status Date Functional Assessmen t Pain Score 8/10 Instructions Date Instruction Additional Infor mation No Information Assessments Type Assessment Date No Information Patient Care Teams Name Effective Dates (start - stop) Status Members No Information
[2025-01-09 11:05] VITALS: BP 117/74
[2025-01-09 11:09] VITALS: BMI 39.8
[2025-04-28 02:04] VITALS: BP 123/53; PULSE 91; RESP 18; TEMP 36.7; O2SAT 92; BMI 42.5
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
--- OUTSIDE RECORDS SUMMARY | 2025-04-28 02:10 | XMS_ITS | Encounter Summary ---
Author Organization [facility] Address [address] [place] [address] Care Team Providers Care Waiter/Waitress Club Name Role Phone Josse Harvey MD Primary Care Provider [phone] Reason for Visit * Reason Comments Paperwork Encounter Details Date Type Department Care Team (Late st Contact Info) Description 01/27/2025 Telephone [facility] Medicine [address] [phone] Josse Harvey MD [address] [phone] Paperwork Social History Tobacco Use Types Packs/Day Years Used Date Smoking Tobacco: Every Day Cigarettes Smokeless Tobacco: Never Alcohol Use Standard Drinks/Week Comments No 5 (1 standard drink = 0.6 oz pur e alcohol) Feeling Safe Answer Date Recorded Are you in a relationship wi th someone who hurts you emotionally and/or physically? No 07/24/2024 Food Insecurity Answer Date Recorded Social/Environmental Concerns No concerns Transportation Needs Answer Date Record ed Social/Environmental Concerns No concerns Housing Stability Answer Date Recorded Social/Environmental Concerns No concerns Utility Needs Answer Date Recorded Social/Environmental Concerns No concerns Sex and Gender Information Value Date Recorded Sex Assigned at Not on file Legal Sex Male 9:07 AM UNHAIRER Gender Identity Not on file Sexual Orientation Not on file documented as of this encounter Miscellaneous Notes * Telephone Encounter - Vikki Varela LPN - 01/28/2025 8:22 AM CDT Letter wrote per Dr. Harvey. Left message for patient to call the clinic please let him know he canpick it up. * Telephone Encounter - Vikki Varela LPN - 01/27/2025 12:15 PM CDT 01/27/2025 12:15 PM Returned call and spoke with patient. Patient states that Dr. Thacker wrote a letter for him last year (11/17/22) and he is needing another one for this year due to his mental health diagnoses. Vikki STEVEN * Telephone Encounter - Elisa King - 01/27/2025 12:01 PM CDT Copied from [facility] #[id number]. Topic: Patient or Caregiver Communication Request >> Jan 27, 2025 11:59 AM Elisa Barrett wrote: Patient or Caregiver requesting that a message be sent to Care Team Caller: Mor Ohara Patient/Caregiver Callback Number: Telephone Information: Call Notes: calling to see if his letter for an emotional support animal was finished and to give him a call when he can get that picked up. documented in this encounter Plan of Treatment Upcoming Encounters Date Type Department Care Team (Late st Contact Info) Description 06/19/2025 2:00 PM CDT Office Visit [facility] [address] [place] [phone] Lalita Armstrong FNP [address] [phone] 07/17/2025 2:20 PM CDT Office Visit [facility] Cancer and Hematology [place] [address] [place] [phone] Gloria Scott MD [address] [place] [phone] documented as of this encounter Visit Diagnoses Not on filedocumented in this encounter Care Teams Waiter/Waitress Club Relationship Specialty Start Date End Date Josse Harvey MD [address] [place] [phone] PCP - General Family Practice 02/13/24 documented as of this encounter
[2025-04-28 02:51] VITALS: BP 131/70; PULSE 88; RESP 18; O2SAT 93
[2025-04-28 02:52] LABS: Hematocrit 42.9 % (37-53); Hemoglobin 14.10 g/dL (11.27-16.99); Mean Corpuscular HGB Conc 32.9 g/dL (30-55); Mean Corpuscular Hemoglobin 30.5 pg (27-33); Mean Corpuscular Volume 92.9 fl (82-101); Nucleated Red Blood Cells % 0 %; Platelet Count 463 10^3/cmm (157-399); Red Blood Count 4.62 10^6/uL (3.85-5.65)
[2025-04-28 03:08] LABS: Alanine Aminotransferase 9 U/L (0-41); Albumin Level 4.1 g/dL (3.5-5.2); Alkaline Phosphatase 76 U/L (40-130); Anion Gap 15.2 (5-19); Aspartate Amino Transferase 12 U/L (0-40); Blood Urea Nitrogen 14 mg/dL (6-20); Calcium 9.1 mg/dL (8.5-10.5); Carbon Dioxide 26 mmol/L (22-29); Chloride 100 mmol/L (98-107); Creatinine Clr Calc Pharmacy 147.6039; Globulin 3.2 g/dL (1.3-4.6); Glucose 103 mg/dL (65-115); Lipase 19 U/L (13-60); Osmolality Calculated 287 mOsm/kg (285-295); Potassium 3.2 mmol/L (3.5-5.1); Sodium 138 mmol/L (136-145); Total Protein 7.3 g/dL (6.6-8.7); White Blood Count 31.07 10^3/uL (3.29-11.43)
[2025-04-28 03:09] LABS: Alcohol Level < 10 mg/dL (0-10); Lactic Sepsis W/Reflex 1.6 mmol/L (0.5-2.2)
--- NOTE | 2025-04-28 03:22 | ED_ITS ---
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 He has been nauseated. No vomiting. No diarrhea. Pain was intense. No fever. He states the pain started not long after he ate at [employer]. Related Data Home Medications ?Medication ?Instructions ?Recorded ?Confirmed baclofen 5 mg tablet 5 mg PO BID 10/15/24 5 citalopram 20 mg tablet 20 mg PO DAILY 10/15/2402/21 mirtazapine 30 mg tablet 30 mg PO BEDTIME 10/15/24 sumatriptan succinate 25 mg tablet See Rx Instructions .Route 10/15/24 03/14/25 .COMPLEX PRN Migraine Headache magnesium oxide 400 mg (241.3 mg 400 mg PO DAILY 11/1603/14/25 magnesium) tablet vitamin B complex 1 tab PO DAILY 01/02/2502/21 Previous Rx's ?Medication ?Instructions ?Recorded apixaban 5 mg tablet (Eliquis) 5 mg PO BID 30 days #60 tabs 07/12/24 bumetanide 1 mg tablet 1 mg PO 0900,2099 30 days #6 0 tabs 07/12/24 potassium chloride 20 mEq 20 meq PO DAILY 30 days #30 tabs 07/12/24 tablet,extended release(part/cryst) thiamine mononitrate (vit B1) 100 100 mg PO DAILY #30 tabs 11/19/24 mg tablet (Vitamin B-1 (mononitrate)) acetaminophen 500 mg tablet 650 mg (1.3 x 500 mg) PO Q 6H PRN 03/17/25 Pain, Moderate 30 days #0 tabs albuterol sulfate 90 mcg/actuation 1 inh inhalation Q6 H PRN shortness 03/17/25 aerosol inhaler (Ventolin HFA) of breath or wheezing # 6.7 grams chlordiazepoxide HCl 25 mg capsule 25 mg PO Q8H alcoho l withdrawa #14 03/17/25 caps nicotine 14 mg/24 hr daily 1 patch transdermal DAILY # 14 ea 03/17/25 transdermal patch ondansetron 4 mg disintegrating 4 mg PO Q6H PRN nausea and 04/28/25 tablet vomiting #14 tabs Allergies Allergy/AdvReac Type Severity Reaction Status Date / Time No Known Allergies Allergy Verified 01/02/25 07:59 PFSH ED 2 PFSH: Medical History Psychiatric care Atrial fibrillation with rapid ventricular response COPD (chronic obstructive pulmonary disease) Schizophrenia Alcohol abuse Hx of pulmonary embolus Pulmonary embolism Cigarette smoker D-dimer, elevated Surgical History History of splenectomy Family History (Updated 01/02/25 @ 10:45 by Ofelia Lopez RN) Other Cancer Lung disease Social History (Updated 03/13/25 @ 19:18 by Cruz Medina MD) Smoking and tobacco/nicotine status: current every day tobacco/nicotine user cigarettes Packs smoked per day: 1 Years cigarettes smoked: 20 Quit status (tobacco/nicotine): considering quitting Second hand smoke exposure: Yes Alcohol intake: current Alcohol type: hard liquor Substance/Drug Use: never Additional social history: Lives with his he wants full CODE STATUS as discussed 03/13/25 Adopted: No Caregiver/support person: No Lives independently: Yes Household members: significant other Housing: Other Details: hotel Marital status: Life Partner Number of children: 0 Highest education level completed: High School Graduate service: Yes 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 branch: [employer] branch details: [employer] Assignments: Outside [facility] ([facility] Known or Potential Exposure: None Current occupational status: disabled Current occupation: functionally disabled Pets and animals: Yes Pets & animals: dog(s) Leisure activites: fishing Sexually active: Yes Do you think of yourself as: Straight/Heterosexual Current gender identity: Male Renetta/Congregational: Sikh Special renetta needs: No Agree to transfusion: Yes Physical Exam 2 Const: COMMON NORMALS: no acute distress GENERAL APPEARANCE: cooperative; not ill appearing and not frail appearing HENMT: COMMON NORMALS: normocephalic, atraumatic and Normal external nose present HEAD & SCALP: normocephalic and atraumatic FACE & SINUS: normal facial exam and face symmetric NOSE: Normal external nose present Eye: COMMON NORMALS: Equal, round and reactive pupils present and EOMs intact bilaterally PUPIL: Yes Equal, round and reactive pupils present Neck/C-Spine: GENERAL: Yes trachea midline Chest: CHEST: Yes Symmetrical chest wall rise Resp: COMMON NORMALS: normal respiratory effort, No retractions, No use of accessory muscles and clear to auscultation bilaterally AUSCULTATION: clear to auscultation bilaterally Cardio: COMMON NORMALS: regular rate and regular rhythm RATE: regular rate RHYTHM: regular rhythm GI: COMMON NORMALS: Normal to inspection, nondistended, normoactive bowel sounds present PALPATION: Yes Tenderness to palpation present (GI) (Generalized) and Yes Guarding due to palpation present (GI) Extremity: COMMON NORMALS: no pedal edema Neuro: MARIELY COMA SCALE: document GCS findings [place] coma scale eye opening: Spontaneous [place] coma scale verbal response: Orientated Mariely coma scale motor response: Obey commands Mariely coma scale total score: 15 S ENSORY EXAM: Yes extremities (intact) Psych: COMMON NORMALS: speech normal SPEECH: Yes normal speech Skin: COMMON NORMALS: no rashes or lesions noted GENERAL SKIN EXAM: no rashes or lesions noted Course 2 Vital Signs: Vital signs: Vital Signs Temperature 98.0 F 04/28/25 02:04 Pulse Rate 68 04/28/25 05:21 Respiratory Rate 16 04/28/25 05:21 Blood Pressure 113/64 04/28/25 05:21 Pulse Oximetry 95 04/28/25 05:21 Oxygen Delivery Me thod Room Air 04/28/25 02:51 MDM - Abdominal Pain Medical Decision Making Generalized belly tenderness in a patient with no spleen. No fever. No vomiting. White blood cell count is 31. 83% neutrophils. Lactic acid is normal at 1.6. Lipase is normal. Liver enzymes are normal. CT shows nonobstructed nonthickened fluid-filled loops of small bowel suggestive of enteritis. As he is asplenic, will be treated with antibiotics. Hydration. Return if worsening symptoms. Lab Data 04/28/25 02:37 04/28/25 02:37 Labs/Radiology: Radiology Impressions Chest/Abdomen/Pelvis CT 04/28/25 03:33 IMPRESSION: No CT evidence of acute chest pathology. The left lung pneumonia seen at the time of the prior exam has cleared. IMPRESSION: 1. Mild thickening of the duodenal bulb. Consider duodenitis. 2. Nonobstructed, nonthickened fluid-filled loops of small bowel. Consider mild nonspecific enteritis. 3. Normal appendix. Laboratory Results WBC 31.07 10^3/uL (3.29-11.43) H* 04/28/25 02:37 RBC 4.62 10^6/uL (3.85-5.65) 04/28/25 02:37 Hgb 14.10 g/dL (11.27-16.99) 04/28/25 02:37 Hct 42.9 % (37-53) 04/28/25 02:37 MCV 92.9 fl (82-101) 04/28/25 02:37 MCH 30.5 pg (27-33) 04/28/25 02:37 MCHC 32.9 g/dL (30-55) 04/28/25 02:37 RDW 15.5 % (12.1-15.1) H 04/28/25 02:37 Plt Count 463 10^3/cmm (157-399) H 04/28/25 02:37 MPV 8.9 fL (7.4-10.4) 04/28/25 02:37 Neut % (Auto) 83.4 % 04/28/25 02:37 Lymph % (Auto) 6.8 % 04/28/25 02:37 [place] % (Auto) 7.6 % 04/28/25 02:37 Eos % (Auto) 1.2 % 04/28/25 02:37 Baso % (Auto) 0.4 % 04/28/25 02:37 Neut # (Auto) 25.94 10^3/uL (1.8-7.7) H 04/28/25 02:37 Lymph # (Auto) 2.1 10^3/uL (0.8-4.8) 04/28/25 02:37 [place] # (Auto) 2.4 10^3/uL (0.2-0.9) H 04/28/25 02:37 Eos # (Auto) 0.4 10^3/uL (0.0-0.8) 04/28/25 02:37 Baso # (Auto) 0.1 10^3/uL (0.0-0.1) 04/28/25 02:37 Nucleated RBC % (auto) 0 % 04/28/25 02:37 Nucleated RBCs # 0.0 /100WBC 04/28/25 02:37 Sodium 138 mmol/L (136-145) 04/28/25 02:37 Potassium 3.2 mmol/L (3.5-5.1) L 04/28/25 02:37 Chloride 100 mmol/L (98-107) 04/28/25 02:37 Carbon Dioxide 26 mmol/L (22-29) 04/28/25 02:37 Anion Gap 15.2 (5-19) 04/28/25 02:37 BUN 14 mg/dL (6-20) 04/28/25 02:37 Creatinine 0.7 mg/dL (0.7-1.2) 04/28/25 02:37 GFR Calculation 115.4 mL/min (90-130) 04/28/25 02:37 Glucose 103 mg/dL (65-115) 04/28/25 02:37 Calculated Osmolality 287 mOsm/kg (285-295) 04/28/25 02:37 Lactic Acid 1.6 mmol/L (0.5-2.2) 04/28/25 02:37 Calcium 9.1 mg/dL (8.5-10.5) 04/28/25 02:37 Total Bilirubin 0.3 mg/dL (0.15-1.2) 04/28/25 02:37 AST 12 U/L (0-40) 04/28/25 02:37 ALT 9 U/L (0-41) 04/28/25 02:37 Alkaline Phosphatase 76 U/L (40-130) 04/28/25 02:37 Total Protein 7.3 g/dL (6.6-8.7) 04/28/25 02:37 Albumin 4.1 g/dL (3.5-5.2) 04/28/25 02:37 Globulin 3.2 g/dL (1.3-4.6) 04/28/25 02:37 Lipase 19 U/L (13-60) 04/28/25 02:37 Ethyl Alcohol < 10 mg/dL (0-10) 04/28/25 02:37 All radiology interpretation(s) finalized by discharge Discharge Plan Discharge Patient Disposition: Home Clinical Impression: Enteritis Condition: Stable Prescriptions: New ondansetron 4 mg tablet,disintegrating 4 mg PO Q6H PRN (Reason: nausea and vomiting) Qty: 14 0RF No Action vitamin B complex Tablet 1 tab PO DAILY magnesium oxide 400 mg (241.3 mg magnesium) tablet 400 mg PO DAILY thiamine mononitrate (vit B1) [Vitamin B-1 (mononitrate)] 100 mg Tablet 100 mg PO DAILY Qty: 30 0RF chlordiazepoxide HCl 25 mg capsule 25 mg PO Q8H Qty: 14 0RF Rx Instructions: 1 tab TID x 2days, then BID x 2 days, then once daily for 2 days, then stop albuterol sulfate [Ventolin HFA] 90 mcg/actuation HFA aerosol inhaler 1 inh inhalation Q6H PRN (Reason: shortness of breath or wheezing) Qty: 6.7 0RF acetaminophen 500 mg tablet 650 mg PO Q6H PRN (Reason: Pain, Moderate) 30 Days Qty: 0 0RF nicotine 14 mg/24 hr patch 24 hour 1 patch transdermal DAILY Qty: 14 0RF potassium chloride 20 mEq tablet,ER particles/crystals 20 meq PO DAILY 30 Days Qty: 30 1RF bumetanide 1 mg tablet 1 mg PO 0900,2100 30 Days Qty: 60 1RF Eliquis 5 mg tablet 5 mg PO BID 30 Days Qty: 60 1RF mirtazapine 30 mg tablet 30 mg PO BEDTIME sumatriptan succinate 25 mg tablet See Rx Instructions .ROUTE .COMPLEX PRN (Reason: Migraine Headache) Rx Instructions: TAKE 1 TABLET (25 MG) BY MOUTH ONE TIME NEEDED (FOR HEADACHE MAY REPEAT IN 2 HOURS; MAX DOSE 200MG IN 24 HOURS. citalopram 20 mg tablet 20 mg PO DAILY baclofen 5 mg tablet 5 mg PO BID Discharge Orders: Discharge ED (Routine); Ordered 04/28/25 Ordered By: Reji Degroot Patient Instructions: Enteritis (ED), Opioid Safety, Pain Management, Patient Portal & Santi Instructions Print Language: Swedish Coding Level of Care Code ED Juice Bar Team Member for Aquiles Rust
--- NOTE | 2025-04-28 03:33 | CTR_ITS ---
PROCEDURE INFORMATION: Exam: CT Chest With Contrast; Diagnostic Exam date and time: 04/28/2025 4:06 AM Age: 60 years old Clinical indication: Pain and abnormal findings; Abnormal lab test; Elevated wbc; Abdominal pain; Localized; Right lower quadrant (rlq); Other: N/a; Prior surgery; Surgery date: 6+ months; Surgery type: Splenectomy; C/O rlq with wbc of 31k. Recent left upper lobe pneumonia in February of 2025. ; Additional info: History of pulmonary consolidation, generalized abdominal pa TECHNIQUE: Imaging protocol: Diagnostic computed tomography of the chest with contrast. Radiation optimization: All CT scans at this facility use at least one of these dose optimization techniques: automated exposure control; mA and/or kV adjustment per patient size (includes targeted exams where dose is matched to clinical indication); or iterative reconstruction. Contrast material: OMNI 350; Contrast volume: 100 ml; Contrast route: INTRAVENOUS (IV); COMPARISON: CT angio chest PE protcl [id number] 03/13/2025 2:13 PM RADIATION DOSE METRICS: Total DLP (mGy-cm): 1637.7 FINDINGS: Lungs: Minor hypoventilatory changes in the dependent portions of each lung. The left upper lobe and left lingula pneumonia seen at the time of the previous study has cleared. No acute or suspicious pulmonary infiltrates identified. Pleural spaces: Unremarkable. No pneumothorax. No pleural effusion. Heart: The heart is normal in size. No pericardial effusion. No coronary artery calcifications. Lymph nodes: Small stable mediastinal lymph nodes which do not reach pathologic size criteria. Vasculature: Unremarkable. No aortic aneurysm. Bones/joints: No acute osseous lesions. Soft tissues: Unremarkable. PROCEDURE INFORMATION: Exam: CT Abdomen And Pelvis With Contrast Exam date and time: 04/28/2025 4:06 AM Age: 60 years old Clinical indication: Pain and abnormal findings; Abnormal lab test; Elevated wbc; Abdominal pain; Localized; Right lower quadrant (rlq); Other: N/a; Prior surgery; Surgery date: 6+ months; Surgery type: Splenectomy; C/O rlq with wbc of 31k. Recent left upper lobe pneumonia in February of 2025. ; Additional info: History of pulmonary consolidation, generalized abdominal pa TECHNIQUE: Imaging protocol: Computed tomography of the abdomen and pelvis with contrast. Radiation optimization: All CT scans at this facility use at least one of these dose optimization techniques: automated exposure control; mA and/or kV adjustment per patient size (includes targeted exams where dose is matched to clinical indication); or iterative reconstruction. Contrast material: OMNI 350; Contrast volume: 100 ml; Contrast route: INTRAVENOUS (IV); COMPARISON: CT kidney stone [id number] 10/15/2024 3:35 PM RADIATION DOSE METRICS: Total DLP (mGy-cm): 1637.7 FINDINGS: Liver: The liver is normal in appearance. No focal liver mass or intrahepatic biliary dilatation. Gallbladder and biliary ducts: The gallbladder is unremarkable with no calcified stones visualized and no strandy inflammatory changes surrounding the gallbladder. Pancreas: The pancreas is normal in appearance. No evidence of pancreatic ductal dilatation. Spleen: Stable small left upper quadrant splenules. Adrenal glands: Stable 2.7 cm right adrenal adenoma. The left adrenal gland is unremarkable. Kidneys and ureters: No evidence of hydronephrosis of either kidney. Stable simple appearing right renal cortical cysts. There are stable 2-3 mm nonobstructing calculi in the upper pole calices of the right kidney. Stomach and bowel: Mild mural thickening of the duodenal bulb. Consider duodenitis. There are no strandy inflammatory changes in the fat surrounding the duodenal bulb. There are fluid-filled, nonthickened, nonobstructed loops of small bowel. Consider mild enteritis. The colon is unremarkable. Appendix: The appendix is normal in appearance. No evidence of appendicitis. Intraperitoneal space: Unremarkable. No free air. No significant fluid collection. Vasculature: Unremarkable. No abdominal aortic aneurysm. Lymph nodes: Unremarkable. No enlarged lymph nodes. Urinary bladder: The urinary bladder is normal in appearance. Reproductive: Unremarkable as visualized. Bones/joints: No acute osseous lesions. Soft tissues: Small fat containing bilateral inguinal hernias. Stable L1 hemangioma. CT/CT chest abdpel w/*[id number] IMPRESSION: No CT evidence of acute chest pathology. The left lung pneumonia seen at the time of the prior exam has cleared. IMPRESSION: 1. Mild thickening of the duodenal bulb. Consider duodenitis. 2. Nonobstructed, nonthickened fluid-filled loops of small bowel. Consider mild nonspecific enteritis. 3. Normal appendix.
[2025-04-28] MEDS: iohexol 350 mg/mL 500 mL Btl (per mL) IV (04:08)
[2025-04-28] MEDS: potassium chloride oral liq 20 mEq/15 mL UDC 40 MEQ PO (04:47)
[2025-04-28 05:21] VITALS: BP 113/64; PULSE 68; RESP 16; O2SAT 95
[2025-04-28 05:31] LABS: Glucose Urine UA Negative (Normal); Nitrate Urine Negative (Negative); Specific Gravity, Urine 1.029 (1.005-1.030)
[2025-04-28 05:36] LABS: Add Urine Microscopic? YES
[2025-04-28 05:38] LABS: PCP Screen Urine Negative (Negative)
[2025-04-28 06:25] VITALS: BP 120/61; PULSE 77; RESP 16; O2SAT 96
== END 2025-04-28 06:26 | disposition home or self-care (01) ==
PROVIDERS: Emergency Provider Emergency Medicine
DX: K52.9 Noninfective gastroenteritis and colitis, unspecified (principal); Z79.01 Long term (current) use of anticoagulants; F17.210 Nicotine dependence, cigarettes, uncomplicated; J44.9 Chronic obstructive pulmonary disease, unspecified
CPT/HCPCS: 71260; 74177; 80053; 80306; 80307; 81001; 83605; 83690; 85025; 99285; J9999

== ENCOUNTER 2025-07-02 12:05 | Inpatient (IN) | payer MEDICARE, SELFPAY ==
[2025-01-09 11:05] VITALS: BP 117/74
[2025-01-09 11:09] VITALS: BMI 39.8
--- NOTE | 2025-07-02 12:10 | XR_ITS ---
WS: [id number] Portable AP upright chest, 07/02/2025 Clinical Data: Chest pain Comparison: Portable chest, 03/13/2025 Findings: No nodules, masses or effusions are seen. The heart is normal. The left lower lobe opacity seen on the prior exam has cleared. The pulmonary vascularity is not increased. No pneumonia or pneumothorax is seen. Monitor leads are on the chest wall. XR/XR chest 1V portable [id number] Impression: Negative chest.
--- NOTE | 2025-07-02 12:10 | ECG_ITS ---
[facility] Test Date: 2025-07-02 Pat Name: Mor Ohara Department: Room: Gender: Male Pulper Tender: : 1965 Requested By: Gricel Beckman Order Number: [id number] Tera MD: Hay Martinez M.D. Measurements Intervals [place] Rate: 82 P: 67 MA: 192 QRS: 135 QRSD: 124 T: 61 QT: 391 QTc: 458 Interpretive Statements SINUS RHYTHM RIGHT AXIS DEVIATION [QRS AXIS > 100] RIGHT BUNDLE BRANCH BLOCK [120+ ms QRS DURATION, UPRIGHT V1, 40+ ms S IN I/aVL/V4/V5/V6] Compared to ECG 03/13/2025 11:25:50 No significant changes Electronically Signed On 07-02-2025 22:09:39 CDT by Hay Martinez M.D. [email or web address]
[2025-07-02 12:18] VITALS: BP 124/67; PULSE 160; RESP 18; TEMP 36.7; O2SAT 99
--- OUTSIDE RECORDS SUMMARY | 2025-07-02 12:19 | XMS_ITS | Encounter Summary ---
Author Organization [facility] Address 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 Topic: Medication Request >> Jun 20, 2025 4:07 PM Mumtaz Eid wrote: Caller Name: Mor Ohara Callback Number: [phone] (mobile) Medication (Ask patient/caregiver to spell if possible): Wegovy Note: All medication prescriptions can be requested using one CRM Caller is requesting: Medication Question from Patient (not involving new prescription or refill) Preferred Pharmacy: [facility] - [place], [place] - [address][1] Call Notes: Caller has question about medication. He states that during his appointment it was discussed that Wegovy would be sent to the pharmacy. His chart is showing that Zepbound was called in and had a PA. Patient states that he won't be able to get Zepbound due to not being diabetic. Is there an encounter open? No documented in this encounter Plan of Treatment Upcoming Encounters Date Type Department Care Team (Late st Contact Info) Description 07/17/2025 2:20 PM CDT Office Visit [facility] Cancer and Hematology [address]ma [phone] [phone] Gloria Scott MD [address] [place] [address] documented as of this encounter Visit Diagnoses Not on filedocumented in this encounter Care Teams Chummer Relationship Specialty Start Date End Date Josse Harvey MD [address] [phone] PCP - General Family Practice 02/13/24 documented as of this encounter
--- OUTSIDE RECORDS SUMMARY | 2025-07-02 12:19 | XMS_ITS | Clinical Summary ---
Author Organization [facility] Address [address] [place] [address] Care Team Providers Care Tearoom Host/Hostess Name Role Phone Josse Harvey MD Primary Care Provider [phone] Allergies No known active allergies Medications polyethylene glycol 3350 (MIRALAX) 17 gram/dose Powder Take 1 Scoop (17 Grams) by mouth daily. Dissolve in 8 ounces of fluid and drink entire liquid 527 Gram 1 024 Active Additional Information Patient not taking.Reported on 06/19/2025 albuterol sulfate HFA 90 mcg/actuation aerosol inhaler Take 2 Puffs by inhalation every 6 hours as needed for Shortness of Breath. 8.5 Gram 024 Active baclofen (LIORESAL) 5 mg tabletIndications :Myalgia Take 1 Tablet (5 mg) by mouth 2 times daily. 60 Tablet 3 025 Active citalopram (CeleXA) 20 mg tabletIndications :PTSD (post-traumatic stress disorder),VALERIO (generalized anxiety disorder) Take 1 Tablet (20 mg) by mouth daily. 30 Tablet 2 025 Active pantoprazole (PROTONIX) 40 mg Tablet, Delayed Release (E.C.) Take 40 mg by mouth daily. Active CHOLECALCIFEROL, VITAMIN D3, ORAL Take by mouth. Active ARIPiprazole (ABILIFY) 10 mg tabletIndications :PTSD (post-traumatic stress disorder),VALERIO (generalized anxiety disorder) Take 1 Tablet (10 mg) by mouth daily. 30 Tablet 025 Active bumetanide (BUMEX) 2 mg tablet Take 1 Tablet (2 mg) by mouth daily. 30 Tablet 3 Active mirtazapine (REMERON) 30 mg tabletIndications :VALERIO (generalized anxiety disorder),Other specified persistent mood disorders Take 1 Tablet (30 mg) by mouth daily at bedtime. 30 Tablet 2 Active Additional Information Patient not taking.Reported on 06/19/2025 potassium CHLORIDE (K-DUR,KLOR-CON M20) 20 mEq Extended Release tabletIndications :On potassium wasting diuretic therapy TAKE 1 TABLET BY MOUTH DAILY 30 Tablet 2 Active Additional Information Patient not taking.Reported on 06/19/2025 apixaban (Eliquis) 5 mg tabletIndications :Bilateral pulmonary embolism (CMS/HCC) Take 1 Tablet (5 mg) by mouth 2 times daily. 60 Tablet 5 Active metoprolol tartrate (LOPRESSOR) 25 mg tabletIndications :Right-sided heart failure, unspecified HF chronicity (CMS/HCC) Take 1 Tablet (25 mg) by mouth 2 times daily. 200 Tablet 3 Active diphenhydrAMINE (BENADRYL) 25 mg tablet Take 75 mg by mouth nightly as needed for Allergies. Active vitamin B complex (B COMPLEX ORAL) Take 1 Tablet by mouth daily. Active tirzepatide, weight loss, (Zepbound) 2.5 mg/0.5 mL Pen InjectorIndicatio ns:Morbid obesity with body mass index of 40.0-49.9 (CMS/HCC) Inject 0.5 mL (2.5 mg) by subcutaneous injection every 7 days. 2 mL 3 Active SUMAtriptan (Imitrex) 25 mg tabletIndications :Chronic nonintractable headache, unspecified headache type Take 1 Tablet (25 mg) by mouth one time as needed for Other (See Comment) (for headache). may repeat in 2 hours; max dose 200mg in 24 hours 30 Tablet 1 Active no.68-iron-FA 6-dha 28 mg iron- 1 mg-400 mg CapsuleIndication s:Iron deficiency Take 1 Each by mouth daily. 60 Capsule 2 Active cetirizine (ZyrTEC) 10 mg tabletIndications :Seasonal allergic rhinitis due to pollen Take 1 Tablet (10 mg) by mouth daily. 30 Tablet 1 025 Active acetaminophen (TylenoL) 325 mg tabletIndications :Myalgia Take 2 Tablets (650 mg) by mouth every 6 hours as needed for Pain, Mild / Temperature or Pain, Moderate. 60 Tablet 2 025 Active acetaminophen (TylenoL) 325 mg tabletIndications :Myalgia Take 2 Tablets (650 mg) by mouth every 6 hours as needed for Pain, Mild / Temperature or Pain, Moderate. 60 Tablet 2 024 2024 Discontinued(R eorder) SUMAtriptan (Imitrex) 25 mg tabletIndications :Chronic nonintractable headache, unspecified headache type Take 1 Tablet (25 mg) by mouth one time as needed for Other (See Comment) (for headache). may repeat in 2 hours; max dose 200mg in 24 hours 30 Tablet 1 025 2024 Discontinued(R eorder) metoprolol tartrate (LOPRESSOR) 25 mg tabletIndications :Right-sided heart failure, unspecified HF chronicity (CMS/HCC) Take 1 Tablet (25 mg) by mouth 2 times daily. 60 Tablet 3 025 2024 Discontinued [id number] no6-dha 28 mg iron- 1 mg-400 mg Capsule Take 1 Each by mouth daily. 60 Capsule 2 025 2024 Discontinued(R eorder) naproxen sodium (ALEVE) 220 mg Tablet Take 220 mg by mouth. 2024 Discontinued amoxicillin-clavu lanate (AUGMENTIN) 875-125 mg tabletIndications :Dental abscess Take 1 Tablet by mouth every 12 hours for 10 days. 20 Tablet 025 2024 [...] Encounters Date Type Department Care Team Description 06/27/2025 Medication Prior Auth Encounter [facility] Prescription Management Dept [address] [place] [address] [place] [address] Leonela Nathan, PHARMACIST 06/24/2025 External Device Data [facility] ABSTRACTION Provider, Abstract 06/20/[address] [address] Josse Harvey MD Medication Assistance 06/19/2025 2:00 PM CDT Office Visit [address] [address] Lalita Armstrong FNP Morbid obesity with body mass index of 40.0-49.9 (CMS/HCC) (Primary Dx); Chronic nonintractable headache, unspecified headache type; Myalgia; Dental abscess; Iron deficiency; Seasonal allergic rhinitis due to pollen 06/19/[address] [address] Lalita Armstrong FNP Medication prior auth (Zepbound) 06/17/2025 External Device Data [facility] ABSTRACTION Provider, Abstract 06/10/2025 External Device Data [facility] ABSTRACTION Provider, Abstract 06/10/[address] [phone] oJsse Harvey MD Question; Patient Communication 06/03/[address] [phone] Josse Harvey MD Question; Patient Communication; Needs Form Or Letter Filled Out 06/03/[address] [address] Lalita Armstrong FNP Right-sided heart failure, unspecified HF chronicity ([facility]) 05/28/2025 External Device Data [facility] ABSTRACTION Provider, Abstract 05/27/2025 External Device Data [facility] ABSTRACTION Provider, Abstract 05/20/2025 External Device Data [facility] ABSTRACTION Provider, Abstract 05/20/2025 External Device Data [facility] ABSTRACTION Provider, Abstract 05/14/[address] [address] Lalita Armstrong FNP Bilateral pulmonary embolism ([facility]) 05/13/2025 External Device Data ST[facility] ABSTRACTION Provider, Abstract 04/15/2025 External Device Data [facility] ABSTRACTION Provider, Abstract 04/15/2025 External Device Data [facility] ABSTRACTION Provider, Abstract 04/07/2025 Orders Only [address] [phone] Lalita Armstrong FNP 04/05/[address] [phone] Josse Harvey MD VALERIO (generalized anxiety disorder); Other specified persistent mood disorders; On potassium wasting diuretic therapy 2025 External Device Data STL ABSTRACTION Provider, Abstract 2025 External Device Data ST[facility] ABSTRACTION Provider, Abstract [address] [address] Josse Harvey MD Question; Patient Communication; Medication Assistance from Last 3 Months Immunizations Immunization Administration Dates Next Due (ACTHIB/HIBERIX)(2 MOS-5 YRS /6 WKS-4 YRS) HAEMOPHILUS INFLUENZAE TYPE B VACCINE (HIB), PRP-T CONJUGATE, 4 DOSE, 0.5 ML IM 03/15/2011 (PFIZER)(12 YR UP) COVID-19 VACCINE - EMERGENCY USE AUTHORIZATION, MRNA, [id number](PF) 30 MCG/0.3 ML IM SUSP 10/11/2021,08/11/2021 INFLUENZA [...] on file 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 Gender Identity Not on file Sexual Orientation Not on file Last Filed Vital Signs Vital Sign Reading Time Taken Comments Blood Pressure 119/72 06/19/2025 1:29 PM CDT Pulse 75 06/19/2025 1:29 PM CDT Temperature 36.3 C (97.4 F) 06/19/2025 1:29 PM CDT Respiratory Rate 20 06/19/2025 1:29 PM CDT Oxygen Saturation 94% 06/19/2025 1:29 PM CDT Inhaled Oxygen Concentration - - Weight 124.6 kg (274 lb 9.6 oz) 06/19/2025 1:29 PM CDT Height 172.7 cm (5' 8 ) 06/19/2025 1:29 PM CDT Body Mass Index 41.75 06/19/2025 1:29 PM CDT Plan of Treatment Upcoming Encounters Date Type Department Care Team (Late st Contact Info) Description 07/17/2025 2:20 PM CDT Office Visit [facility] Cancer and Hematology [address] [place] [phone] Gloria Scott MD [address] [place] [address] Health Maintenance Due Date Last Done Comments FIT/ DNA Q 3 YEARS (AUTO ORDER) 1984 FIT/FOBT Q 1 YEAR (AUTO ORDER) 1984 FLEX SIG/CT COLONOGRAPHY Q 5 YEARS (AUTO ORDER) 1984 HEPATITIS B VACCINES (1 of 3 - 19+ 3-dose series) 1985 Traditional Medicare (ACO) Annual Wellness Visit 1985 DTAP/TDAP/TD VACCINES (1 - Tdap) 06/28/2008 06/27/2008 COLORECTAL CANCER SCREENING (AUTO ORDER) 2011 COLORECTAL SCREENING 2011 Colorectal Cancer Screening (AUTO ORDER) 2011 FIT-DNA Q 3 years 2011 FIT/FOBT Q 1 year 2011 Flex Sig/CT Colonography Q 5 years 2011 ZOSTER VACCINE (1 of 2) 2016 Medicare Advantage ([place]) Preventative Visit/Annual Wellness Visit 10/23/2024 INFLUENZA VACCINE (#1) 2025 , 08/04/2021, 09/08/2020 COVID-19 Vaccine (4 - 2024-2 6 season) 2025 10/11/2021, 08/11/2021, 03/02/2021 Colorectal Cancer Screening 08/13/2025 Postponed from 2011 (Patient Refused) Pre-Diabetes and Diabetes Screening 11/27/2027 11/27/2024, 08/13/2024 Procedures Procedure Name Priority Date/Time Associated Diagnosis Comments HEMOGLOBIN A1C Routine 11/27/2024 8:33 AM HALF SOLE FITTER High glucose from Last 3 Months or Most Recently Relevant to Health Maintenance Results * (ABNORMAL) HEMOGLOBIN A1C (11/27/2024 8:33 AM HALF SOLE FITTER) HEMOGLOBIN A1C 6.0(H) <5.7 % of total [...] ESTIMATED AVERAGE GLUCOSE (MG/DL) 126 mg/dL [facility] ESTIMATED AVERAGE GLUCOSE (MMOL/L) 7.0 mmol/L [facility] Comment: FASTING:NO FASTING: NO Test Performed at: [facility] [id number] [phone] Stephanie Johnson MD Blood 11/27/2024 8:33 AM HALF SOLE FITTER 11/27/2024 8:34 AM HALF SOLE FITTER Lalita Armstrong POLE SETTER CHEMISTRY ORDERABLES Deja l Result [facility] [phone] [facility] [id number] [phone] from Last 3 Months or Most Recently Relevant to Health Maintenance Insurance MEDICAID [place] [facility] [id number] MEDICAID [place] Advance Directives For more information, please contact: [phone] * Full Code (Latest Code Status on File) Date Activated Date Inactivated Comments 07/24/2024 10:41 AM 07/26/2024 6:10 PM * Full Code Date Activated Date Inactivated Comments 08/03/2012 2:34 PM 08/05/2012 4:14 PM Care Teams Tearoom Host/Hostess Relationship Specialty Start Date End Date Josse Harvey MD [address] [place] [phone] PCP - General Family Practice 02/13/24
--- OUTSIDE RECORDS SUMMARY | 2025-07-02 12:19 | XMS_ITS | Encounter Summary ---
Author Organization [facility] Address [address] [place] [address] Care Team Providers Care Recruitment Internship Name Role Phone Josse Harvey MD Primary Care Provider [phone] Reason for Visit * Reason Onset Date Comments Medication Authorization 06/27/2025 Encounter Details Date Type Department Care Team (Late st Contact Info) Description 06/27/2025 Medication Prior Auth Encounter [facility] Prescription Management Dept [address] [place] [address] Leonela Nathan, PHARMACIST Social History Tobacco Use Types Packs/Day Years [...] on file 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 Medications used for weight loss are not covered under health plan's pharmacy coverage. documented in this encounter Plan of Treatment Upcoming Encounters Date Type Department Care Team (Late st Contact Info) Description 07/17/2025 2:20 PM CDT Office Visit [facility] Cancer and Hematology [place] [address] [facility] [address] [place] [phone] Gloria Scott MD [address] [place] [phone] documented as of this encounter Visit Diagnoses Not on filedocumented in this encounter Care Teams Recruitment Internship Relationship Specialty Start Date End Date Josse Harvey MD [address] [place] [phone] PCP - General Family Practice 02/13/24 documented as of this encounter
--- OUTSIDE RECORDS SUMMARY | 2025-07-02 12:19 | XMS_ITS | Encounter Summary ---
Author Organization [facility] Address 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 Gender Identity Not on file Sexual Orientation Not on file documented as of this encounter Miscellaneous Notes * Telephone Encounter - Vianey Mendoaz LPN - 06/19/2025 4:14 PM CDT Lara: [id number] documented in this encounter Plan of Treatment Upcoming Encounters Date Type Department Care Team (Late st Contact Info) Description 07/17/2025 2:20 PM CDT Office Visit [facility] Cancer and Hematology [address] [place] [address] [place] [phone] Gloria Scott MD [address] [place] [address] documented as of this encounter Visit Diagnoses Not on filedocumented in this encounter Care Teams Teletypewriter Operator Relationship Specialty Start Date End Date Josse Harvey MD [address] [place] [phone] PCP - General Family Practice 02/13/24 documented as of this encounter
--- OUTSIDE RECORDS SUMMARY | 2025-07-02 12:19 | XMS_ITS | Encounter Summary ---
Author Organization [facility] Address 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 Gender Identity Not on file Sexual Orientation Not on file documented as of this encounter Plan of Treatment Upcoming Encounters Date Type Department Care Team (Late Contact Info) Description 07/17/2025 2:20 PM CDT Office Visit [facility] Cancer and Hematology [address] [place] [phone] Gloria Scott MD [address] [place] [address] documented as of this encounter Visit Diagnoses Not on filedocumented in this encounter Care Teams Director Meetings Relationship Specialty Start Date End Date Josse Harvey MD [address] [phone] PCP - General Family Practice 02/13/24 documented as of this encounter
--- NOTE | 2025-07-02 12:22 | ED_ITS ---
HPI - Alcohol 2 General: Chief Complaint: Alcohol Stated Complaint: etoh History of Present Illness: 60-year-old man with history of schizoph larissa, alcohol abuse, atrial fibrillation with chronic anticoagulation on Eliquis, pulmonary embolism, COPD and tobacco dependence who presents emergency room by ambulance with complaint of alcohol abuse. Reportedly has home health worker called the ambulance to have him brought to the emergency room so he can get help for alcohol abuse. He also tells me he is hearing voices and he has schizophrenia but he has no homicidal or suicidal ideation. He also reports some chest pain. He had not reported this previously. Related Data Home Medications ?Medication ?Instructions ?Recorded ?Confirmed baclofen 5 mg tablet 5 mg PO BID 10/15/24 5 citalopram 20 mg tablet 20 mg PO DAILY 10/15/2402/21 mirtazapine 30 mg tablet 30 mg PO BEDTIME 10/15/24 sumatriptan succinate 25 mg tablet See Rx Instructions .Route 10/15/24 03/14/25 .COMPLEX PRN Migraine Headache magnesium oxide 400 mg (241.3 mg 400 mg PO DAILY 11/1603/14/25 magnesium) tablet vitamin B complex 1 tab PO DAILY 01/02/2502/21 Previous Rx's ?Medication ?Instructions ?Recorded apixaban 5 mg tablet (Eliquis) 5 mg PO BID 30 days #60 tabs 07/12/24 bumetanide 1 mg tablet 1 mg PO 0900,2100 30 days #6 0 tabs 07/12/24 potassium chloride 20 mEq 20 meq PO DAILY 30 days #30 tabs 07/12/24 tablet,extended release(part/cryst) thiamine mononitrate (vit B1) 100 100 mg PO DAILY #30 tabs 11/19/24 mg tablet (Vitamin B-1 (mononitrate)) acetaminophen 500 mg tablet 650 mg (1.3 x 500 mg) PO Q 6H PRN 03/17/25 Pain, Moderate 30 days #0 tabs albuterol sulfate 90 mcg/actuation 1 inh inhalation Q6 H PRN shortness 03/17/25 aerosol inhaler (Ventolin HFA) of breath or wheezing # 6.7 grams chlordiazepoxide HCl 25 mg capsule 25 mg PO Q8H alcoho l withdrawa #14 03/17/25 caps nicotine 14 mg/24 hr daily 1 patch transdermal DAILY # 14 ea 03/17/25 transdermal patch ondansetron 4 mg disintegrating 4 mg PO Q6H PRN nausea and 04/28/25 tablet vomiting #14 tabs Allergies Allergy/AdvReac Type Severity Reaction Status Date / Time No Known Allergies Allergy Verified 01/02/25 07:59 Review of Systems 2 Narrative: Constitutional symptoms: Negative except as documented in HPI. Skin symptoms: Negative except as documented in HPI. Eye symptoms: Negative except as documented in HPI. ENMT symptoms: Negative except as documented in HPI. Respiratory symptoms: Negative except as documented in HPI. Cardiovascular symptoms: Negative except as documented in HPI. Gastrointestinal symptoms: Negative except as documented in HPI. Genitourinary symptoms: Negative except as documented in HPI. Musculoskeletal symptoms: Negative except as documented in HPI. Neurologic symptoms: Negative except as documented in HPI. Psychiatric symptoms: Negative except as documented in HPI. Endocrine symptoms: Negative except as documented in HPI. PFSH ED 2 PFSH: Medical History (Updated 07/02/25 @ 13:38 by Gricel Verdugo MD) Psychiatric care Atrial fibrillation with rapid ventricular response COPD (chronic obstructive pulmonary disease) Schizophrenia Alcohol abuse Hx of pulmonary embolus Pulmonary embolism Cigarette smoker D-dimer, elevated Surgical History History of splenectomy Family History (Updated 01/02/25 @ 10:45 by Ofelia Lopez RN) Other Cancer Lung disease Social History (Updated 03/13/25 @ 19:18 by Cruz Medina MD) Smoking and tobacco/nicotine status: current every day tobacco/nicotine user cigarettes Packs smoked per day: 1 Years cigarettes smoked: 20 Quit status (tobacco/nicotine): considering quitting Second hand smoke exposure: Yes Alcohol intake: current Alcohol type: hard liquor Substance/Drug Use: never Additional social history: Lives with his he wants full CODE STATUS as discussed 03/13/25 Adopted: No Caregiver/support person: No Lives independently: Yes Household members: significant other Housing: Other Details: hotel Marital status: Life Partner Number of children: 0 Highest education level completed: High School Graduate service: Yes 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 branch: [employer] branch details: [employer] Assignments: Outside [facility] [employer] ([facility]) Known or Potential Exposure: None Current occupational status: disabled Current occupation: functionally disabled Pets and animals: Yes Pets & animals: dog(s) Leisure activites: fishing Sexually active: Yes Do you think of yourself as: Straight/Heterosexual Current gender identity: Male Renetta/Lutheran: Druze Special renetta needs: No Agree to transfusion: Yes Physical Exam 2 Narrative: EXAM NARRATIVE: General: Alert, no acute distress. Skin: Warm, dry. Head: Normocephalic, atraumatic. Neck: Supple, trachea midline. Eye: Extraocular movements are intact. Ears, nose, mouth and throat: mucosa moist. Cardiovascular: Regular, Normal peripheral perfusion. Respiratory: Lungs are clear to auscultation, respirations are non-labored, breath sounds are equal, Symmetrical chest wall expansion. Gastrointestinal: Soft, Nontender, Non distended Musculoskeletal: Normal ROM, no deformity. Neurological: Alert and oriented, No focal neurological deficit observed. Psychiatric: Cooperative, patient does appear like he might be a little intoxicated. He reports having hallucinations but denies any homicidal or suicidal thoughts. Course 2 Vital Signs: Vital signs: Vital Signs Temperature 98.1 F 07/02/25 12:18 Pulse Rate 80 07/02/25 13:00 Respiratory Rate 18 07/02/25 12:18 Blood Pressure 133/87 07/02/25 13:00 Pulse Oximetry 91 07/02/25 13:00 Oxygen Delivery Me thod Room Air 07/02/25 13:00 MDM - Alcohol Medical Decision Making Differential diagnosis for patient with chest pain includes but is not limited to and based on the above HPI, review of systems and physical exam: Pneumonia. unstable angina. angina. Acute coronary syndrome / LA. Pulmonary embolism. Costochondritis / musculoskeletal. Pleurisy. Pericarditis. Esophageal spasm. Pancreatis. Cholecystitis. Orders placed to evaluate differential diagnosis based on the above differential, HPI and physical exam. Also going to get alcohol level and basic toxic screens. EKG: Time 1210. Rate 82. Normal sinus rhythm, No ST-T changes, no ectopy, normal IA & QRS intervals, This was reviewed and interpreted by myself the ER physician at 12:15 Chest x-ray: No acute process. No infiltrate. No pneumothorax. This was reviewed and interpreted by myself the emergency room physician. I also reviewed the radiology report. Lab Review: Laboratory results were reviewed and interpreted by myself the emergency room physician. No leukocytosis. No anemia. No renal failure. No urinary tract infection troponin is negative. Blood alcohol level is 259. This actually lower than its been numerous times in the past. I reviewed the patient's medical record. 60-year-old man with history of schizophrenia, alcohol abuse, atrial fibrillation with chronic anticoagulation on Eliquis, pulmonary embolism, COPD and tobacco dependence. Patient was admitted to the [facility] just about a year ago for similar type symptoms. Reexamination: On return to the room patient sitting up in bed. He is asking for something to eat and drink. He says he does want to come in to try to stop his alcohol use still. No increased work of breathing. No altered mental status. No further chest pain. Consultation: I spoke with Dr. Alicea who is on-call for psychiatry who agrees to admission. Assessment and plan: Alcohol intoxication Alcohol abuse Hallucinations Schizophrenia Noncardiac chest pain -I discussed the patient with the psychiatrist on-call who is admitting the patient. - Discussed findings and plan with patient. Answered any questions. - All laboratory values were reviewed and interpreted personally by myself, the ER physician - All imaging was reviewed and interpreted personally by myself, the ER physician. - Evaluation and treatment of this problem were appropriate in the emergency setting Lab Data 07/02/25 12:31 07/02/25 12:31 Radiology Impressions Chest X-Ray 07/02/25 12:10 Impression: Negative chest. Laboratory Results WBC 11.32 10^3/uL (3.29-11.43) 07/02/25 12:31 RBC 4.48 10^6/uL (3.85-5.65) 07/02/25 12:31 Hgb 13.80 g/dL (11.27-16.99) 07/02/25 12:31 Hct 40.7 % (37-53) 07/02/25 12:31 MCV 90.8 fl (82-101) 07/02/25 12:31 MCH 30.8 pg (27-33) 07/02/25 12:31 MCHC 33.9 g/dL (30-55) 07/02/25 12:31 RDW 14.6 % (12.1-15.1) 07/02/25 12:31 Plt Count 351 10^3/cmm (157-399) 07/02/25 12:31 MPV 8.3 fL (7.4-10.4) 07/02/25 12:31 Neut % (Auto) 51.1 % 07/02/25 12: Lymph % (Auto) 38.7 % 07/02/25 12:31 [place] % (Auto) 8.0 % 07/02/25 12: Eos % (Auto) 0.9 % 07/02/25 12: Baso % (Auto) 1.0 % 07/02/25 12: Neut # (Auto) 5.80 10^3/uL (1.8-7.7) 07/02/25 12: Lymph # (Auto) 4.4 10^3/uL (0.8-4.8) 07/02/25 12: [place] # (Auto) 0.9 10^3/uL (0.2-0.9) 07/02/25 12: Eos # (Auto) 0.1 10^3/uL (0.0-0.8) 07/02/25 12: Baso # (Auto) 0.1 10^3/uL (0.0-0.1) 07/02/25 12: Nucleated RBC % (auto) 0 % 07/02/25 12: Nucleated RBCs # 0.0 /100WBC 07/02/25 12:31 Sodium 141 mmol/L (136-145) 07/02/25 12:31 Potassium 4.0 mmol/L (3.5-5.1) 07/02/25 12: Chloride 104 mmol/L (98-107) 07/02/25 12:31 Carbon Dioxide 23 mmol/L (22-29) 07/02/25 12:31 Anion Gap 18.0 (5-19) 07/02/25 12:31 BUN 7 mg/dL (6-20) 07/02/25 12:31 Creatinine 0.5 mg/dL (0.7-1.2) L 07/02/25 12:31 GFR Calculation 170.2 mL/min (90-130) H 07/02/25 12:31 Glucose 102 mg/dL (65-115) 07/02/25 12:31 Calculated Osmolality 290 mOsm/kg (285-295) 07/02/25 12:31 Calcium 8.2 mg/dL (8.5-10.5) L 07/02/25 12:31 Total Bilirubin 0.4 mg/dL (0.15-1.2) 07/02/25 12: AST 37 U/L (0-40) 07/02/25 12: ALT 24 U/L (0-41) 07/02/25 12: Alkaline Phosphatase 114 U/L (40-130) 07/02/25 12: Troponin T Baseline 10 ng/L (0-15) 07/02/25 12: Total Protein 6.4 g/dL (6.6-8.7) L 07/02/25 12: Albumin 4.0 g/dL (3.5-5.2) 07/02/25 12: Globulin 2.4 g/dL (1.3-4.6) 07/02/25 12: TSH 0.69 uIU/mL (0.27-4.20) 07/02/25 12: Urine Color [place] (Yellow) A 07/02/25 12:35 Urine Appearance Cloudy (CLEAR) A 07/02/25 12:35 Urine pH 6.5 (5-7) 07/02/25 12:35 Ur Specific [place] 1.022 (1.005-1.030) 07/02/25 12:35 Urine Protein 1+ (Negative) A 07/02/25 12:35 Urine Glucose (UA) Negative (Normal) 07/02/25 12:35 Urine Ketones Trace (Negative) 07/02/25 12:35 Urine Blood Negative (Negative) 07/02/25 12:35 Urine Nitrate Negative (Negative) 07/02/25 12:35 Urine Bilirubin Negative (Negative) 07/02/25 12:35 Urine Urobilinogen 1.0 mg/dL (Negative) 07/02/25 12:35 Ur Leukocyte Esterase Negative (Negative) 07/02/25 12:35 Urine RBC 0-2 /hpf (0-2) 07/02/25 12:35 Urine WBC 0-5 /hpf (0-5) 07/02/25 12:35 Ur Squamous Epith Cells 0-5 /hpf (0-5) 07/02/25 12:35 Amorphous Sediment Not Reportable 07/02/25 12:35 Urine Bacteria None seen /hpf (NONE) 07/02/25 12:35 Hyaline Casts 1.21 /lpf 07/02/25 12:35 Salicylates < 0.3 mg/dL (3-10) L 07/02/25 12:31 Urine Opiates Screen Negative ng/mL (Negative) 07/02/25 12:35 Acetaminophen < 5.0 ug/mL (10-30) L 07/02/25 12:31 Ur Barbiturates Screen Negative ng/mL (Negative) 07/02/25 12:35 Ur Phencyclidine Scrn Negative ng/mL (Negative) 07/02/25 12:35 Ur Amphetamines Screen Negative ng/mL (Negative) 07/02/25 12:35 U Benzodiazepines Scrn Negative ng/mL (Negative) 07/02/25 12:35 Urine Cocaine Screen Negative ng/mL (Negative) 07/02/25 12:35 U Marijuana (THC) Screen Positive ng/mL (Negative) H 07/02/25 12:35 Ethyl Alcohol 259 mg/dL (0-10) H 07/02/25 12:31 All radiology interpretation(s) finalized by discharge Discharge Plan Discharge Patient Disposition: Admitted As Inpatient Clinical Impression: Alcohol intoxication, Alcohol abuse, Schizophrenia, Hallucinations, Non-cardiac chest pain Condition: Stable Coding Level 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
[2025-07-02 12:40] LABS: Hematocrit 40.7 % (37-53); Hemoglobin 13.80 g/dL (11.27-16.99); Mean Corpuscular HGB Conc 33.9 g/dL (30-55); Mean Corpuscular Hemoglobin 30.8 pg (27-33); Mean Corpuscular Volume 90.8 fl (82-101); Nucleated Red Blood Cells % 0 %; Platelet Count 351 10^3/cmm (157-399); Red Blood Count 4.48 10^6/uL (3.85-5.65); White Blood Count 11.32 10^3/uL (3.29-11.43)
[2025-07-02 12:53] LABS: Troponin(5th) Baseline 10 ng/L (0-15)
[2025-07-02 12:59] LABS: Glucose Urine UA Negative (Normal); Nitrate Urine Negative (Negative); Specific Gravity, Urine 1.022 (1.005-1.030)
[2025-07-02 13:00] VITALS: BP 133/87; PULSE 80; O2SAT 91
[2025-07-02 13:02] LABS: Add Urine Microscopic? YES
[2025-07-02 13:06] LABS: PCP Screen Urine Negative (Negative)
[2025-07-02 13:10] LABS: Alanine Aminotransferase 24 U/L (0-41); Albumin Level 4.0 g/dL (3.5-5.2); Alcohol Level 259 mg/dL (0-10); Alkaline Phosphatase 114 U/L (40-130); Anion Gap 18.0 (5-19); Aspartate Amino Transferase 37 U/L (0-40); Blood Urea Nitrogen 7 mg/dL (6-20); Calcium 8.2 mg/dL (8.5-10.5); Carbon Dioxide 23 mmol/L (22-29); Chloride 104 mmol/L (98-107); Creatinine Clr Calc Pharmacy 202.5630; Globulin 2.4 g/dL (1.3-4.6); Glucose 102 mg/dL (65-115); Osmolality Calculated 290 mOsm/kg (285-295); Potassium 4.0 mmol/L (3.5-5.1); Sodium 141 mmol/L (136-145); Thyroid Stimulating Hormone 0.69 uIU/mL (0.27-4.20); Total Protein 6.4 g/dL (6.6-8.7)
[2025-07-02 13:11] LABS: Acetaminophen < 5.0 ug/mL (10-30); Salicylate < 0.3 mg/dL (3-10)
[2025-07-02 14:00] VITALS: BP 134/87; BP 156/95; PULSE 78; PULSE 83; RESP 16; TEMP 36.3; O2SAT 95; O2SAT 97
--- NOTE | 2025-07-02 14:38 | PC.NURSE ---
This nurse assessed pt for CIWA and he scored a 7. His blood pressure on admission was 156/95 and he is having Severe dizziness and CHAVARRIA. He overall feels very unwell. Since he didn't score on CIWA to receive medications per protocol I call Dr. Alicea and he approved a one time order for Ativan 2mg po to be given now. Order placed and pharmacy approved.
--- NOTE | 2025-07-02 15:35 | PC.ADMIT ---
[facility] Admission Note:Pt was brought to the ED with chest pains and was found to have a BAL of 259. Pt states that his last drink was at 0200 today. He was also found to be positive for THC. He had stated that he was hearing voices. He is wanting to detox from alcohol and voluntarily admitted himself into the psych unit. Pt states that he has a hx of alcohol detox with seizures. He states joaquin the is very scared to detox again, but knows that he needs to. He has htn and his BP was elevated on admission. He has a hx of PE and does take a blood thinner. 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 He endorses having schizophrenia and depression. He takes 2 benadryl to sleep at night, he states that they work better than Remeron. Pt states that he had been sober for 6 years and he relapsed in February and has been drinking heavily ever since. He had the chest pains this morning and it scared him and prompted him to come to the ED and then get sober again. Pt is calm and cooperative on assessment, but gets very dizzy. The patient,Mor Ohara,60 y/o, was given written information regarding hospital policies, unit procedures and contact persons. Patient's smoking status: current every day smoker. Vital Signs - 8 hr 07/02/25 12:18 07/02/25 13:00 07/02/25 14:00 Temperature 98.1 F Pulse Rate 160 H 80 83 Respiratory Rate 18 Blood Pressure 124/67 133/87 134/87 Pulse Oximetry 99 91 95 Oxygen Delivery Method Room Air Room Air 07/02/25 14:00 07/02/25 14:02 Temperature 97.4 F L Pulse Rate 78 Respiratory Rate 16 Blood Pressure 156/95 Pulse Oximetry 97 Oxygen Delivery Method Room Air Room Air
[2025-07-02] MEDS: thiamine 100 mg/mL 2mL SDV IM (15:50)
[2025-07-02 21:10] VITALS: BP 110/62; PULSE 98; RESP 24; TEMP 36.7; O2SAT 92
[2025-07-03 01:59] VITALS: BP 132/77; PULSE 73; RESP 24; TEMP 36.6; O2SAT 93
[2025-07-03 04:00] VITALS: BP 139/72; PULSE 70; RESP 22; TEMP 36.8; O2SAT 93
[2025-07-03 07:10] VITALS: BP 123/70; PULSE 64; RESP 16; TEMP 36.4; O2SAT 93
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
[2025-07-03] MEDS: PRENATAL VIT NO.130/IRON/FOLIC 1 EACH TABLET PO (10:05)
[2025-07-03] MEDS: multivitamin therapeutic Tablet 1 TAB PO (10:05)
[2025-07-03 12:00] VITALS: BP 118/61; PULSE 81; RESP 16; TEMP 36.8; O2SAT 92
[2025-07-03 15:59] VITALS: BP 133/71; PULSE 86; RESP 17; TEMP 36.8; O2SAT 94
[2025-07-03 20:00] VITALS: BP 131/89; PULSE 100; RESP 19; TEMP 36.7; O2SAT 95
[2025-07-04 00:15] VITALS: BP 133/74; PULSE 65; RESP 18; O2SAT 92
[2025-07-04 04:00] VITALS: RESP 17
--- NOTE | 2025-07-04 06:30 | PC.NURSE ---
pt came to nurses station complaining of back pain, and nausea notified nurse, vs were T 98.1, P 89, R19, 152/97 BP, 93 o2
[2025-07-04 08:00] VITALS: BP 115/63; PULSE 78; RESP 17; O2SAT 93
[2025-07-04] MEDS: PRENATAL VIT NO.130/IRON/FOLIC 1 EACH TABLET PO (08:46)
[2025-07-04] MEDS: multivitamin therapeutic Tablet 1 TAB PO (08:46)
[2025-07-04 12:00] VITALS: BP 128/71; PULSE 74; RESP 17; TEMP 36.5; O2SAT 93
[2025-07-04 16:00] VITALS: BP 123/75; PULSE 87; RESP 17; TEMP 36.4; O2SAT 96
--- NOTE | 2025-07-04 19:11 | W.PM.NPUPNS ---
Subjective NPU Subjective: Patient presented today reporting that things are going fine. He reports he feels better than the others but is glad he came to the hospital. He reports that he still lives on his own and that sometimes isolation is problematic. He reports talking to the treatment team about possible options for follow-up. He denied any side effects to his medication. Mental Status Exam MSE Comments: This is an obese versus morbidly obese white male in hospital scrubs with poor grooming and limited eye contact. No abnormal movements except for psychomotor retardation. He was mostly cooperative with exam in mild distress. Speech was slightly decreased rate and volume. Mood described as okay, affect less subdued. Thought process linear. Thought content: Patient did not report suicidal or homicidal ideation, there were no delusions reported or noted, he did not report auditory or visual hallucinations. Attention and concentration were intact and memory was mostly reliable but none were formally tested. He was alert and oriented to person and place. Insight and judgment limited and impulse control is impaired. Vitals/I&O/Wt Last Vital Signs Temp 97.6 F 07/04/25 20:00 Pulse 87 07/04/25 20:00 Resp 18 07/04/25 20:00 BP 143/81 07/04/25 20:00 Pulse Ox 95 07/04/25 20:00 O2 Del Method Room Air 07/04/25 20:00 Data NPU 07/02/25 12:31 07/02/25 12:31 A&P Assessment and plan 1. Schizophrenia: 2. Suicidal ideation: 3. Alcohol abuse: 4. History of command hallucinations: Plan: This is a 60-year-old white male with significant addiction history with past hospitalizations here with diagnoses noted of schizophrenia and alcohol use disorder who presents again intoxicated, and withdrawal and off of his medication. He reports a desire to get back into treatment get things back on track given that his use has gotten out of control. 1. Continue current medication. 2. Encourage individual, group and milieu therapies. 3. Encourage sober living treatment after discharge at the highest level care to which he is willing to commit. 4. Continue CIWA protocol. 5. Obtain collateral information. PDMP PDMP Reviewed: Not Reviewed Involuntary Hold Information Hold Status: Date/Time Hold Expires: Voluntary 96 Hour Hold: 96 Hour Involuntary Admission: Yes Attestations NPU Medical Necessity Statement*: Inpatient hospitalization is medically necessary and?the clinically appropriate intervention at this time.? We will monitor/initiate medications and make changes as indicated.? Likely length of stay 6-8 days. Coding Level of Care Code Acute Code for [facility] Fwd Diagnoses Schizophrenia F20.9 Suicidal ideation R45.851 Alcohol abuse F10.10 History of command hallucinations Z86.59
[2025-07-04 20:00] VITALS: BP 143/81; PULSE 87; RESP 18; TEMP 36.4; O2SAT 95
--- NOTE | 2025-07-05 00:48 | PC.NURSE ---
vs not completed per charge nurse resp 17
[2025-07-05 04:00] VITALS: BP 129/71; PULSE 58; RESP 17; O2SAT 94
[2025-07-05 08:00] VITALS: BP 113/58; PULSE 70; RESP 17; O2SAT 94
[2025-07-05] MEDS: PRENATAL VIT NO.130/IRON/FOLIC 1 EACH TABLET PO (08:46)
[2025-07-05] MEDS: multivitamin therapeutic Tablet 1 TAB PO (08:46)
[2025-07-05 11:52] VITALS: BP 128/72; PULSE 75; RESP 18; TEMP 36.4; O2SAT 92
[2025-07-05 15:25] VITALS: BP 120/74; PULSE 83; RESP 18; TEMP 36.8; O2SAT 94
--- NOTE | 2025-07-05 20:56 | P.NPUPN_ITS ---
Subjective NPU 2 Subjective: Patient presented today reporting that he is having slow and steady improvement. He reports being glad he came to the hospital and knowing he needed to do this earlier. He endorses continued commitment to doing things that are necessary for the management of his recovery. He denied any side effects of medication. Mental Status Exam 2 MSE Comments: This is an obese versus morbidly obese white male in hospital scrubs with poor grooming and limited eye contact. No abnormal movements except for psychomotor retardation. He was mostly cooperative with exam in mild distress. Speech was slightly decreased rate and volume. Mood described as okay, affect less subdued. Thought process linear. Thought content: Patient did not report suicidal or homicidal ideation, there were no delusions reported or noted, he did not report auditory or visual hallucinations. Attention and concentration were intact and memory was mostly reliable but none were formally tested. He was alert and oriented to person and place. Insight and judgment limited and impulse control is impaired. Vitals/I&O/Wt Last Vital Signs Temp 98.3 F 07/05/25 15:25 Pulse 83 07/05/25 15:25 Resp 18 07/05/25 15:25 BP 120/74 07/05/25 15:25 Pulse Ox 94 07/05/25 15:25 O2 Del Method Room Air 07/05/25 04:00 Data NPU 07/02/25 12:31 07/02/25 12:31 A&P Assessment and plan 1. Schizophrenia: 2. Suicidal ideation: 3. Alcohol abuse: 4. History of command hallucinations: Plan: This is a 60-year-old white male with significant addiction history with past hospitalizations here with diagnoses noted of schizophrenia and alcohol use disorder who presents again intoxicated, and withdrawal and off of his medication. He reports a desire to get back into treatment get things back on track given that his use has gotten out of control. 1. Continue current medication. 2. Encourage individual, group and milieu therapies. 3. Encourage sober living treatment after discharge at the highest level care to which he is willing to commit. 4. Continue CIWA protocol. 5. Obtain collateral information. PDMP PDMP Reviewed: Not Reviewed Involuntary Hold Information 2 Hold Status: Date/Time Hold Expires: Voluntary 96 Hour Hold: 96 Hour Involuntary Admission: Yes Attestations NPU 2 Medical Necessity Statement*: Inpatient hospitalization is medically necessary and?the clinically appropriate intervention at this time.? We will monitor/initiate medications and make changes as indicated.? Likely length of stay 5-7 days. Coding Level of Care Code Acute Code for [facility] Fwd Diagnoses Schizophrenia F20.9 Suicidal ideation R45.851 Alcohol abuse F10.10 History of command hallucinations Z86.59
[2025-07-05 22:00] VITALS: BP 133/87; PULSE 82; RESP 18; TEMP 36.8; O2SAT 95
[2025-07-06 06:00] VITALS: BP 138/84; PULSE 73; RESP 18; TEMP 36.3; O2SAT 96; BMI 41.8
[2025-07-06] MEDS: multivitamin therapeutic Tablet 1 TAB PO (09:41)
[2025-07-06] MEDS: PRENATAL VIT NO.130/IRON/FOLIC 1 EACH TABLET PO (09:41)
[2025-07-06 13:17] VITALS: BP 143/81; PULSE 72; RESP 14; TEMP 36.8; O2SAT 94
--- NOTE | 2025-07-06 19:39 | P.NPUPN_ITS ---
Subjective NPU 2 Subjective: Patient presented today reporting that things are going much better. 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 He reports that he thought he could do it on his own but he now knows he needs to do some additional treatment to be able to get things to a better place. He denied any side effects to his medication. Mental Status Exam 2 MSE Comments: This is an obese versus morbidly obese white male in hospital scrubs with poor grooming and limited eye contact. No abnormal movements except for psychomotor retardation. He was mostly cooperative with exam in mild distress. Speech was slightly decreased rate and volume. Mood described as feeling better, affect less subdued. Thought process linear. Thought content: Patient did not report suicidal or homicidal ideation, there were no delusions reported or noted, he did not report auditory or visual hallucinations. Attention and concentration were intact and memory was mostly reliable but none were formally tested. He was alert and oriented to person and place. Insight and judgment limited and impulse control is impaired. Vitals/I&O/Wt Last Vital Signs Temp 98.9 F 07/06/25 20:23 Pulse 77 07/06/25 20:23 Resp 18 07/06/25 20:23 BP 129/80 07/06/25 20:23 Pulse Ox 95 07/06/25 20:23 O2 Del Method Room Air 07/06/25 20:23 Weight last 48 hrs Weight 124.851 kg Data NPU 07/02/25 12:31 07/02/25 12:31 A&P Assessment and plan 1. Schizophrenia: 2. Suicidal ideation: 3. Alcohol abuse: 4. History of command hallucinations: Plan: This is a 60-year-old white male with significant addiction history with past hospitalizations here with diagnoses noted of schizophrenia and alcohol use disorder who presents again intoxicated, and withdrawal and off of his medication. He reports a desire to get back into treatment get things back on track given that his use has gotten out of control. 1. Continue current medication. 2. Encourage individual, group and milieu therapies. 3. Encourage sober living treatment after discharge at the highest level care to which he is willing to commit. 4. Continue CICT protocol. 5. Obtain collateral information. PDMP PDMP Reviewed: Not Reviewed Involuntary Hold Information 2 Hold Status: Date/Time Hold Expires: Voluntary 96 Hour Hold: 96 Hour Involuntary Admission: Yes Attestations NPU 2 Medical Necessity Statement*: Inpatient hospitalization is medically necessary and?the clinically appropriate intervention at this time.? We will monitor/initiate medications and make changes as indicated.? Likely length of stay 1-4 days. Coding Level of Care Code Acute Code for [facility] Fwd Diagnoses Schizophrenia F20.9 Suicidal ideation R45.851 Alcohol abuse F10.10 History of command hallucinations Z86.59
[2025-07-06 20:23] VITALS: BP 129/80; PULSE 77; RESP 18; TEMP 37.2; O2SAT 95
[2025-07-07 06:00] VITALS: BP 141/82; PULSE 76; RESP 19; TEMP 36.7; O2SAT 94
[2025-07-07] MEDS: multivitamin therapeutic Tablet 1 TAB PO (08:19)
[2025-07-07] MEDS: PRENATAL VIT NO.130/IRON/FOLIC 1 EACH TABLET PO (08:19)
--- NOTE | 2025-07-07 08:53 | NUR.SHIFT ---
Pt states that he slept good last night. He rates his anxiety a 2/10 and no depression. He denies SI/HI or hallucinations. Back pain is an 8/10 and states that the ibu and tylenol aren't really helping at all. Pt has bilateral wheezes on assessment and some coughing. He states that he has imaging that has to be done at [facility] in [place], because he also has spots that were found on his lungs. He is calm and cooperative on assessment.
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
--- NOTE | 2025-07-07 12:16 | DCPLANNER ---
IMM completed on 07/07/2025 @ 1216 and pt was given information on paper.
[2025-07-07 13:49] VITALS: BP 114/74; PULSE 79; RESP 16; TEMP 36.6; O2SAT 98
[2025-07-07 14:37] VITALS: BP 114/74; PULSE 79; RESP 16; TEMP 36.6; O2SAT 98
== END 2025-07-07 15:36 | disposition home or self-care (01) | DRG 897 ==
LOC: ER 13:40 → NP 13:52
PROVIDERS: Admitting Provider Psychiatry & Neurology Psychiatry; Emergency Provider Emergency Medicine; Visit Provider Psychiatry & Neurology Psychiatry
DX: F10.129 Alcohol abuse with intoxication, unspecified (principal); Z68.41 Body mass index [BMI] 40.0-44.9, adult; F12.90 Cannabis use, unspecified, uncomplicated; Y90.8 Blood alcohol level of 240 mg/100 ml or more; F20.9 Schizophrenia, unspecified; I48.91 Unspecified atrial fibrillation; Z79.01 Long term (current) use of anticoagulants; Z86.711 Personal history of pulmonary embolism; J44.9 Chronic obstructive pulmonary disease, unspecified; F17.210 Nicotine dependence, cigarettes, uncomplicated; R07.89 Other chest pain; D50.8 Other iron deficiency anemias; Z90.81 Acquired absence of spleen; Z80.9 Family history of malignant neoplasm, unspecified; Z83.6 Family history of other diseases of the respiratory system; E66.01 Morbid (severe) obesity due to excess calories
CPT/HCPCS: 36415; 71045; 80053; 80306; 80307; 81001; 84443; 84484; 85025; 93005; 96372; 97150; 97165; 99285; J3411; J9999; Q0162